=== PATIENT | female | born 1945 | race Caucasian/White ===

== ENCOUNTER → 2016-11-14 | Outpatient (CLI) | payer OTHER ==
[~2016-11-14] MED LIST: ASMIN INH; ATOR-24 PO; AZIT250T PO; CLON1TAB3 PO; DIPH-416 PO; DXY50 PO; FLUT0.0529 NAE; HYDR12.55 PO; IPRA1AER2 INH; LEVA1.255 INH; NRV/5 PO; OMEP40CA PO; OXGN; PRD10 PO; PRED20TA PO; TRAZ1TAB52 PO; VENL150T33 PO
--- NOTE | 2016-11-14 16:00 | DIAGNOSTIC IMAGING REPORT ---
FLUOROSCOPICALLY GUIDED RIGHT HIP STEROID AND ANESTHETIC INJECTION CLINICAL HISTORY: Right hip pain. Degenerative arthritis. COMPARISON STUDY: Outside conventional radiographic study dated 11/08/2016 FLUOROSCOPY TIME: 12 seconds. NUMBER OF FLUOROSCOPIC IMAGES: 1 FINDINGS: A timeout was performed. The risks of the procedure were explained the patient informed consent was obtained. The patient was prepped and sterile fashion. The skin was anesthetized 1% lidocaine. Under fluoroscopic guidance, 22-gauge spinal needle was introduced the joint capsule right hip. Intra-articular location was documented the IV injection of Optiray 300. 2 cc of betamethasone, 8 cc of 0.5% bupivacaine were instilled into the joint capsule. IMPRESSION: Successful right hip intra-articular injection. 2 cc of betamethasone, and 8 cc of 0.5% lidocaine were instilled into the joint. Electronically signed by: Rodriguez Garcia M.D. 11/14/2016 3:59 PM Dictated Date/Time: 11/14/2016 3:57 PM
== END | disposition home or self-care (01) ==
LOC: C.RADBC 13:44
PROVIDERS: ATTEND Orthopaedic Surgery
DX: M16.11 Unilateral primary osteoarthritis, right hip (principal)

== ENCOUNTER 2017-05-23 02:06 | Emergency (ER) | payer OTHER ==
[~2017-05-23] VITALS: Ht 171.5 cm; Wt 66.0 kg
[2017-05-23 02:10] VITALS: TEMP 36.3; Ht 171.5 cm; Wt 66.0 kg
[2017-05-23] MEDS ORDERED: ASPIRIN 81 MG CHEW PO STA (02:15)
[2017-05-23] MEDS ORDERED: PROMETHAZINE HCL INJ 12.5 MG in SODIUM CHLORIDE 0.9% 50ML 50 ML IV STA (02:33)
[2017-05-23] MEDS ORDERED: FENTANYL CITRATE INJ 50 MCG/1 ML 2 ML VIAL IV STA (02:34)
[2017-05-23] MEDS ORDERED: SODIUM CHLORIDE 0.9% 1000ML 1,000 ML IV STA (02:34)
[2017-05-23] MEDS ORDERED: SODIUM CHLORIDE 0.9% 250ML 250 ML IV STA (02:34)
[2017-05-23 02:44] LABS: BASO % 0.7 %; BASO ABS # 0.05 K/uL (0-0.2); EOS % 1.8 %; EOS ABS # 0.12 K/uL (0-0.5); HEMOGLOBIN 14.4 g/dL (12.0-16.0); IG# 0.01 K/uL (0.00-0.02); LYMPH % 29.1 %; LYMPH ABS # 1.99 K/uL (1.2-3.4); MEAN CELL VOLUME 86.7 fL (80-100); MEAN CORPUSCULAR HEMOGLOBIN 30.4 pg (25-34); MEAN CORPUSCULAR HGB CONC 35.1 g/dl (32-36); MEAN PLATELET VOLUME 10.4 fL (7.4-10.4); MONO ABS # 0.48 K/uL (0.11-0.59); NEUT % 61.3 %; PLATELET COUNT 219 K/uL (130-400); RED CELL DISTRIBUTION WIDTH CV 12.6 % (11.5-14.5); RED CELL DISTRIBUTION WIDTH SD 40.4 fL (36.4-46.3); WHITE BLOOD COUNT 6.85 K/uL (4.8-10.8)
[2017-05-23] MEDS ORDERED: OPTIRAY 320 IV PRN (02:45)
[2017-05-23 02:55] LABS: INR 0.9 (0.9-1.1); PTT PATIENT 20.8 SECONDS (21.0-31.0)
[2017-05-23 03:00] LABS: ALBUMIN 3.7 gm/dl (3.4-5.0); BLOOD UREA NITROGEN 14 mg/dl (7-18); CALCIUM 8.6 mg/dl (8.5-10.1); CARBON DIOXIDE 26 mmol/L (21-32); GLUCOSE 124 mg/dl (70-99); SODIUM 139 mmol/L (136-145)
[2017-05-23 03:03] LABS: ALT/SGPT 18 U/L (12-78); AST/SGOT 8 U/L (15-37); CREATININE 1.12 mg/dl (0.60-1.20)
[2017-05-23 03:06] LABS: ALKALINE PHOSPHATASE 90 U/L (45-117); CKMB 0.9 ng/ml (0.5-3.6); LIPASE 239 U/L (73-393); TOTAL PROTEIN 6.9 gm/dl (6.4-8.2)
--- NOTE | 2017-05-23 03:46 | EMERGENCY ROOM VISIT NOTE ---
History Report prepared by Duane: Barb Lemus Under the Supervision of: Dr. Pamela Thorne M.D. First contact with patient: 02:14 Chief Complaint: CHEST PAIN Stated Complaint: CHEST PAIN History of Present Illness The patient is a 72 year old female who presents to the Emergency Room with complaints of constant chest pain starting 3.5 hours ago. The patient describes it as a pain that radiates to her back and occasionally down her legs. She states that she forced herself to vomit in an attempt to make the pain go away, but reports that it did not work. She states that she started vomiting from the pain naturally on the way here. She currently rates the pain as a 10/10 in severity. The patient denies diarrhea, ever having this before, a cardiac history, and current steroid use. She notes that she had a drug induced stress test done 6-7 years ago. Source of History: patient Onset: 3.5 hours ago Position: chest Symptom Intensity: 10/10 Quality: other (radiating) Timing: constant Associated Symptoms: + vomiting, + back pain, No diarrhea Review of Systems See HPI for pertinent positives & negatives. A total of 10 systems reviewed and were otherwise negative. Past Medical & Surgical Medical Problems: (1) ARF (acute renal failure) (2) Chronic obstructive lung disease (3) COPD (chronic obstructive pulmonary disease) (4) Dyslipidemia (5) Essential hypertension (6) Gastroesophageal reflux disease (7) History of stress test (8) Migraine (9) Pneumonia (10) s/p hammer toe repair (11) s/p tubal ligation Family History Hypertension Social History Smoking Status: Never Smoker Alcohol Use: occasionally Drug Use: none Marital Status: Housing Status: lives with family Occupation Status: unemployed Current/Historical Medications Scheduled Amlodipine Besylate (Amlodipine Besylate), 5 MG PO DAILY Atorvastatin (Lipitor), 40 MG PO DAILY Bupropion Hcl (Bupropion Hcl Er), 300 MG PO DAILY Disulfiram (Disulfiram), 250 MG PO DAILY Hydrochlorothiazide (Hydrochlorothiazide), 12.5 MG PO DAILY Naltrexone HCl (Naltrexone HCl), 50 MG PO DAILY Omeprazole (Prilosec), 40 MG PO BID Trazodone Hcl (Desyrel), 300 MG PO HS Scheduled PRN Clonazepam (Klonopin), 1 MG PO TID PRN for Anxiety Diphenoxylate/Atropine (Lomotil), 2 TAB PO QID PRN for Diarrhea Allergies Coded Allergies: Levofloxacin (Unverified Adverse Reaction, Unknown, 09/20/14 - PATIENT STATES [employer]LTRY ADVISED HER NOT TO SEAN, 05/23/17) Physical Exam Vital Signs Date Time Temp Pulse Resp B/P (MAP) Pulse Ox O2 Delivery O2 Flow Rate FiO2 05/23/17 06:32 60 05/23/17 06:28 73 20 103/66 92 Room Air 05/23/17 05:00 54 16 109/63 95 05/23/17 04:31 60 16 122/68 93 Room Air 05/23/17 03:10 46 16 154/77 96 Room Air 05/23/17 02:24 56 05/23/17 02:22 Room Air 05/23/17 02:10 36.3 59 18 129/73 97 Room Air Physical Exam Vital signs reviewed. General: Well-appearing, holding her chest, anxious, in no significant distress. HEENT: No scleral icterus, PERRLA, neck supple. Atraumatic. Cardiovascular: Regular rate and rhythm, no extra sounds. Pulmonary: Clear to auscultation bilaterally, normal work of breathing. Abdomen: Soft, nontender, nondistended, positive bowel sounds. Musculoskeletal: Atraumatic, no peripheral edema. Neurologic: Patient awake alert and oriented x 3, full strength in all 4 extremities. Cranial nerves 2 through 12 grossly intact. Skin: Warm, dry, no rash Medical Decision & Procedures ER Provider Diagnostic Interpretation: Radiology results as stated below per my review and radiologist interpretation: CHEST X-RAY: The results were interpreted by me. Normal mediastinal silhouette. No focal lung consolidation. No failure. CTA CHEST: There is a noncontrast examination form March 2015 for comparison. No aneurysm or dissection of the aorta. Cardiomegaly. Improved aeration compared to the previous. Suspected atelectasis on current. Distention of the gallbladder with suspected wall thickening. Correlate for cholecystitis. consider ultrasound, as indicated. Left renal cyst. Suspect this is a benign cyst though density is difficult to accurately measure given some artifact on the study. Does measure higher than simple cyst but his could be artifactual. Calcified along with tiny noncalcified lung nodules, liver cyst, thyroid nodules and other nonemergent/incidental findings. Radiologist: Luis Avelar MD Study ready at 03:34 and initial results transmitted at 05:04. GALLBLADDER-ABD LIMITED HISTORY: 72 years-old Female cholecystitis acute epigastric abdominal pain with nausea COMPARISON: CTA of the chest of same day TECHNIQUE: Multiple real-time sonographic images of the abdominal right upper quadrant were obtained assessing grayscale appearance and color flow FINDINGS: Study is limited secondary to obscuring bowel gas. The pancreas appears unremarkable with distal body and tail secured by bowel gas. There is nonspecific mildly increased echogenicity of the liver which is otherwise unremarkable. No intrahepatic biliary ductal dilation or focal hepatic mass lesion identified. The gallbladder is mildly distended with the wall measuring in the upper limits of normal at 2.8 mm. There is trace pericholecystic fluid and layering gallbladder sludge without shadowing cholelithiasis identified. Sonographic Calhoun sign was unable to be obtained secondary to recent pain medication administration to the patient. The common bile duct is upper limits of normal at 7 mm. No obstructing process of the common bile duct identified. The imaged right kidney is unremarkable without hydronephrosis IMPRESSION: 1. Gallbladder sludge with gallbladder distention and pericholecystic fluid is noted in addition to the gallbladder wall measuring in the upper limits of normal. Correlate clinically to exclude acute acalculus cholecystitis. 2. Common bile duct measures in the upper limits of normal at 7 mm. No choledocholithiasis identified on this study. The above report was generated using voice recognition software. It may contain grammatical, syntax or spelling errors. Electronically signed by: Reggie Hwang M.D. 05/23/2017 6:56 AM Dictated Date/Time: 05/23/2017 6:52 AM Laboratory Results 05/23/17 02:34 Red Blood Count 4.73, Mean Corpuscular Volume 86.7, Mean Corpuscular Hemoglobin 30.4, Mean Corpuscular Hemoglobin Concent 35.1, Mean Platelet Volume 10.4, Neutrophils (%) (Auto) 61.3, Lymphocytes (%) (Auto) 29.1, Monocytes (%) (Auto) 7.0, Eosinophils (%) (Auto) 1.8, Basophils (%) (Auto) 0.7, Neutrophils # (Auto) 4.20, Lymphocytes # (Auto) 1.99, Monocytes # (Auto) 0.48, Eosinophils # (Auto) 0.12, Basophils # (Auto) 0.05 05/23/17 02:34 Test 05/23/17 02:34 05/23/17 05:09 White Blood Count 6.85 K/uL (4.8-10.8) Red Blood Count 4.73 M/uL (4.2-5.4) Hemoglobin 14.4 g/dL (12.0-16.0) Hematocrit 41.0 % (37-47) Mean Corpuscular Volume 86.7 fL (80-100) Mean Corpuscular Hemoglobin 30.4 pg (25-34) Mean Corpuscular Hemoglobin Concent 35.1 g/dl (32-36) Platelet Count 219 K/uL (130-400) Mean Platelet Volume 10.4 fL (7.4-10.4) Neutrophils (%) (Auto) 61.3 % Lymphocytes (%) (Auto) 29.1 % Monocytes (%) (Auto) 7.0 % Eosinophils (%) (Auto) 1.8 % Basophils (%) (Auto) 0.7 % Neutrophils # (Auto) 4.20 K/uL (1.4-6.5) Lymphocytes # (Auto) 1.99 K/uL (1.2-3.4) Monocytes # (Auto) 0.48 K/uL (0.11-0.59) Eosinophils # (Auto) 0.12 K/uL (0-0.5) Basophils # (Auto) 0.05 K/uL (0-0.2) RDW Standard Deviation 40.4 fL (36.4-46.3) RDW Coefficient of Variation 12.6 % (11.5-14.5) Immature Granulocyte % (Auto) 0.1 % Immature Granulocyte # (Auto) 0.01 K/uL (0.00-0.02) Prothrombin Time 9.8 SECONDS (9.0-12.0) Prothromb Time International Ratio 0.9 (0.9-1.1) Activated Partial Thromboplast Time 20.8 SECONDS (21.0-31.0) Partial Thromboplastin Ratio 0.8 Anion Gap 9.0 mmol/L (3-11) Est Creatinine Clear Calc Drug Dose 46.3 ml/min Estimated GFR () 57.6 Estimated GFR (Non- 49.7 BUN/Creatinine Ratio 12.5 (10-20) Calcium Level 8.6 mg/dl (8.5-10.1) Total Bilirubin 0.3 mg/dl (0.2-1) Direct Bilirubin < 0.1 mg/dl (0-0.2) Aspartate Amino Transf (AST/SGOT) 8 U/L (15-37) Alanine Aminotransferase (ALT/SGPT) 18 U/L (12-78) Alkaline Phosphatase 90 U/L (45-117) Total Creatine Kinase 60 U/L (26-192) Creatine Kinase MB 0.9 ng/ml (0.5-3.6) Creatine Kinase MB Ratio 1.5 (0-3.0) Total Protein 6.9 gm/dl (6.4-8.2) Albumin 3.7 gm/dl (3.4-5.0) Lipase 239 U/L (73-393) Bedside Troponin I < 0.030 ng/ml (0-0.045) Laboratory results per my review. Medications Administered Medications (Trade) Dose Ordered Sig/Desirae Route Start Time Stop Time Status Last Admin Dose Admin Aspirin (Aspirin Chew) 324 mg NOW STAT PO 05/23/17 02:15 05/23/17 02:18 DC 05/23/17 02:52 324 MG Promethazine HCl 12.5 mg/Sodium Chloride 50.5 ml @ 204 mls/hr NOW STAT IV 05/23/17 02:33 05/23/17 02:47 DC 05/23/17 02:47 204 MLS/HR Fentanyl Citrate (Fentanyl Inj) 50 mcg NOW STAT IV 05/23/17 02:34 05/23/17 02:36 DC 05/23/17 02:47 50 MCG Sodium Chloride 250 ml @ 999 mls/hr Q16M STAT IV 05/23/17 02:34 05/23/17 02:49 DC 05/23/17 02:48 999 MLS/HR Sodium Chloride 1,000 ml @ 125 mls/hr Q8H STAT IV 05/23/17 02:34 05/23/17 10:33 05/23/17 02:56 125 MLS/HR ECG Indication: chest pain Rate (beats per minute): 55 Rhythm: sinus bradycardia Findings: nonspecific-ST abn (Anterior), PVC, no acute ischemic change, other ( poor quality baseline for interpretation, QT-c 497) ED Course 0215: Ordered Aspirin 324 mg PO. 0230: Past medical records reviewed. The patient was evaluated in room B9. A complete history and physical examination was performed. 0233: Ordered Promethazine HCl 12.5 mg/ Sodium Chloride 50.5 ml @ 204 mls/hr IV. 0234: Ordered NSS 1000 ml @ 125 mls/hr IV, NSS 250 ml @ 999 mls/hr IV, Fentanyl Inj 50 mcg IV. 0411: I reevaluated the patient and she is doing well. Medical Decision Differential diagnosis: Acute coronary syndrome, pulmonary embolus, aortic dissection, musculoskeletal pain, pneumonia, pleural effusion, pneumothorax This patient was evaluated and appeared to be in significant discomfort. IV access was obtained and laboratory work was drawn. The patient was vomiting. Patient was hydrated with normal saline solution. She was given IV Zofran for her nausea. She was ordered oral aspirin to chew given her complaints of chest pain. EKG reveals no evidence of acute ST segment elevation. Chest x-ray was performed and reveals no evidence of acute focal lung consolidation or failure. The mediastinum appears to be normal. CT scan for dissection was ordered. This study is also negative. There is concern over an acute cholecystitis. This does seem to be an odd presentation of the patient is complaining of a substernal to left upper chest discomfort however she is nauseated and has vomited. The patient's laboratory work reveals normal white blood cell count. She has normal cardiac enzymes 2. There is no elevation of the liver function studies. Ultrasound of the right upper quadrant confirms findings concerning for an acute cholecystitis. On my reevaluation, the patient is feeling much improved. She was advised of the plan for surgical consultation. She is concerned about caring for her elderly father and will need to make arrangements if possible. 2 g of IV Mefoxin was ordered. Dr. Schwarz's service was consulted. They will evaluate the patient in the emergency department. She is aware of this plan and agrees. Medication Reconcilliation Current Medication List: was personally reviewed by me Blood Pressure Screening Patient's blood pressure: Elevated blood pressure Blood pressure disposition: Elevated BP felt to be situational Impression Primary Impression: Cholecystitis Scribe Attestation The scribe's documentation has been prepared under my direction and personally reviewed by me in its entirety. I confirm that the note above accurately reflects all work, treatment, procedures, and medical decision making performed by me. Departure Information Referrals Williams Mota M.D. (PCP) Patient Instructions My [facility]
[2017-05-23] MEDS ORDERED: DISU1TAB PO (04:13)
[2017-05-23] MEDS ORDERED: NALT50TA16 PO (04:13)
[2017-05-23] MEDS ORDERED: BUPR-267 PO (04:13)
[2017-05-23] MEDS ORDERED: OMEP40CA41 PO (04:14)
--- NOTE | 2017-05-23 06:56 | DIAGNOSTIC IMAGING REPORT ---
CHEST ONE VIEW PORTABLE CLINICAL HISTORY: Chest pain. COMPARISON STUDY: Chest CT March 12, 2015. FINDINGS: Lung volumes are at the lower limits of normal. No pneumothorax or pleural effusion is present. No consolidation to suggest pneumonia. Cardiomediastinal silhouette is stable. There is no evidence for pulmonary edema. IMPRESSION: No acute cardiopulmonary findings. Electronically signed by: Oswald Francis M.D. 05/23/2017 6:55 AM Dictated Date/Time: 05/23/2017 6:54 AM
--- NOTE | 2017-05-23 06:57 | DIAGNOSTIC IMAGING REPORT ---
GALLBLADDER-ABD LIMITED HISTORY: 72 years-old Female cholecystitis acute epigastric abdominal pain with nausea COMPARISON: CTA of the chest of same day TECHNIQUE: Multiple real-time sonographic images of the abdominal right upper quadrant were obtained assessing grayscale appearance and color flow FINDINGS: Study is limited secondary to obscuring bowel gas. The pancreas appears unremarkable with distal body and tail secured by bowel gas. There is nonspecific mildly increased echogenicity of the liver which is otherwise unremarkable. No intrahepatic biliary ductal dilation or focal hepatic mass lesion identified. The gallbladder is mildly distended with the wall measuring in the upper limits of normal at 2.8 mm. There is trace pericholecystic fluid and layering gallbladder sludge without shadowing cholelithiasis identified. Sonographic Calhoun sign was unable to be obtained secondary to recent pain medication administration to the patient. The common bile duct is upper limits of normal at 7 mm. No obstructing process of the common bile duct identified. The imaged right kidney is unremarkable without hydronephrosis IMPRESSION: 1. Gallbladder sludge with gallbladder distention and pericholecystic fluid is noted in addition to the gallbladder wall measuring in the upper limits of normal. Correlate clinically to exclude acute acalculus cholecystitis. 2. Common bile duct measures in the upper limits of normal at 7 mm. No choledocholithiasis identified on this study. The above report was generated using voice recognition software. It may contain grammatical, syntax or spelling errors. Electronically signed by: Reggie Hwang M.D. 05/23/2017 6:56 AM Dictated Date/Time: 05/23/2017 6:52 AM
[2017-05-23] MEDS ORDERED: CEFOXITIN 2000MG/60 ML D5W IV STA (07:23)
[2017-05-23] MEDS ORDERED: CEFOXITIN IV 2,000 MG in DEXTROSE 5% 50ML 50 ML IV SCH (07:23)
--- NOTE | 2017-05-23 07:37 | DIAGNOSTIC IMAGING REPORT ---
CHEST CTA for AORTIC DISSECTION CT DOSE: 523.41 mGy.cm HISTORY: Chest pain into back. Assess for dissection. TECHNIQUE: Multiaxial CT images of the chest were performed both before and after the intravenous administration of contrast to evaluate the aorta. Maximal intensity projection images were also obtained. A dose lowering technique was utilized adhering to the principles of ALARA. COMPARISON STUDY: Chest CT 03/12/2015. FINDINGS: There are multiple right thyroid nodules with the largest measuring 2.1 cm. Normal caliber thoracic aorta with no evidence for dissection. The main and lobar pulmonary arteries appear patent. The heart is borderline enlarged. No pleural or pericardial effusions. There is a 1.2 cm cyst within the right hepatic lobe. The spleen and adrenal glands are unremarkable. The gallbladder is mildly distended with mild gallbladder wall thickening. A few subcentimeter mediastinal lymph nodes do not meet CT criteria for pathologic involvement. No hilar lymphadenopathy. No acute fractures within the visualized osseous structures. The central airways are patent. No pneumothorax. Mild emphysema. Calcified granulomas within the right lower lobe. A 1.4 cm hypodense lesion within the left kidney. This favors a cyst but is difficult to characterize on this single phase study. No focal lung consolidations to suggest pneumonia. A few tiny scattered nodules remain stable. These are likely benign. IMPRESSION: 1. No evidence for an aortic dissection. 2. Mildly distended gallbladder demonstrating a slightly thickened wall. Clinical correlation recommended to assess for acute cholecystitis. 3. Additional chronic findings as described above. Electronically signed by: Fabian Gilbert M.D. 05/23/2017 7:35 AM Dictated Date/Time: 05/23/2017 7:25 AM
[2017-05-23] MEDS ORDERED: CEPHALEXIN MONOHYDRATE 250 MG CAP PO STA (08:06)
[2017-05-23] MEDS ORDERED: CEPH500C PO (08:11)
--- NOTE | 2017-05-23 08:14 | EMERGENCY ROOM VISIT NOTE ---
ED Visit Note Received patient in signout from Dr. Thorne. Patient was evaluated by surgery. The patient is nontender at this point and is reluctant to have surgery performed. She does not have a white blood cell count and is afebrile and wishes to be discharged. Because the patient is allergic to Levaquin I will place her on Keflex. She is going to follow-up with surgery as an outpatient. I stressed the need to return to the emergency department if symptoms worsen or the patient develops fevers. Problem List Medical Problems: (1) ARF (acute renal failure) Status: Resolved (2) Chronic obstructive lung disease Status: Chronic (3) COPD (chronic obstructive pulmonary disease) Status: Chronic (4) Dyslipidemia Status: Chronic (5) Essential hypertension Status: Chronic (6) Gastroesophageal reflux disease Status: Chronic (7) Migraine Status: Chronic (8) Pneumonia Status: Resolved (9) s/p hammer toe repair Status: Resolved (10) s/p tubal ligation Status: Resolved Current/Historical Medications Scheduled Amlodipine Besylate (Amlodipine Besylate), 5 MG PO DAILY Atorvastatin (Lipitor), 40 MG PO DAILY Bupropion Hcl (Bupropion Hcl Er), 300 MG PO DAILY Cephalexin Monohydrate (Keflex), 1 CAP PO QID Disulfiram (Disulfiram), 250 MG PO DAILY Hydrochlorothiazide (Hydrochlorothiazide), 12.5 MG PO DAILY Naltrexone HCl (Naltrexone HCl), 50 MG PO DAILY Omeprazole (Prilosec), 40 MG PO BID Trazodone Hcl (Desyrel), 300 MG PO HS Scheduled PRN Clonazepam (Klonopin), 1 MG PO TID PRN for Anxiety Diphenoxylate/Atropine (Lomotil), 2 TAB PO QID PRN for Diarrhea Allergies Coded Allergies: Levofloxacin (Unverified Adverse Reaction, Unknown, 09/20/14 - PATIENT STATES [employer]ER ADVISED HER NOT TO SEAN, 05/23/17) Vital Signs Date Time Temp Pulse Resp B/P (MAP) Pulse Ox O2 Delivery O2 Flow Rate FiO2 05/23/17 06:32 60 05/23/17 06:28 73 20 103/66 92 Room Air 05/23/17 05:00 54 16 109/63 95 05/23/17 04:31 60 16 122/68 93 Room Air 05/23/17 03:10 46 16 154/77 96 Room Air 05/23/17 02:24 56 05/23/17 02:22 Room Air 05/23/17 02:10 36.3 59 18 129/73 97 Room Air Laboratory Results 05/23/17 02:34 Red Blood Count 4.73, Mean Corpuscular Volume 86.7, Mean Corpuscular Hemoglobin 30.4, Mean Corpuscular Hemoglobin Concent 35.1, Mean Platelet Volume 10.4, Neutrophils (%) (Auto) 61.3, Lymphocytes (%) (Auto) 29.1, Monocytes (%) (Auto) 7.0, Eosinophils (%) (Auto) 1.8, Basophils (%) (Auto) 0.7, Neutrophils # (Auto) 4.20, Lymphocytes # (Auto) 1.99, Monocytes # (Auto) 0.48, Eosinophils # (Auto) 0.12, Basophils # (Auto) 0.05 05/23/17 02:34 Test 05/23/17 02:34 05/23/17 05:09 White Blood Count 6.85 K/uL (4.8-10.8) Red Blood Count 4.73 M/uL (4.2-5.4) Hemoglobin 14.4 g/dL (12.0-16.0) Hematocrit 41.0 % (37-47) Mean Corpuscular Volume 86.7 fL (80-100) Mean Corpuscular Hemoglobin 30.4 pg (25-34) Mean Corpuscular Hemoglobin Concent 35.1 g/dl (32-36) Platelet Count 219 K/uL (130-400) Mean Platelet Volume 10.4 fL (7.4-10.4) Neutrophils (%) (Auto) 61.3 % Lymphocytes (%) (Auto) 29.1 % Monocytes (%) (Auto) 7.0 % Eosinophils (%) (Auto) 1.8 % Basophils (%) (Auto) 0.7 % Neutrophils # (Auto) 4.20 K/uL (1.4-6.5) Lymphocytes # (Auto) 1.99 K/uL (1.2-3.4) Monocytes # (Auto) 0.48 K/uL (0.11-0.59) Eosinophils # (Auto) 0.12 K/uL (0-0.5) Basophils # (Auto) 0.05 K/uL (0-0.2) RDW Standard Deviation 40.4 fL (36.4-46.3) RDW Coefficient of Variation 12.6 % (11.5-14.5) Immature Granulocyte % (Auto) 0.1 % Immature Granulocyte # (Auto) 0.01 K/uL (0.00-0.02) Prothrombin Time 9.8 SECONDS (9.0-12.0) Prothromb Time International Ratio 0.9 (0.9-1.1) Activated Partial Thromboplast Time 20.8 SECONDS (21.0-31.0) Partial Thromboplastin Ratio 0.8 Anion Gap 9.0 mmol/L (3-11) Est Creatinine Clear Calc Drug Dose 46.3 ml/min Estimated GFR () 57.6 Estimated GFR (Non- 49.7 BUN/Creatinine Ratio 12.5 (10-20) Calcium Level 8.6 mg/dl (8.5-10.1) Total Bilirubin 0.3 mg/dl (0.2-1) Direct Bilirubin < 0.1 mg/dl (0-0.2) Aspartate Amino Transf (AST/SGOT) 8 U/L (15-37) Alanine Aminotransferase (ALT/SGPT) 18 U/L (12-78) Alkaline Phosphatase 90 U/L (45-117) Total Creatine Kinase 60 U/L (26-192) Creatine Kinase MB 0.9 ng/ml (0.5-3.6) Creatine Kinase MB Ratio 1.5 (0-3.0) Total Protein 6.9 gm/dl (6.4-8.2) Albumin 3.7 gm/dl (3.4-5.0) Lipase 239 U/L (73-393) Bedside Troponin I < 0.030 ng/ml (0-0.045) Medications Administered Medications (Trade) Dose Ordered Sig/Desirae Route Start Time Stop Time Status Last Admin Dose Admin Aspirin (Aspirin Chew) 324 mg NOW STAT PO 05/23/17 02:15 05/23/17 02:18 DC 05/23/17 02:52 324 MG Promethazine HCl 12.5 mg/Sodium Chloride 50.5 ml @ 204 mls/hr NOW STAT IV 05/23/17 02:33 05/23/17 02:47 DC 05/23/17 02:47 204 MLS/HR Fentanyl Citrate (Fentanyl Inj) 50 mcg NOW STAT IV 05/23/17 02:34 05/23/17 02:36 DC 05/23/17 02:47 50 MCG Sodium Chloride 250 ml @ 999 mls/hr Q16M STAT IV 05/23/17 02:34 05/23/17 02:49 DC 05/23/17 02:48 999 MLS/HR Sodium Chloride 1,000 ml @ 125 mls/hr Q8H STAT IV 05/23/17 02:34 05/23/17 10:33 05/23/17 02:56 125 MLS/HR Departure Information Impression Primary Impression: Cholecystitis Dispostion Home / Self-Care Condition OTHER Prescriptions Cephalexin Monohydrate (Keflex) 500 Mg Cap 1 CAP PO QID for 10 Days, #40 CAP Prov: Issac Roger MD 05/23/17 Referrals Williams Mota M.D. (PCP) Dhruv Schwarz MD Forms Call Back Authorization, HOME CARE DOCUMENTATION FORM, School Instructions, Work Instructions, IMPORTANT VISIT INFORMATION Patient Instructions My [facility] Additional Instructions Follow up with Dr Schwarz's office Return if symptoms return or you develop high fevers
--- NOTE | 2017-05-23 08:22 | Surgery Consultation ---
Consultation Date of Consultation: May 23, 2017. Attending Physician: Dr. Schwarz Reason for Consultation: Substernal abdominal pain with radiation to back, acute acalculous cholecystitis History of Present Illness Vangie is a pleasant 72 year-old female who presented to emergency department last evening with complaint of sudden substernal chest pain with radiation to the back with associated nausea and vomiting. She states the pain was severe rating 10/10. She had a few episodes of vomiting on her way to the hospital. Has never had pain like this before. Had sausage and pancakes for dinner last evening. 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 Smoking history 3 ppd but quit 19 years ago. No acute heart problems. Had a drug induced stress test about 6-7 years ago. ER work up showed no evidence of aortic dissection on CT scan however there was distended gallbladder with pericholecystic fluid and wall thickening. US showed distended gallbladder with upper limits of normal wall thickening and pericholecystic fluid. Sludge present in gallbladder but no discrete stones. Labs show no leukocytosis. LFTS and total bilirubin within normal limits. Troponin x 2 wnl. Since being in the ER she is feeling fine. Pain medication has controlled her pain. Denies of any further nausea or vomiting. Past Medical/Surgical History Past Medical History: (1) ARF (acute renal failure) (2) Dyslipidemia (3) Essential hypertension (4) Gastroesophageal reflux disease (5) Migraine (6) Pneumonia Past Surgical History: s/p hammer toe repair s/p tubal ligation Family History Hypertension Social History Smoking Status: Former Smoker Drug Use: none Marital Status: Housing Status: lives with family Occupation Status: unemployed Allergies Coded Allergies: Levofloxacin (Unverified Adverse Reaction, Unknown, 09/20/14 - PATIENT STATES SOLAR CONSULTANT ADVISED HER NOT TO SEAN, 05/23/17) Home Medications Scheduled Amlodipine Besylate (Amlodipine Besylate), 5 MG PO DAILY Atorvastatin (Lipitor), 40 MG PO DAILY Bupropion Hcl (Bupropion Hcl Er), 300 MG PO DAILY Cephalexin Monohydrate (Keflex), 1 CAP PO QID Disulfiram (Disulfiram), 250 MG PO DAILY Hydrochlorothiazide (Hydrochlorothiazide), 12.5 MG PO DAILY Naltrexone HCl (Naltrexone HCl), 50 MG PO DAILY Omeprazole (Prilosec), 40 MG PO BID Trazodone Hcl (Desyrel), 300 MG PO HS Scheduled PRN Clonazepam (Klonopin), 1 MG PO TID PRN for Anxiety Diphenoxylate/Atropine (Lomotil), 2 TAB PO QID PRN for Diarrhea Current Inpatient Medications Current Inpatient Medications Medications (Trade) Dose Ordered Sig/Desirae Route Start Time Stop Time Status Last Admin Dose Admin Sodium Chloride 1,000 ml @ 125 mls/hr Q8H STAT IV 05/23/17 02:34 05/23/17 10:33 05/23/17 02:56 125 MLS/HR Ioversol (Optiray 320) 100 ml UD PRN IV 05/23/17 02:45 05/27/17 02:44 Cefoxitin Sodium 2000 mg/Dextrose 60 ml @ 120 mls/hr TODAY@0723 IV 05/23/17 07:23 05/23/17 08:15 Review of Systems Constitutional: No fever, No chills, No sweats Respiratory: No cough Cardiovascular: + chest pain (substernal) Abdomen: + pain, + nausea, + vomiting Physical Exam Date Time Temp Pulse Resp B/P (MAP) Pulse Ox O2 Delivery O2 Flow Rate FiO2 05/23/17 06:32 60 05/23/17 06:28 73 20 103/66 92 Room Air 05/23/17 05:00 54 16 109/63 95 05/23/17 04:31 60 16 122/68 93 Room Air 05/23/17 03:10 46 16 154/77 96 Room Air 05/23/17 02:24 56 05/23/17 02:22 Room Air 05/23/17 02:10 36.3 59 18 129/73 97 Room Air General Appearance: WD/WN, no apparent distress Head: normocephalic, atraumatic ENT: hearing grossly normal Neck: trachea midline Respiratory/Chest: lungs clear, normal breath sounds, no respiratory distress, no accessory muscle use Cardiovascular: regular rate, rhythm, no murmur Abdomen/GI: non tender, soft, no organomegaly, no pulsatile mass Neurologic/Psych: alert, normal mood/affect, oriented x 3 Skin: normal color, warm/dry, no rash Laboratory Results Last 24 Hours Test 05/23/17 02:34 05/23/17 02:39 05/23/17 05:09 White Blood Count 6.85 K/uL Red Blood Count 4.73 M/uL Hemoglobin 14.4 g/dL Hematocrit 41.0 % Mean Corpuscular Volume 86.7 fL Mean Corpuscular Hemoglobin 30.4 pg Mean Corpuscular Hemoglobin Concent 35.1 g/dl Platelet Count 219 K/uL Mean Platelet Volume 10.4 fL Neutrophils (%) (Auto) 61.3 % Lymphocytes (%) (Auto) 29.1 % Monocytes (%) (Auto) 7.0 % Eosinophils (%) (Auto) 1.8 % Basophils (%) (Auto) 0.7 % Neutrophils # (Auto) 4.20 K/uL Lymphocytes # (Auto) 1.99 K/uL Monocytes # (Auto) 0.48 K/uL Eosinophils # (Auto) 0.12 K/uL Basophils # (Auto) 0.05 K/uL RDW Standard Deviation 40.4 fL RDW Coefficient of Variation 12.6 % Immature Granulocyte % (Auto) 0.1 % Immature Granulocyte # (Auto) 0.01 K/uL Prothrombin Time 9.8 SECONDS Prothromb Time International Ratio 0.9 Activated Partial Thromboplast Time 20.8 SECONDS Partial Thromboplastin Ratio 0.8 Sodium Level 139 mmol/L Potassium Level 3.0 mmol/L Chloride Level 104 mmol/L Carbon Dioxide Level 26 mmol/L Anion Gap 9.0 mmol/L Blood Urea Nitrogen 14 mg/dl Creatinine 1.12 mg/dl Est Creatinine Clear Calc Drug Dose 46.3 ml/min Estimated GFR () 57.6 Estimated GFR (Non- 49.7 BUN/Creatinine Ratio 12.5 Random Glucose 124 mg/dl Calcium Level 8.6 mg/dl Total Bilirubin 0.3 mg/dl Direct Bilirubin < 0.1 mg/dl Aspartate Amino Transf (AST/SGOT) 8 U/L Alanine Aminotransferase (ALT/SGPT) 18 U/L Alkaline Phosphatase 90 U/L Total Creatine Kinase 60 U/L Creatine Kinase MB 0.9 ng/ml Creatine Kinase MB Ratio 1.5 Total Protein 6.9 gm/dl Albumin 3.7 gm/dl Lipase 239 U/L Bedside Troponin I < 0.030 ng/ml < 0.030 ng/ml CHEST CTA for AORTIC DISSECTION CT DOSE: 523.41 mGy.cm HISTORY: Chest pain into back. Assess for dissection. TECHNIQUE: Multiaxial CT images of the chest were performed both before and after the intravenous administration of contrast to evaluate the aorta. Maximal intensity projection images were also obtained. A dose lowering technique was utilized adhering to the principles of ALARA. COMPARISON STUDY: Chest CT 03/12/2015. FINDINGS: There are multiple right thyroid nodules with the largest measuring 2.1 cm. Normal caliber thoracic aorta with no evidence for dissection. The main and lobar pulmonary arteries appear patent. The heart is borderline enlarged. No pleural or pericardial effusions. There is a 1.2 cm cyst within the right hepatic lobe. The spleen and adrenal glands are unremarkable. The gallbladder is mildly distended with mild gallbladder wall thickening. A few subcentimeter mediastinal lymph nodes do not meet CT criteria for pathologic involvement. No hilar lymphadenopathy. No acute fractures within the visualized osseous structures. The central airways are patent. No pneumothorax. Mild emphysema. Calcified granulomas within the right lower lobe. A 1.4 cm hypodense lesion within the left kidney. This favors a cyst but is difficult to characterize on this single phase study. No focal lung consolidations to suggest pneumonia. A few tiny scattered nodules remain stable. These are likely benign. IMPRESSION: 1. No evidence for an aortic dissection. 2. Mildly distended gallbladder demonstrating a slightly thickened wall. Clinical correlation recommended to assess for acute cholecystitis. 3. Additional chronic findings as described above. GALLBLADDER-ABD LIMITED HISTORY: 72 years-old Female cholecystitis acute epigastric abdominal pain with nausea COMPARISON: CTA of the chest of same day TECHNIQUE: Multiple real-time sonographic images of the abdominal right upper quadrant were obtained assessing grayscale appearance and color flow FINDINGS: Study is limited secondary to obscuring bowel gas. The pancreas appears unremarkable with distal body and tail secured by bowel gas. There is nonspecific mildly increased echogenicity of the liver which is otherwise unremarkable. No intrahepatic biliary ductal dilation or focal hepatic mass lesion identified. The gallbladder is mildly distended with the wall measuring in the upper limits of normal at 2.8 mm. There is trace pericholecystic fluid and layering gallbladder sludge without shadowing cholelithiasis identified. Sonographic Calhoun sign was unable to be obtained secondary to recent pain medication administration to the patient. The common bile duct is upper limits of normal at 7 mm. No obstructing process of the common bile duct identified. The imaged right kidney is unremarkable without hydronephrosis IMPRESSION: 1. Gallbladder sludge with gallbladder distention and pericholecystic fluid is noted in addition to the gallbladder wall measuring in the upper limits of normal. Correlate clinically to exclude acute acalculus cholecystitis. 2. Common bile duct measures in the upper limits of normal at 7 mm. No choledocholithiasis identified on this study. Assessment & Plan 72 year-old female who presented to emergency department with sudden substernal chest pain with associated nausea and vomiting. No history of gallbladder disease. Imaging showed evidence of acute acalculous cholecystitis however no leukocytosis, afebrile, and pain has resolved in the emergency department. Abdomen soft, nontender, nondistended, no rigidity or guarding. LFTS and total bilirubin within normal limits. 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 Given patient has no active pain, no leukocytosis, and afebrile patient may be discharged home with 5 day course of Keflex (Given allergy to Levofloxacin) and advised to avoid fatty/greasy foods. She is to return to emergency department if her pain returns which would warrant cholecystectomy. She may follow up with DR. Schwarz in Surgery office in 1-2 weeks. Please call [phone] to set up appointment Thank you for consultation and involving us in the care of this patient. Saw patient with Dr. Schwarz who agrees with above.
[2017-05-23 08:57] VITALS: BP 102/66; PULSE 68; O2SAT 92
== END 2017-05-23 08:58 | disposition home or self-care (01) ==
LOC: C.EDB 02:07
DX: K81.0 Acute cholecystitis (principal); R11.10 Vomiting, unspecified; J44.9 Chronic obstructive pulmonary disease, unspecified; I10 Essential (primary) hypertension; E78.5 Hyperlipidemia, unspecified; K21.9 Gastro-esophageal reflux disease without esophagitis; Z88.1 Allergy status to other antibiotic agents; Z82.49 Family history of ischemic heart disease and other diseases of the circulatory system

== ENCOUNTER 2017-06-29 18:27 | Emergency (ER) | payer OTHER ==
[~2017-06-29] VITALS: Ht 170.2 cm; Wt 65.0 kg
[~2017-06-29 18:27] MED LIST changes: -ASMIN INH; -AZIT250T PO; +BUPR-267 PO; +DISU1TAB PO; -DXY50 PO; -FLUT0.0529 NAE; +IBUP-1050 PO; -IPRA1AER2 INH; -LEVA1.255 INH; +NALT50TA16 PO; -OMEP40CA PO; +OMEP40CA41 PO; -PRD10 PO; -PRED20TA PO; -VENL150T33 PO; +[UNRECOGNIZED DRUG - CODE] PO
[2017-06-29 18:28] VITALS: TEMP 36.7; Ht 170.2 cm; Wt 65.0 kg
[2017-06-29] MEDS ORDERED: ACETAMINOPHEN 500 MG TAB PO STA (18:52)
--- NOTE | 2017-06-29 19:29 | DIAGNOSTIC IMAGING REPORT ---
R RIBS UNILATERAL WITH PA CHEST CLINICAL HISTORY: 72 years-old Female presenting with fall, right shoulder and rib pain. TECHNIQUE: Frontal and oblique views of the right ribs as well as PA view of the chest were obtained. COMPARISON: CT from 05/23/2017. FINDINGS: Old fractures of the lateral right ninth and 10th ribs as seen on prior CT. No displaced acute rib fracture. Degenerative changes of the spine. Mild degenerative changes of the right glenohumeral joint. Atherosclerosis of the aortic arch. Cardiac silhouette normal in size. Lungs and pleural spaces clear. Upper abdomen normal. IMPRESSION: 1. No displaced right rib fracture. 2. Old fracture deformities of the right ninth and 10th ribs. 3. No acute cardiopulmonary disease. Electronically signed by: José Antonio Field M.D. 06/29/2017 7:28 PM Dictated Date/Time: 06/29/2017 7:25 PM
--- NOTE | 2017-06-29 19:30 | DIAGNOSTIC IMAGING REPORT ---
R SHOULDER MIN 2 VIEWS ROUTINE CLINICAL HISTORY: 72 years-old Female presenting with fall; R shoulder and rib pain. TECHNIQUE: Internal rotation, external rotation, and Grashey views of the right shoulder were obtained. COMPARISON: Chest x-ray from 05/23/2017. FINDINGS: Mild osteophytosis noted at the glenohumeral joint. The glenohumeral and acromioclavicular joints are congruent. No acute fracture or malalignment. No subluxation or deformity of the humeral head. Visualized portion of the right hemithorax normal. IMPRESSION: 1. No acute osseous injury. 2. Degenerative changes of the right glenohumeral joint. Electronically signed by: José Antonio Field M.D. 06/29/2017 7:29 PM Dictated Date/Time: 06/29/2017 7:28 PM
[2017-06-29 20:07] VITALS: BP 128/78; PULSE 78; O2SAT 98
--- NOTE | 2017-06-29 21:06 | EMERGENCY ROOM VISIT NOTE ---
ED Visit Note First contact with patient: 18:41 I have personally evaluated and examined this patient. I agree with assessment and plan of Ruiz Beasley PA-C. Very pleasant 72 yr old female with fall on right ribs. No acute fractures though old ones noted. She denies headache and does not have evidence of ICH. I think it reasonable to hold off on CT Head at this time. Stable and looks well.
--- NOTE | 2017-06-30 00:57 | EMERGENCY ROOM VISIT NOTE ---
ED Visit Note First contact with patient: 18:41 Chief Complaint: Fall. History of Present Illness: Ms. Alanis is a 72-year-old white female who ambulates into the ED following a fall. Patient reports approximately 2 hours ago she was walking downstairs carrying a basket. She reports she lost her balance and slid down approximately 12 steps. She reports she was not experiencing any lightheadedness or dizziness before the fall. She does report she struck the back of her head on 1 of the steps at the time of the fall. She denies loss of consciousness at the end of the fall and since the fall she denies all signs of head injury. Currently she is complaining of right humeral head pain and right anterior ribs 6 and 7 pain under her breast. She describes both these pain as a sharp sensation. Her pains are nonradiating. Her shoulder pain increases with palpation of the anterior lateral aspect of the humeral head and all movements of the shoulder. Patient's rib pain increases with deep inspiration and palpation. She has not identified any alleviating factors related to either these discomfort. She reports she has not taken any medication for pain prior to arrival at the hospital. She denies any associated headache, dizziness, lightheadedness, abnormal neurological symptoms, cervical spine pain, thoracic back pain, lumbar back pain, shortness of breath, cough, wheezing, abdominal pain, nausea/vomiting, right upper extremity weakness/numbness/tingling. Review of Systems: As noted above in history of present illness. 8 body systems were reviewed and found to be negative as noted above. Past Medical History: Hypertension, asthma, pneumonia, COPD, gastric reflux, dyslipidemia, anxiety, depression, status post unspecified shoulder, back and toe surgeries. Current Medications: Medications Dose Route/Sig Max Daily Dose Days Date Category Biotin Maximum (Biotin) 10,000 Mcg Tab 1 Tab PO QAM 06/28/17 Reported Oxygen Gas 2 Liters NA HS 06/28/17 Reported Advil (Ibuprofen) 200 Mg Tab 200 Mg PO QD PRN 06/28/17 Reported Prilosec (Omeprazole) 40 Mg Cap 40 Mg PO BID 05/23/17 Reported Disulfiram 250 Mg Tab 250 Mg PO QAM 05/23/17 Reported Naltrexone HCl 50 Mg Tab 50 Mg PO QAM 05/23/17 Reported Bupropion Hcl Er (Bupropion Hcl) 150 Mg Tab 300 Mg PO QAM 05/23/17 Reported Desyrel (Trazodone Hcl) 150 Mg Tab 300 Mg PO HS 10/31/14 Reported Lipitor (Atorvastatin Calcium) 40 Mg Tab 40 Mg PO QAM 09/20/14 Reported Hydrochlorothiazide 12.5 Mg Tab 12.5 Mg PO QAM 09/20/14 Reported Amlodipine Besylate 5 Mg Tab 5 Mg PO QAM 07/11/14 Reported Lomotil (Diphenoxylate HCl/Atropine) Tab 2 Tab PO QID PRN 06/11/13 Reported Klonopin (Clonazepam) 1 Mg Tab 1 Mg PO TID PRN 03/26/10 Reported Allergies to Medications: Levaquin. Social History: Patient is not employed; she feels safe in her home environment ; she denies tobacco and alcohol use. Physical Examination: Vital Signs: Date Time Temp Pulse Resp B/P (MAP) Pulse Ox O2 Delivery O2 Flow Rate FiO2 06/29/17 20:07 78 20 128/78 98 06/29/17 18:28 36.7 78 16 131/75 94 GENERAL: 72-year-old female in mild distress due to pain, nontoxic-appearing, afebrile and hemodynamically stable. NEUROLOGICAL: Awake, alert and oriented to person, place and time. Answering questions appropriately and following commands. Normal gait. Good hand eye coordination. Cranial nerves II through XII grossly intact. Good short-term and long-term recall. Able to spell backwards. SKIN: Warm, dry and pink. Right Thoracic Back: Patient has scattered superficial abrasions predominately in the area of the scapula. No active bleeding. HEENT: Atraumatic and normocephalic. Skull: No bony deformity, bony crepitus, swelling or ecchymosis. No raccoons eyes or shetty signs. No drainage from the ears of the nostril; no hemotympanum. PERRLA. EOMI without nystagmus. Sclera white and conjunctiva pink. No malocclusion. No intraoral trauma. Airway patent. Speech normal and clear. Trachea midline. No jugular venous distention. BACK: No tenderness over the bony cervical, thoracic and lumbar spine. There is mild tenderness over her abrasions of the skin overlying the right scapula. I do not feel any bony deformities, bony crepitus or ecchymosis of the scapula. THORAX: Lungs sounds are clear to auscultation and equal bilaterally with symmetrical chest wall. No wheezing, rales or rhonchi. Moderate tenderness over the anterior ribs 6 and 7 without bony deformity, bony crepitus, swelling, ecchymosis or subcutaneous air. ABDOMEN: Flat, soft and nontender. Positive bowel sounds in all quadrants. No guarding, rigidity or organomegaly. RIGHT UPPER EXTREMITY: No gross bony deformity. Mild to moderate tenderness over the anterior lateral aspect of the humeral head. No tenderness over the clavicle or acromioclavicular joint. As previously noted mild tenderness over the scapula in the area of the patient's abrasions. I do not appreciate any bony deformity, bony crepitus, swelling or ecchymosis. She was unable to perform range of motion exercises on the shoulder due to pain. With the shoulder stabilized she had full range of motion without difficulty flexion and extension of the elbow, pronation and supination of the forearm and flexion, extension and radial and ulnar deviation of the wrist. Throughout the extremity the skin was warm and pink. Capillary refill was brisk. Distal pulses were intact and equal bilaterally. Arm and hand was intact to light sensation. ED Course: Patient is assessed as noted above. Patient's medication list was reviewed. Patient was given 1 g of Tylenol by mouth for pain and ice for comfort. Right Shoulder X-Rays: Were read by myself and the radiologist showing no acute fractures or dislocations. Radiologist does note moderate degenerative changes. Right Rib X-Rays: Were read by myself and the radiologist showing no acute fractures. Her PA chest shows no signs of infiltrates, effusions or pneumothorax. Normal heart silhouette and bony anatomy. Patient's right shoulder was placed in a sling. Patient's case was reviewed with Dr. Cabrales; he independently assessed the patient we agreed on diagnostic approach, treatment, disposition and plan. Patient was educated about today's findings and instructed on her treatment plan ; she verbalizes understanding and agreement with this plan. Clinical Impression: Fall. Right shoulder pain. Right anterior rib pain. Thoracic back abrasions. Disposition: Patient discharged home in stable condition accompanied by her father; prior to departure she was reassessed and subjectively reported she was feeling better and rated her discomfort 4/10. Plan: Patient was encouraged to use 650 mg of acetaminophen every 6 hours as needed for pain. Patient was encouraged to use ice over areas of pain 5-6 times a day for 20-30 minutes. Patient was encouraged to use a sling for 3-6 days or until pain-free; she was encouraged to come out of the sling every couple hours while awake and after using ice do simple range of motion exercises. Patient was encouraged to keep her abrasions clean with soap and water and watch for signs of infection. Followup with family physician for recheck or signs of infection Return to the ED for worsening pain, arm weakness/numbness/tingling, signs of infection, shortness of breath, fevers or any new/concerning symptoms.
== END 2017-06-29 20:11 | disposition home or self-care (01) ==
LOC: C.EDB 18:28 → C.EDD 20:11
DX: S20.419A Abrasion of unspecified back wall of thorax, initial encounter (principal); M25.511 Pain in right shoulder; R07.81 Pleurodynia; W10.8XXA Fall (on) (from) other stairs and steps, initial encounter; Y92.89 Other specified places as the place of occurrence of the external cause

== ENCOUNTER 2017-07-27 06:16 | Inpatient (IN) | payer OTHER ==
[2017-06-28 09:42] VITALS: Ht 172.7 cm; Wt 65.5 kg
--- NOTE | 2017-06-28 10:04 | PAT Medication Instructions ---
Service Date Jun 28, 2017. Current Home Medication List Amlodipine Besylate (Amlodipine Besylate), 5 MG PO QAM Atorvastatin (Lipitor), 40 MG PO QAM Biotin (Biotin Maximum), 1 TAB PO QAM Bupropion Hcl (Bupropion Hcl Er), 300 MG PO QAM Clonazepam (Klonopin), 1 MG PO TID PRN for Anxiety Diphenoxylate/Atropine (Lomotil), 2 TAB PO QID PRN for Diarrhea Disulfiram (Disulfiram), 250 MG PO QAM Home O2 Therapy (Oxygen), 2 LITERS NA HS Hydrochlorothiazide (Hydrochlorothiazide), 12.5 MG PO QAM Ibuprofen (Advil), 200 MG PO QD PRN for Pain Naltrexone HCl (Naltrexone HCl), 50 MG PO QAM Omeprazole (Prilosec), 40 MG PO BID Trazodone Hcl (Desyrel), 300 MG PO HS Medication Instructions For Your Scheduled Surgery -Continue as directed: Home O2 Therapy (Oxygen), 2 LITERS NA HS -Contact your surgeon for instructions for: Ibuprofen (Advil), 200 MG PO QD PRN for Pain - Hold the following medications the morning of surgery: Biotin (Biotin Maximum), 1 TAB PO QAM Diphenoxylate/Atropine (Lomotil), 2 TAB PO QID PRN for Diarrhea Hydrochlorothiazide (Hydrochlorothiazide), 12.5 MG PO QAM Naltrexone HCl (Naltrexone HCl), 50 MG PO QAM - Take the following medications the morning of surgery with a sip of water: Amlodipine Besylate (Amlodipine Besylate), 5 MG PO QAM Atorvastatin (Lipitor), 40 MG PO QAM Bupropion Hcl (Bupropion Hcl Er), 300 MG PO QAM Clonazepam (Klonopin), 1 MG PO TID PRN for Anxiety (if needed) Disulfiram (Disulfiram), 250 MG PO QAM - Take the following medications as scheduled the night before surgery: Omeprazole (Prilosec), 40 MG PO BID Clonazepam (Klonopin), 1 MG PO TID PRN for Anxiety (if needed) Diphenoxylate/Atropine (Lomotil), 2 TAB PO QID PRN for Diarrhea (if needed) Trazodone Hcl (Desyrel), 300 MG PO HS If you have any questions please call us at [phone] or [phone] or [phone]
[2017-06-28 11:06] LABS: BASO % 1.3 %; BASO ABS # 0.06 K/uL (0-0.2); EOS % 2.7 %; EOS ABS # 0.12 K/uL (0-0.5); HEMATOCRIT 40.5 % (37-47); HEMOGLOBIN 13.9 g/dL (12.0-16.0); LYMPH % 37.9 %; MEAN CELL VOLUME 88.4 fL (80-100); MEAN CORPUSCULAR HEMOGLOBIN 30.3 pg (25-34); MEAN CORPUSCULAR HGB CONC 34.3 g/dl (32-36); MEAN PLATELET VOLUME 10.3 fL (7.4-10.4); MONO % 8.9 %; NEUT % 49.2 %; NEUT ABS # 2.21 K/uL (1.4-6.5); PLATELET COUNT 212 K/uL (130-400); RED CELL DISTRIBUTION WIDTH CV 12.7 % (11.5-14.5); RED CELL DISTRIBUTION WIDTH SD 40.5 fL (36.4-46.3); WHITE BLOOD COUNT 4.49 K/uL (4.8-10.8)
--- NOTE | 2017-06-28 11:06 | DIAGNOSTIC IMAGING REPORT ---
CHEST 2 VIEWS ROUTINE CLINICAL HISTORY: 72 years-old Female presenting with preoperative assessment. TECHNIQUE: PA and lateral views of the chest were obtained. COMPARISON: 05/23/2017. FINDINGS: Atherosclerosis of the aortic arch. Cardiac silhouette top normal in size. Lungs and pleural spaces clear. Degenerative changes of the thoracic spine. Upper abdomen normal. IMPRESSION: 1. No acute cardiopulmonary disease. Electronically signed by: José Antonio Field M.D. 06/28/2017 11:05 AM Dictated Date/Time: 06/28/2017 11:04 AM
[2017-06-28 11:19] LABS: INR 0.9 (0.9-1.1); PTT PATIENT 22.4 SECONDS (21.0-31.0)
[2017-06-28 11:26] LABS: CALCIUM 8.9 mg/dl (8.5-10.1); CREATININE 0.93 mg/dl (0.60-1.20); POTASSIUM 3.5 mmol/L (3.5-5.1)
--- NOTE | 2017-07-23 07:44 | HISTORY & PHYSICAL EXAMINATION ---
DATE OF ADMISSION: 07/27/2017 CHIEF COMPLAINT: Right hip pain. HISTORY OF PRESENT ILLNESS: This is a 72-year-old female, who is referred by my partner Dr. Long for treatment of right hip. She has a 3-year history of increasing right hip pain and discomfort, this just gradually gotten worse over time. She has been unresponsive to conservative care. She had 1 intraarticular hip joint injection, which helped her just for a couple weeks at best. She describes groin and lateral hip pain radiating down to her knee, no further. Denies any numbness. She spends a lot of her time taking care of her father and having difficulty doing this. She now like to have her hip fixed. PAST MEDICAL HISTORY: Significant for: 1. Hypertension. 2. Elevated cholesterol. 3. Emphysema/COPD currently on oxygen at nighttime. 4. Gastroesophageal reflux disease. 5. Hiatal hernia. PAST SURGICAL HISTORY: Include: 1. Shoulder surgery. 2. Back surgery. 3. Toe surgery. ALLERGIES: LEVAQUIN. CURRENT MEDICINES: 1. Proventil inhaler every 4 hours p.r.n. 2. Norvasc 5 mg in the morning. 3. Hydrochlorothiazide 12.5 mg a day. 4. Revia 50 mg a day. 5. Disulfiram 250 mg once a day. 6. Klonopin 1 mg 3 times a day p.r.n. 7. Prilosec 40 mg twice a day. 8. Trazodone 150 mg 2 tablets at bedtime. 9. Motrin 800 mg 3 times a day. 10. Lomotil 2 tablets 4 times a day as needed for diarrhea. 11. Oxygen at nighttime. 12. Flonase 2 squirts each nostril daily. 13. Lipitor 80 mg a day. SOCIAL HISTORY: A 72-year-old female. She is . Two children. Currently, living with her father who she is taking care of. Does not smoke any longer. Does have a long history of smoking in the past. FAMILY HISTORY: Significant for heart disease. REVIEW OF SYSTEMS: Negative for diabetes, neurologic problems, vascular problems or bleeding disorders. She has got chronic COPD and oxygen at night time. She does have a history of pneumonia in the past, but nothing in the past 2 years. PHYSICAL EXAMINATION: GENERAL: Reveals a pleasant, thin female who looks younger than her stated age. HEENT: Benign. NECK: Supple. No lymphadenopathy. LUNGS: Clear to auscultation. HEART: Regular rate and rhythm. ABDOMEN: Soft, nontender, nondistended. EXTREMITIES: Grossly neurovascularly intact except as follows: Examination of the right hip reveals patient walks with a markedly antalgic gait. Leg length clinically appear pretty equal. She has stiffness and pain with any type of hip motion. I can internally rotate to neutral at best. External rotation at 20 degrees. Negative straight leg raise. X-RAYS: X-rays of the right hip were reviewed. It shows advanced right hip DJD. She has got fairly concentric hip disease with concentric joint space loss and cystic change in the femoral head and pretty significant osteophytes around the femoral head and acetabulum. ASSESSMENT: A 72-year-old female with pretty significant smoking history and pretty significant chronic obstructive pulmonary disease on nighttime oxygen with advanced right hip degenerative joint disease. She has failed conservative treatment, would like to have her right hip replaced. PLAN: We will take her to the operating room and do a right total hip replacement. The risks and benefits of this procedure were explained to the patient include, but not limited to DVT, PE, , infection, neurological injury, vascular injury, bleeding problems, pain, limited range of motion, stiffness, failure to relieve her symptoms, persistent pain, dislocation, leg length inequality, etc. The patient understands and desires to proceed. Informed consent was obtained. She does have to use oxygen at nighttime and will certainly continue to do that in the hospital. She also sleeps in a reclining chair due to her emphysema. As far as discharge plan, she is hoping to be discharged to home with [facility]. She says she has arranged for some help for her father.
[2017-07-27] VITALS (17 sets, daily range): BP systolic 99–127; BP diastolic 64–75; PULSE 57–67; TEMP 36.3–36.8; O2SAT 93–99
[~2017-07-27] VITALS: Ht 172.7 cm; Wt 65.5 kg
[~2017-07-27 06:16] MED LIST changes: +ACETAMINOPHEN 500 MG TAB PO SCH; +CEFAZOLIN 2000MG IV PUSH 15 ML IV SCH; +FAMOTIDINE 20 MG TAB PO SCH; +GABAPENTIN 300 MG CAP PO SCH; +LACTATED RINGER'S 1000ML 1,000 ML IV SCH; +LACTATED RINGER'S 1000ML 500 ML IV SCH; +LACTATED RINGER'S 1000ML IV SCH; +METOCLOPRAMIDE HCL 10 MG TAB PO SCH; +TRANEXAMIC ACID INJ 1,000 MG x 1 Bag Intra-Op IV SCH
[2017-07-27] MEDS ORDERED: BUPIVACAINE 0.5 % 5 MG/1 ML PF 10ML VIAL ONE (06:39)
--- NOTE | 2017-07-27 06:46 | History & Physical Bridge Note ---
H&P Re-Evaluation Bridge Note: I have examined the patient, reviewed the History & Physical and in the interval since the performance of the History & Physical I have noted the following changes of clinical significance: No changes noted
[2017-07-27] MEDS ORDERED: MIDAZOLAM HCL 1 MG/ML 2ML VIAL ONE (07:32)
[2017-07-27] MEDS ORDERED: FENTANYL CITRATE INJ 50 MCG/1 ML 2 ML VIAL ONE (07:33)
[2017-07-27] MEDS ORDERED: MoRPHine SULFATE PF 1 MG/ML 10 ML AMP/VIAL ONE (07:33)
[2017-07-27] MEDS ORDERED: BACITRACIN 50000 UNIT VIAL ONE (08:33)
[2017-07-27] MEDS ORDERED: BUPIVACAINE/EPINEPHRINE 0.5% MPF 1:200,000 30 ML VIAL ONE (08:33)
[2017-07-27] MEDS ORDERED: PROPOFOL IV EMULSION 10 MG/ML 20 ML VIAL IV ONE (08:59)
[2017-07-27] MEDS ORDERED: DEXAMETHASONE SOD INJ 4 MG/ML VIAL ONE (08:59)
[2017-07-27] MEDS ORDERED: ONDANSETRON INJ 2 MG/ML 2 ML VIAL ONE (09:07)
[2017-07-27] MEDS ORDERED: EpHEDrine SULFATE 50MG/5ML SYR ONE (09:14)
[2017-07-27] MEDS ORDERED: ATROPINE SULFATE 0.1 MG/ML 5ML SYR IV PRN (09:30)
[2017-07-27] MEDS ORDERED: ONDANSETRON INJ 2 MG/ML 2 ML VIAL IV PRN ×2 (09:30→09:45)
[2017-07-27] MEDS ORDERED: EpHEDrine SULFATE INJ 50 MG/ML AMP IV PRN ×2 (09:30→09:45)
[2017-07-27] MEDS ORDERED: NALOXONE HCL INJ 0.08 MG in SYRINGE 1.8 ML IV PRN (09:31)
[2017-07-27] MEDS ORDERED: LACTATED RINGER'S 1000ML 500 ML IV PRN (09:31)
[2017-07-27] MEDS ORDERED: SODIUM CHLORIDE 0.9% 1000ML 1,000 ML IV PRN (09:31)
[2017-07-27] MEDS ORDERED: NALOXONE HCL INJ 1 MG in SODIUM CHLORIDE 0.9% 1000ML 1,000 ML IV PRN (09:31)
[2017-07-27] MEDS ORDERED: NALOXONE HCL 0.4 MG/1 ML VIAL/CARP IV PRN (09:45)
[2017-07-27] MEDS ORDERED: MoRPHine SULFATE PF 1 MG/ML 10 ML AMP/VIAL INT SPINAL PRN (09:45)
[2017-07-27] MEDS ORDERED: NO NARCOTICS OR SEDATIVES SCH (09:45)
[2017-07-27] MEDS ORDERED: MoRPHine SULFATE 2 MG/ML CARP IV PRN (09:45)
[2017-07-27] MEDS ORDERED: DiphenhydrAMINE HCL 50 MG/ML VIAL IV PRN (09:45)
[2017-07-27] MEDS ORDERED: NALBUPHINE HCL INJ 10 MG/ML AMP IV PRN (09:45)
--- NOTE | 2017-07-27 10:15 | [facility] Post Operative Brief Note ---
Immediate Operative Summary Operative Date Jul 27, 2017. Pre-Operative Diagnosis Advance Right Hip Degenerative Joint Disease Post-Operative Diagnosis Advance Right Hip Degenerative Joint Disease Procedure(s) Performed Right Hip Total Arthroplasty Uncemented Surgeon Dr Srinivasan Bocanegra Carding Utility Tender Surgeon(s) Jp Alegria PA-C Estimated Blood Loss 250cc Findings Consistent with Post-Op Diagnosis Fluids (cc crystalloids) 1400 cc Specimens As Per Surgeon A. Right Femoral Head Anesthesia Type Spinal MAC Complication(s) none Disposition Accompanied Pt To Recover: yes Disposition: Recovery Room / PACU
[2017-07-27] MEDS ORDERED: MAGNESIUM HYDROXIDE SUSP 30 ML UDC PO PRN (10:30)
[2017-07-27] MEDS ORDERED: ALUMINUM/MAGNESIUM/SIMETH (MAALOX MAX) 30 ML UDC PO PRN (10:30)
[2017-07-27] MEDS ORDERED: SILVER SULFADIAZINE 1% CR 50 GM JAR EXT PRN (10:30)
[2017-07-27] MEDS ORDERED: DIPHENOXYLATE/ATROPINE 2.5/0.025MG TAB PO PRN (10:30)
[2017-07-27] MEDS ORDERED: BISACODYL 10 MG SUPP PR PRN (10:30)
--- NOTE | 2017-07-27 10:45 | DIAGNOSTIC IMAGING REPORT ---
AP PELVIS AND RIGHT HIP 4 VIEWS CLINICAL HISTORY: Degenerative arthritis. Postoperative study. COMPARISON STUDY: Outside conventional radiographic study dated 06/18/2017 FINDINGS: There are postsurgical changes of a total right hip arthroplasty. The acetabular and femoral components appear well seated. There are overlying skin gosia. There is air within the soft tissues consistent with recent surgery. IMPRESSION: Postsurgical changes of a total right hip arthroplasty. Electronically signed by: Rodriguez Garcia M.D. 07/27/2017 10:44 AM Dictated Date/Time: 07/27/2017 10:43 AM
--- NOTE | 2017-07-27 11:36 | OPERATIVE REPORT ---
DATE OF OPERATION: 07/27/2017 SURGEON: Dr. Srinivasan Bocanegra ORE MINER BLASTING: EVARISTO Santillan PREOPERATIVE DIAGNOSIS: Right hip degenerative joint disease. POSTOPERATIVE DIAGNOSIS: Right hip degenerative joint disease. PROCEDURE PERFORMED: Right uncemented ceramic on highly cross-linked polyethylene total hip arthroplasty. COMPLICATIONS: None. ESTIMATED BLOOD LOSS: 250 mL. FLUID REPLACEMENT: 1400 mL crystalloid fluid replacement. ANESTHESIA: Spinal. DRAINS: None. SPECIMENS: Right femoral head sent for pathology. OPERATIVE INDICATIONS: The patient is a 72-year-old female who has had a several year history of right hip pain and discomfort which has gotten significantly worse over the past year. She has actually resorted to using a cane to get around. She takes care of her father and has more and more difficulty doing this. She would like to proceed with total hip arthroplasty. X-ray showed concentric hip arthritis. OPERATIVE FINDINGS: Operative findings revealed advanced right hip DJD. She had a large hip joint effusion. She had quite a bit of synovitis as well. She had grade 4 [id number] disease of the femoral head and acetabulum. Not a lot of osteophytes on the femoral head, but did have osteophytes around the acetabulum. OPERATIVE IMPLANTS: Operative implants consisted of: 1. Biomet G7 size 56 mm acetabular shell. 2. An apex hole eliminator. 3. 6.5 cancellous acetabular screws, 1 at 35 mm in length and 1 at 20 mm in length. 4. A highly cross-linked polyethylene liner with 56 mm outer diameter, 36 mm inner diameter. 5. A DePuy size 11 KLA high offset femoral stem. 6. A +5/36 mm ceramic articular ball. OPERATIVE PROCEDURE: The patient was taken to the operating room, identified, and placed on the operating table in the supine position. All contact areas were appropriately padded. IV antibiotics were provided by the anesthesia team. A spinal anesthetic had been implemented in the holding area. A Pascual catheter was placed in sterile fashion. The patient was then placed in the left lateral decubitus position. An axillary roll was placed. Stulberg hip positioner was used for positioning. The right hip and leg were then prepped and draped in the usual sterile fashion. A posterolateral approach to the right hip was then performed through a curvilinear incision centered over the greater trochanter. Sharp dissection was carried through the subcutaneous tissues down to the level of the IT band and gluteal fascia. The IT band and gluteal fascia were incised longitudinally in line with the skin incision. The greater trochanteric bursa was excised. The piriformis and external rotators were tagged and taken off the posterior aspect of the femur. Great care was taken throughout the procedure to protect the sciatic nerve at all times. Posterior capsulotomy was then performed leaving a large flap for later repair. The hip was internally rotated and dislocated. A femoral neck osteotomy cut was made with a final cut 12 mm above the lesser trochanter. The femoral head was removed and sent for pathology. The femur was retracted anteriorly. Attention was then drawn to the acetabulum. The acetabular labrum was excised. The pulvinar fat was excised. Sequential reaming of the acetabulum was then performed beginning with a size 47 and progressing up to 55. A 56 mm Biomet G7 acetabular shell was then placed in about 40 degrees of lateral opening and 20 degrees of anteversion. It was fixed with two 6.5 cancellous acetabular screws. A trial liner was placed. Some osteophytes were taken off anteriorly. Attention was then drawn to the femur. The proximal femur was entered with COGEON cutter followed by a canal finder. I broached beginning with a size 8 and progressing up to 11. Excellent fit with the 11. A calcar reamer used to smoothen off the calcar. We then trialed the hip. The +5 articular ball created full stability and full extension and external rotation and flexion to 90 degrees, internal rotation to over 70 degrees. Soft tissue tension seemed appropriate. I was a little bit concerned about her compliance postoperatively, so we elected to use these implants. We thought she might be just a trace bit long on this but elected to use these implants for ideal and optimal stability reasons. All trial implants were removed. An apex hole eliminator was placed. A highly cross-linked polyethylene liner was placed. A size 11 KLA high offset coxa vara femoral stem was impacted in position. A +5/36 mm ceramic articular ball was placed. The hip was located and once again found to be stable. Attention was then drawn toward closing. The wound was irrigated with copious amounts of pulsatile lavage solution. I did inject locally with 60 mL of 0.5% Marcaine with epinephrine. The posterior capsule and external rotators were repaired through drill holes in the posterior trochanter with #2 Ti-Cron suture. The IT band and gluteal fascia were then closed with #1 PDS suture in running fashion. The subcutaneous tissues were then closed in 2 layers with the deep layer #1 Vicryl suture in buried interrupted fashion and the subcutaneous tissues with 2-0 Dexon suture in buried interrupted fashion. The skin was closed with skin gosia. The leg was then cleaned and dried and a sterile dressing of Xeroform, 4 x 4s, ABD pad, and a foam tape was applied. The patient was then transferred to the recovery room in stable condition. The patient tolerated with no complications. All needle and sponge counts were correct at the end of the operation. I attest to the content of the Intraoperative Record and any orders documented therein. Any exception s are noted below.
--- NOTE | 2017-07-27 12:00 | Anesthesiology Progress Note ---
Anesthesia Post Op Note Date & Time Jul 27, 2017 at 12:00 Vital Signs Pain Intensity: 0 Vital Signs Past 12 Hours Date Time Temp Pulse Resp B/P (MAP) Pulse Ox O2 Delivery O2 Flow Rate FiO2 07/27/17 10:12 36.4 64 16 94/65 97 Oxymask 6 07/27/17 06:59 36.4 67 18 109/67 93 Room Air Notes Mental Status: alert / awake / arousable, participated in evaluation Pt Amnestic to Procedure: Yes Nausea / Vomiting: adequately controlled Pain: adequately controlled Airway Patency, RR, SpO2: stable & adequate BP & HR: stable & adequate Hydration State: stable & adequate Neuraxial Anesthesia: was administered, sensory block is resolving Anesthetic Complications: no major complications apparent
[2017-07-27] MEDS: KETOROLAC TROMETHAMINE 15 MG/ML VIAL IV. SCH ×2 (13:28→19:31)
[2017-07-27] MEDS: FERROUS GLUCONATE 324 MG TAB PO SCH ×2 (13:28→18:00)
[2017-07-27] MEDS: ACETAMINOPHEN 500 MG TAB PO SCH ×2 (13:29→22:14)
--- NOTE | 2017-07-27 14:24 | PROGRESS NOTE ---
DATE: 07/27/2017 SUBJECTIVE: A 72-year-old female postop from a right hip replacement. She is doing well. Just starting to feel her legs. No chest pain or shortness of breath. Not feeling dizzy or lightheaded. OBJECTIVE: VITAL SIGNS: Temperature 36.3. Vital signs stable. GENERAL: Physical examination shows a pleasant, middle-aged female. She is sitting up in bed, looks quite comfortable. LUNGS: Clear to auscultation. HEART: Regular rate and rhythm. ABDOMEN: Soft, nontender, nondistended. EXTREMITIES: Grossly neurovascularly intact except as follows: Examination of the right leg reveals the leg lengths were equal. Hip is located. She can just slightly flex and extend her toes. She has got good brisk refill. X-RAYS: X-ray of the right hip from recovery room reviewed. She has right uncemented total hip arthroplasty. Components looked to be in good position. No signs of problems. ASSESSMENT: A 72-year-old female postop from a right hip replacement, doing pretty well. Spinal is still just wearing off and she is just starting to get her function in her legs. Her pain is controlled. Hip is located. PLAN: 1. DVT prophylaxis including thigh-high TEDs, SCDs, and aspirin twice a day. 2. PT/OT. Weight bear as tolerated. Right total hip protocol. 3. Pain control, doing well with current pain regimen. We will have to increase her meds as her spinal wears off. 4. IV antibiotics x24 hours. 5. Disposition: Plan to discharge to home with some home health once adequately recovered.
[2017-07-27] MEDS ORDERED: TRANEXAMIC ACID INJ 1,000 MG in SODIUM CHLORIDE 0.9% 100ML 100 ML IV SCH (16:00)
[2017-07-27] MEDS: CEFAZOLIN IV 1,000 MG in SYRINGE 0 ML IV SCH ×2 (16:25→23:36)
[2017-07-27] MEDS: D5W AND 1/2NSS + 20MEQ KCL 1,000 ML IV SCH (16:30)
[2017-07-27] MEDS: SENNA 8.6 MG TAB PO SCH (20:36)
[2017-07-27] MEDS: PANTOprazole SOD 40 MG TAB PO SCH (20:36)
[2017-07-27] MEDS: ASPIRIN 81 MG ECTAB PO SCH (20:36)
[2017-07-27] MEDS: DOCUSATE SODIUM 100 MG CAP PO SCH (20:36)
[2017-07-27] MEDS: TRAZODONE HCL 100 MG TAB PO SCH (23:35)
[2017-07-28] VITALS (12 sets, daily range): BP systolic 80–123; BP diastolic 48–73; PULSE 53–68; TEMP 36.4–36.9; O2SAT 96–98
[2017-07-28] MEDS: D5W AND 1/2NSS + 20MEQ KCL 1,000 ML IV SCH ×2 (02:27→12:45)
[2017-07-28] MEDS: KETOROLAC TROMETHAMINE 15 MG/ML VIAL IV. SCH ×4 (02:27→19:53)
[2017-07-28] MEDS ORDERED: DC INTRASPINAL MORPHINE SCH (02:30)
[2017-07-28] MEDS ORDERED: HYDROmorphone INJ 0.5 MG/0.5 ML SYR IV PRN (02:30)
[2017-07-28] MEDS ORDERED: CLONAZEPAM 1 MG TAB PO PRN (02:30)
[2017-07-28] MEDS ORDERED: ZOLPIDEM TARTRATE 5 MG TAB PO PRN (02:30)
[2017-07-28] MEDS ORDERED: METOCLOPRAMIDE HCL INJ 5 MG/ML 2 ML VIAL IV PRN (02:30)
[2017-07-28] MEDS: ACETAMINOPHEN 500 MG TAB PO SCH ×3 (06:16→21:37)
[2017-07-28 07:10] LABS: BASO % 0.2 %; BASO ABS # 0.01 K/uL (0-0.2); EOS % 0.3 %; EOS ABS # 0.02 K/uL (0-0.5); HEMATOCRIT 31.1 % (37-47); HEMOGLOBIN 10.4 g/dL (12.0-16.0); IG# 0.01 K/uL (0.00-0.02); LYMPH % 26.5 %; LYMPH ABS # 1.73 K/uL (1.2-3.4); MEAN CELL VOLUME 88.9 fL (80-100); MEAN CORPUSCULAR HEMOGLOBIN 29.7 pg (25-34); MEAN CORPUSCULAR HGB CONC 33.4 g/dl (32-36); MEAN PLATELET VOLUME 9.9 fL (7.4-10.4); MONO % 15.3 %; NEUT % 57.5 %; NEUT ABS # 3.76 K/uL (1.4-6.5); PLATELET COUNT 154 K/uL (130-400); RED CELL DISTRIBUTION WIDTH CV 13.1 % (11.5-14.5); RED CELL DISTRIBUTION WIDTH SD 42.2 fL (36.4-46.3); WHITE BLOOD COUNT 6.53 K/uL (4.8-10.8)
[2017-07-28 07:39] LABS: CREATININE 0.93 mg/dl (0.60-1.20)
[2017-07-28 07:40] LABS: CALCIUM 7.8 mg/dl (8.5-10.1); POTASSIUM 3.4 mmol/L (3.5-5.1)
[2017-07-28] MEDS ORDERED: POTASSIUM CHLORIDE 20 MEQ TABCR PO ONE ×2 (08:30→16:00)
[2017-07-28] MEDS: HYDROCHLOROTHIAZIDE 25 MG TAB PO SCH (09:00)
[2017-07-28] MEDS ORDERED: PANTOprazole SOD 40 MG TAB PO SCH (09:00)
[2017-07-28] MEDS ORDERED: BIOTIN PO SCH (09:00)
[2017-07-28] MEDS: AMLODIPINE BESYLATE 5 MG TAB PO SCH (09:00)
--- NOTE | 2017-07-28 09:07 | PROGRESS NOTE ---
DATE: 07/28/2017 SUBJECTIVE: A 72-year-old white female postop day 1 from a right hip replacement. She is doing pretty well. Some pain but manageable. No chest pain or shortness of breath. Not feeling dizzy or lightheaded. OBJECTIVE: VITAL SIGNS: Temperature 36.7. Vital signs stable. GENERAL: Physical examination shows a pleasant, middle-aged female. She is lying in bed, looks reasonably comfortable. EXTREMITIES: Examination of the right hip and leg reveals the leg lengths were equal. Hip is located. Dressing is clean, dry and intact. Thigh is soft and supple. She is neurologically intact. LABORATORY DATA: Hemoglobin 10.4. Hematocrit 31.1. Electrolytes are stable. Potassium is slightly low. ASSESSMENT: A 72-year-old female postop day 1 from right hip replacement, doing pretty well. Pain is reasonably well controlled. Hip is located. She is neurologically intact. PLAN: 1. DVT prophylaxis including thigh-high TEDs, SCDs, and aspirin twice a day. 2. PT, OT. Weight bear as tolerated. Right total hip protocol. 3. Pain control. Doing reasonably well with current pain regimen. 4. Hypokalemia. Will supplement her potassium. 5. Disposition: She is planning to be discharged to home with home health once adequately recovered.
[2017-07-28] MEDS: TRAMADOL HCL 50 MG TAB PO PRN ×2 (09:17→21:36)
[2017-07-28] MEDS: ATORVASTATIN 40 MG TAB PO SCH (09:18)
[2017-07-28] MEDS: ASPIRIN 81 MG ECTAB PO SCH ×2 (09:18→21:36)
[2017-07-28] MEDS: MULTIVITAMIN TAB PO SCH (09:18)
[2017-07-28] MEDS: DOCUSATE SODIUM 100 MG CAP PO SCH ×2 (09:19→21:00)
[2017-07-28] MEDS: PANTOprazole SOD 40 MG TAB PO SCH ×2 (09:19→21:37)
[2017-07-28] MEDS: FERROUS GLUCONATE 324 MG TAB PO SCH ×3 (09:20→18:11)
[2017-07-28] MEDS: BuPROPion SR 150 MG TABCR PO SCH (09:21)
[2017-07-28] MEDS: ONDANSETRON INJ 2 MG/ML 2 ML VIAL IV PRN ×2 (18:11→23:37)
[2017-07-28] MEDS ORDERED: ACET-24 PO (20:40)
[2017-07-28] MEDS ORDERED: FRRG PO (20:40)
[2017-07-28] MEDS ORDERED: ASPI-320 PO (20:41)
[2017-07-28] MEDS ORDERED: ULT50X PO (20:41)
--- NOTE | 2017-07-28 20:45 | Discharge Instructions ---
Discharge Instructions Date of Service Jul 28, 2017. Admission Reason for Admission: Right Hip Degenerative Joint Disease Discharge Discharge Diagnosis / Problem: Right Hip Replacement Discharge Goals Goal(s): Decrease discomfort, Improve function, Increase independence, Improve disease control, Therapeutic intervention Activity Recommendations Activity Limitations: per Instructions/Follow-up section (Total Hip Precautions ) Weightbearing Status: Right weightbearing . Instructions / Follow-Up Instructions / Follow-Up ACTIVITY RECOMMENDATIONS: Physical Therapy: * Aggressive physical therapy is not usually needed. You will learn to take care of yourself safely and walk. * Follow the "Hip Precautions Instructions." * In some cases, the social worker masters at the hospital will arrange to have a therapist come to your house for the first couple of weeks to help you learn these skills. * You need to practice on your own or with the help of a family member as needed. * When you learn these skills, most of the therapy can be done on your own. Home Exercise: * You were shown a series of exercises in the hospital. Do these exercises three to four times each day including the exercises you were shown in physical therapy. Walking: * Get up and walk several times each day. For the first four weeks, try not to stand or walk for more than one hour at a time. If you do stand or walk for more than one hour, you will not hurt anything, but your leg will likely swell. * As you feel comfortable, you may change from the walker or crutches to a cane and then to independent walking. MEDICATIONS: New Medicine: * You will likely be taking one or more of these medicines: 1. Tramadol - Take, as directed, when you need it, every four to six hours to control your pain. 2. Iron Sulfate - Take two times each day for the month after surgery to help you replace the blood lost during surgery. 3. Aspirn - Thins your blood to lessen the chance of forming a blood clot. * The most common side effects of pain medicine and iron are nausea and constipation. If nausea or constipation is too much of a problem or if you have any questions about your new medicines or doses, call [facility] at . We will try to help you manage these issues. VERY IMPORTANT TO READ AND REVIEW" Pain: * The immediate post-operative period after hip replacement surgery is often quite painful. * You are given a prescription for pain medicine. You should take it, as directed, when you need it, especially before physical therapy and before going to bed. Pain that interferes with sleep is very common and can last several months. * You will likely need pain medicine for the first two to four weeks. It will not stop all of the pain. The pain will lessen and as you feel better, you may change to milder pain medicine such as Tylenol. * The most common side effects of pain medicine are nausea and constipation, so don't take more than you need. SPECIAL CARE INSTRUCTIONS: TEDs/Elastic Stockings: * The white elastic stockings help limit swelling and prevent blood clots from forming in your legs. The more you wear them, the more they work. * Wear them for six weeks. Prevention of Infection: * Take antibiotics one hour before any dental cleaning, dental work, urological procedure, gastrointestinal procedure or any invasive surgery in order to prevent your new joint from getting infected. * You may get the antibiotics from the doctor performing the procedure or you may call our office at before and we will call in a prescription to the pharmacy of your choice. Things to Watch For: * Drainage from the incision site that occurs more than one week after your surgery. * Severely increased leg pain or swelling. * Increased redness at the incision site. * Fever above 102 degrees Fahrenheit. * Unusual chest pain or shortness of breath. * Unusual pain or burning with urination. Call [facility] at with any of the above problems or if you have any questions about your medicines or recovery. FOLLOW UP VISIT: Make an appointment to see your doctor for approximately two weeks after surgery for a progress check and staple removal by calling the office at . Current Hospital Diet Patient's current hospital diet: Regular Diet Discharge Diet Recommended Diet: Regular Diet Procedures Procedures Performed: Right Hip Total Arthroplasty Uncemented Pending Studies Studies pending at discharge: no Medical Emergencies . Who to Call and When: Medical Emergencies: If at any time you feel your situation is an emergency, please call [phone] immediately. . Non-Emergent Contact Non-Emergency issues call your: Surgeon . "Provider Documentation" section prepared by Srinivasan Bocanegra. .
[2017-07-28] MEDS: SENNA 8.6 MG TAB PO SCH (21:40)
[2017-07-29] MEDS: TRAZODONE HCL 100 MG TAB PO SCH (00:19)
[2017-07-29] MEDS: KETOROLAC TROMETHAMINE 15 MG/ML VIAL IV. SCH ×2 (02:08→07:53)
[2017-07-29] MEDS: ACETAMINOPHEN 500 MG TAB PO SCH (05:39)
[2017-07-29 06:24] LABS: CALCIUM 8.3 mg/dl (8.5-10.1); CREATININE 0.78 mg/dl (0.60-1.20); POTASSIUM 4.3 mmol/L (3.5-5.1)
[2017-07-29 06:37] VITALS: BP_SYST 90; BP_SYST 92; BP_DIAS 54; BP_DIAS 55; PULSE 66; TEMP 36.7; O2SAT 92
[2017-07-29] MEDS ORDERED: KETO10TA PO (07:42)
[2017-07-29 07:50] VITALS: BP 97/60; PULSE 75
[2017-07-29] MEDS: PANTOprazole SOD 40 MG TAB PO SCH (07:56)
--- NOTE | 2017-07-29 08:15 | PROGRESS NOTE ---
DATE: 07/29/2017 SUBJECTIVE: A 72-year-old female postop day 2 from right hip replacement, doing pretty well this morning. Pretty painful last night. She is getting around reasonably well with a walker. No chest pain or shortness of breath. Not feeling dizzy or lightheaded. OBJECTIVE: VITAL SIGNS: Temperature 36.7. Vital signs stable. PHYSICAL EXAMINATION: GENERAL: This is a pleasant, middle-aged female. She is walking around the room with a walker reasonably well. EXTREMITIES: Examination of the right hip reveals incision to be clean, dry, and intact. Her thigh is soft and supple. Hip is located. She is neurologically intact. LABORATORY DATA: Potassium improved at 4.3. ASSESSMENT: A 72-year-old female postop day 2 from a right total hip replacement, doing pretty well. Potassium is improved. PLAN: 1. DVT prophylaxis include thigh high TEDs, SCDs, and aspirin twice a day. 2. PT, OT. Weightbear as tolerated. Right total hip protocol. 3. Pain control. Doing reasonably well with current pain regimen. We are going to send her on some oral Toradol for 5 days on discharge. 4. Disposition: Plan to discharge to home with some home health later today.
[2017-07-29] MEDS: TRAMADOL HCL 50 MG TAB PO PRN (08:26)
[2017-07-29] MEDS: MULTIVITAMIN TAB PO SCH (08:27)
[2017-07-29] MEDS: BuPROPion SR 150 MG TABCR PO SCH (08:27)
[2017-07-29] MEDS: DOCUSATE SODIUM 100 MG CAP PO SCH (08:27)
[2017-07-29] MEDS: ASPIRIN 81 MG ECTAB PO SCH (08:27)
[2017-07-29] MEDS: ATORVASTATIN 40 MG TAB PO SCH (08:28)
[2017-07-29] MEDS: AMLODIPINE BESYLATE 5 MG TAB PO SCH (08:28)
[2017-07-29] MEDS: FERROUS GLUCONATE 324 MG TAB PO SCH (08:28)
[2017-07-29] MEDS: HYDROCHLOROTHIAZIDE 25 MG TAB PO SCH (08:28)
[2017-07-29 08:50] VITALS: PULSE 75; TEMP 36.7; O2SAT 92
[2017-07-29 09:32] VITALS: BP 104/65
--- NOTE | 2017-08-01 15:00 | DISCHARGE SUMMARY ---
ADMITTING PHYSICIAN AND SURGEON: Dr. Bocanegra. ADMITTING DIAGNOSIS: Right hip degenerative joint disease. SURGERY PERFORMED: Right total hip arthroplasty. SECONDARY DIAGNOSES: Hypertension, elevated cholesterol, emphysema, COPD, gastroesophageal reflux disease, hiatal hernia. CONSULTS: None obtained. HISTORY AND PHYSICAL EXAMINATION: Well documented in the patient's chart. HOSPITAL COURSE: The patient was admitted on 07/27/2017 and underwent total hip arthroplasty, tolerated the procedure well. There were no complications. She was transferred to the PACU postoperatively and later to the orthopedic floor for further care. She was given Ancef for antibiotic prophylaxis, LUDWIG stockings, SCDs and aspirin for DVT prophylaxis. Hemoglobin, hematocrit and vital signs were monitored during hospital stay and remained stable. She developed some postoperative anemia, did not require blood transfusions. She did have some postoperative hypokalemia as well and was given potassium supplement which corrected this. There were no complications during hospital stay. By postoperative day 2, she was tolerating a regular diet, pain was controlled with oral pain medicine. She was participating in physical therapy. On postop day 2, she was discharged home, set up with home health services. She was given printed discharge instructions including new prescriptions for extra strength Tylenol, aspirin, iron supplement, Toradol and tramadol. Continue her home medications, continue physical therapy, weightbearing as tolerated, LUDWIG stockings and total hip precautions. Follow up in 10-12 days or sooner if there are any problems or concerns.
== END 2017-07-29 13:32 | disposition home health service (06) | DRG 470 ==
LOC: C.ACU 06:16 → C.3E 06:40 → ENRESERV 11:56
PROVIDERS: ADMIT Orthopaedic Surgery Sports Medicine; ATTEND Orthopaedic Surgery Sports Medicine
PROC: 0SR904A Replacement of Right Hip Joint with Ceramic on Polyethylene Synthetic Substitute, Uncemented, Open Approach (ICD-10-PCS; principal; 2017-07-27 09:00)
DX: M16.11 Unilateral primary osteoarthritis, right hip (principal); E87.6 Hypokalemia; I10 Essential (primary) hypertension; E78.00 Pure hypercholesterolemia, unspecified; J44.9 Chronic obstructive pulmonary disease, unspecified; G47.36 Sleep related hypoventilation in conditions classified elsewhere; K21.9 Gastro-esophageal reflux disease without esophagitis; F32.9 Major depressive disorder, single episode, unspecified; K44.9 Diaphragmatic hernia without obstruction or gangrene; Z87.891 Personal history of nicotine dependence; Z98.890 Other specified postprocedural states; Z79.1 Long term (current) use of non-steroidal anti-inflammatories (NSAID); Z79.899 Other long term (current) drug therapy; Z88.1 Allergy status to other antibiotic agents; Z82.49 Family history of ischemic heart disease and other diseases of the circulatory system

== ENCOUNTER 2019-03-19 02:58 | Observation (INO) ==
[2019-03-19] MEDS ORDERED: SODIUM CHLORIDE 0.9% 1000ML 1,000 ML IV ONE (03:13)
[2019-03-19] MEDS ORDERED: fentaNYL citrate 100 MCG/2 ML VIAL IV STA ×2 (03:13→05:24)
[2019-03-19] MEDS ORDERED: ONDANSETRON INJ 2 MG/ML 2 ML VIAL IV STA (03:13)
[2019-03-19 03:27] LABS: Basophils # (auto) 0.06 K/uL (0-0.2); Basophils % (auto) 0.7 %; Eosinophils # (auto) 0.38 K/uL (0-0.5); Eosinophils % (auto) 4.6 %; Hematocrit (blood only) 40.7 % (37-47); Hemoglobin 13.6 g/dL (12.0-16.0); Immature Granulocytes # (auto) 0.02 K/uL (0.00-0.02); Immature Granulocytes % (auto) 0.2 %; Lymphocytes # (auto) 3.36 K/uL (1.2-3.4); Lymphocytes % (auto) 40.6 %; Mean Corpuscular Hemoglobin 29.7 pg (25-34); Mean Corpuscular Hgb Conc 33.4 g/dL (32-36); Mean Corpuscular Volume 88.9 fL (80-100); Mean Platelet Volume 10.2 fL (7.4-10.4); Monocytes # (auto) 0.62 K/uL (0.11-0.59); Monocytes % (auto) 7.5 %; Neutrophils # (auto) 3.84 K/uL (1.4-6.5); Neutrophils % (auto) 46.4 %; Platelet Count 232 K/uL (130-400); Red Blood Count 4.58 M/uL (4.2-5.4); White Blood Count 8.28 K/uL (4.8-10.8)
[2019-03-19 03:46] LABS: Alanine Aminotransferase 18 U/L (12-78); Albumin Level 3.5 gm/dl (3.4-5.0); Aspartate Aminotransferase 16 U/L (15-37); BUN Creatinine Ratio 14.7 (10-20); Bilirubin Direct 0.2 mg/dl (0-0.2); Blood Urea Nitrogen 15 mg/dl (7-18); Calcium 8.6 mg/dl (8.5-10.1); Carbon Dioxide 27 mmol/L (21-32); Chloride 104 mmol/L (98-107); Creatinine Clr Calc Pharmacy 48.5 ml/min; Est GFR (African American) 63.6; Est GFR (Non-African American) 54.9; Glucose 114 mg/dl (70-99); Lipase 111 U/L (73-393); Potassium 2.9 mmol/L (3.5-5.1); Sodium 139 mmol/L (136-145)
[2019-03-19 03:51] LABS: Alkaline Phosphatase 91 U/L (45-117); Bilirubin,Total 0.4 mg/dl (0.2-1); Total Protein 6.7 gm/dl (6.4-8.2); Troponin I < 0.015 ng/ml (0-0.045)
[2019-03-19] MEDS ORDERED: IOVERSOL 100ml IV PRN (04:28)
[2019-03-19] MEDS ORDERED: FAMOTIDINE 20MG IV PUSH 20 MG/5 ML SYR IV STA (05:25)
--- NOTE | 2019-03-19 06:15 | History & Physical Report ---
Date of Service March 19, 2019 Assessment & Plan (1) Acute epigastric pain: Possible gastritis with S OB symptoms from 2 days ago hx GERD chronic resp failure 2 to COPD on home O2 at night, not in acute exacerbation past tobacco/alcohol abuse, hypertension, BP on the lower side Hypokalemia secondary diuretic Rx, emesis OBS Medical telemetry given S OB symptoms Continue home PPI, add H2 temitope if with recurrent discomfort Consider GI consult if with recurrence TTE RE S OB Replace potassium, hold home diuretic for now DVT prophylaxis. Lovenox subcu Full code Home in a.m. if patient comfortable and 2D echo unremarkable. History of Present Illness Chief Complaint: Epigastric pain Primary Care Provider: Williams Mota MD History obtained from patient and records. Medical history significant for chronic resp failure 2 to COPD on home O2 at night, past tobacco/alcohol abuse, hypertension, hyperlipidemia, chronic back pain, GERD. Recent August 2017 for cholecystitis status post lap cholecystectomy. Patient roused from sleep this a.m. with sharp epigastric discomfort going to her back and right chest with some nausea and emesis upon arrival at the ER. Discomfort not pleuritic. Exertional shortness of breath about 2 days ago but not currently.. No prior episodes. Patient currently comfortable at the ER after IV narcotic administration. MEDICAL HISTORY: As above. SURGERIES: Tubal ligation, hammertoe repair, cholecystectomy FAMILY HISTORY: Family history of heart disease. PERSONAL SOCIAL HISTORY: Past tobacco/alcohol abuse as per records. 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 Allergies Allergy/AdvReac Type Severity Reaction Status Date / Time levofloxacin AdvReac Unknown abnormal Unverified 03/19/19 04:39 heart issues Home Medications Home Medications Medication Instructions Recorded Confirmed Type acetaminophen [Acetaminophen Extra 1,000 mg PO Q8H PRN 02/09/18 03/19/19 History Strength] atorvastatin 80 mg PO QAM 02/09/18 03/19/19 History bupropion HCl 150 mg PO BID 02/09/18 03/19/19 History clonazepam 1 mg PO TID PRN 02/09/18 03/19/19 History disulfiram 250 mg PO QAM 02/09/18 03/19/19 History hydrochlorothiazide 25 mg PO QAM 02/09/18 03/19/19 History naltrexone 50 mg PO QAM 02/09/18 03/19/19 History omeprazole 40 mg PO BID 02/09/18 03/19/19 History trazodone 300 mg PO HS 02/09/18 03/19/19 History aspirin 325 mg PO QAM 05/03/18 03/19/19 History cyanocobalamin (vitamin B-12) 1,000 mcg PO DAILY 10/28/18 03/19/19 History 1,000 mcg capsule diphenoxylate-atropine 2.5 1 tab PO QID tab 10/28/18 03/19/19 History mg-0.025 mg tablet Past Med/Surg History Medical History Anxiety Cholecystitis (Deleted) H/O Chronic back pain GERD (gastroesophageal reflux disease) History of alcoholism Hyperlipidemia Hypertension IBS (irritable bowel syndrome) Lactose intolerance On home oxygen therapy 2 LPM AT NIGHT Osteoarthritis Pneumonia (Deleted) H/O SOB (shortness of breath) on exertion Spinal stenosis Stroke MRI OBTAINED 02/2018 [place] R/T VISUAL DISTURBANCES - 4 "MINI STROKES" - PROVIDER UNABLE TO DETERMINE IF ACUTE VS OLD PER PT REPORT - SAW DR.VICTORIA AGRAWAL, NEURO Surgical History History of bilateral tubal ligation History of cholecystectomy History of colonoscopy History of esophagogastroduodenoscopy (EGD) History of tooth extraction History of total hip arthroplasty RT Hx of LASIK Family History Other Family history non-contributory Social History Preferred Language: Syriac Communication Ability: Effective Visual Impairment: No Limitations Outbound Supervisor Required: No Beliefs That Will Affect Care: None marital status: Current Living Situation: Spouse Current Living Situation Comment: 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 Other Information That Helps Us Care for You: No Feels Safe at Home: Yes Safety Concerns: Feels Safe At This Time Smoking Status: Former smoker Second Hand Exposure: No ; Hx Alcohol Use: No Hx Substance Use: No Review of Systems Review of Systems: As per HPI, all 10 systems reviewed, all other ROS negative Physical Exam Physical Exam: GENERAL: Comfortable, no respiratory distress SKIN: Normal color, warm HEENT: [place] palpebral conjunctivae, no ptosis, dry buccal mucosa, nasal cannula in place NECK : Supple, no tenderness CHEST : Decreased breath sounds, no tenderness HEART : Bradycardic , no obvious murmurs ABDOMEN: Minimal epigastric tenderness, nontender EXTREMITIES : No LE swelling/tenderness, no other conspicuous deformities noted NEUROLOGIC : Coherent, no facial asymmetry, no other gross focality Results & Data Vital Signs (Past 12 Hours) Vital Signs Temp Pulse Pulse Resp BP BP Pulse Ox 03/19/19 05:38 59 L 18 116/67 95 03/19/19 04:36 72 16 139/87 98 03/19/19 03:00 36.5 C 61 18 143/68 H 94 Laboratory Results Laboratory Results WBC 8.28 K/uL (4.8-10.8) 03/19/19 03:18 RBC 4.58 M/uL (4.2-5.4) 03/19/19 03:18 Hgb 13.6 g/dL (12.0-16.0) 03/19/19 03:18 Hct 40.7 % (37-47) 03/19/19 03:18 MCV 88.9 fL (80-100) 03/19/19 03:18 MCH 29.7 pg (25-34) 03/19/19 03:18 MCHC 33.4 g/dL (32-36) 03/19/19 03:18 RDW Std Deviation 42.0 fL (36.4-46.3) 03/19/19 03:18 RDW Coeff of Sharon 13.0 % (11.5-14.5) 03/19/19 03:18 Plt Count 232 K/uL (130-400) 03/19/19 03:18 MPV 10.2 fL (7.4-10.4) 03/19/19 03:18 Immature Gran % (Auto) 0.2 % 03/19/19 03:18 Neut % (Auto) 46.4 % 03/19/19 03:18 Lymph % (Auto) 40.6 % 03/19/19 03:18 [place] % (Auto) 7.5 % 03/19/19 03:18 Eos % (Auto) 4.6 % 03/19/19 03:18 Baso % (Auto) 0.7 % 03/19/19 03:18 Immature Gran # (Auto) 0.02 K/uL (0.00-0.02) 03/19/19 03:18 Neut # (Auto) 3.84 K/uL (1.4-6.5) 03/19/19 03:18 Lymph # (Auto) 3.36 K/uL (1.2-3.4) 03/19/19 03:18 [place] # (Auto) 0.62 K/uL (0.11-0.59) H 03/19/19 03:18 Eos # (Auto) 0.38 K/uL (0-0.5) 03/19/19 03:18 Baso # (Auto) 0.06 K/uL (0-0.2) 03/19/19 03:18 Sodium 139 mmol/L (136-145) 03/19/19 03:18 Potassium 2.9 mmol/L (3.5-5.1) L 03/19/19 03:18 Chloride 104 mmol/L (98-107) 03/19/19 03:18 Carbon Dioxide 27 mmol/L (21-32) 03/19/19 03:18 Anion Gap 8.0 (3-11) 03/19/19 03:18 BUN 15 mg/dl (7-18) 03/19/19 03:18 Creatinine 1.02 mg/dl (0.6-1.2) 03/19/19 03:18 Est Cr Clr Drug Dosing 48.5 ml/min 03/19/19 03:18 Est GFR ( Amer) 63.6 03/19/19 03:18 Est GFR (Non-Af Amer) 54.9 03/19/19 03:18 BUN/Creatinine Ratio 14.7 (10-20) 03/19/19 03:18 Glucose 114 mg/dl (70-99) H 03/19/19 03:18 Calcium 8.6 mg/dl (8.5-10.1) 03/19/19 03:18 Magnesium 1.9 mg/dl (1.8-2.4) 03/19/19 03:18 Total Bilirubin 0.4 mg/dl (0.2-1) 03/19/19 03:18 Direct Bilirubin 0.2 mg/dl (0-0.2) 03/19/19 03:18 AST 16 U/L (15-37) 03/19/19 03:18 ALT 18 U/L (12-78) 03/19/19 03:18 Alkaline Phosphatase 91 U/L (45-117) 03/19/19 03:18 Troponin I < 0.015 ng/ml (0-0.045) 03/19/19 03:18 Total Protein 6.7 gm/dl (6.4-8.2) 03/19/19 03:18 Albumin 3.5 gm/dl (3.4-5.0) 03/19/19 03:18 Lipase 111 U/L (73-393) 03/19/19 03:[address] abdomen pelvis initial read: Status post cholecystectomy. Biliary prominence secondary to reservoir effect. Unremarkable liver pancreas spleen adrenal glands and kidneys and reproductive organs. Normal appendix. 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 Chest x-ray as per my interpretation atelectasis EKG as per my interpretation : Rate 55, sinus bradycardia, LAD, LAFB T wave flattening inferior and anteroseptal leads, LVH
[2019-03-19 06:53] LABS: Estimated Average Glucose 120 mg/dl; Hemoglobin A1C 5.8 % (4.5-5.6)
--- NOTE | 2019-03-19 06:54 | CT Scan Report ---
CT OF THE ABDOMEN AND PELVIS WITH CONTRAST CLINICAL HISTORY: Epigastric pain and vomiting. COMPARISON STUDY: Right upper quadrant ultrasound September 03, 2017. TECHNIQUE: Following IV administration of 90 mL of Optiray-320, axial images of the abdomen and pelvi s were obtained from the lung bases to the proximal femurs. Images were reviewed in the axial, sagitt al, and coronal planes. IV contrast was administered without complication. Automated exposure control was utilized for the study. A dose lowering technique was utilized adhering to the principles of AL RICHAR. CT DOSE: 444.21 mGy.cm FINDINGS: Right hepatic dome cyst is noted. Mild biliary ductal dilatation is likely related to darren cystectomy. No pancreatic ductal dilatation. The spleen, adrenal glands and pancreas are unremarkable . There is no peripancreatic infiltration. A 1.6 cm lesion within the upper pole of the left kidney m easures above water attenuation but is similar in size to CT of February 05, 2012 and is therefore lik annamaria benign. There is no hydronephrosis. There is no evidence for a bowel obstruction. No ascites is p resent. Caliber and wall thickness of small and large bowel are normal. Right hip arthroplasty is pre sent. Postoperative findings within the lumbosacral spine are incidentally noted. Narrowing of the pr oximal celiac axis due to the median arcuate ligament is present. IMPRESSION: 1. No acute process within the abdomen or pelvis. 2. Mild biliary ductal dilatation likely related to cholecystectomy. 3. No bowel obstruction. Normal appendix. Electronically signed by: Oswald Francis M.D. 03/19/2019 6:52 AM
[2019-03-19] MEDS ORDERED: PROMETHAZINE HCL 12.5 MG in SODIUM CHLORIDE 0.9% 50 ML IV PRN (07:40)
[2019-03-19] MEDS ORDERED: MoRPHine SULFATE 2 MG/ML CARP IV PRN (07:40)
[2019-03-19] MEDS ORDERED: POTASSIUM CHLORIDE 20 MEQ TABCR PO STA (07:40)
[2019-03-19] MEDS ORDERED: NITROGLYCERIN SL 0.4 MG/TAB TAB SL PRN (07:40)
[2019-03-19] MEDS ORDERED: TRAMADOL HCL 50 MG TABLET PO PRN (07:40)
[2019-03-19] MEDS ORDERED: ACETAMINOPHEN 325 MG TAB PO PRN ×2 (07:40→08:16)
[2019-03-19] MEDS ORDERED: clonazePAM 1 MG TAB PO PRN (07:40)
[2019-03-19] MEDS ORDERED: ALUMINUM/MAGNESIUM SUSP 30 ML UDC PO PRN (07:40)
--- NOTE | 2019-03-19 07:43 | XRay Report ---
XR chest 1V portable CLINICAL HISTORY: 74 years-old Female presenting with chest pain, epigastric pain, vomiting. TECHNIQUE: Portable upright AP view of the chest was obtained. COMPARISON: 06/02/2018. FINDINGS: Cardiac silhouette borderline enlarged. Minimal basilar opacities. No pleural effusion or pneumothora x. Degenerative changes of the thoracic spine. Upper abdomen normal. IMPRESSION: 1. Minimal basilar opacities likely atelectasis or scarring. No convincing evidence of acute cardiop ulmonary disease. Electronically signed by: José Antonio Field M.D. 03/19/2019 7:41 AM
[2019-03-19] MEDS ORDERED: POTASSIUM CHLORIDE 40 MEQ in SODIUM CHLORIDE 0.9% 1000ML 1,000 ML IV SCH (08:00)
--- NOTE | 2019-03-19 08:27 | Emergency Department Note ---
Entered by Afshan Will acting as a scribe for ED Provider Note Name: RADHA SÁNCHEZ Age: 74 Arrives Via: Ambulance Informant: Patient CC: Abdominal pain HPI: 74F arrives for evaluation of abdominal pain. The patient reports that she woke up with excruciating abdominal pain. She complains of nausea and vomiting. The patient has a history of cholecystectomy. She denies drinking or smoking. Patient reports no pain with eating or exercising over the past few months. ROS: See above HPI for pertinent positives & negatives. A total of 10 systems reviewed and were otherwise negative. Past Medical History:Anxiety, cholecystitis, GERD, Hypertension, IBS, Lactose intolerance, osteoarthritis, Past Surgical History:tubal ligation, cholecystectomy, total hip arthroplasty Family History:See Below Social History:See Below Home Medications:See Below Allergies:See Below Vitals:BP: 143/68 Pulse: 61 Resp: 18 Temp: 36.5 O2 Sat: 94 Physical Exam: GENERAL: Patient is well appearing and in no acute distress. EYES: No scleral icterus, unremarkable pupils. ENT: Mucous membranes moist, no nasal congestion. NECK: No masses appreciated, nomeningismus, trachea is midline. RESPIRATORY: No dyspnea. Clear to auscultation and equal bilaterally. No wheeze, no rhonchi. CARDIOVASCULAR: Regular rate and rhythm.No murmurs, rubs, gallops appreciated. GASTROINTESTINAL: Epigastric pain radiating to back. No peritonitis.Bowel sounds positive.No masses appreciated. BACK: No midline tenderness, no CVA tenderness EXTREMITIES: Normal motion all extremities, no cyanosis, no edema. NEUROLOGIC: Alert and oriented, no acute motor or sensory deficits, no focal weakness, cranial nerves grossly intact. SKIN: No rash, no jaundice, no diaphoresis. ED Course: Prior Medical Record, Triage/Nursing Notes, Medications, Allergies reviewed by Me Vital Signs: reviewed and remarkable for wnl Labs:Reviewed and remarkable for no significant abnormalities Interventions: saline lock, nss bolus, fenantyl 75mcg IV & 50mcg IV, zofran 4mg IV Imaging:[facility] Radiologist interpretation reviewed by me: CT abdo pelv: No acute findings. 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 There is anterior t wave flattening. QTC 465. Similar to ekg Consults: Reassessments/Times: 0308: Past medical records reviewed. The patient was evaluated in room B06. A complete history and physical exam was performed. 0402: The patient reports feeling much better after fentanyl, but still has some epigastric discomfort to palpation. 0524: The patient states that her pain is starting to return. 0530: I discussed the patient with Dr. Pacheco, [facility] hospitalist, who agreed to evaluate the patient further. The patient is agreeable to this course of treatment. Blood pressure:Normal.No Referral necessary Disposition:hospitalization Differentials:Differential diagnosis includes: appendicitis, diverticulitis, PUD, biliary pathology, UTI, pancreatitis, obstruction, mesenteric ischemia, aortic pathology, infections, inflammatory bowel disease, renal colic, as well as others were entertained. Medical Decision Makin yr old female with acute epigastric pain to back and right shoulder associated with vomiting and just started this evening. Pain improved but requiring multiple doses fentanyl. She was also given fluids and zofran with improvement vomiting. Labs unremarkable. EKG OK. Trop neg. CT done which is unremarkable. Still having pain yet hypoxic on ra due to pain meds. Seems unlikely ACS though may require rule out. There is this arcuate findings on ct which I do not feel is the acute issue as no issues with eating/exercise recently and would expect something with that to be more of a chronic issue. No ischemia noted on CT. Hospitalist to evaluate further. Impression: Acute Epigastric Pain Vomiting The scribe's documentation has been prepared under my direction and personally reviewed by me in its entirety. I confirm that the note above accurately ref lects all work, treatment, procedures, and medical decision making performed by me. Nic Cabrales MD Impression & Plan Acute epigastric pain, Vomiting Past Med/Surg History Medical History Anxiety Cholecystitis (Deleted) H/O Chronic back pain GERD (gastroesophageal reflux disease) History of alcoholism Hyperlipidemia Hypertension IBS (irritable bowel syndrome) Lactose intolerance On home oxygen therapy 2 LPM AT NIGHT Osteoarthritis Pneumonia (Deleted) H/O SOB (shortness of breath) on exertion Spinal stenosis Stroke MRI OBTAINED 02/2018 [place] R/T VISUAL DISTURBANCES - 4 "MINI STROKES" - PROVIDER UNABLE TO DETERMINE IF ACUTE VS OLD PER PT REPORT - SAW DR.VICTORIA AGRAWAL, NEURO Surgical History History of bilateral tubal ligation History of cholecystectomy History of colonoscopy History of esophagogastroduodenoscopy (EGD) History of tooth extraction History of total hip arthroplasty RT Hx of LASIK Family History Other Family history non-contributory Social History Preferred Language: Nicaraguan Communication Ability: Effective Visual Impairment: No Limitations Public Information Specialist Required: No Beliefs That Will Affect Care: None marital status: Current Living Situation: Spouse Current Living Situation Comment: 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 Other Information That Helps Us Care for You: No Feels Safe at Home: Yes Safety Concerns: Feels Safe At This Time Smoking Status: Former smoker Second Hand Exposure: No ; Hx Alcohol Use: No Hx Substance Use: No Results & Data Vital Signs Vital Signs - 24 hr 03/19/19 03:00 03/19/19 04:36 03/19/19 05:38 Temperature 36.5 C Temperature Source Oral Pulse Rate 61 Pulse Rate [Right Finger] 72 59 L Pulse Rhythm [Right Finger] Regular Pulse Strength [Right Finger] Normal Respiratory Rate 18 16 18 Respiratory Effort / Characteristics Non-Labored Spontaneous Non-Labored Non-Labored Spontaneous Respiratory Depth Normal Normal Normal Respiratory Pattern Regular Regular Regular Blood Pressure 143/68 H Blood Pressure [Right Arm] 139/87 116/67 Blood Pressure Mean 93 Blood Pressure Mean [Right Arm] 104 83 Blood Pressure Position Lying Blood Pressure Position [Right Arm] Lying Lying Pulse Oximetry 94 98 95 Oxygen Delivery Method Room Air Nasal Cannula Nasal Cannula Oxygen Flow Rate 2 2 Sepsis Recent Fever Within 48 Hours No Sepsis Action Taken by Nursing No Action Required Home Medications Current Medication List: was personally reviewed by me Laboratory Data Attestation: I reviewed the patient's lab results. Result diagrams: 03/19/19 03:18 03/19/19 03:18 Lab Results 03/19/19 03/19/19 03/19/19 Range/Units 03:18 03:18 03:18 WBC 8.28 (4.8-10.8) K/uL RBC 4.58 (4.2-5.4) M/uL Hgb 13.6 (12.0-16.0) g/dL Hct 40.7 (37-47) % MCV 88.9 (80-100) fL MCH 29.7 (25-34) pg MCHC 33.4 (32-36) g/dL RDW Std Deviation 42.0 (36.4-46.3) fL RDW Coeff of Sharon 13.0 (11.5-14.5) % Plt Count 232 (130-400) K/uL MPV 10.2 (7.4-10.4) fL Immature Gran % (Auto) 0.2 % Neut % (Auto) 46.4 % Lymph % (Auto) 40.6 % Will % (Auto) 7.5 % Eos % (Auto) 4.6 % Baso % (Auto) 0.7 % Immature Gran # (Auto) 0.02 (0.00-0.02) K/uL Neut # (Auto) 3.84 (1.4-6.5) K/uL Lymph # (Auto) 3.36 (1.2-3.4) K/uL Will # (Auto) 0.62 H (0.11-0.59) K/uL Eos # (Auto) 0.38 (0-0.5) K/uL Baso # (Auto) 0.06 (0-0.2) K/uL Sodium 139 (136-145) mmol/L Potassium 2.9 L (3.5-5.1) mmol/L Chloride 104 (98-107) mmol/L Carbon Dioxide 27 (21-32) mmol/L Anion Gap 8.0 (3-11) BUN 15 (7-18) mg/dl Creatinine 1.02 (0.6-1.2) mg/dl Est Cr Clr Drug Dosing 48.5 ml/min Est GFR ( Amer) 63.6 Est GFR (Non-Af Amer) 54.9 BUN/Creatinine Ratio 14.7 (10-20) Glucose 114 H (70-99) mg/dl Estimat Average Glucose mg/dl Hemoglobin A1c (4.5-5.6) % Calcium 8.6 (8.5-10.1) mg/dl Magnesium 1.9 (1.8-2.4) mg/dl Total Bilirubin 0.4 (0.2-1) mg/dl Direct Bilirubin 0.2 (0-0.2) mg/dl AST 16 (15-37) U/L ALT 18 (12-78) U/L Alkaline Phosphatase 91 (45-117) U/L Troponin I < 0.015 (0-0.045) ng/ml Total Protein 6.7 (6.4-8.2) gm/dl Albumin 3.5 (3.4-5.0) gm/dl Lipase 111 (73-393) U/L 03/19/19 Range/Units 03:18 WBC (4.8-10.8) K/uL RBC (4.2-5.4) M/uL Hgb (12.0-16.0) g/dL Hct (37-47) % MCV (80-100) fL MCH (25-34) pg MCHC (32-36) g/dL RDW Std Deviation (36.4-46.3) fL RDW Coeff of Sharon (11.5-14.5) % Plt Count (130-400) K/uL MPV (7.4-10.4) fL Immature Gran % (Auto) % Neut % (Auto) % Lymph % (Auto) % Will % (Auto) % Eos % (Auto) % Baso % (Auto) % Immature Gran # (Auto) (0.00-0.02) K/uL Neut # (Auto) (1.4-6.5) K/uL Lymph # (Auto) (1.2-3.4) K/uL Will # (Auto) (0.11-0.59) K/uL Eos # (Auto) (0-0.5) K/uL Baso # (Auto) (0-0.2) K/uL Sodium (136-145) mmol/L Potassium (3.5-5.1) mmol/L Chloride (98-107) mmol/L Carbon Dioxide (21-32) mmol/L Anion Gap (3-11) BUN (7-18) mg/dl Creatinine (0.6-1.2) mg/dl Est Cr Clr Drug Dosing ml/min Est GFR ( Amer) Est GFR (Non-Af Amer) BUN/Creatinine Ratio (10-20) Glucose (70-99) mg/dl Estimat Average Glucose 120 mg/dl Hemoglobin A1c 5.8 H (4.5-5.6) % Calcium (8.5-10.1) mg/dl Magnesium (1.8-2.4) mg/dl Total Bilirubin (0.2-1) mg/dl Direct Bilirubin (0-0.2) mg/dl AST (15-37) U/L ALT (12-78) U/L Alkaline Phosphatase (45-117) U/L Troponin I (0-0.045) ng/ml Total Protein (6.4-8.2) gm/dl Albumin (3.4-5.0) gm/dl Lipase (73-393) U/L Administered Medications Discontinued Medications Fentanyl Citrate (Fentanyl Citrate) 75 mcg IV NOW STA Stop: 03/19/19 03:14 Last Admin: 03/19/19 03:33 Dose: 75 mcg Documented by: [id number] Fentanyl Citrate (Fentanyl Citrate) 50 mcg IV NOW STA Stop: 03/19/19 05:25 Last Admin: 03/19/19 05:37 Dose: 50 mcg Documented by: [id number] Sodium Chloride (Nss 1000ml) 1,000 mls @ 999 mls/hr IV .Q1H1M ONE Stop: 03/19/19 04:13 Last Infusion: 03/19/19 04:54 Dose: 0 mls/hr Documented by: [id number] Admin: 03/19/19 03:33 Dose: 999 mls/hr Documented by: [id number] Famotidine (Pepcid 20mg Iv Push) 20 mg in 5 mls @ 2.5 mls/min IV NOW STA Stop: 03/19/19 05:26 Last Admin: 03/19/19 05:38 Dose: 2.5 mls/min Documented by: [id number] Ioversol (Optiray 320 100ml) 100 ml IV ONCE PRN PRN Reason: Interaction Checking Stop: 03/23/19 04:27 Last Admin: 03/19/19 04:28 Dose: 90 ml Documented by: [id number] Ondansetron HCl (Zofran) 4 mg IV NOW STA Stop: 03/19/19 03:14 Last Admin: 03/19/19 03:31 Dose: 4 mg Documented by: [id number] Blood Pressure Blood Pressure Findings: Elevated blood pressure Blood Pressure Disposition: further management by hospitalist Discharge Plan Visit Data *Final* Discharge Date/Time: 03/19/19 07:04 Chief Complaint: Abdominal Pain Stated Complaint: ABDOMINAL PAIN ED Provider: Nic Cabrales Discharge Problem: Acute epigastric pain, Vomiting Patient Disposition: Admitted As Inpatient Discharge Instructions Interventions: ED Discharge Assessment Last Done: 03/19/19 07:04 Discharge Problem: Vomiting Qualifiers: Vomiting type: bilious vomiting Nausea presence: with nausea Qualified Code(s): R11.14 - Bilious vomiting The scribe's documentation has been prepared under my direction and personally reviewed by me in its entirety. I confirm that the note above accurately re flects all work, treatment, procedures, and medical decision making performed by me.
[2019-03-19] MEDS: BuPROPion SR 150 MG TABCR PO SCH ×2 (08:32→21:10)
[2019-03-19] MEDS: PANTOprazole 40 MG TAB PO SCH ×2 (08:32→21:10)
[2019-03-19] MEDS: ATORVASTATIN 40 MG TAB PO SCH (08:32)
[2019-03-19] MEDS: ASPIRIN 325 MG ECTAB PO SCH (08:32)
[2019-03-19] MEDS: CYANOCOBALAMIN 500 MCG TABLET (VITAMIN B-12) PO SCH (08:33)
[2019-03-19] MEDS ORDERED: DiphenhydrAMINE HCL 50 MG/ML VIAL IV STA (08:59)
[2019-03-19] MEDS ORDERED: NALTREXONE HCL 50 MG TAB PO SCH (09:00)
[2019-03-19] MEDS ORDERED: ENOXAPARIN INJ 30 MG/0.3 ML SYR SQ SCH (09:00)
[2019-03-19 11:03] LABS: BUN Creatinine Ratio 14.4 (10-20); Blood Urea Nitrogen 12 mg/dl (7-18); Calcium 8.4 mg/dl (8.5-10.1); Carbon Dioxide 27 mmol/L (21-32); Chloride 106 mmol/L (98-107); Creatinine Clr Calc Pharmacy 59.6 ml/min; Est GFR (African American) 81.7; Est GFR (Non-African American) 70.4; Glucose 105 mg/dl (70-99); Potassium 3.4 mmol/L (3.5-5.1); Sodium 140 mmol/L (136-145)
[2019-03-19 11:08] LABS: Troponin I < 0.015 ng/ml (0-0.045)
--- NOTE | 2019-03-19 15:05 | Hospitalist Progress Note ---
Date of Service March 19, 2019 Assessment & Plan (1) Acute epigastric pain: acute epigastric pain (possible gastritis verus Gastroesophageal reflux disease) Hypokalemia -74F arrives for evaluation of abdominal pain. The patient reports that she woke up with excruciating abdominal pain. She complains of nausea and vomiting -abdominal CT scan: No acute process within the abdomen or pelvis; Mild biliary ductal dilatation likely related to cholecystectomy; No bowel obstruction. Normal appendix. -lipase is normal -Chest X ray without acute process -acute coronary syndrome is ruled out: cardiac workup initiated by admitting nocturnalist is negative. troponins negative x 2. echocardiogram with normal ejection fraction of 60 to 65% with only mild tricuspid regurgitation and mild mitral regurgitation -03/19/19: In the day time, so far, patient does not have any further pain to abdomen of to the right shoulder. She was able to tolerate liquid diet. No vomiting. Serum potassium of 2.4 has been supplemented to 3.4 on last serum potassium check -continue pantoprazole -plan to advance to regular diet History of Hypertension -hold HCTZ for now Nocturnal supplementary oxygen at night DVT prophylaxis. Lovenox subcutaneous Full code Subjective In the day time, so far, patient does not have any further pain to abdomen of to the right shoulder. She was able to tolerate liquid diet. No vomiting. Serum potassium of 2.4 has been supplemented to 3.4 on last serum potassium check no shortness of breath. breathing on room air. no dizziness. no headache Review of Systems Review of Systems: All systems reviewed & are unremarkable except as noted in HPI & below Physical Exam Constitutional: comfortable Eyes: PERRL, conjunctivae normal, anicteric sclerae EOM intact bilaterally ENMT: external ear and nose normal, oropharynx normal Neck: trachea midline, no thyromegaly Respiratory: normal respiratory effort, lungs clear to auscultation Gastrointestinal (Abdomen): normal bowel sounds, soft, nontender, no hepatosplenomegaly Musculoskeletal: Head/Neck/Chest: normocephalic and head atraumatic Neurologic: PERRL, EOMI, accommodation nl, no face palsy, no dysarthria CN's II-XI intact bilaterally Psychiatric: A+Ox3, euthymic affect Results & Data Vital Signs (Past 12 Hours) Vital Signs Pulse Pulse Resp BP BP Pulse Ox 03/19/19 07:04 52 L 18 99/62 L 96 12/11/19 05:38 59 L 18 116/67 95 03/19/19 04:36 72 16 139/87 98
[2019-03-19] MEDS ORDERED: TRAZODONE HCL 100 MG TAB PO SCH (21:00)
[2019-03-19] MEDS ORDERED: Nursing to Pharmacy Communication ONE (21:30)
[2019-03-19 22:39] LABS: Appearance Urine Clear (Clear); Bacteria Urine Automated Negative (Negative); Bilirubin Urine Negative (Negative); Blood Urine Negative (Negative); Cast Urine Automated 0 /lpf (0-5); Color Urine Yellow; Glucose Urine UA Negative (Negative); Ketones Urine Negative (Negative); Leukocyte Esterase Urine Trace (Negative); Nitrite Urine Negative (Negative); Protein Urine Negative (Negative); RBC Urine Automated 0-4 /hpf (0-4); Specific Gravity Urine 1.015 (1.000-1.030); Urobilinogen Urine Negative (Negative)
[2019-03-20] MEDS ORDERED: TRAZODONE HCL 100 MG TAB PO SCH
[2019-03-20] MEDS: ATORVASTATIN 40 MG TAB PO SCH (07:52)
[2019-03-20] MEDS: PANTOprazole 40 MG TAB PO SCH (07:52)
[2019-03-20] MEDS: BuPROPion SR 150 MG TABCR PO SCH (07:52)
[2019-03-20] MEDS: CYANOCOBALAMIN 500 MCG TABLET (VITAMIN B-12) PO SCH (07:52)
[2019-03-20] MEDS: ASPIRIN 325 MG ECTAB PO SCH (07:53)
[2019-03-20] MEDS ORDERED: ENOXAPARIN INJ 40 MG/0.4 ML SYR SQ SCH (09:00)
[2019-03-20 09:48] LABS: Hematocrit (blood only) 34.5 % (37-47); Hemoglobin 11.3 g/dL (12.0-16.0); Mean Corpuscular Hemoglobin 29.9 pg (25-34); Mean Corpuscular Hgb Conc 32.8 g/dL (32-36); Mean Corpuscular Volume 91.3 fL (80-100); Mean Platelet Volume 10.5 fL (7.4-10.4); Platelet Count 201 K/uL (130-400); RDW Coefficient of Variation 13.3 % (11.5-14.5); RDW Standard Deviation 44.3 fL (36.4-46.3); Red Blood Count 3.78 M/uL (4.2-5.4); White Blood Count 2.86 K/uL (4.8-10.8)
[2019-03-20 09:49] LABS: BUN Creatinine Ratio 9.1 (10-20); Calcium 8.2 mg/dl (8.5-10.1); Creatinine Clr Calc Pharmacy 54.3 ml/min; Est GFR (African American) 73.1
[2019-03-20 10:06] LABS: Basophils # (auto) 0.07 K/uL (0-0.2); Basophils % (auto) 2.4 %; Eosinophils # (auto) 0.41 K/uL (0-0.5); Eosinophils % (auto) 14.3 %; Immature Granulocytes # (auto) 0.01 K/uL (0.00-0.02); Immature Granulocytes % (auto) 0.3 %; Lymphocytes # (auto) 1.43 K/uL (1.2-3.4); Monocytes # (auto) 0.21 K/uL (0.11-0.59); Monocytes % (auto) 7.3 %; Neutrophils # (auto) 0.73 K/uL (1.4-6.5); Neutrophils % (auto) 25.7 %
--- NOTE | 2019-03-20 10:39 | Hospitalist Progress Note ---
Date of Service March 20, 2019 Assessment & Plan (1) Acute epigastric pain: acute epigastric pain (possible gastritis verus Gastroesophageal reflux disease) Hypokalemia -74F arrives for evaluation of abdominal pain. The patient reports that she woke up with excruciating abdominal pain. She complains of nausea and vomiting -abdominal CT scan: No acute process within the abdomen or pelvis; Mild biliary ductal dilatation likely related to cholecystectomy; No bowel obstruction. Normal appendix. -lipase is normal -Chest X ray without acute process -acute coronary syndrome is ruled out: cardiac workup initiated by admitting nocturnalist is negative. troponins negative x 2. echocardiogram with normal ejection fraction of 60 to 65% with only mild tricuspid regurgitation and mild mitral regurgitation -03/19/19: In the day time, so far, patient does not have any further pain to abdomen of to the right shoulder. She was able to tolerate liquid diet. No vomiting. Serum potassium of 2.4 has been supplemented to 3.4 -03/20/19: tolerated regular diet, serum potassium is 3.7 on 03/20/19 -continue protonics Neutropenia -normal WBC and neutrophil counts on admission on initial hospital labs -incidental lab finding on 03/20/19 of white blood cell count of 0.73 K/ul Neutrophils in a White blood cell count of 2.86 K/ul. Patient is advised to follow with primary care doctor and avoid sick contacts and to seek medical care if she develops fever in the near future. -clinic appointment 03/24/2019 9:40 AM Provider Williams Mota MD [facility] History of Hypertension -patient denies taking HCTZ at home -blood pressure in hospital has been low normotensive without blood pressure medications Nocturnal supplementary oxygen at night DVT prophylaxis. Lovenox subcutaneous Full code Discharge Diagnosis: ABDOMINAL PAIN (acute epigastric pain from possible gastritis verus Gastroesophageal reflux disease), HYPOKALEMIA (treated), Neutropenia (incidental lab finding) Subjective Patient seen and examined at bedside. No abdominal pain. tolerated regular diet. no vomiting. incidental lab finding on 03/20/19 of white blood cell count of 0.73 K/ul Neutrophils in a White blood cell count of 2.86 K/ul. Patient is advised to follow with primary care doctor and avoid sick contacts and to seek medical care if she develops fever in the near future. no headache. no dizziness. no chest pain. no shortness of breath Review of Systems Review of Systems: All systems reviewed & are unremarkable except as noted in HPI & below Physical Exam Constitutional: comfortable Eyes: PERRL, conjunctivae normal, anicteric sclerae EOM intact bilaterally ENMT: external ear and nose normal, oropharynx normal Neck: trachea midline, no thyromegaly Respiratory: normal respiratory effort, lungs clear to auscultation Gastrointestinal (Abdomen): normal bowel sounds, soft, nontender, no hepatosplenomegaly Musculoskeletal: Head/Neck/Chest: normocephalic and head atraumatic Neurologic: PERRL, EOMI, accommodation nl, no face palsy, no dysarthria CN's II-XI intact bilaterally Psychiatric: A+Ox3, euthymic affect Results & Data Vital Signs (Past 12 Hours) Vital Signs Temp Pulse Pulse Resp BP Pulse Ox 03/20/19 08:06 36.9 C 63 18 92/55 L 93 03/20/19 07:16 65 03/20/19 04:22 36.7 C 73 18 95/60 L 92 03/20/19 00:40 71 03/19/19 23:28 36.6 C 79 20 101/64 90
--- NOTE | 2019-03-20 10:49 | Discharge Summary ---
Date of Service March 20, 2019 Admission HPI Per Admitting Provider History obtained from patient and records. Medical history significant for chronic resp failure 2 to COPD on home O2 at night, past tobacco/alcohol abuse, hypertension, hyperlipidemia, chronic back pain, GERD. Recent August 2017 for cholecystitis status post lap cholecystectomy. Patient roused from sleep this a.m. with sharp epigastric discomfort going to her back and right chest with some nausea and emesis upon arrival at the ER. Discomfort not pleuritic. Exertional shortness of breath about 2 days ago but not currently.. No prior episodes. Patient currently comfortable at the ER after IV narcotic administration. MEDICAL HISTORY: As above. SURGERIES: Tubal ligation, hammertoe repair, cholecystectomy FAMILY HISTORY: Family history of heart disease. PERSONAL SOCIAL HISTORY: Past tobacco/alcohol abuse as per records. 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 Admission Exam Per Admitting Provider GENERAL: Comfortable, no respiratory distress SKIN: Normal color, warm HEENT: [place] palpebral conjunctivae, no ptosis, dry buccal mucosa, nasal cannula in place NECK : Supple, no tenderness CHEST : Decreased breath sounds, no tenderness HEART : Bradycardic , no obvious murmurs ABDOMEN: Minimal epigastric tenderness, nontender EXTREMITIES : No LE swelling/tenderness, no other conspicuous deformities noted NEUROLOGIC : Coherent, no facial asymmetry, no other gross focality Principal Diagnosis ABDOMINAL PAIN (acute epigastric pain from possible gastritis verus Gastroesophageal reflux disease), HYPOKALEMIA (treated), Neutropenia (incidental lab finding) Discharge Exam Constitutional comfortable Eyes PERRL, conjunctivae normal, anicteric sclerae EOM intact bilaterally ENMT external ear and nose normal, oropharynx normal Neck trachea midline, no thyromegaly Respiratory normal respiratory effort, lungs clear to auscultation Gastrointestinal (Abdomen) normal bowel sounds, soft, nontender, no hepatosplenomegaly Musculoskeletal Head/Neck/Chest: normocephalic and head atraumatic Neurologic PERRL, EOMI, accommodation nl, no face palsy, no dysarthria CN's II-XI intact bilaterally Psychiatric A+Ox3, euthymic affect Discharge Data Allergies Allergy/AdvReac Type Severity Reaction Status Date / Time levofloxacin AdvReac Unknown abnormal Unverified 03/19/19 04:39 heart issues Consultations 03/19/19 05:30 ED Decision to Admit Stat Ordered Studies 03/19/19 03:52 CT abd pelvis IV con only Urgent Hospital Course (1) Acute epigastric pain: acute epigastric pain (possible gastritis verus Gastroesophageal reflux disease) Hypokalemia -74F arrives for evaluation of abdominal pain. The patient reports that she woke up with excruciating abdominal pain. She complains of nausea and vomiting -abdominal CT scan: No acute process within the abdomen or pelvis; Mild biliary ductal dilatation likely related to cholecystectomy; No bowel obstruction. Normal appendix. -lipase is normal -Chest X ray without acute process -acute coronary syndrome is ruled out: cardiac workup initiated by admitting nocturnalist is negative. troponins negative x 2. echocardiogram with normal ejection fraction of 60 to 65% with only mild tricuspid regurgitation and mild mitral regurgitation -03/19/19: In the day time, so far, patient does not have any further pain to abdomen of to the right shoulder. She was able to tolerate liquid diet. No vomiting. Serum potassium of 2.4 has been supplemented to 3.4 -03/20/19: tolerated regular diet, serum potassium is 3.7 on 03/20/19 -continue protonics Neutropenia -normal WBC and neutrophil counts on admission on initial hospital labs -incidental lab finding on 03/20/19 of white blood cell count of 0.73 K/ul Neutrophils in a White blood cell count of 2.86 K/ul. Patient is advised to follow with primary care doctor and avoid sick contacts and to seek medical care if she develops fever in the near future. -clinic appointment 03/24/2019 9:40 AM Provider Williams Mota MD Department [facility] History of Hypertension -patient denies taking HCTZ at home -blood pressure in hospital has been low normotensive without blood pressure medications Nocturnal supplementary oxygen at night DVT prophylaxis. Lovenox subcutaneous Full code Discharge Diagnosis: ABDOMINAL PAIN (acute epigastric pain from possible gastritis verus Gastroesophageal reflux disease), HYPOKALEMIA (treated), Neutropenia (incidental lab finding) Total Time Total Time Spent Total Time Spent (In Minutes): 40 minutes Total Time Includes: Examination of the Patient, Discharge Planning, Medication Reconciliation and Communication With Other Providers Discharge Plan Discharge Items Patient Disposition: Home - Self-Care Reason For Visit: SOB Discharge Diagnosis: ABDOMINAL PAIN (acute epigastric pain from possible gastritis verus Gastroesophageal reflux disease), HYPOKALEMIA (treated), Neutropenia (incidental lab finding) Condition on Discharge: Good Activity: Resume your previous activity Non-emergency contact: Primary Care Provider Call non-emergency contact if: you have any medication questions Follow-up/Referrals: Williams Mota MD [Primary Care Provider] - Diet: Regular Addtl Attending Provider Instructions: (acute epigastric pain (possible gastritis verus Gastroesophageal reflux disease) Hypokalemia -74F arrives for evaluation of abdominal pain. The patient reports that she woke up with excruciating abdominal pain. She complains of nausea and vomiting -abdominal CT scan: No acute process within the abdomen or pelvis; Mild biliary ductal dilatation likely related to cholecystectomy; No bowel obstruction. Normal appendix. -lipase is normal -Chest X ray without acute process -acute coronary syndrome is ruled out: cardiac workup initiated by admitting nocturnalist is negative. troponins negative x 2. echocardiogram with normal ejection fraction of 60 to 65% with only mild tricuspid regurgitation and mild mitral regurgitation -03/19/19: In the day time, so far, patient does not have any further pain to abdomen of to the right shoulder. She was able to tolerate liquid diet. No vomiting. Serum potassium of 2.4 has been supplemented to 3.4 -03/20/19: tolerated regular diet, serum potassium is 3.7 on 03/20/19 -continue protonics Neutropenia -incidental lab finding on 03/20/19 of white blood cell count of 0.73 K/ul Neutrophils in a White blood cell count of 2.86 K/ul. Patient is advised to follow with primary care doctor and avoid sick contacts and to seek medical care if she develops fever in the near future clinic appointment 03/24/2019 9:40 AM Provider Williams Mota MD [facility] Pending Studies at Discharge: No Stand-Alone Forms: Call Back Authorization, [facility], Smoking Cessation Medications and DC Order Prescriptions: Continued cyanocobalamin (vitamin B-12) 1,000 mcg capsule 1,000 mcg PO DAILY RF: 0 diphenoxylate-atropine [Lomotil] 2.5-0.025 mg tablet 1 tab PO QID RF: 0 bupropion HCl 150 mg tablet sustained-release 12 hr 150 mg PO BID RF: 0 atorvastatin 80 mg tablet 80 mg PO QAM RF: 0 naltrexone 50 mg tablet 50 mg PO QAM RF: 0 clonazepam 1 mg tablet 1 mg PO TID PRN (Reason: Anxiety) RF: 0 omeprazole 40 mg capsule,delayed release(DR/EC) 40 mg PO BID RF: 0 disulfiram 250 mg tablet 250 mg PO QAM RF: 0 hydrochlorothiazide 25 mg tablet 25 mg PO QAM RF: 0 acetaminophen [Acetaminophen Extra Strength] 500 mg Tablet 1,000 mg PO Q8H PRN (Reason: Pain) RF: 0 trazodone 300 mg Tablet 300 mg PO HS RF: 0 aspirin 325 mg Tablet 325 mg PO QAM RF: 0 Discharge Orders: Discharge Order (Routine); Ordered 03/20/19 Ordered By: Franky Oglesby Admission Data Admit Date/Time: 03/19/19 06:17 Attending Provider: Franky Oglesby Admit Provider: Jessee Pacheco Primary Care Provider: Williams Mota Other Providers: Jessee Pacheco
== END 2019-03-20 13:30 | disposition home or self-care (01) ==
LOC: ED 02:58 → 2W 02:58

== ENCOUNTER 2019-08-27 12:26 | Inpatient (IN) ==
--- NOTE | 2019-08-27 12:50 | Emergency Department Note ---
Impression & Plan Substernal chest pain, Nausea & vomiting ED Provider Note NAME: RADHA SÁNCHEZ AGE: 74 SEX: F : 1945 ARRIVES VIA: Ambulance INFORMANT: Patient, ED PROVIDER(S): Jonn Weaver MD Chief Complaint: Chest pain HPI: Patient does present with substernal chest pain. Describes it as sharp in nature. It occurred while watching the presses right. Patient does relate that a family member recently . Patient states it radiates to her right shoulder. Patient did have associated nausea with 1 episode of vomiting. Patient is unsure as to whether or not they are exertional. Patient denies any diaphoresis. No prior history of heart disease. The patient did receive aspirin nitro in route which states abated her discomfort but it is back to a 10 out of 10 in severity. Patient states it feels similar to when she had her gallbladder out. Patient does not present with cough, fevers, chills, cor onavirus contacts, coronavirus testing, or recent travel. Patient denies any lower extremity swelling or history of DVT or PE. Patient does take a baby aspirin daily. No bowel or bladder issues. No dysuria and no hematuria or hematochezia. Of note the patient had a relatively unremarkable cardiac work-up back in March. The patient did have an echocardiogram which showed a normal EF of 60 to 65%. ROS: See HPI for pertinent positives and negatives. A total of 10 systems were reviewed and otherwise negative. Past medical history: See below Surgical history: See below Social history: See below Physical Exam: GENERAL: NAD, non-toxic. Wearing glasses and mask. EYE EXAM: Normal conjunctiva. PERRL, no anisocoria and EOM's grossly intact w/o pain. NECK: Supple, no nuchal rigidity, no adenopathy, non-tender. No signs of meningismus. Chest: Reproducible lower sternal discomfort located at the xiphoid without skin changes. LUNGS: Clear to auscultation. Normal chest wall mechanics. HEART: NSR, no MRG. ABDOMEN: Abdomen soft, non-tender, normo-active bowel sounds, no masses, no rebo und or guarding. BACK: No CVA TTP. SKIN: No rashes and no bruising. UPPER EXTREMITIES: Upper extremities are grossly normal. LOWER EXTREMITIES: Grossly normal, no edema. Negative Homans sign bilaterally. NEURO EXAM: A&O x3, cranial nerves II-XII grossly intact, normal speech, moves all 4 extremities on command w/o issue. Differential diagnoses: Cardiac ischemia, aortic dissection, pulmonary embolism, pneumothorax, pneumonia, pericarditis, myocarditis, esophageal rupture, GERD, cholecystitis, pancreatitis, musculoskeletal, as well as other pathologies. Course: Patient was seen and evaluated the bedside. Full history physical exam was performed. EKG: Location: Chest pain Sinus bradycardia, rate of 50, normal intervals, left axis deviation, T wave inversion in V2. No obvious changes to comparison EKG March 19, 2019. Imaging Studies: Radiology results as stated below per my review in the radiologist's interpretation: XR chest 1V portable HISTORY: Atypical Chest Pain COMPARISON: Chest 03/19/2019. FINDINGS: There are low lung volumes. No pneumothorax. No pleural effusions. The heart remains enlarged. Slight prominence of interstitial markings, unchanged. This is likely chronic. No evidence for pulmonary edema. Left basilar densities persist. Prior cholecystectomy. IMPRESSION: No change in the left basilar densities. This favors atelectasis/scarring given the stability. A pneumonia could also have a similar appearance in the appropriate clinical setting. ACT 112: Negative or not required by law. Electronically signed by: Fabian Gilbert M.D. 08/27/2019 1:07 PM Dictated: 08/27/19 1306 Transcribed: 08/27/19 1306 gallbladder CLINICAL HISTORY: 74 years-old Female presenting with epigastric RUQ pain. TECHNIQUE: Real-time grayscale and limited color Doppler ultrasound imaging of the abdomen limited to the right upper quadrant was performed. COMPARISON: CT from 03/19/2019 and ultrasound from 09/03/2017. FINDINGS: Pancreas: Visualized portions of the pancreatic head and body normal. Top normal prominence of the pancreatic duct. Liver: Mildly hyperechogenic parenchyma, although the right hemidiaphragm remains visible, likely indicating mild steatosis. The liver measures 15.4 cm in maximal sagittal dimension. Hyperechogenic 1.4 cm lesion near the liver hilum as seen on prior CT, likely hemangioma. Main portal vein patent with normal directional flow. Biliary: No intrahepatic biliary ductal dilatation. Common bile duct measures up to 8 mm in diameter, likely a reservoir effect in the post cholecystectomy state. Gallbladder: Surgically absent. Right kidney: Normal in appearance without evidence of hydronephrosis. Ascites: None. Other: None. IMPRESSION: 1. Status post cholecystectomy. Extrahepatic biliary ductal dilatation likely a reservoir effect in the post cholecystectomy state. 2. Possible mild hepatic steatosis. Correlate with liver function tests to exclude steatohepatitis as a cause for abdominal pain. ACT 112: Negative or not required by law. Electronically signed by: José Antonio Field M.D. 08/27/2019 3:00 PM Dictated: 08/27/19 145 Transcribed: 08/27/[id number] Cardiac monitoring: An order was placed for continuous cardiac monitoring. The monitor shows a rate of 57 with sinus bradycardia rhythm. MDM: Patient does present with concern for chest pains. Patient's EKG appears unchanged. Blood work was obtained and the patient was treated with anti- emetics and pain medication. Patient has normal white count H&H and platelet count. Kidney function is unremarkable. The patient does have mild change in AST and alk phos which is new. The patient's troponin is negative and bilirubin is normal. Given that the patient did state that this felt like her gallbladder and ultrasound was obt ained. This does show the potential confirmed concern for steatosis or steatohepatitis. Given that the patient does have a history of risk factors with substernal chest pain which radiated to the shoulder given if potentially GI the patient would have an elevated heart score. Patient's pain did improve with morphine and Zofran. Patient was agreeable to plan of care. I did speak with ANALY Matias the patient was admitted under Dr. Jerry MD [facility] hospitalist service. Past Med/Surg History Medical History Anxiety Cerebellar ataxia Chronic back pain GERD (gastroesophageal reflux disease) History of alcoholism Hyperlipidemia Hypertension IBS (irritable bowel syndrome) Lactose intolerance On home oxygen therapy 2 LPM AT NIGHT Osteoarthritis Spinal stenosis Stroke MRI OBTAINED 02/2018 [place] R/T VISUAL DISTURBANCES - 4 "MINI STROKES" - PROVIDER UNABLE TO DETERMINE IF ACUTE VS OLD PER PT REPORT - SAW DR.VICTORIA AGRAWAL, NEURO Surgical History History of bilateral tubal ligation History of cholecystectomy History of colonoscopy History of esophagogastroduodenoscopy (EGD) History of tooth extraction History of total hip arthroplasty RT Hx of LASIK Family History Father Stroke Social History Preferred Language: French Communication Ability: Effective Visual Impairment: No Limitations Rip/Mould Operator Required: No Beliefs That Will Affect Care: None marital status: Current Living Situation: Spouse Current Living Situation Comment: 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 Other Information That Helps Us Care for You: No Feels Safe at Home: Yes Safety Concerns: Feels Safe At This Time Smoking Status: Former smoker Second Hand Exposure: No ; Hx Alcohol Use: No Hx Substance Use: No Allergies Allergies Allergy/AdvReac Type Severity Reaction Status Date / Time levofloxacin AdvReac Unknown abnormal Unverified 08/27/19 13:02 heart issues Home Meds Home Medications Medication Instructions Recorded Confirmed atorvastatin 80 mg PO QAM 02/09/18 08/27/19 bupropion HCl 150 mg PO BID 02/09/18 08/27/19 clonazepam 1 mg PO TID PRN 02/09/18 08/27/19 omeprazole 40 mg PO BID 02/09/18 08/27/19 trazodone 300 mg PO HS 02/09/18 08/27/19 aspirin 325 mg PO QAM 05/03/18 08/27/19 diphenoxylate-atropine 2.5 1 tab PO QID PRN tab 10/28/18 08/27/19 mg-0.025 mg tablet furosemide 20 mg PO DAILY PRN 08/27/19 08/27/19 potassium chloride 20 meq PO DAILY PRN 08/27/19 08/27/19 sucralfate 1 g PO ACHS 08/27/19 08/27/19 Results & Data (ED) Vital Signs Vital Signs - 24 hr 08/27/19 12:23 08/27/19 12:39 08/27/19 12:50 Temperature 36.4 C L Temperature Source Oral Oral Pulse Rate 57 L Pulse Rate [Apical] Pulse Rate from SpO2 Sensor Respiratory Rate 16 Respiratory Effort / Characteristics Non-Labored Respiratory Depth Normal Respiratory Pattern Blood Pressure 122/73 Blood Pressure [Right Arm] Blood Pressure Mean 89 Blood Pressure Mean [Right Arm] Blood Pressure Position Sitting Blood Pressure Position [Right Arm] Pulse Oximetry 91 Oxygen Delivery Method Room Air Room Air Room Air Sepsis Recent Fever Within 48 Hours No Sepsis Action Taken by Nursing No Action Required 08/27/19 13:00 08/27/19 13:30 08/27/19 14:00 Temperature Temperature Source Pulse Rate 57 L 72 60 Pulse Rate [Apical] Pulse Rate from SpO2 Sensor 61 Respiratory Rate 20 19 15 Respiratory Effort / Characteristics Respiratory Depth Respiratory Pattern Blood Pressure 150/75 H 113/82 121/69 Blood Pressure [Right Arm] Blood Pressure Mean 92 90 82 Blood Pressure Mean [Right Arm] Blood Pressure Position Blood Pressure Position [Right Arm] Pulse Oximetry 94 94 95 Oxygen Delivery Method Sepsis Recent Fever Within 48 Hours Sepsis Action Taken by Nursing 08/27/19 14:01 08/27/19 14:10 08/27/19 14:20 Temperature Temperature Source Pulse Rate 60 59 L 55 L Pulse Rate [Apical] Pulse Rate from SpO2 Sensor 58 L 60 54 L Respiratory Rate 13 16 15 Respiratory Effort / Characteristics Respiratory Depth Respiratory Pattern Blood Pressure Blood Pressure [Right Arm] Blood Pressure Mean Blood Pressure Mean [Right Arm] Blood Pressure Position Blood Pressure Position [Right Arm] Pulse Oximetry 92 91 91 Oxygen Delivery Method Sepsis Recent Fever Within 48 Hours Sepsis Action Taken by Nursing 08/27/19 14:30 08/27/19 14:31 08/27/19 15:00 Temperature Temperature Source Pulse Rate 58 L 59 L Pulse Rate [Apical] 59 L Pulse Rate from SpO2 Sensor 57 L 59 L Respiratory Rate 16 19 20 Respiratory Effort / Characteristics Non-Labored Spontaneous Respiratory Depth Normal Respiratory Pattern Regular Blood Pressure 133/70 Blood Pressure [Right Arm] 133/70 Blood Pressure Mean 87 Blood Pressure Mean [Right Arm] 91 Blood Pressure Position Blood Pressure Position [Right Arm] Lying Pulse Oximetry 94 94 93 Oxygen Delivery Method Room Air Sepsis Recent Fever Within 48 Hours Sepsis Action Taken by Nursing 08/27/19 15:30 08/27/19 16:00 08/27/19 16:30 Temperature Temperature Source Pulse Rate Pulse Rate [Apical] 59 L 60 59 L Pulse Rate from SpO2 Sensor Respiratory Rate 20 20 20 Respiratory Effort / Characteristics Non-Labored Spontaneous Non-Labored Spontaneous Non-Labored Spontaneous Respiratory Depth Normal Normal Normal Respiratory Pattern Regular Regular Regular Blood Pressure Blood Pressure [Right Arm] 138/68 133/70 131/69 Blood Pressure Mean Blood Pressure Mean [Right Arm] 91 91 89 Blood Pressure Position Blood Pressure Position [Right Arm] Lying Lying Lying Pulse Oximetry 93 93 93 Oxygen Delivery Method Room Air Room Air Room Air Sepsis Recent Fever Within 48 Hours Sepsis Action Taken by Assisted Medications Current Medication List: was personally reviewed by me Laboratory Data Attestation: I reviewed the patient's lab results. Result diagrams: 08/27/19 12:50 08/27/19 12:50 Lab Results 08/27/19 08/27/19 08/27/19 Range/Units 12:50 12:50 12:50 WBC 5.94 (4.8-10.8) K/uL RBC 4.35 (4.2-5.4) M/uL Hgb 13.0 (12.0-16.0) g/dL Hct 38.8 (37-47) % MCV 89.2 (80-100) fL MCH 29.9 (25-34) pg MCHC 33.5 (32-36) g/dL RDW Std Deviation 43.3 (36.4-46.3) fL RDW Coeff of Sharon 13.2 (11.5-14.5) % Plt Count 197 (130-400) K/uL MPV 10.9 H (7.4-10.4) fL Immature Gran % (Auto) 0.2 % Neut % (Auto) 63.7 % Lymph % (Auto) 27.3 % [place] % (Auto) 6.4 % Eos % (Auto) 1.9 % Baso % (Auto) 0.5 % Immature Gran # (Auto) 0.01 (0.00-0.02) K/uL Neut # (Auto) 3.79 (1.4-6.5) K/uL Lymph # (Auto) 1.62 (1.2-3.4) K/uL [place] # (Auto) 0.38 (0.11-0.59) K/uL Eos # (Auto) 0.11 (0-0.5) K/uL Baso # (Auto) 0.03 (0-0.2) K/uL PT 10.6 (9.0-12.0) Seconds INR 1.0 (0.9-1.1) APTT 23.5 (21.0-31.0) Seconds PTT Ratio 0.8 Sodium 142 (136-145) mmol/L Potassium 3.8 (3.5-5.1) mmol/L Chloride 109 H (98-107) mmol/L Carbon Dioxide 25 (21-32) mmol/L Anion Gap 8.0 (3-11) BUN 14 (7-18) mg/dl Creatinine 0.82 (0.6-1.2) mg/dl Est Cr Clr Drug Dosing 60.3 ml/min Est GFR ( Amer) 82.9 Est GFR (Non-Af Amer) 71.5 BUN/Creatinine Ratio 16.8 (10-20) Glucose 111 H (70-99) mg/dl Calcium 8.7 (8.5-10.1) mg/dl Phosphorus 3.5 (2.5-4.9) mg/dl Magnesium 2.1 (1.8-2.4) mg/dl Total Bilirubin 0.6 (0.2-1) mg/dl AST 121 H (15-37) U/L ALT 64 (12-78) U/L Alkaline Phosphatase 164 H (45-117) U/L Troponin I < 0.015 (0-0.045) ng/ml Total Protein 6.4 (6.4-8.2) gm/dl Albumin 3.6 (3.4-5.0) gm/dl Globulin 2.8 (2.5-4.0) gm/dl Albumin/Globulin Ratio 1.3 (0.9-2) Lipase 94 (73-393) U/L Administered Medications Discontinued Medications Morphine Sulfate (Morphine Sulfate) 4 mg IV NOW STA Stop: 08/27/19 13:41 Last Admin: 08/27/19 13:51 Dose: 4 mg Documented by: [id number] Ondansetron HCl (Zofran) 4 mg IV NOW STA Stop: 08/27/19 13:41 Last Admin: 08/27/19 13:51 Dose: 4 mg Documented by: [id number] Blood Pressure Blood Pressure Findings: Normal blood pressure Blood Pressure Disposition: did not require urgent referral Discharge Plan Visit Data *Final* Discharge Date/Time: 08/27/19 18:37 Chief Complaint: Chest Pain Stated Complaint: chest pain ED Provider: Jonn Weaver Discharge Problem: Substernal chest pain, Nausea & vomiting Patient Disposition: Admitted As Inpatient Discharge Instructions Interventions: ED Discharge Assessment Last Done: 08/27/19 18:37 Discharge Problem: Nausea & vomiting Qualifiers: Vomiting type: unspecified Vomiting Intractability: non-intractable Qualified Code(s): R11.2 - Nausea with vomiting, unspecified
[2019-08-27 13:06] LABS: Basophils # (auto) 0.03 K/uL (0-0.2); Basophils % (auto) 0.5 %; Eosinophils # (auto) 0.11 K/uL (0-0.5); Eosinophils % (auto) 1.9 %; Hematocrit (blood only) 38.8 % (37-47); Immature Granulocytes # (auto) 0.01 K/uL (0.00-0.02); Immature Granulocytes % (auto) 0.2 %; Lymphocytes # (auto) 1.62 K/uL (1.2-3.4); Lymphocytes % (auto) 27.3 %; Mean Corpuscular Hemoglobin 29.9 pg (25-34); Mean Corpuscular Hgb Conc 33.5 g/dL (32-36); Mean Corpuscular Volume 89.2 fL (80-100); Mean Platelet Volume 10.9 fL (7.4-10.4); Monocytes # (auto) 0.38 K/uL (0.11-0.59); Monocytes % (auto) 6.4 %; Neutrophils # (auto) 3.79 K/uL (1.4-6.5); Neutrophils % (auto) 63.7 %; Platelet Count 197 K/uL (130-400); RDW Coefficient of Variation 13.2 % (11.5-14.5); RDW Standard Deviation 43.3 fL (36.4-46.3); Red Blood Count 4.35 M/uL (4.2-5.4); White Blood Count 5.94 K/uL (4.8-10.8)
--- NOTE | 2019-08-27 13:09 | XRay Report ---
XR chest 1V portable HISTORY: Atypical Chest Pain COMPARISON: Chest 03/19/2019. FINDINGS: There are low lung volumes. No pneumothorax. No pleural effusions. The heart remains enlarg ed. Slight prominence of interstitial markings, unchanged. This is likely chronic. No evidence for pu lmonary edema. Left basilar densities persist. Prior cholecystectomy. IMPRESSION: No change in the left basilar densities. This favors atelectasis/scarring given the stability. A pneu monia could also have a similar appearance in the appropriate clinical setting. ACT 112: Negative or not required by law. Electronically signed by: Fabian Gilbert M.D. 08/27/2019 1:07 PM
[2019-08-27 13:19] LABS: Partial Thromboplastin Ratio 0.8; Partial Thromboplastin Time 23.5 Seconds (21.0-31.0); Prothrombin Time 10.6 Seconds (9.0-12.0)
[2019-08-27 13:21] LABS: Alanine Aminotransferase 64 U/L (12-78); Albumin Level 3.6 gm/dl (3.4-5.0); Aspartate Aminotransferase 121 U/L (15-37); BUN Creatinine Ratio 16.8 (10-20); Blood Urea Nitrogen 14 mg/dl (7-18); Calcium 8.7 mg/dl (8.5-10.1); Carbon Dioxide 25 mmol/L (21-32); Chloride 109 mmol/L (98-107); Creatinine Clr Calc Pharmacy 60.3 ml/min; Est GFR (African American) 82.9; Est GFR (Non-African American) 71.5; Glucose 111 mg/dl (70-99); Lipase 94 U/L (73-393); Magnesium 2.1 mg/dl (1.8-2.4); Potassium 3.8 mmol/L (3.5-5.1); Sodium 142 mmol/L (136-145)
[2019-08-27 13:26] LABS: Albumin Globulin Ratio 1.3 (0.9-2); Alkaline Phosphatase 164 U/L (45-117); Bilirubin,Total 0.6 mg/dl (0.2-1); Globulin 2.8 gm/dl (2.5-4.0); Phosphorus 3.5 mg/dl (2.5-4.9); Total Protein 6.4 gm/dl (6.4-8.2); Troponin I < 0.015 ng/ml (0-0.045)
[2019-08-27] MEDS ORDERED: MoRPHine SULFATE 4 MG/ML 1 ML CARP\\VIAL IV STA (13:40)
[2019-08-27] MEDS ORDERED: ONDANSETRON INJ 2 MG/ML 2 ML VIAL IV STA (13:40)
--- NOTE | 2019-08-27 15:02 | Ultrasound Report ---
US gallbladder CLINICAL HISTORY: 74 years-old Female presenting with epigastric RUQ pain. TECHNIQUE: Real-time grayscale and limited color Doppler ultrasound imaging of the abdomen limited to the right upper quadrant was performed. COMPARISON: CT from 03/19/2019 and ultrasound from 09/03/2017. FINDINGS: Pancreas: Visualized portions of the pancreatic head and body normal. Top normal prominence of the pa ncreatic duct. Liver: Mildly hyperechogenic parenchyma, although the right hemidiaphragm remains visible, likely ind icating mild steatosis. The liver measures 15.4 cm in maximal sagittal dimension. Hyperechogenic 1.4 cm lesion near the liver hilum as seen on prior CT, likely hemangioma. Main portal vein patent with n ormal directional flow. Biliary: No intrahepatic biliary ductal dilatation. Common bile duct measures up to 8 mm in diameter, likely a reservoir effect in the post cholecystectomy state. Gallbladder: Surgically absent. Right kidney: Normal in appearance without evidence of hydronephrosis. Ascites: None. Other: None. IMPRESSION: 1. Status post cholecystectomy. Extrahepatic biliary ductal dilatation likely a reservoir effect in the post cholecystectomy state. 2. Possible mild hepatic steatosis. Correlate with liver function tests to exclude steatohepatitis a s a cause for abdominal pain. ACT 112: Negative or not required by law. Electronically signed by: José Antonio Field M.D. 08/27/2019 3:00 PM
--- NOTE | 2019-08-27 16:20 | Electrocardiogram Report ---
Test Reason : Blood Pressure : / mmHG Vent. Rate : 050 BPM Atrial Rate : 050 BPM P-R Int : 162 ms QRS Dur : 090 ms QT Int : 508 ms P-R-T Axes : 001 -22 032 degrees QTc Int : 463 ms Sinus bradycardia Minimal voltage criteria for LVH, may be normal variant Nonspecific ST abnormality Borderline ECG When compared with ECG of 19-MAR-2019 03:10, Nonspecific T wave abnormality now evident in Lateral leads Confirmed by Luis Pittman ([id number]) on 08/27/2019 4:20:09 PM Referred By: Confirmed By:Kenny Pittman
--- NOTE | 2019-08-27 18:13 | History & Physical Report ---
Date of Service August 27, 2019 Assessment & Plan (1) Epigastric pain: (2) Atypical chest pain: (3) GERD (gastroesophageal reflux disease): -admit to tele -patient presenting from home with reports of epigastric pain radiating into right chest/shoulder -long standing history of uncontrolled GERD symptoms; s/p cholecystectomy 08/2017, EGD 03/2018 unremarkable -patient is already taking PPI and Carafate -seems to be GI in nature however given minor EKG changes (non-specific t-wave changes in the lateral leads) and improvement in symptoms after nitro, will r/o ACS with serial trops -it has been several years since patient's last stress test, cardio consult for input regarding inpatient vs. outpatient stress -continue ASA and statin -add on H2 temitope to patient's current regimen, may need GI eval. ? possible esophageal spasm given improvement after nitro -AST and alk phos elevated, 121 and 164 respectively; RUQ US unremarkable. Follow LFTs. (4) Dyslipidemia: -continue statin (5) Anxiety: (6) Depression: -stable, continue home meds (7) DVT prophylaxis: -SQ Lovenox History of Present Illness Chief Complaint: Epigastric Pain Primary Care Provider: Williams Mota MD 74 year old female with PMH GERD, anxiety, cerebellar ataxia, alcoholism (in remission), and other problems listed below who presents to the ED with epigastric pain. Patient reports her symptoms came on suddenly while watching TV this afternoon. She describes the pain as severe and rates it #10/10 at it's worst. She reports it radiated up into her right chest and right shoulder. She reports associated nausea and vomiting. Denies hematemesis or coffee-ground emesis. No associated shortness of breath, lightheadedness, dizziness, diaphoresis, syncopal event. Patient reports she otherwise been feeling well recently. No other recent illnesses, fevers, chills. She denies any other episodes of abdominal pain or diarrhea. No urinary symptoms. Patient called EMS and was given aspirin and sublingual nitroglycerin. She reports her pain improved to #6/10. Upon arrival to the ED, patient received morphine 4 mg IV and she reports resolution of her pain. In the ED, initial troponin negative, EKG shows non-specific / mild changes in the lateral leads. RUQ US unremarkable. AST and Alk Phos elevated at 121 and 164. In addition to Morphine, patient was also given IV Zofran. Allergies Allergy/AdvReac Type Severity Reaction Status Date / Time levofloxacin AdvReac Unknown abnormal Unverified 08/27/19 13:02 heart issues Home Medications Home Medications Medication Instructions Recorded Confirmed Type atorvastatin 80 mg PO QAM 02/09/18 08/27/19 History bupropion HCl 150 mg PO BID 02/09/18 08/27/19 History clonazepam 1 mg PO TID PRN 02/09/18 08/27/19 History omeprazole 40 mg PO BID 02/09/18 08/27/19 History trazodone 300 mg PO HS 02/09/18 08/27/19 History aspirin 325 mg PO QAM 05/03/18 08/27/19 History diphenoxylate-atropine 2.5 1 tab PO QID PRN tab 10/28/18 08/27/19 History mg-0.025 mg tablet furosemide 20 mg PO DAILY PRN 08/27/19 08/27/19 History potassium chloride 20 meq PO DAILY PRN 08/27/19 08/27/19 History sucralfate 1 g PO ACHS 08/27/19 08/27/19 History Past Med/Surg History Medical History Anxiety Cerebellar ataxia Chronic back pain GERD (gastroesophageal reflux disease) History of alcoholism Hyperlipidemia Hypertension IBS (irritable bowel syndrome) Lactose intolerance On home oxygen therapy 2 LPM AT NIGHT Osteoarthritis Spinal stenosis Stroke MRI OBTAINED 02/2018 [place] R/T VISUAL DISTURBANCES - 4 "MINI STROKES" - PROVIDER UNABLE TO DETERMINE IF ACUTE VS OLD PER PT REPORT - SAW DR.VICTORIA AGRAWAL, NEURO Surgical History History of bilateral tubal ligation History of cholecystectomy History of colonoscopy History of esophagogastroduodenoscopy (EGD) History of tooth extraction History of total hip arthroplasty RT Hx of LASIK Family History Father Stroke Social History Preferred Language: Scottish Communication Ability: Effective Visual Impairment: No Limitations Dough Mixer Required: No Beliefs That Will Affect Care: None marital status: Current Living Situation: Spouse Current Living Situation Comment: 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 Other Information That Helps Us Care for You: No Feels Safe at Home: Yes Safety Concerns: Feels Safe At This Time Smoking Status: Former smoker Second Hand Exposure: No ; Hx Alcohol Use: No Hx Substance Use: No Review of Systems Review of Systems: ROS per HPI, all other systems reviewed and negative Physical Exam Constitutional: WD/WN, vitals as above Eyes: PERRL, conjunctivae normal, anicteric sclerae ENMT: external ear and nose normal, oropharynx normal Respiratory: normal respiratory effort, lungs clear to auscultation Cardiovascular: Rate/Rhythm: regular rate and regular rhythm Vessels: normal peripheral pulses Extremities: no edema Gastrointestinal (Abdomen): normal bowel sounds, soft, nontender, no hepatosplenomegaly Musculoskeletal: no cyanosis or clubbing, extremities motor strength 5/5 Skin: no rashes, warm and dry Neurologic: PERRL, EOMI, accommodation nl, no face palsy, no dysarthria Psychiatric: A+Ox3, euthymic affect Results & Data Results & Data ([facility]) Vital Signs (Past 12 Hours) Vital Signs Temp Pulse Pulse Resp BP BP Pulse Ox 08/27/19 17:00 76 20 101/59 L 93 08/27/19 16:30 59 L 20 131/69 93 08/27/19 16:00 60 20 133/70 93 08/27/19 15:30 59 L 20 138/68 93 08/27/19 15:00 59 L 20 133/70 93 08/27/19 14:31 59 L 19 94 08/27/19 14:30 58 L 16 133/70 94 08/27/19 14:20 55 L 15 91 08/27/19 14:10 59 L 16 91 08/27/19 14:01 60 13 92 08/27/19 14:00 60 15 121/69 95 08/27/19 13:30 72 19 113/82 94 08/27/19 13:00 57 L 20 150/75 H 94 08/27/19 12:23 36.4 C L 57 L 16 122/73 91 Laboratory Results Short CBC 08/27/19 08/27/19 Range/Units 12:50 12:50 WBC 5.94 (4.8-10.8) K/uL Hgb 13.0 (12.0-16.0) g/dL Hct 38.8 (37-47) % Plt Count 197 (130-400) K/uL AST 121 H (15-37) U/L Alkaline Phosphatase 164 H (45-117) U/L BMP 08/27/19 12:50 Sodium 142 Potassium 3.8 Chloride 109 H Carbon Dioxide 25 BUN 14 Creatinine 0.82 Glucose 111 H Calcium 8.7 Cardiac Enzymes 08/27/19 Range/Units 12:50 Troponin I < 0.015 (0-0.045) ng/ml Liver Function 08/27/19 Range/Units 12:50 Total Bilirubin 0.6 (0.2-1) mg/dl AST 121 H (15-37) U/L ALT 64 (12-78) U/L Alkaline Phosphatase 164 H (45-117) U/L Albumin 3.6 (3.4-5.0) gm/dl Diagnostic Findings RUQ US IMPRESSION: 1. Status post cholecystectomy. Extrahepatic biliary ductal dilatation likely a reservoir effect in the post cholecystectomy state. 2. Possible mild hepatic steatosis. Correlate with liver function tests to exclude steatohepatitis as a cause for abdominal pain. CXR IMPRESSION: No change in the left basilar densities. This favors atelectasis/scarring given the stability. A pneumonia could also have a similar appearance in the appropriate clinical setting. Code Status & VTE Plan VTE Prophylaxis Plan VTE Prophylaxis will be ordered: Yes Supervising Physician Co-Signing Physician Notes Pt was seen and examined . Agreed with Jennifer BECKFORD exam, assessment and plan. 74 year old female with PMH GERD, anxiety, cerebellar ataxia, Hx alcoholism presented to the ED with epigastric pain. Pt said that today while watching TV, she developed severe epigastric tenderness that radiated to her right sided of her chest and shoulder. She said that she received Nitro subl and aspirin that relieves the pain. Pt said that pain seems to be similar with the pain that she had back 2018 where she had GI work up done. Currently denies any pain after receiving IV morphine. Initial troponin on admission negative and EKG showed non specific t wave changes. Will trend troponin, will get an EKG in am. Continue aspirin and statin. Cardiology consult to eval for possible stress test. Will make NPO after midnight. Continue monitor in telemetry. MD Jerry
[2019-08-27] MEDS ORDERED: ACETAMINOPHEN 325 MG TAB PO PRN (19:05)
[2019-08-27] MEDS: ENOXAPARIN INJ 40 MG/0.4 ML SYR SQ SCH (20:45)
[2019-08-27] MEDS: SUCRALFATE 1 GM TAB PO SCH (20:46)
[2019-08-27] MEDS: FAMOTIDINE 20 MG TAB PO SCH (20:47)
[2019-08-27] MEDS: PANTOprazole 40 MG TAB PO SCH (20:47)
[2019-08-27] MEDS: BuPROPion SR 150 MG TABCR PO SCH (20:50)
[2019-08-27] MEDS: clonazePAM 1 MG TAB PO PRN (23:02)
[2019-08-27] MEDS: TRAZODONE HCL 100 MG TAB PO SCH (23:02)
[2019-08-28] MEDS: BuPROPion SR 150 MG TABCR PO SCH ×2 (07:39→20:49)
[2019-08-28] MEDS: ASPIRIN 325 MG ECTAB PO SCH (07:40)
[2019-08-28] MEDS: PANTOprazole 40 MG TAB PO SCH ×2 (07:40→20:49)
[2019-08-28] MEDS: FAMOTIDINE 20 MG TAB PO SCH ×2 (07:40→20:50)
[2019-08-28] MEDS: ATORVASTATIN 40 MG TAB PO SCH (07:41)
[2019-08-28] MEDS: SUCRALFATE 1 GM TAB PO SCH ×4 (07:41→20:50)
[2019-08-28 07:50] LABS: Hemoglobin 12.8 g/dL (12.0-16.0); Mean Corpuscular Hemoglobin 29.8 pg (25-34); Mean Corpuscular Hgb Conc 32.8 g/dL (32-36); Mean Corpuscular Volume 90.7 fL (80-100); Mean Platelet Volume 11.1 fL (7.4-10.4); Nucleated RBC # (auto) 0.02 K/uL (0-0); Nucleated RBC % (auto) 0.5 %; Platelet Count 194 K/uL (130-400); RDW Coefficient of Variation 13.6 % (11.5-14.5); RDW Standard Deviation 44.8 fL (36.4-46.3); White Blood Count 3.45 K/uL (4.8-10.8)
[2019-08-28 08:21] LABS: Albumin Level 3.3 gm/dl (3.4-5.0); BUN Creatinine Ratio 12.9 (10-20); Calcium 8.9 mg/dl (8.5-10.1); Creatinine Clr Calc Pharmacy 61.1 ml/min; Est GFR (African American) 84.1; Est GFR (Non-African American) 72.6; Potassium 3.8 mmol/L (3.5-5.1)
[2019-08-28 08:24] LABS: Albumin Globulin Ratio 1.2 (0.9-2); Bilirubin,Total 0.4 mg/dl (0.2-1); Globulin 2.8 gm/dl (2.5-4.0); Total Protein 6.1 gm/dl (6.4-8.2)
--- NOTE | 2019-08-28 11:00 | Hospitalist Progress Note ---
Date of Service August 28, 2019 Assessment & Plan (1) Epigastric pain: (2) Atypical chest pain: (3) GERD (gastroesophageal reflux disease): -admit to tele -patient presenting from home with reports of epigastric pain radiating into right chest/shoulder -long standing history of uncontrolled GERD symptoms; s/p cholecystectomy 08/2017, EGD 03/2018 unremarkable -patient is already taking PPI and Carafate -seems to be GI in nature however given minor EKG changes (non-specific t-wave changes in the lateral leads) and improvement in symptoms after nitro, will r/o ACS with serial trops -it has been several years since patient's last stress test, cardio consult for input regarding inpatient vs. outpatient stress -continue ASA and statin -add on H2 temitope to patient's current regimen, may need GI eval. ? possible esophageal spasm given improvement after nitro - pt admitted for ACS rule out - trop x3 negative, cardiology consulted and EKGs reviewed, essentially unchanged from previous, not likely cardiac etiology. No further cardiac testing recommended at this time. -AST and alk phos elevated, 121 and 164 respectively on admission. Follow LFTs. (4) Elevated LFTs: - significantly elevated ALT/ AST/ Alk phos today - GI consulted and MRCP obtained - concern for CBD stone, plan for ERCP tomorrow (08/28) - HCV Ab - negative, Hep A, B - pending - started IV zosyn (5) Dyslipidemia: -continue statin (6) Anxiety: (7) Depression: -stable, continue home meds (8) DVT prophylaxis: - SQ Lovenox on admission - switch to SCDs as pt has upcoming procedure - pt is ambulatory Admission and Anticipated Discharge Date Admission Date: August 27, 2019 Subjective Pt is lying in bed, in NAD. States she had epigastric/ substernal pain radiating to her back and shoulder, after receiving pain meds in ED, resolved. Currently denies any fever, chills, chest pain, abd. pain much improved, no nausea or vomiting. Admitted for ACS rule out. Trop x3 negative. Cardiology consulted, EKGs reviewed and essentially unchanged from previous. Does not seem cardiac in etiology. However pt presented with elevated LFTs and Alk phos, today significantly elevated from yesterday. GI consulted, MRCP obtained, plan for ERCP tomorrow. Review of Systems Review of Systems: All systems reviewed & are unremarkable except as noted in HPI & below Constitutional: no fever and no chills Respiratory: no cough and no dyspnea Cardiovascular: no chest pain and no palpitations Gastrointestinal: no abdominal pain, no nausea and no vomiting Genitourinary: no dysuria Physical Exam Physical Exam: Constitutional: Thin elderly female, WD/WN, vitals as above Eyes: PERRL, EOMI, conjunctivae normal, anicteric sclerae ENMT: external ear and nose normal, oropharynx normal Respiratory: normal respiratory effort, lungs clear to auscultation, no wheezing, rhonchi, crackles Cardiovascular: regular rate and regular rhythm Vessels: normal peripheral pulses Extremities: no edema Gastrointestinal (Abdomen): normal bowel sounds, soft, nontender to palpation, nondistended Musculoskeletal: no cyanosis or clubbing, extremities motor strength 5/5, moves extremities spontaneously Skin: no rashes, warm and dry Neurologic: PERRL, EOMI, accommodation nl, no face palsy, no dysarthria Psychiatric: A+Ox3, euthymic affect Results & Data Results & Data ([facility]) Vital Signs (Past 12 Hours) Vital Signs Temp Pulse Pulse Resp BP Pulse Ox 08/28/19 08:00 67 08/28/19 07:38 36.8 C 88 18 100/58 L 96 08/28/19 04:41 36.7 C 74 16 102/65 94 08/28/19 00:00 62 08/27/19 23:22 36.6 C 66 16 101/65 94 Laboratory Results 08/28/19 08/28/19 08/28/19 Range/Units 07:29 07:29 00:58 WBC 3.45 L (4.8-10.8) K/uL RBC 4.30 (4.2-5.4) M/uL Hgb 12.8 (12.0-16.0) g/dL Hct 39.0 (37-47) % MCV 90.7 (80-100) fL MCH 29.8 (25-34) pg MCHC 32.8 (32-36) g/dL RDW Std Deviation 44.8 (36.4-46.3) fL RDW Coeff of Sharon 13.6 (11.5-14.5) % Plt Count 194 (130-400) K/uL MPV 11.1 H (7.4-10.4) fL Immature Gran % (Auto) % Neut % (Auto) % Lymph % (Auto) % [place] % (Auto) % Eos % (Auto) % Baso % (Auto) % Immature Gran # (Auto) (0.00-0.02) K/uL Neut # (Auto) (1.4-6.5) K/uL Lymph # (Auto) (1.2-3.4) K/uL [place] # (Auto) (0.11-0.59) K/uL Eos # (Auto) (0-0.5) K/uL Baso # (Auto) (0-0.2) K/uL Absolute Nucleated RBC 0.02 H (0-0) K/uL Nucleated RBC % (auto) 0.5 % PT (9.0-12.0) Seconds INR (0.9-1.1) APTT (21.0-31.0) Seconds PTT Ratio Sodium 143 (136-145) mmol/L Potassium 3.8 (3.5-5.1) mmol/L Chloride 108 H (98-107) mmol/L Carbon Dioxide 26 (21-32) mmol/L Anion Gap 9.0 (3-11) BUN 10 (7-18) mg/dl Creatinine 0.81 (0.6-1.2) mg/dl Est Cr Clr Drug Dosing 61.1 ml/min Est GFR ( Amer) 84.1 Est GFR (Non-Af Amer) 72.6 BUN/Creatinine Ratio 12.9 (10-20) Glucose 107 H (70-99) mg/dl Calcium 8.9 (8.5-10.1) mg/dl Phosphorus (2.5-4.9) mg/dl Magnesium (1.8-2.4) mg/dl Total Bilirubin 0.4 (0.2-1) mg/dl AST 667 H (15-37) U/L ALT 806 H (12-78) U/L Alkaline Phosphatase 255 H (45-117) U/L Troponin I < 0.015 (0-0.045) ng/ml Total Protein 6.1 L (6.4-8.2) gm/dl Albumin 3.3 L (3.4-5.0) gm/dl Globulin 2.8 (2.5-4.0) gm/dl Albumin/Globulin Ratio 1.2 (0.9-2) Lipase (73-393) U/L 08/27/19 08/27/19 08/27/19 Range/Units 19:31 12:50 12:50 WBC (4.8-10.8) K/uL RBC (4.2-5.4) M/uL Hgb (12.0-16.0) g/dL Hct (37-47) % MCV (80-100) fL MCH (25-34) pg MCHC (32-36) g/dL RDW Std Deviation (36.4-46.3) fL RDW Coeff of Sharon (11.5-14.5) % Plt Count (130-400) K/uL MPV (7.4-10.4) fL Immature Gran % (Auto) % Neut % (Auto) % Lymph % (Auto) % [place] % (Auto) % Eos % (Auto) % Baso % (Auto) % Immature Gran # (Auto) (0.00-0.02) K/uL Neut # (Auto) (1.4-6.5) K/uL Lymph # (Auto) (1.2-3.4) K/uL [place] # (Auto) (0.11-0.59) K/uL Eos # (Auto) (0-0.5) K/uL Baso # (Auto) (0-0.2) K/uL Absolute Nucleated RBC (0-0) K/uL Nucleated RBC % (auto) % PT 10.6 (9.0-12.0) Seconds INR 1.0 (0.9-1.1) APTT 23.5 (21.0-31.0) Seconds PTT Ratio 0.8 Sodium 142 (136-145) mmol/L Potassium 3.8 (3.5-5.1) mmol/L Chloride 109 H (98-107) mmol/L Carbon Dioxide 25 (21-32) mmol/L Anion Gap 8.0 (3-11) BUN 14 (7-18) mg/dl Creatinine 0.82 (0.6-1.2) mg/dl Est Cr Clr Drug Dosing 60.3 ml/min Est GFR ( Amer) 82.9 Est GFR (Non-Af Amer) 71.5 BUN/Creatinine Ratio 16.8 (10-20) Glucose 111 H (70-99) mg/dl Calcium 8.7 (8.5-10.1) mg/dl Phosphorus 3.5 (2.5-4.9) mg/dl Magnesium 2.1 (1.8-2.4) mg/dl Total Bilirubin 0.6 (0.2-1) mg/dl AST 121 H (15-37) U/L ALT 64 (12-78) U/L Alkaline Phosphatase 164 H (45-117) U/L Troponin I < 0.015 < 0.015 (0-0.045) ng/ml Total Protein 6.4 (6.4-8.2) gm/dl Albumin 3.6 (3.4-5.0) gm/dl Globulin 2.8 (2.5-4.0) gm/dl Albumin/Globulin Ratio 1.3 (0.9-2) Lipase 94 (73-393) U/L 05/20/20 Range/Units 12:50 WBC 5.94 (4.8-10.8) K/uL RBC 4.35 (4.2-5.4) M/uL Hgb 13.0 (12.0-16.0) g/dL Hct 38.8 (37-47) % MCV 89.2 (80-100) fL MCH 29.9 (25-34) pg MCHC 33.5 (32-36) g/dL RDW Std Deviation 43.3 (36.4-46.3) fL RDW Coeff of Sharon 13.2 (11.5-14.5) % Plt Count 197 (130-400) K/uL MPV 10.9 H (7.4-10.4) fL Immature Gran % (Auto) 0.2 % Neut % (Auto) 63.7 % Lymph % (Auto) 27.3 % [place] % (Auto) 6.4 % Eos % (Auto) 1.9 % Baso % (Auto) 0.5 % Immature Gran # (Auto) 0.01 (0.00-0.02) K/uL Neut # (Auto) 3.79 (1.4-6.5) K/uL Lymph # (Auto) 1.62 (1.2-3.4) K/uL [place] # (Auto) 0.38 (0.11-0.59) K/uL Eos # (Auto) 0.11 (0-0.5) K/uL Baso # (Auto) 0.03 (0-0.2) K/uL Absolute Nucleated RBC (0-0) K/uL Nucleated RBC % (auto) % PT (9.0-12.0) Seconds INR (0.9-1.1) APTT (21.0-31.0) Seconds PTT Ratio Sodium (136-145) mmol/L Potassium (3.5-5.1) mmol/L Chloride (98-107) mmol/L Carbon Dioxide (21-32) mmol/L Anion Gap (3-11) BUN (7-18) mg/dl Creatinine (0.6-1.2) mg/dl Est Cr Clr Drug Dosing ml/min Est GFR ( Amer) Est GFR (Non-Af Amer) BUN/Creatinine Ratio (10-20) Glucose (70-99) mg/dl Calcium (8.5-10.1) mg/dl Phosphorus (2.5-4.9) mg/dl Magnesium (1.8-2.4) mg/dl Total Bilirubin (0.2-1) mg/dl AST (15-37) U/L ALT (12-78) U/L Alkaline Phosphatase (45-117) U/L Troponin I (0-0.045) ng/ml Total Protein (6.4-8.2) gm/dl Albumin (3.4-5.0) gm/dl Globulin (2.5-4.0) gm/dl Albumin/Globulin Ratio (0.9-2) Lipase (73-393) U/L Medications Administered Current Inpatient Medications Acetaminophen (Tylenol) 650 mg PO Q4H PRN PRN Reason: Pain or Fever Stop: 09/26/19 19:04 [facility] [place]: 09/27/19 08:59 Last Admin: 08/28/19 07:40 Dose: 325 mg Documented by: Atorvastatin Calcium (Lipitor) 80 mg PO QAM [facility] Stop: 09/27/19 08:59 Last Admin: 08/28/19 07:41 Dose: 80 mg Documented by: Bupropion HCl (Wellbutrin-Sr) 150 mg PO BID [facility] Stop: 09/26/19 20:59 Last Admin: 08/28/19 07:39 Dose: 150 mg Documented by: Clonazepam (Klonopin) 1 mg PO TID PRN PRN Reason: Anxiety Stop: 09/26/19 19:04 Last Admin: 08/27/19 23:02 Dose: 1 mg Documented by: Enoxaparin Sodium (Lovenox) 40 mg SQ QPM [facility] Stop: 09/26/19 20:59 Last Admin: 08/27/19 20:45 Dose: 40 mg Documented by: Famotidine (Pepcid) 20 mg PO BID [facility] Stop: 09/26/19 20:59 Last Admin: 08/28/19 07:40 Dose: 20 mg Documented by: Pantoprazole Sodium (Protonix) 40 mg PO BID [facility] Stop: 09/26/19 20:59 Last Admin: 08/28/19 07:40 Dose: 40 mg Documented by: Sucralfate (Carafate Tab) 1 gm PO ACHS [facility] Stop: 09/26/19 20:59 Last Admin: 08/28/19 07:41 Dose: 1 gm Documented by: Trazodone HCl (Desyrel) 300 mg PO HS [facility] Stop: 09/26/19 20:59 Last Admin: 08/27/19 23:02 Dose: 300 mg Documented by:
--- NOTE | 2019-08-28 11:14 | Gastrointestinal Consultation ---
Date of Consultation August 28, 2019 Assessment & Plan (1) Nausea & vomitin74 year old female with history of CCY 2 years ago for sludge and cholecystitis prestenting with abd pain, nausea/vomiting now improved but noted elevated transaminases this AM w/ normal TBILI. Cardiac enzymes negative, cardiac consultation pending NPO Appreciate cardiology input MRCP Trend LFTs Antiemetics PRN Analgesia PRN Thank you for allowing us to participate in the care of this patient. Please call with any acute changes, questions or concerns. Please see addendum below with additional recommendation from my supervising physician. Supervising Physician Co-Signing Physician Notes I have seen and examined the patient and discussed the management with ANALY Arriaga. Admitted thru the er with abdominal pain and chest pain. Pain has improved. Last egd in 2018 with findings of just an empiric dilation, otherwise normal. PE noteable for normal appearing female in nad, no scleral icterus, no jaundice, abd soft nt nd +bs Increase in lft's noted on exam (ast/alt/alk phos), no wbc count or tb elevation. MRCP today, further plan of care pending MRCP results. History of Present Illness Reason for Consultation: pain ,eelvated LFTs Requesting Physician: Olayinka Attending Physician: Miguel Bhagat MD History of Present Illness 74 year old female with history of GERD, anxiety, cerebellar ataxia, alcoholism (in remission) who presnted to the ED yesterday with epigastric pain, acute onset yesterday. Pain radiated up into her right chest and right shoulder w/ associated nausea and vomiting. Denies hematemesis or coffee-ground emesis. No associated shortness of breath, lightheadedness, dizziness, diaphoresis, syncopal event. Notes since admission pain has improved. No pain this AM and is hungry. Is NPO S/P CCY in 2018 for cholecysitits and GB sludge/stones Allergies Allergy/AdvReac Type Severity Reaction Status Date / Time levofloxacin AdvReac Unknown abnormal Unverified 08/27/19 13:02 heart issues Home Medications Home Medications Medication Instructions Recorded Confirmed Type atorvastatin 80 mg PO QAM 02/09/18 08/27/19 History bupropion HCl 150 mg PO BID 02/09/18 08/27/19 History clonazepam 1 mg PO TID PRN 02/09/18 08/27/19 History omeprazole 40 mg PO BID 02/09/18 08/27/19 History trazodone 300 mg PO HS 02/09/18 08/27/19 History aspirin 325 mg PO QAM 05/03/18 08/27/19 History diphenoxylate-atropine 2.5 1 tab PO QID PRN tab 10/28/18 08/27/19 History mg-0.025 mg tablet furosemide 20 mg PO DAILY PRN 08/27/19 08/27/19 History potassium chloride 20 meq PO DAILY PRN 08/27/19 08/27/19 History sucralfate 1 g PO ACHS 08/27/19 08/27/19 History Patient History Medical History Anxiety Cerebellar ataxia Chronic back pain GERD (gastroesophageal reflux disease) History of alcoholism Hyperlipidemia Hypertension IBS (irritable bowel syndrome) Lactose intolerance On home oxygen therapy 2 LPM AT NIGHT Osteoarthritis Spinal stenosis Stroke MRI OBTAINED 02/2018 [place] R/T VISUAL DISTURBANCES - 4 "MINI STROKES" - PROVIDER UNABLE TO DETERMINE IF ACUTE VS OLD PER PT REPORT - SAW DR.VICTORIA AGRAWAL N EUR[place] Surgical History History of bilateral tubal ligation History of cholecystectomy History of colonoscopy History of esophagogastroduodenoscopy (EGD) History of tooth extraction History of total hip arthroplasty RT Hx of LASIK Family History Father Stroke Social History Preferred Language: Guamanian Communication Ability: Effective Visual Impairment: No Limitations Stock Driver Required: No Beliefs That Will Affect Care: None marital status: Current Living Situation: Spouse Current Living Situation Comment: 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 Other Information That Helps Us Care for You: No Feels Safe at Home: Yes Safety Concerns: Feels Safe At This Time Smoking Status: Former smoker Second Hand Exposure: No ; Hx Alcohol Use: No Hx Substance Use: No Review of Systems Constitutional: no fever and no chills Respiratory: no cough and no dyspnea Cardiovascular: no chest pain and no dyspnea Gastrointestinal: no abdominal pain, no nausea, no hematemesis, no dysphagia, no blood in stools and no melena Physical Exam Constitutional: well developed and well nourished; no acute distress Neck: trachea midline Respiratory: normal respiratory effort, lungs clear to auscultation Gastrointestinal (Abdomen): normal bowel sounds, soft, nontender, no hepatosplenomegaly Skin: no rashes, warm and dry Results & Data ([facility]) Vital Signs (Past 12 Hours) Vital Signs Temp Pulse Pulse Resp BP Pulse Ox 08/28/19 08:00 67 08/28/19 07:38 36.8 C 88 18 100/58 L 96 08/28/19 04:41 36.7 C 74 16 102/65 94 08/28/19 00:00 62 08/27/19 23:22 36.6 C 66 16 101/65 94 Laboratory Results 08/28/19 08/28/19 08/28/19 Range/Units 07:29 07:29 00:58 WBC 3.45 L (4.8-10.8) K/uL RBC 4.30 (4.2-5.4) M/uL Hgb 12.8 (12.0-16.0) g/dL Hct 39.0 (37-47) % MCV 90.7 (80-100) fL MCH 29.8 (25-34) pg MCHC 32.8 (32-36) g/dL RDW Std Deviation 44.8 (36.4-46.3) fL RDW Coeff of Sharon 13.6 (11.5-14.5) % Plt Count 194 (130-400) K/uL MPV 11.1 H (7.4-10.4) fL Immature Gran % (Auto) % Neut % (Auto) % Lymph % (Auto) % [place] % (Auto) % Eos % (Auto) % Baso % (Auto) % Immature Gran # (Auto) (0.00-0.02) K/uL Neut # (Auto) (1.4-6.5) K/uL Lymph # (Auto) (1.2-3.4) K/uL [place] # (Auto) (0.11-0.59) K/uL Eos # (Auto) (0-0.5) K/uL Baso # (Auto) (0-0.2) K/uL Absolute Nucleated RBC 0.02 H (0-0) K/uL Nucleated RBC % (auto) 0.5 % PT (9.0-12.0) Seconds INR (0.9-1.1) APTT (21.0-31.0) Seconds PTT Ratio Sodium 143 (136-145) mmol/L Potassium 3.8 (3.5-5.1) mmol/L Chloride 108 H (98-107) mmol/L Carbon Dioxide 26 (21-32) mmol/L Anion Gap 9.0 (3-11) BUN 10 (7-18) mg/dl Creatinine 0.81 (0.6-1.2) mg/dl Est Cr Clr Drug Dosing 61.1 ml/min Est GFR ( Amer) 84.1 Est GFR (Non-Af Amer) 72.6 BUN/Creatinine Ratio 12.9 (10-20) Glucose 107 H (70-99) mg/dl Calcium 8.9 (8.5-10.1) mg/dl Phosphorus (2.5-4.9) mg/dl Magnesium (1.8-2.4) mg/dl Total Bilirubin 0.4 (0.2-1) mg/dl AST 667 H (15-37) U/L ALT 806 H (12-78) U/L Alkaline Phosphatase 255 H (45-117) U/L Troponin I < 0.015 (0-0.045) ng/ml Total Protein 6.1 L (6.4-8.2) gm/dl Albumin 3.3 L (3.4-5.0) gm/dl Globulin 2.8 (2.5-4.0) gm/dl Albumin/Globulin Ratio 1.2 (0.9-2) Lipase (73-393) U/L 08/27/19 08/27/19 08/27/19 Range/Units 19:31 12:50 12:50 WBC (4.8-10.8) K/uL RBC (4.2-5.4) M/uL Hgb (12.0-16.0) g/dL Hct (37-47) % MCV (80-100) fL MCH (25-34) pg MCHC (32-36) g/dL RDW Std Deviation (36.4-46.3) fL RDW Coeff of Sharon (11.5-14.5) % Plt Count (130-400) K/uL MPV (7.4-10.4) fL Immature Gran % (Auto) % Neut % (Auto) % Lymph % (Auto) % [place] % (Auto) % Eos % (Auto) % Baso % (Auto) % Immature Gran # (Auto) (0.00-0.02) K/uL Neut # (Auto) (1.4-6.5) K/uL Lymph # (Auto) (1.2-3.4) K/uL [place] # (Auto) (0.11-0.59) K/uL Eos # (Auto) (0-0.5) K/uL Baso # (Auto) (0-0.2) K/uL Absolute Nucleated RBC (0-0) K/uL Nucleated RBC % (auto) % PT 10.6 (9.0-12.0) Seconds INR 1.0 (0.9-1.1) APTT 23.5 (21.0-31.0) Seconds PTT Ratio 0.8 Sodium 142 (136-145) mmol/L Potassium 3.8 (3.5-5.1) mmol/L Chloride 109 H (98-107) mmol/L Carbon Dioxide 25 (21-32) mmol/L Anion Gap 8.0 (3-11) BUN 14 (7-18) mg/dl Creatinine 0.82 (0.6-1.2) mg/dl Est Cr Clr Drug Dosing 60.3 ml/min Est GFR ( Amer) 82.9 Est GFR (Non-Af Amer) 71.5 BUN/Creatinine Ratio 16.8 (10-20) Glucose 111 H (70-99) mg/dl Calcium 8.7 (8.5-10.1) mg/dl Phosphorus 3.5 (2.5-4.9) mg/dl Magnesium 2.1 (1.8-2.4) mg/dl Total Bilirubin 0.6 (0.2-1) mg/dl AST 121 H (15-37) U/L ALT 64 (12-78) U/L Alkaline Phosphatase 164 H (45-117) U/L Troponin I < 0.015 < 0.015 (0-0.045) ng/ml Total Protein 6.4 (6.4-8.2) gm/dl Albumin 3.6 (3.4-5.0) gm/dl Globulin 2.8 (2.5-4.0) gm/dl Albumin/Globulin Ratio 1.3 (0.9-2) Lipase 94 (73-393) U/L 08/27/19 Range/Units 12:50 WBC 5.94 (4.8-10.8) K/uL RBC 4.35 (4.2-5.4) M/uL Hgb 13.0 (12.0-16.0) g/dL Hct 38.8 (37-47) % MCV 89.2 (80-100) fL MCH 29.9 (25-34) pg MCHC 33.5 (32-36) g/dL RDW Std Deviation 43.3 (36.4-46.3) fL RDW Coeff of Sharon 13.2 (11.5-14.5) % Plt Count 197 (130-400) K/uL MPV 10.9 H (7.4-10.4) fL Immature Gran % (Auto) 0.2 % Neut % (Auto) 63.7 % Lymph % (Auto) 27.3 % [place] % (Auto) 6.4 % Eos % (Auto) 1.9 % Baso % (Auto) 0.5 % Immature Gran # (Auto) 0.01 (0.00-0.02) K/uL Neut # (Auto) 3.79 (1.4-6.5) K/uL Lymph # (Auto) 1.62 (1.2-3.4) K/uL [place] # (Auto) 0.38 (0.11-0.59) K/uL Eos # (Auto) 0.11 (0-0.5) K/uL Baso # (Auto) 0.03 (0-0.2) K/uL Absolute Nucleated RBC (0-0) K/uL Nucleated RBC % (auto) % PT (9.0-12.0) Seconds INR (0.9-1.1) APTT (21.0-31.0) Seconds PTT Ratio Sodium (136-145) mmol/L Potassium (3.5-5.1) mmol/L Chloride (98-107) mmol/L Carbon Dioxide (21-32) mmol/L Anion Gap (3-11) BUN (7-18) mg/dl Creatinine (0.6-1.2) mg/dl Est Cr Clr Drug Dosing ml/min Est GFR ( Amer) Est GFR (Non-Af Amer) BUN/Creatinine Ratio (10-20) Glucose (70-99) mg/dl Calcium (8.5-10.1) mg/dl Phosphorus (2.5-4.9) mg/dl Magnesium (1.8-2.4) mg/dl Total Bilirubin (0.2-1) mg/dl AST (15-37) U/L ALT (12-78) U/L Alkaline Phosphatase (45-117) U/L Troponin I (0-0.045) ng/ml Total Protein (6.4-8.2) gm/dl Albumin (3.4-5.0) gm/dl Globulin (2.5-4.0) gm/dl Albumin/Globulin Ratio (0.9-2) Lipase (73-393) U/L (1) Nausea & vomiting Vomiting Intractability: non-intractable Vomiting type: unspecified Qualified Code(s): R11.2 - Nausea with vomiting, unspecified
--- NOTE | 2019-08-28 11:31 | Cardiology Consultation ---
Date of Consultation August 28, 2019 Assessment & Plan (1) Atypical chest pain: (2) Epigastric pain: (3) GERD (gastroesophageal reflux disease): (4) Depression: The patient's discomfort and pain is atypical and noncardiac. Her cardiac markers are negative and her EKG is actually unchanged from her previous one completed in March. I would recommend no additional cardiac testing at this time. A GI evaluation is warranted. History of Present Illness Attending Physician: Miguel Bhagat MD History of Present Illness This is a 74-year-old female with no significant cardiac history. She has had a longstanding history of epigastric discomfort and GERD. She presented with nausea, vomiting and epigastric pain radiating to her chest. She is currently pain-free. She denies shortness of breath. She has had no heart palpitations, dizziness or lightheadedness. Allergies Allergy/AdvReac Type Severity Reaction Status Date / Time levofloxacin AdvReac Unknown abnormal Unverified 08/27/19 13:02 heart issues Home Medications Home Medications Medication Instructions Recorded Confirmed Type atorvastatin 80 mg PO QAM 02/09/18 08/27/19 History bupropion HCl 150 mg PO BID 02/09/18 08/27/19 History clonazepam 1 mg PO TID PRN 02/09/18 08/27/19 History omeprazole 40 mg PO BID 02/09/18 08/27/19 History trazodone 300 mg PO HS 02/09/18 08/27/19 History aspirin 325 mg PO QAM 05/03/18 08/27/19 History diphenoxylate-atropine 2.5 1 tab PO QID PRN tab 10/28/18 08/27/19 History mg-0.025 mg tablet furosemide 20 mg PO DAILY PRN 08/27/19 08/27/19 History potassium chloride 20 meq PO DAILY PRN 08/27/19 08/27/19 History sucralfate 1 g PO ACHS 08/27/19 08/27/19 History Patient History Medical History Anxiety Cerebellar ataxia Chronic back pain GERD (gastroesophageal reflux disease) History of alcoholism Hyperlipidemia Hypertension IBS (irritable bowel syndrome) Lactose intolerance On home oxygen therapy 2 LPM AT NIGHT Osteoarthritis Spinal stenosis Stroke MRI OBTAINED 02/2018 [place] R/T VISUAL DISTURBANCES - 4 "MINI STROKES" - PROVIDER UNABLE TO DETERMINE IF ACUTE VS OLD PER PT REPORT - SAW DR.VICTORIA AGRAWAL, NEURO Surgical History History of bilateral tubal ligation History of cholecystectomy History of colonoscopy History of esophagogastroduodenoscopy (EGD) History of tooth extraction History of total hip arthroplasty RT Hx of LASIK Family History Father Stroke Social History Preferred Language: Cuban Communication Ability: Effective Visual Impairment: No Limitations Firer Boiler Required: No Beliefs That Will Affect Care: None marital status: Current Living Situation: Spouse Current Living Situation Comment: 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 Other Information That Helps Us Care for You: No Feels Safe at Home: Yes Safety Concerns: Feels Safe At This Time Smoking Status: Former smoker Second Hand Exposure: No ; Hx Alcohol Use: No Hx Substance Use: No Review of Systems Review of Systems: All systems reviewed & are unremarkable except as noted in HPI & below Physical Exam Physical Exam: General: no acute distress and stated age Head: normocephalic, no masses, lesions, tenderness or abnormalities Eyes: conjunctiva are pink and non-injected, sclera clear Neck: supple, no adenopathy, no bruits, normal jugular venous pulse, no hepatojugular reflux Chest: normal shape and normal respiratory effort Lungs: clear to auscultation and percussion Cardiac Exam: - regular rate & rhythm, no murmurs gallops or rubs - normal S1, normal S2 Pulses: 2(+) throughout Abdomen: abdomen soft, non-tender, no abnormal masses and no hepatosplenomegaly Musculoskeletal: no gait disturbance, no joint inflammation, no deforming arthritis Extremities: no edema and no cyanosis Neuro: grossly normal exam Results & Data ([facility]) Vital Signs (Past 12 Hours) Vital Signs Temp Pulse Pulse Resp BP Pulse Ox 08/28/19 08:00 67 08/28/19 07:38 36.8 C 88 18 100/58 L 96 08/28/19 04:41 36.7 C 74 16 102/65 94 08/28/19 00:00 62 Laboratory Results Laboratory Results - last 24 hr 08/27/19 08/27/19 08/27/19 12:50 12:50 12:50 WBC 5.94 RBC 4.35 Hgb 13.0 Hct 38.8 MCV 89.2 MCH 29.9 MCHC 33.5 RDW Std Deviation 43.3 RDW Coeff of Sharon 13.2 Plt Count 197 MPV 10.9 H Immature Gran % (Auto) 0.2 Neut % (Auto) 63.7 Lymph % (Auto) 27.3 [place] % (Auto) 6.4 Eos % (Auto) 1.9 Baso % (Auto) 0.5 Immature Gran # (Auto) 0.01 Neut # (Auto) 3.79 Lymph # (Auto) 1.62 [place] # (Auto) 0.38 Eos # (Auto) 0.11 Baso # (Auto) 0.03 Absolute Nucleated RBC Nucleated RBC % (auto) PT 10.6 INR 1.0 APTT 23.5 PTT Ratio 0.8 Sodium 142 Potassium 3.8 Chloride 109 H Carbon Dioxide 25 Anion Gap 8.0 BUN 14 Creatinine 0.82 Est Cr Clr Drug Dosing 60.3 Est GFR ( Amer) 82.9 Est GFR (Non-Af Amer) 71.5 BUN/Creatinine Ratio 16.8 Glucose 111 H Calcium 8.7 Phosphorus 3.5 Magnesium 2.1 Total Bilirubin 0.6 AST 121 H ALT 64 Alkaline Phosphatase 164 H Troponin I < 0.015 Total Protein 6.4 Albumin 3.6 Globulin 2.8 Albumin/Globulin Ratio 1.3 Lipase 94 08/27/19 08/28/19 08/28/19 19:31 00:58 07:29 WBC 3.45 L RBC 4.30 Hgb 12.8 Hct 39.0 MCV 90.7 MCH 29.8 MCHC 32.8 RDW Std Deviation 44.8 RDW Coeff of Sharon 13.6 Plt Count 194 MPV 11.1 H Immature Gran % (Auto) Neut % (Auto) Lymph % (Auto) [place] % (Auto) Eos % (Auto) Baso % (Auto) Immature Gran # (Auto) Neut # (Auto) Lymph # (Auto) [place] # (Auto) Eos # (Auto) Baso # (Auto) Absolute Nucleated RBC 0.02 H Nucleated RBC % (auto) 0.5 PT INR APTT PTT Ratio Sodium Potassium Chloride Carbon Dioxide Anion Gap BUN Creatinine Est Cr Clr Drug Dosing Est GFR ( Amer) Est GFR (Non-Af Amer) BUN/Creatinine Ratio Glucose Calcium Phosphorus Magnesium Total Bilirubin AST ALT Alkaline Phosphatase Troponin I < 0.015 < 0.015 Total Protein Albumin Globulin Albumin/Globulin Ratio Lipase 08/28/19 07:29 WBC RBC Hgb Hct MCV MCH MCHC RDW Std Deviation RDW Coeff of Sharon Plt Count MPV Immature Gran % (Auto) Neut % (Auto) Lymph % (Auto) [place] % (Auto) Eos % (Auto) Baso % (Auto) Immature Gran # (Auto) Neut # (Auto) Lymph # (Auto) [place] # (Auto) Eos # (Auto) Baso # (Auto) Absolute Nucleated RBC Nucleated RBC % (auto) PT INR APTT PTT Ratio Sodium 143 Potassium 3.8 Chloride 108 H Carbon Dioxide 26 Anion Gap 9.0 BUN 10 Creatinine 0.81 Est Cr Clr Drug Dosing 61.1 Est GFR ( Amer) 84.1 Est GFR (Non-Af Amer) 72.6 BUN/Creatinine Ratio 12.9 Glucose 107 H Calcium 8.9 Phosphorus Magnesium Total Bilirubin 0.4 AST 667 H ALT 806 H Alkaline Phosphatase 255 H Troponin I Total Protein 6.1 L Albumin 3.3 L Globulin 2.8 Albumin/Globulin Ratio 1.2 Lipase Medications Administered Current Inpatient Medications Acetaminophen (Tylenol) 650 mg PO Q4H PRN PRN Reason: Pain or Fever Stop: 09/26/19 19:04 Aspirin (Ecotrin) [facility] [place] [place] Stop: 09/27/19 08:59 Last Admin: 08/28/19 07:40 Dose: 325 mg Documented by: Atorvastatin Calcium (Lipitor) 80 mg PO QAM [facility] Stop: 09/27/19 08:59 Last Admin: 08/28/19 07:41 Dose: 80 mg Documented by: Bupropion HCl (Wellbutrin-Sr) 150 mg PO BID [facility] Stop: 09/26/19 20:59 Last Admin: 08/28/19 07:39 Dose: 150 mg Documented by: Clonazepam (Klonopin) 1 mg PO TID PRN PRN Reason: Anxiety Stop: 09/26/19 19:04 Last Admin: 08/27/19 23:02 Dose: 1 mg Documented by: Enoxaparin Sodium (Lovenox) 40 mg SQ QPM [facility] Stop: 09/26/19 20:59 Last Admin: 08/27/19 20:45 Dose: 40 mg Documented by: Famotidine (Pepcid) 20 mg PO BID [facility] Stop: 09/26/19 20:59 Last Admin: 08/28/19 07:40 Dose: 20 mg Documented by: Pantoprazole Sodium (Protonix) 40 mg PO BID [facility] Stop: 09/26/19 20:59 Last Admin: 08/28/19 07:40 Dose: 40 mg Documented by: Sucralfate (Carafate Tab) 1 gm PO ACHS [facility] Stop: 09/26/19 20:59 Last Admin: 08/28/19 07:41 Dose: 1 gm Documented by: Trazodone HCl (Desyrel) 300 mg PO HS [facility] Stop: 09/26/19 20:59 Last Admin: 08/27/19 23:02 Dose: 300 mg Documented by:
--- NOTE | 2019-08-28 14:54 | Magnetic Resonance Report ---
MRCP CLINICAL HISTORY: elevated transaminases, CCY in 2018 for sludge. TECHNIQUE: Utilizing a 1.5 Elizabeth magnet and dedicated coil, multiplanar, multiecho imaging of the upp er abdomen was performed utilizing heavily T2 weighted pulsing sequences without IV contrast. COMPARISON STUDY: CT of the abdomen and pelvis March 19, 2019. Right upper quadrant ultrasound Ma 2019. FINDINGS: The gallbladder is surgically absent. Dilatation of the common bile duct, measuring 1.2 cm in caliber, is unchanged since CT of March 19, 2019. No definite common bile duct calculi are iden tified. However, there are questionable small filling defects within the posterior aspect of the mid common bile duct shown on axial reconstruction image 191 and 192 of 321. The course and caliber of th e main pancreatic duct is normal. There is no peripancreatic infiltration or fluid. A right hepatic l obe cyst is unchanged since prior CT. There are a few cysts within the left kidney. IMPRESSION: No change in mild biliary ductal dilatation since CT of March 19, 2019. A few question able small filling defects within the posterior aspect of the mid common bile duct. Artifact is favor ed however small common bile duct calculi could appear similar. ACT 112: Negative or not required by law. Electronically signed by: Oswald Francis M.D. 08/28/2019 2:52 PM
--- NOTE | 2019-08-28 16:08 | Electrocardiogram Report ---
Test Reason : Blood Pressure : / mmHG Vent. Rate : 063 BPM Atrial Rate : 063 BPM P-R Int : 176 ms QRS Dur : 086 ms QT Int : 454 ms P-R-T Axes : 004 -22 016 degrees QTc Int : 464 ms Normal sinus rhythm Minimal voltage criteria for LVH, may be normal variant Abnormal ECG When compared with ECG of 27-AUG-2019 12:36, No significant change was found Confirmed by Luis Pittman ([id number]) on 08/28/2019 4:08:23 PM Referred By: REFERRED SELF Confirmed By:Kenny Pittman
[2019-08-28 17:43] LABS: Hepatitis B Surface Antigen Neg (Neg)
[2019-08-28 18:12] LABS: Hepatitis C IgG 13Yrs+Old_Rflx Neg (Neg)
[2019-08-28] MEDS: ENOXAPARIN INJ 40 MG/0.4 ML SYR SQ SCH (20:49)
[2019-08-28] MEDS: clonazePAM 1 MG TAB PO PRN (22:43)
[2019-08-28] MEDS: TRAZODONE HCL 100 MG TAB PO SCH (22:43)
[2019-08-28] MEDS ORDERED: PIPERACILL/TAZOBAC CONSULT ACTIVE PRN (22:46)
[2019-08-28] MEDS ORDERED: PIPERACILLIN/TAZOBACTAM 3.375 GM in DEXTROSE 5% 100 ML IV ONE (23:00)
[2019-08-29] MEDS: PIPERACILLIN/TAZOBACTAM 3.375 GM in DEXTROSE 5% 100 ML IV SCH ×3 (04:08→19:39)
[2019-08-29 07:17] LABS: Hematocrit (blood only) 37.5 % (37-47); Hemoglobin 12.2 g/dL (12.0-16.0); Mean Corpuscular Hemoglobin 29.4 pg (25-34); Mean Corpuscular Hgb Conc 32.5 g/dL (32-36); Mean Corpuscular Volume 90.4 fL (80-100); Mean Platelet Volume 10.8 fL (7.4-10.4); Platelet Count 180 K/uL (130-400); RDW Coefficient of Variation 13.4 % (11.5-14.5); RDW Standard Deviation 44.9 fL (36.4-46.3); Red Blood Count 4.15 M/uL (4.2-5.4); White Blood Count 5.59 K/uL (4.8-10.8)
[2019-08-29] MEDS: PANTOprazole 40 MG TAB PO SCH ×2 (07:40→21:29)
[2019-08-29] MEDS: FAMOTIDINE 20 MG TAB PO SCH ×2 (07:41→22:20)
[2019-08-29] MEDS: ATORVASTATIN 40 MG TAB PO SCH (07:41)
[2019-08-29] MEDS: SUCRALFATE 1 GM TAB PO SCH ×4 (07:41→21:29)
[2019-08-29] MEDS: BuPROPion SR 150 MG TABCR PO SCH ×2 (07:41→21:29)
[2019-08-29 07:46] LABS: Albumin Level 3.1 gm/dl (3.4-5.0); BUN Creatinine Ratio 8.5 (10-20); Calcium 8.5 mg/dl (8.5-10.1); Creatinine Clr Calc Pharmacy 53.2 ml/min; Est GFR (African American) 71.2; Est GFR (Non-African American) 61.4; Potassium 3.6 mmol/L (3.5-5.1)
[2019-08-29 07:49] LABS: Albumin Globulin Ratio 1.1 (0.9-2); Bilirubin,Total 0.4 mg/dl (0.2-1); Globulin 2.7 gm/dl (2.5-4.0); Total Protein 5.8 gm/dl (6.4-8.2)
--- NOTE | 2019-08-29 08:09 | Hospitalist Progress Note ---
Date of Service August 29, 2019 Assessment & Plan (1) Epigastric pain: -patient presenting from home with reports of epigastric / substernal pain radiating into right chest/shoulder -long standing history of uncontrolled GERD symptoms; s/p cholecystectomy 08/2017, EGD 03/2018 unremarkable -patient is already taking PPI and Carafate -pain likely secondary to choledocholithiasis given current findings on ERCP, not cardiac (2) Atypical chest pain: - pt initially admitted for ACS rule out - troponin x3 negative, cardiology consulted and EKGs reviewed, essentially unchanged from previous, not likely cardiac etiology. No further cardiac testing recommended at this time. (3) Choledocholithiasis: (4) Elevated LFTs: - significantly elevated ALT/ AST/ Alk phos - GI consulted - MRCP obtained - concern for CBD stone, plan for ERCP today(08/28) - HCV Ab - negative, Hep A, B - pending - started IV zosyn - now s/p ERCP (08/28), found several small stones within the common bile duct. This was treated with biliary sphincterotomy and balloon extraction. Recommendations May have a clear liquid diet today hold nonsteroidals for 7 days if possible If patient doing well on 08/30/19 may consider discharge Repeat liver enzymes tomorrow (5) Dyslipidemia: -continue statin (6) Anxiety: (7) Depression: -stable, continue home meds (8) DVT prophylaxis: - SCDs Admission and Anticipated Discharge Date Admission Date: August 28, 2019 Subjective No acute events overnight. Pt is lying in bed, underwent ERCP with GI earlier today, stones noted. Currently states that she feels cold, no fevers reported. Pt has some epigastric pain again, says it feels like when she first presented to hospital. Started after ERCP. No shortness of breath, or chest pain. Review of Systems Review of Systems: All systems reviewed & are unremarkable except as noted in HPI & below Constitutional: + chills; no fever Respiratory: no cough and no dyspnea Cardiovascular: no chest pain and no palpitations Gastrointestinal: + abdominal pain (epigastric pain on and off after procedure); no nausea and no vomiting Genitourinary: no dysuria Physical Exam Physical Exam: Constitutional: Thin elderly female, WD/WN, vitals as above Eyes: PERRL, EOMI, conjunctivae normal, anicteric sclerae ENMT: external ear and nose normal, oropharynx normal Respiratory: normal respiratory effort, lungs clear to auscultation, no wheez ing, rhonchi, crackles Cardiovascular: regular rate and regular rhythm Vessels: normal peripheral pulses Extremities: no edema Gastrointestinal (Abdomen): normal bowel sounds, soft, mild epigastric pain on palpation, nondistended Musculoskeletal: no cyanosis or clubbing, extremities motor strength 5/5, moves extremities spontaneously Skin: no rashes, warm and dry Neurologic: PERRL, EOMI, accommodation nl, no face palsy, no dysarthria Psychiatric: A+Ox3, euthymic affect Results & Data Results & Data ([facility]) Vital Signs (Past 12 Hours) Vital Signs Temp Pulse Pulse Resp BP Pulse Ox 08/29/19 07:43 36.5 C 71 20 107/66 93 08/29/19 02:24 36.7 C 65 20 101/59 L 93 08/29/19 00:00 36.3 C L 70 16 112/71 93 Laboratory Results 08/29/19 08/29/19 08/28/19 Range/Units 07:01 07:01 16:50 WBC 5.59 (4.8-10.8) K/uL RBC 4.15 L (4.2-5.4) M/uL Hgb 12.2 (12.0-16.0) g/dL Hct 37.5 (37-47) % MCV 90.4 (80-100) fL MCH 29.4 (25-34) pg MCHC 32.5 (32-36) g/dL RDW Std Deviation 44.9 (36.4-46.3) fL RDW Coeff of Sharon 13.4 (11.5-14.5) % Plt Count 180 (130-400) K/uL MPV 10.8 H (7.4-10.4) fL Sodium 144 (136-145) mmol/L Potassium 3.6 (3.5-5.1) mmol/L Chloride 108 H (98-107) mmol/L Carbon Dioxide 28 (21-32) mmol/L Anion Gap 7.0 (3-11) BUN 8 (7-18) mg/dl Creatinine 0.93 (0.6-1.2) mg/dl Est Cr Clr Drug Dosing 53.2 ml/min Est GFR ( Amer) 71.2 Est GFR (Non-Af Amer) 61.4 BUN/Creatinine Ratio 8.5 L (10-20) Glucose 103 H (70-99) mg/dl Calcium 8.5 (8.5-10.1) mg/dl Total Bilirubin 0.4 (0.2-1) mg/dl AST 178 H (15-37) U/L ALT 458 H (12-78) U/L Alkaline Phosphatase 194 H (45-117) U/L Total Protein 5.8 L (6.4-8.2) gm/dl Albumin 3.1 L (3.4-5.0) gm/dl Globulin 2.7 (2.5-4.0) gm/dl Albumin/Globulin Ratio 1.1 (0.9-2) Hepatitis A IgM Ab Pending Hep Bs Antigen (Neg) Hep B Core IgM Ab Pending Hepatitis C Antibody (Neg) 08/28/19 08/28/19 Range/Units 16:50 07:29 WBC (4.8-10.8) K/uL RBC (4.2-5.4) M/uL Hgb (12.0-16.0) g/dL Hct (37-47) % MCV (80-100) fL MCH (25-34) pg MCHC (32-36) g/dL RDW Std Deviation (36.4-46.3) fL RDW Coeff of Sharon (11.5-14.5) % Plt Count (130-400) K/uL MPV (7.4-10.4) fL Sodium 143 (136-145) mmol/L Potassium 3.8 (3.5-5.1) mmol/L Chloride 108 H (98-107) mmol/L Carbon Dioxide 26 (21-32) mmol/L Anion Gap 9.0 (3-11) BUN 10 (7-18) mg/dl Creatinine 0.81 (0.6-1.2) mg/dl Est Cr Clr Drug Dosing 61.1 ml/min Est GFR ( Amer) 84.1 Est GFR (Non-Af Amer) 72.6 BUN/Creatinine Ratio 12.9 (10-20) Glucose 107 H (70-99) mg/dl Calcium 8.9 (8.5-10.1) mg/dl Total Bilirubin 0.4 (0.2-1) mg/dl AST 667 H (15-37) U/L ALT 806 H (12-78) U/L Alkaline Phosphatase 255 H (45-117) U/L Total Protein 6.1 L (6.4-8.2) gm/dl Albumin 3.3 L (3.4-5.0) gm/dl Globulin 2.8 (2.5-4.0) gm/dl Albumin/Globulin Ratio 1.2 (0.9-2) Hepatitis A IgM Ab Hep Bs Antigen Neg (Neg) Hep B Core IgM Ab Hepatitis C Antibody Neg (Neg) Medications Administered Current Inpatient Medications Acetaminophen (Tylenol) 650 mg PO Q4H PRN PRN Reason: Pain or Fever Stop: 09/26/19 19:04 [facility]) [facility] 09/27/19 08:59 Last Admin: 08/28/19 07:40 Dose: 325 mg Documented by: Atorvastatin Calcium (Lipitor) 80 mg PO QAM [facility] Stop: 09/27/19 08:59 Last Admin: 08/29/19 07:41 Dose: 80 mg Documented by: Bupropion HCl (Wellbutrin-Sr) 150 mg PO BID [facility] Stop: 09/26/19 20:59 Last Admin: 08/29/19 07:41 Dose: 150 mg Documented by: Clonazepam (Klonopin) 1 mg PO TID PRN PRN Reason: Anxiety Stop: 09/26/19 19:04 Last Admin: 08/28/19 22:43 Dose: 1 mg Documented by: Enoxaparin Sodium (Lovenox) 40 mg SQ QPM [facility] Stop: 09/26/19 20:59 Last Admin: 08/28/19 20:49 Dose: 40 mg Documented by: Famotidine (Pepcid) 20 mg PO BID [facility] Stop: 09/26/19 20:59 Last Admin: 08/29/19 07:41 Dose: 20 mg Documented by: Piperacillin Sod/Tazobactam (Sod 3.375 gm/ Dextrose) 115 mls @ 28.75 mls/hr IV Q8H [facility]; Protocol Stop: 08/31/19 03:59 Last Infusion: 08/29/19 08:06 Dose: Infused Documented by: Miscellaneous Information (Consult) 1 ea N/A UD PRN PRN Reason: Consult Stop: 09/27/19 22:45 Pantoprazole Sodium (Protonix) 40 mg PO BID [facility] Stop: 09/26/19 20:59 Last Admin: 08/29/19 07:40 Dose: 40 mg Documented by: Sucralfate (Carafate Tab) 1 gm PO ACHS [facility] Stop: 09/26/19 20:59 Last Admin: 08/29/19 07:41 Dose: 1 gm Documented by: Trazodone HCl (Desyrel) 300 mg PO HS [facility] Stop: 09/26/19 20:59 Last Admin: 08/28/19 22:43 Dose: 300 mg Documented by:
[2019-08-29] MEDS ORDERED: PROPOFOL IV EMULSION 10 MG/ML 20 ML VIAL IV ONE (08:23)
[2019-08-29] MEDS ORDERED: ONDANSETRON INJ 2 MG/ML 2 ML VIAL ONE (08:23)
[2019-08-29] MEDS ORDERED: SUCCINYLCHOLINE CHLORIDE 20 MG/ML 10 ML VIAL ONE (08:23)
[2019-08-29] MEDS ORDERED: ROCURONIUM BROMIDE 10 MG/ML 5 ML VIAL ONE (08:23)
[2019-08-29] MEDS ORDERED: LIDOCAINE HCL 2% 2 ML VIAL/AMP(20MG/ML) INFIL ONE (08:23)
[2019-08-29] MEDS ORDERED: INDOMETHACIN 50 MG SUPP PR ONE ×2 (08:28→08:33)
[2019-08-29] MEDS ORDERED: fentaNYL citrate 100 MCG/2 ML VIAL ONE (08:29)
--- NOTE | 2019-08-29 08:33 | History & Physical Bridge Note ---
Date of Service August 29, 2019 History & Physical Bridge Note I have examined the patient, reviewed the History & Physical and in the interval since the performance of the History & Physical I have noted the following changes of clinical significance: no changes noted. The patient presents with a history of intermittent abdominal discomfort and underwent a cholecystectomy about 2 years ago. She has had significant elevation of her liver associated enzymes since admission and has an MRCP which is suspicious for stones within the common bile duct. We are planning to do ERCP today for further evaluation and treatment of choledocholithiasis. I have discussed the risks and benefits of the procedure with the patient to include bleeding, infection, perforation, pain and pancreatitis. MRCP CLINICAL HISTORY: elevated transaminases, CCY in 2018 for sludge. TECHNIQUE: Utilizing a 1.5 Elizabeth magnet and dedicated coil, multiplanar, multiecho imaging of the upper abdomen was performed utilizing heavily T2 weighted pulsing sequences without IV contrast. COMPARISON STUDY: CT of the abdomen and pelvis March 19, 2019. Right upper quadrant ultrasound August 27, 2019. FINDINGS: The gallbladder is surgically absent. Dilatation of the common bile duct, measuring 1.2 cm in caliber, is unchanged since CT of March 19, 2019. No definite common bile duct calculi are identified. However, there are questionable small filling defects within the posterior aspect of the mid common bile duct shown on axial reconstruction image 191 and 192 of 321. The course and caliber of the main pancreatic duct is normal. There is no peripancreatic infiltration or fluid. A right hepatic lobe cyst is unchanged since prior CT. There are a few cysts within the left kidney. IMPRESSION: No change in mild biliary ductal dilatation since CT of March 19, 2019. A few questionable small filling defects within the posterior aspect of the mid common bile duct. Artifact is favored however small common bile duct calculi could appear similar.
[2019-08-29] MEDS ORDERED: ePHEDrine sulfate 50 MG/ML AMP IV PRN (08:37)
[2019-08-29] MEDS ORDERED: ATROPINE SULFATE 0.1 MG/ML 10ML SYR IV PRN (08:37)
[2019-08-29] MEDS ORDERED: ONDANSETRON INJ 2 MG/ML 2 ML VIAL IV PRN (08:37)
[2019-08-29] MEDS ORDERED: fentaNYL citrate 100 MCG/2 ML VIAL IV PRN (08:37)
--- NOTE | 2019-08-29 08:37 | Anesthesiology Consultation ---
Date of Service August 29, 2019 Assessment & Plan ASA ASA3 Proposed Anesthesia Anesthesia Type: General Risk / Benefits Reviewed With: PT / POA / Parent / Guardian, Accepts Plan and Informed Consent Obtained History Surgery Operation Date: 08/29/19 10:15 Proposed Procedures p Endoscopic Retrograde Cholangiopancreatogram - Giuseppe Walter Height/Weight Height: 5 ft 7 in Weight: 69.2 kg Allergies Allergy/AdvReac Type Severity Reaction Status Date / Time levofloxacin AdvReac Unknown abnormal Verified 08/29/19 08:19 heart issues Medications Home Medications Medication Instructions Recorded Confirmed Last Taken atorvastatin 80 mg PO QAM 02/09/18 08/27/19 03/18/19 bupropion HCl 150 mg PO BID 02/09/18 08/27/19 03/18/19 clonazepam 1 mg PO TID PRN 02/09/18 08/27/19 Unknown omeprazole 40 mg PO BID 02/09/18 08/27/19 03/18/19 trazodone 300 mg PO HS 02/09/18 08/27/19 03/18/19 aspirin 325 mg PO QAM 05/03/18 08/27/19 03/18/19 diphenoxylate-atropine 2.5 1 tab PO QID PRN tab 10/28/18 08/27/19 03/18/19 mg-0.025 mg tablet furosemide 20 mg PO DAILY PRN 08/27/19 08/27/19 Unknown potassium chloride 20 meq PO DAILY PRN 08/27/19 08/27/19 Unknown sucralfate 1 g PO ACHS 08/27/19 08/27/19 Unknown Active Medications Generic Name Dose Route Start Last Admin Trade Name Freq PRN Reason Stop Dose Admin Aspirin 325 mg 08/28/19 09:00 08/28/19 07:40 Ecotrin PO 09/27/19 08:59 325 mg QAM [facility] Administration Atorvastatin Calcium 80 mg 08/28/19 09:00 08/29/19 07:41 Lipitor PO 09/27/19 08:59 80 mg QAM [facility] Administration Bupropion HCl 150 mg 08/27/19 21:00 08/29/19 07:41 Wellbutrin-Sr PO 09/26/19 20:59 150 mg BID [facility] Administration Clonazepam 1 mg 08/27/19 19:05 08/28/19 22:43 Klonopin PO 09/26/19 19:04 1 mg TID PRN Administration Anxiety Enoxaparin Sodium 40 mg 08/27/19 21:00 08/28/19 20:49 Lovenox SQ 09/26/19 20:59 40 mg QPM [facility] Administration Famotidine 20 mg 08/27/19 21:00 08/29/19 07:41 Pepcid PO 09/26/19 20:59 20 mg BID [facility] Administration Piperacillin Sod/Tazobactam 115 mls @ 28.75 mls/hr 08/29/19 04:00 08/29/19 08:06 Sod 3.375 gm/ Dextrose IV 08/31/19 03:59 Infused Q8H [facility] Infusion Protocol Pantoprazole Sodium 40 mg 08/27/19 21:00 08/29/19 07:40 Protonix PO 09/26/19 20:59 40 mg BID [facility] Administration Sucralfate 1 gm 08/27/19 21:00 08/29/19 07:41 Carafate Tab PO 09/26/19 20:59 1 gm ACHS [facility] Administration Trazodone HCl 300 mg 08/27/19 21:00 08/28/19 22:43 Desyrel PO 09/26/19 20:59 300 mg HS [facility] Administration NPO Date Last Intake of Fluids: 08/29/19 Time Last Intake of Fluids: 07:45 Last Intake of Fluids Comment: sip Date Last Intake of Solids: 08/27/19 Time Last Intake of Solids: 18:00 Past Medical History Medical History Anxiety Cerebellar ataxia Chronic back pain GERD (gastroesophageal reflux disease) History of alcoholism Hyperlipidemia Hypertension IBS (irritable bowel syndrome) Lactose intolerance On home oxygen therapy 2 LPM AT NIGHT Osteoarthritis Spinal stenosis Stroke MRI OBTAINED 02/2018 [place] R/T VISUAL DISTURBANCES - 4 "MINI STROKES" - PROVIDER UNABLE TO DETERMINE IF ACUTE VS OLD PER PT REPORT - SAW DR.VICTORIA AGRAWAL, NEURO Exercise / Class Metabolic Activity II 4-5 Yardwork/Stairs/Walk up hill Past Family History Family History Father Stroke Past Surgical History Surgical History History of bilateral tubal ligation History of cholecystectomy History of colonoscopy History of esophagogastroduodenoscopy (EGD) History of tooth extraction History of total hip arthroplasty RT Hx of LASIK Past Anesthesia History No Hx of Anesthesia Complications and No Family Hx of Anesthesia Complications History of PONV No Hx of PONV and No Hx of Motion Sickness Social History Smoking Status: Former smoker Hx Alcohol Use: No Alcohol Intake Frequency Comment: hx alcohol abuse Hx Substance Use: No substance use type: does not use Review of Systems denies fever/cough/ colds/ chest pain/ SOB/ DELILAH Constitutional: no fever and no chills Respiratory: no cough and no dyspnea denies DELILAH Cardiovascular: no chest pain and no dyspnea on exertion Physical Exam Vital Signs Last Vital Signs Temp 36.5 C 08/29/19 08:21 Pulse 70 08/29/19 08:21 Resp 20 08/29/19 08:21 BP 107/66 08/29/19 08:21 Pulse Ox 93 08/29/19 08:21 ENMT Mouth: no TMJ abnormality and no dentition abnormality Thyromental Distance: > or= 3.5 Finger Breadths Mallampati Class: II Neck neck extension not limited Respiratory normal respiratory effort; no respiratory distress Auscultation: lungs clear to auscultation bilaterally Cardiovascular Rate/Rhythm: regular rate and regular rhythm Neurologic moves all extremities Psychiatric Orientation: alert and oriented x 3 Testing Laboratory Results 08/29/19 07:01 08/29/19 07:01 PT 10.6 Seconds (9.0-12.0) 08/27/19 12:50 INR 1.0 (0.9-1.1) 08/27/19 12:50 APTT 23.5 Seconds (21.0-31.0) 08/27/19 12:50
[2019-08-29] MEDS: ASPIRIN 325 MG ECTAB PO SCH (09:19)
--- NOTE | 2019-08-29 09:21 | GI REPORT ---
Patient Name: Vangie Alanis Procedure Date: 08/29/2019 8:42 AM Date of : 1945 Admit Type: Inpatient Age: 74 Gender: Female Attending MD: Giuseppe Walter DO Procedure: ERCP Providers: Giuseppe Walter DO Referring MD: Miguel Bhagat Md, Williams Mota Indications: Abdominal pain of suspected biliary origin, Abnormal MRCP, Elevated liver enzymes Medicines: General Anesthesia Complications: No immediate complications. Estimated blood loss: Minimal. Estimated Blood Loss: Estimated blood loss was minimal. Procedure: Pre-Anesthesia Assessment: - Prior to the procedure, a History and Physical was performed, and patient medications, allergies and sensitivities were reviewed. The patient's tolerance of previous anesthesia was reviewed. - The risks and benefits of the procedure and the sedation options and risks were discussed with the patient. All questions were answered and informed consent was obtained. - Patient identification and proposed procedure were verified prior to the procedure by the physician, the nurse and the custodial engineer. The procedure was verified in the procedure room. - Pre-procedure physical examination revealed no contraindications to sedation. - ASA Grade Assessment: III - A patient with severe systemic disease. - The anesthesia plan was to use general anesthesia. - Immediately prior to administration of medications, the patient was re-assessed for adequacy to receive sedatives. - The heart rate, respiratory rate, oxygen saturations, blood pressure, adequacy of pulmonary ventilation, and response to care were monitored throughout the procedure. - The physical status of the patient was re-assessed after the procedure. After obtaining informed consent, the scope was passed under direct vision. Throughout the procedure, the patient's blood pressure, pulse, and oxygen saturations were monitored continuously. The scope was introduced through the mouth, and advanced to the duodenum and used to inject contrast into the bile duct. The ERCP was accomplished without difficulty. The patient tolerated the procedure well. Findings: A salesperson household appliances film of the abdomen was obtained. Surgical clips, consistent with a previous cholecystectomy, were seen in the area of the right upper quadrant of the abdomen. The esophagus was successfully intubated under direct vision without detailed examination of the pharynx, larynx, and associated structures, and upper GI tract. The upper GI tract was grossly normal. The major papilla was small. The bile duct could not be cannulated with the short-nosed traction sphincterotome Cook Omni and 0.035 in Acrobat 2 guidewire. This was changed to another setup after which, the bile duct was deeply cannulated with the short-nosed traction sphincterotome (Rx 39) and 0.025 in Dream guidewire. Contrast was injected. I personally interpreted the bile duct images. Contrast extended to the hepatic ducts. The biliary orifice was stenotic. This appeared benign. The lower third of the main bile duct contained filling defect(s) thought to be a stone. The main bile duct was moderately dilated. The largest diameter was 10 mm. Biliary sphincterotomy was made with a monofilament Dreamtome sphincterotome using ERBE electrocautery. There was no post-sphincterotomy bleeding. To discover objects, the biliary tree was swept several times with a 15 mm balloon starting at the bifurcation. Two darkly pigmented stones were removed. No stones remained. The endoscope was withdrawn from the patient. Indomethacin 100 mg was given via suppository to decrease the risk of post-ERCP pancreatitis (PEP). Impression: - The major papilla appeared to be small. - Biliary papillary stenosis, benign. - A filling defect consistent with a stone was seen on the cholangiogram. - The entire main bile duct was moderately dilated. - Choledocholithiasis was found. Complete removal was accomplished by biliary sphincterotomy and balloon extraction. - Indomethacin given to decrease risk of post-ERCP pancreatitis. Recommendation: - Avoid aspirin and nonsteroidal anti-inflammatory medicines today. - Return patient to [facility] for ongoing care. - Clear liquid diet today. - Observe patient's clinical course following today's ERCP with therapeutic intervention. Giuseppe Walter D.O. Giuseppe Walter, 08/29/2019 9:21:29 AM This report has been signed electronically. Note Initiated On: 08/29/2019 8:42 AM Number of Addenda: 0 I attest to the content of the Intraoperative Record and orders documented therein, exceptions below {[id number]}
--- NOTE | 2019-08-29 09:23 | Post Operative Brief Note ---
Immediate Post Op Note v1 Date of Surgery August 29, 2019 Pre & Post Diagnosis Operation Date: 08/29/19 10:15 Pre-Op Diagnosis: Choledocholithiasis Post-Op Diagnosis: Choledocholithiasis I identified the patient and participated in the time-out.: Yes Procedure Operation Date: 08/29/19 10:15 Actual Procedures p Endoscopic Retrograde Cholangiopancreatogram(Not Applicable) - Giuseppe Walter Surgeon Giuseppe Walter Learning Administrator none Estimated Blood Loss 0 Findings Consistent with Post-Op Diagnosis
--- NOTE | 2019-08-29 09:24 | Communication Note ---
Date of Service: August 29, 2019 The patient underwent ERCP this morning. We found several small stones within the common bile duct. This was treated with biliary sphincterotomy and balloon extraction. Recommendations May have a clear liquid diet today hold nonsteroidals for 7 days if possible If patient doing well on 08/30/19 may consider discharge Repeat liver enzymes tomorrow
--- NOTE | 2019-08-29 09:32 | Fluoroscopy Report ---
[place] ERCP biliary ductal CLINICAL HISTORY: ERCP IN OR COMPARISON STUDY: Right upper quadrant ultrasound August 27, 2019. MRCP August 28, 2019. FLUOROSCOPY TIME: 44 seconds. FLUOROSCOPIC IMAGES: 7 FINDINGS: Fluoroscopy was provided during ERCP. These images demonstrate cannulation of the common bi le duct with balloon sweep through the common bile duct. Cholecystectomy clips are noted. IMPRESSION: Fluoroscopy provided during ERCP. ACT 112: Negative or not required by law. Electronically signed by: Oswald Francis M.D. 08/29/2019 9:30 AM
--- NOTE | 2019-08-29 10:30 | Anesthesiology Progress Note ---
Date of Service August 29, 2019 Anesthesia Post Procedure Vital Signs Vital Signs: Temp Pulse Pulse Resp BP Pulse Ox 08/29/19 10:05 36.4 C L 75 16 109/67 95 08/29/19 09:55 87 16 122/75 95 08/29/19 09:48 36.0 C L 84 16 111/76 95 08/29/19 08:21 36.5 C 70 70 20 107/66 93 08/29/19 07:43 36.5 C 71 20 107/66 93 08/29/19 02:24 36.7 C 65 20 101/59 L 93 08/29/19 00:00 36.3 C L 70 16 112/71 93 08/28/19 19:41 36.9 C 58 L 18 115/70 91 08/28/19 15:22 36.3 C L 66 21 119/66 94 08/28/19 11:51 36.5 C 83 18 99/64 L 99 Pain Intensity Chest: Pain Intensity: 6 Transfer of Care Handoff Completed per policy Notes Mental Status: alert / awake / arousable and participated in evaluation Patient Amnestic to Procedure: Yes Nausea / Vomiting: adequately controlled Pain: adequately controlled Airway Patency, RR, SpO2: stable & adequate BP & HR: stable & adequate Hydration State: stable & adequate Anesthetic Complications: no major complications apparent and Pt Satisfied with anesthetic care
[2019-08-29] MEDS ORDERED: GLUCAGON FOR INJ 1 MG VIAL ONE (11:43)
[2019-08-29] MEDS ORDERED: LACTATED RINGER'S 250 ML IV ONE (13:37)
[2019-08-29] MEDS: TRAMADOL HCL 50 MG TABLET PO PRN ×2 (14:43→21:00)
[2019-08-29] MEDS ORDERED: LACTATED RINGER'S 1,000 ML IV SCH (18:15)
[2019-08-29] MEDS: TRAZODONE HCL 100 MG TAB PO SCH (23:30)
[2019-08-30] MEDS ORDERED: TRAMADOL HCL 50 MG TABLET PO PRN (00:31)
[2019-08-30] MEDS: PIPERACILLIN/TAZOBACTAM 3.375 GM in DEXTROSE 5% 100 ML IV SCH ×3 (04:30→20:44)
[2019-08-30 05:41] LABS: Hematocrit (blood only) 35.6 % (37-47); Hemoglobin 11.7 g/dL (12.0-16.0); Mean Corpuscular Hemoglobin 29.5 pg (25-34); Mean Corpuscular Hgb Conc 32.9 g/dL (32-36); Mean Corpuscular Volume 89.7 fL (80-100); Mean Platelet Volume 10.9 fL (7.4-10.4); Platelet Count 173 K/uL (130-400); RDW Coefficient of Variation 13.2 % (11.5-14.5); RDW Standard Deviation 43.2 fL (36.4-46.3); Red Blood Count 3.97 M/uL (4.2-5.4); White Blood Count 5.39 K/uL (4.8-10.8)
[2019-08-30 05:45] LABS: Hepatitis A Antibody IgM NON-REACTIVE (NON-REACTIVE); Hepatitis B Core Antibody IgM NON-REACTIVE (NON-REACTIVE)
[2019-08-30 06:14] LABS: Albumin Level 2.8 gm/dl (3.4-5.0); BUN Creatinine Ratio 4.8 (10-20); Bilirubin Direct 0.1 mg/dl (0-0.2); Creatinine Clr Calc Pharmacy 52.6 ml/min; Est GFR (African American) 70.2; Est GFR (Non-African American) 60.6; Potassium 3.4 mmol/L (3.5-5.1)
[2019-08-30 06:18] LABS: Bilirubin,Total 0.4 mg/dl (0.2-1); Globulin 2.7 gm/dl (2.5-4.0); Total Protein 5.5 gm/dl (6.4-8.2)
--- NOTE | 2019-08-30 07:56 | Hospitalist Progress Note ---
Date of Service August 30, 2019 Assessment & Plan (1) Epigastric pain: -patient presenting from home with reports of epigastric / substernal pain radiating into right chest/shoulder -long standing history of uncontrolled GERD symptoms; s/p cholecystectomy 08/2017, EGD 03/2018 unremarkable -patient is already taking PPI and Carafate -pain likely secondary to choledocholithiasis given current findings on ERCP, not cardiac (2) Atypical chest pain: - pt initially admitted for ACS rule out - troponin x3 negative, cardiology consulted and EKGs reviewed, essentially unchanged from previous, not likely cardiac etiology. No further cardiac testing recommended at this time. (3) Choledocholithiasis: (4) Elevated LFTs: - significantly elevated ALT/ AST/ Alk phos, especially on the second day of admission - GI consulted - MRCP obtained - concern for CBD stone, plan for ERCP - HCV Ab - negative, Hep A, B - negative - started IV zosyn - now s/p ERCP (08/28), found several small stones within the common bile duct. This was treated with biliary sphincterotomy and balloon extraction. - hold NSAIDs for 7 days if possible - repeat liver enzymes tomorrow (5) Pancreatitis: -Patient continues to have epigastric pain on and off, after ERCP -Reports that this feels as pain when she first came to the hospital -Lipase obtained and elevated, close to 4000, lipase negative on admission -We will provide IV fluids, and only clear liquid diet for today -We will recheck liver enzymes and lipase tomorrow (6) Dyslipidemia: -continue statin (7) Anxiety: (8) Depression: -stable, continue home meds (9) DVT prophylaxis: - SCDs Admission and Anticipated Discharge Date Admission Date: August 28, 2019 Subjective Patient complained of epigastric pain again yesterday, after ERCP. Lipase obtained this morning elevated to almost 4000. Lipase normal on admission. Remains afebrile. Continue LR, will not advance diet at this time. Otherwise no acute events overnight. Currently patient is sitting up in bed, comfortable, denies any more epigastric pain. Reports she had some last night though. Denies any fevers, chills, chest pain, shortness of breath. Review of Systems Review of Systems: All systems reviewed & are unremarkable except as noted in HPI & below Constitutional: no fever and no chills Respiratory: no cough and no dyspnea Cardiovascular: no chest pain and no palpitations Gastrointestinal: + abdominal pain (Epigastric pain on and off); no nausea and no vomiting Genitourinary: no dysuria Physical Exam Physical Exam: Constitutional: Thin elderly female, WD/WN, vitals as above Eyes: PERRL, EOMI, conjunctivae normal, anicteric sclerae ENMT: external ear and nose normal, oropharynx normal Respiratory: normal respiratory effort, lungs clear to auscultation, no wheezing, rhonchi, crackles Cardiovascular: regular rate and regular rhythm Vessels: normal peripheral pulses Extremities: no edema Gastrointestinal (Abdomen): normal bowel sounds, soft, mild epigastric pain on palpation, nondistended Musculoskeletal: no cyanosis or clubbing, extremities motor strength 5/5, moves extremities spontaneously Skin: no rashes, warm and dry Neurologic: PERRL, EOMI, accommodation nl, no face palsy, no dysarthria Psychiatric: A+Ox3, euthymic affect Results & Data Results & Data ([facility]) Vital Signs (Past 12 Hours) Vital Signs Temp Pulse Resp BP Pulse Ox 08/30/19 07:47 36.9 C 67 18 118/62 92 08/30/19 02:34 36.6 C 74 18 117/72 94 08/29/19 23:05 37.4 C 88 18 126/68 92 08/29/19 22:27 37.2 C Laboratory Results 08/30/19 08/30/19 08/28/19 Range/Units 05:22 05:22 16:50 WBC 5.39 (4.8-10.8) K/uL RBC 3.97 L (4.2-5.4) M/uL Hgb 11.7 L (12.0-16.0) g/dL Hct 35.6 L (37-47) % MCV 89.7 (80-100) fL MCH 29.5 (25-34) pg MCHC 32.9 (32-36) g/dL RDW Std Deviation 43.2 (36.4-46.3) fL RDW Coeff of Sharon 13.2 (11.5-14.5) % Plt Count 173 (130-400) K/uL MPV 10.9 H (7.4-10.4) fL Sodium 144 (136-145) mmol/L Potassium 3.4 L (3.5-5.1) mmol/L Chloride 110 H (98-107) mmol/L Carbon Dioxide 26 (21-32) mmol/L Anion Gap 8.0 (3-11) BUN 4 L (7-18) mg/dl Creatinine 0.94 (0.6-1.2) mg/dl Est Cr Clr Drug Dosing 52.6 ml/min Est GFR ( Amer) 70.2 Est GFR (Non-Af Amer) 60.6 BUN/Creatinine Ratio 4.8 L (10-20) Glucose 142 H (70-99) mg/dl Calcium 8.0 L (8.5-10.1) mg/dl Total Bilirubin 0.4 (0.2-1) mg/dl Direct Bilirubin 0.1 (0-0.2) mg/dl AST 68 H (15-37) U/L ALT 296 H (12-78) U/L Alkaline Phosphatase 168 H (45-117) U/L Total Protein 5.5 L (6.4-8.2) gm/dl Albumin 2.8 L (3.4-5.0) gm/dl Globulin 2.7 (2.5-4.0) gm/dl Albumin/Globulin Ratio 1.0 (0.9-2) Lipase 3694 H (73-393) U/L Hepatitis A IgM Ab NON-REACTIVE (NON-REACTIVE) Hep B Core IgM Ab NON-REACTIVE (NON-REACTIVE)
[2019-08-30] MEDS ORDERED: POTASSIUM CHLORIDE 20 MEQ TABCR PO STA (07:58)
[2019-08-30] MEDS: SUCRALFATE 1 GM TAB PO SCH ×4 (08:54→20:04)
[2019-08-30] MEDS: BuPROPion SR 150 MG TABCR PO SCH ×2 (08:54→20:05)
[2019-08-30] MEDS: ATORVASTATIN 40 MG TAB PO SCH (08:55)
[2019-08-30] MEDS: PANTOprazole 40 MG TAB PO SCH ×2 (08:55→20:04)
--- NOTE | 2019-08-30 08:57 | Gastroenterology Progress Note ---
Date of Service August 30, 2019 Assessment & Plan (1) Choledocholithiasis: Patient admitted with complications related to choledocholithiasis. Overall she seems improved today and denies having abdominal pain. She did have a lipase taken as part of her regular labs this morning which is somewhat elevated. Given this I would recommend continued IV hydration a clear liquid diet only today. Would recommend that we repeat surveillance labs tomorrow and if improving then her diet can be advanced as tolerated Recommendations Clear liquid diet Continue with IV hydration at 150 mL/h Repeat labs tomorrow morning and advance diet if improved Avoid use of nonsteroidals for 7 days Admission and Anticipated Discharge Date Admission Date: August 28, 2019 Subjective The patient reports that her abdominal discomfort is much improved today. She underwent ERCP yesterday for gallstone extraction. Review of Systems Constitutional: no fever, no chills and no sweats Eyes: No icterus Respiratory: no change in sputum Physical Exam Constitutional: well developed; no acute distress and not ill appearing Neck: trachea midline, no thyromegaly Respiratory: normal respiratory effort, lungs clear to auscultation Cardiovascular: Heart Sounds: + murmur Gastrointestinal (Abdomen): Inspection/Auscultation: abdomen not distended and no abdominal edema Percussion/Palpation: abdomen soft; abdomen nontender and no guarding Results & Data ([facility]) Vital Signs (Past 12 Hours) Vital Signs Temp Pulse Resp BP Pulse Ox 08/30/19 07:47 36.9 C 67 18 118/62 92 08/30/19 02:34 36.6 C 74 18 117/72 94 08/29/19 23:05 37.4 C 88 18 126/68 92 08/29/19 22:27 37.2 C Laboratory Results Laboratory Results - last 24 hr 08/28/19 08/30/19 08/30/19 16:50 05:22 05:22 WBC 5.39 RBC 3.97 L Hgb 11.7 L Hct 35.6 L MCV 89.7 MCH 29.5 MCHC 32.9 RDW Std Deviation 43.2 RDW Coeff of Sharon 13.2 Plt Count 173 MPV 10.9 H Sodium 144 Potassium 3.4 L Chloride 110 H Carbon Dioxide 26 Anion Gap 8.0 BUN 4 L Creatinine 0.94 Est Cr Clr Drug Dosing 52.6 Est GFR ( Amer) 70.2 Est GFR (Non-Af Amer) 60.6 BUN/Creatinine Ratio 4.8 L Glucose 142 H Calcium 8.0 L Total Bilirubin 0.4 Direct Bilirubin 0.1 AST 68 H ALT 296 H Alkaline Phosphatase 168 H Total Protein 5.5 L Albumin 2.8 L Globulin 2.7 Albumin/Globulin Ratio 1.0 Lipase 3694 H Hepatitis A IgM Ab NON-REACTIVE Hep B Core IgM Ab NON-REACTIVE
[2019-08-30] MEDS: FAMOTIDINE 20 MG TAB PO SCH ×2 (09:03→20:17)
[2019-08-30] MEDS: LACTATED RINGER'S 1,000 ML IV SCH ×3 (09:05→20:24)
[2019-08-30] MEDS ORDERED: POTASSIUM CHLORIDE 20 MEQ TABCR PO ONE (10:00)
[2019-08-30 11:16] LABS: Magnesium 1.8 mg/dl (1.8-2.4); Phosphorus 3.3 mg/dl (2.5-4.9)
--- NOTE | 2019-08-30 11:54 | Anesthesiology Progress Note ---
Date of Service August 30, 2019 Anesthesia Post Procedure Vital Signs Vital Signs: Temp Pulse Resp BP Pulse Ox 08/30/19 07:47 36.9 C 67 18 118/62 92 08/30/19 02:34 36.6 C 74 18 117/72 94 08/29/19 23:05 37.4 C 88 18 126/68 92 08/29/19 22:27 37.2 C 08/29/19 19:15 37.4 C 77 16 155/73 H 94 08/29/19 18:10 36.3 C L 08/29/19 15:05 36.9 C 58 L 16 119/70 92 08/29/19 12:48 64 105/65 Pain Intensity Chest: Pain Intensity: 0 Notes Mental Status: alert / awake / arousable and participated in evaluation Patient Amnestic to Procedure: Yes Nausea / Vomiting: adequately controlled Pain: adequately controlled Airway Patency, RR, SpO2: stable & adequate BP & HR: stable & adequate Hydration State: stable & adequate Anesthetic Complications: no major complications apparent and Pt Satisfied with anesthetic care
[2019-08-30] MEDS ORDERED: MELATONIN 3 MG TAB PO PRN (15:50)
[2019-08-30] MEDS: TRAZODONE HCL 100 MG TAB PO SCH (23:52)
[2019-08-30] MEDS: clonazePAM 1 MG TAB PO PRN (23:53)
[2019-08-31] MEDS: LACTATED RINGER'S 1,000 ML IV SCH ×2 (03:24→09:21)
[2019-08-31 05:36] LABS: Hematocrit (blood only) 34.3 % (37-47); Hemoglobin 11.3 g/dL (12.0-16.0); Mean Corpuscular Hemoglobin 29.6 pg (25-34); Mean Corpuscular Hgb Conc 32.9 g/dL (32-36); Mean Corpuscular Volume 89.8 fL (80-100); Mean Platelet Volume 10.8 fL (7.4-10.4); Platelet Count 168 K/uL (130-400); RDW Coefficient of Variation 13.3 % (11.5-14.5); RDW Standard Deviation 43.5 fL (36.4-46.3); Red Blood Count 3.82 M/uL (4.2-5.4); White Blood Count 4.52 K/uL (4.8-10.8)
[2019-08-31 06:15] LABS: Albumin Level 2.7 gm/dl (3.4-5.0); Calcium 8.1 mg/dl (8.5-10.1); Creatinine Clr Calc Pharmacy 64.2 ml/min; Est GFR (African American) 89.4; Est GFR (Non-African American) 77.1; Potassium 3.7 mmol/L (3.5-5.1)
[2019-08-31 06:17] LABS: Albumin Globulin Ratio 1.1 (0.9-2); Bilirubin,Total 0.5 mg/dl (0.2-1); Globulin 2.5 gm/dl (2.5-4.0); Total Protein 5.2 gm/dl (6.4-8.2)
[2019-08-31] MEDS: ATORVASTATIN 40 MG TAB PO SCH (08:30)
[2019-08-31] MEDS: BuPROPion SR 150 MG TABCR PO SCH (08:30)
[2019-08-31] MEDS: FAMOTIDINE 20 MG TAB PO SCH (08:31)
[2019-08-31] MEDS: SUCRALFATE 1 GM TAB PO SCH ×2 (08:31→11:36)
[2019-08-31] MEDS: PANTOprazole 40 MG TAB PO SCH (08:31)
--- NOTE | 2019-08-31 09:29 | Hospitalist Progress Note ---
Date of Service August 31, 2019 Assessment & Plan (1) Epigastric pain: -patient presenting from home with reports of epigastric / substernal pain radiating into right chest/shoulder -long standing history of uncontrolled GERD symptoms; s/p cholecystectomy 08/2017, EGD 03/2018 unremarkable -patient is already taking PPI and Carafate -pain likely secondary to choledocholithiasis given current findings on ERCP, not cardiac (2) Atypical chest pain: - pt initially admitted for ACS rule out - troponin x3 negative, cardiology consulted and EKGs reviewed, essentially unchanged from previous, not likely cardiac etiology. No further cardiac testing recommended at this time. (3) Choledocholithiasis: (4) Elevated LFTs: - significantly elevated ALT/ AST/ Alk phos, especially on the second day of admission - GI consulted - MRCP obtained - concern for CBD stone, plan for ERCP - HCV Ab - negative, Hep A, B - negative - started IV zosyn - now s/p ERCP (08/28), found several small stones within the common bile duct. This was treated with biliary sphincterotomy and balloon extraction. - hold NSAIDs for 7 days if possible - repeat liver enzymes in 1 week as outpatient (5) Pancreatitis: -Patient continued to have epigastric pain on and off, after ERCP -Reports feels as pain when she first came to the hospital -Lipase obtained and elevated, close to 4000, lipase negative on admission -Gave IV fluids, and only clear liquid diet -Lipase normalized today, no more abdominal pain reported (6) Dyslipidemia: -continue statin (7) Anxiety: (8) Depression: -stable, continue home meds Admission and Anticipated Discharge Date Admission Date: August 28, 2019 Subjective Patient feels well today, denies any abdominal pain. Tolerating diet. Denies fever, chills, chest pain, nausea, vomiting. Review of Systems Review of Systems: All systems reviewed & are unremarkable except as noted in HPI & below Constitutional: no fever and no chills Respiratory: no cough and no dyspnea Cardiovascular: no chest pain and no palpitations Gastrointestinal: no abdominal pain, no nausea and no vomiting Physical Exam Physical Exam: Constitutional: Thin elderly female, WD/WN, vitals as above Eyes: PERRL, EOMI, conjunctivae normal, anicteric sclerae ENMT: external ear and nose normal, oropharynx normal Respiratory: normal respiratory effort, lungs clear to auscultation, no wheezing, rhonchi, crackles Cardiovascular: regular rate and regular rhythm Vessels: normal peripheral pulses Extremities: no edema Gastrointestinal (Abdomen): normal bowel sounds, soft, mild epigastric pain on palpation, nondistended Musculoskeletal: no cyanosis or clubbing, extremities motor strength 5/5, moves extremities spontaneously Skin: no rashes, warm and dry Neurologic: PERRL, EOMI, accommodation nl, no face palsy, no dysarthria Psychiatric: A+Ox3, euthymic affect Results & Data Results & Data ([facility]) Vital Signs (Past 12 Hours) Vital Signs Temp Pulse Resp BP Pulse Ox 08/31/19 07:45 37.0 C 58 L 18 126/71 90 08/30/19 22:49 36.7 C 62 16 142/68 H 92 Laboratory Results 08/31/19 08/31/19 08/30/19 Range/Units 05:22 05:22 05:22 WBC 4.52 L (4.8-10.8) K/uL RBC 3.82 L (4.2-5.4) M/uL Hgb 11.3 L (12.0-16.0) g/dL Hct 34.3 L (37-47) % MCV 89.8 (80-100) fL MCH 29.6 (25-34) pg MCHC 32.9 (32-36) g/dL RDW Std Deviation 43.5 (36.4-46.3) fL RDW Coeff of Sharon 13.3 (11.5-14.5) % Plt Count 168 (130-400) K/uL MPV 10.8 H (7.4-10.4) fL Sodium 147 H (136-145) mmol/L Potassium 3.7 (3.5-5.1) mmol/L Chloride 111 H (98-107) mmol/L Carbon Dioxide 30 (21-32) mmol/L Anion Gap 6.0 (3-11) BUN 3 L (7-18) mg/dl Creatinine 0.77 (0.6-1.2) mg/dl Est Cr Clr Drug Dosing 64.2 ml/min Est GFR ( Amer) 89.4 Est GFR (Non-Af Amer) 77.1 BUN/Creatinine Ratio 4.0 L (10-20) Glucose 91 (70-99) mg/dl Calcium 8.1 L (8.5-10.1) mg/dl Phosphorus 3.3 (2.5-4.9) mg/dl Magnesium 1.8 (1.8-2.4) mg/dl Total Bilirubin 0.5 (0.2-1) mg/dl AST 31 (15-37) U/L ALT 199 H (12-78) U/L Alkaline Phosphatase 154 H (45-117) U/L Total Protein 5.2 L (6.4-8.2) gm/dl Albumin 2.7 L (3.4-5.0) gm/dl Globulin 2.5 (2.5-4.0) gm/dl Albumin/Globulin Ratio 1.1 (0.9-2) Lipase 282 (73-393) U/L Medications Administered Current Inpatient Medications Acetaminophen (Tylenol) 650 mg PO Q4H PRN PRN Reason: Pain or Fever Stop: 09/26/19 19:04 Atorvastatin Calcium (Lipitor) 80 mg PO QAM [facility] Stop: 09/27/19 08:59 Last Admin: 08/31/19 08:30 Dose: 80 mg Documented by: Bupropion HCl (Wellbutrin-Sr) 150 mg PO BID [facility] Stop: 09/26/19 20:59 Last Admin: 08/31/19 08:30 Dose: 150 mg Documented by: Clonazepam (Klonopin) 1 mg PO TID PRN PRN Reason: Anxiety Stop: 09/26/19 19:04 Last Admin: 08/30/19 23:53 Dose: 1 mg Documented by: Enoxaparin Sodium (Lovenox) 40 mg SQ QPM [facility] Stop: 09/26/19 20:59 Last Admin: 08/28/19 20:49 Dose: 40 mg Documented by: Famotidine (Pepcid) 20 mg PO BID [facility] Stop: 09/26/19 20:59 Last Admin: 08/31/19 08:31 Dose: 20 mg Documented by: Lactated Ringer's (Lr) 1,000 mls @ 150 mls/hr IV .Q6H40M [facility] Stop: 09/29/19 07:59 Last Admin: 08/31/19 09:21 Dose: 150 mls/hr Documented by: Melatonin (Melatonin) 3 mg PO HS PRN PRN Reason: Sleep Stop: 09/29/19 15:49 Miscellaneous Information (Consult) 1 ea N/A UD PRN PRN Reason: Consult Stop: 09/27/19 22:45 Pantoprazole Sodium (Protonix) 40 mg PO BID [facility] Stop: 09/26/19 20:59 Last Admin: 08/31/19 08:31 Dose: 40 mg Documented by: Sucralfate (Carafate Tab) 1 gm PO ACHS [facility] Stop: 09/26/19 20:59 Last Admin: 08/31/19 08:31 Dose: 1 gm Documented by: Tramadol HCl (Ultram) 25 mg PO Q3H PRN PRN Reason: Pain Stop: 09/28/19 13:35 Trazodone HCl (Desyrel) 300 mg PO HS [facility] Stop: 09/26/19 20:59 Last Admin: 08/30/19 23:52 Dose: 300 mg Documented by:
--- NOTE | 2019-08-31 09:38 | Gastroenterology Progress Note ---
Date of Service August 31, 2019 Assessment & Plan (1) Choledocholithiasis: The patient is status post ERCP for choledocholithiasis. She appears to be much improved today. At this point I would recommend advancing her diet as tolerated Recommendations Avoid nonsteroidals for another 5 days Advance diet as tolerated Please call with any questions or concerns Would suggest a repeat set of liver enzymes in 1 week with her primary care provider Admission and Anticipated Discharge Date Admission Date: August 28, 2019 Subjective Patient notes feeling much improved today. It appears she has been tolerating the liquid diet without any difficulties. Review of Systems Constitutional: no sweats and no malaise Respiratory: no change in sputum and no hemoptysis Cardiovascular: no chest pain with activity and no dyspnea at rest Physical Exam Constitutional: WD/WN, vitals as above Neck: trachea midline, no thyromegaly Respiratory: normal respiratory effort Cardiovascular: Heart Sounds: + murmur Gastrointestinal (Abdomen): Percussion/Palpation: abdomen soft; abdomen nontender and no guarding Results & Data ([facility]) Vital Signs (Past 12 Hours) Vital Signs Temp Pulse Resp BP Pulse Ox 08/31/19 07:45 37.0 C 58 L 18 126/71 90 08/30/19 22:49 36.7 C 62 16 142/68 H 92 Laboratory Results Laboratory Results - last 24 hr 08/30/19 08/31/19 08/31/19 05:22 05:22 05:22 WBC 4.52 L RBC 3.82 L Hgb 11.3 L Hct 34.3 L MCV 89.8 MCH 29.6 MCHC 32.9 RDW Std Deviation 43.5 RDW Coeff of Sharon 13.3 Plt Count 168 MPV 10.8 H Sodium 147 H Potassium 3.7 Chloride 111 H Carbon Dioxide 30 Anion Gap 6.0 BUN 3 L Creatinine 0.77 Est Cr Clr Drug Dosing 64.2 Est GFR ( Amer) 89.4 Est GFR (Non-Af Amer) 77.1 BUN/Creatinine Ratio 4.0 L Glucose 91 Calcium 8.1 L Phosphorus 3.3 Magnesium 1.8 Total Bilirubin 0.5 AST 31 ALT 199 H Alkaline Phosphatase 154 H Total Protein 5.2 L Albumin 2.7 L Globulin 2.5 Albumin/Globulin Ratio 1.1 Lipase 282
--- NOTE | 2019-08-31 13:25 | Discharge Summary ---
Date of Service August 31, 2019 Admission HPI Per Admitting Provider 74 year old female with PMH GERD, anxiety, cerebellar ataxia, alcoholism (in remission), and other problems listed below who presents to the ED with epigastric pain. Patient reports her symptoms came on suddenly while watching TV this afternoon. She describes the pain as severe and rates it #10/10 at it's worst. She reports it radiated up into her right chest and right shoulder. She reports associated nausea and vomiting. Denies hematemesis or coffee-ground emesis. No associated shortness of breath, lightheadedness, dizziness, diaphoresis, syncopal event. Patient reports she otherwise been feeling well recently. No other recent illnesses, fevers, chills. She denies any other episodes of abdominal pain or diarrhea. No urinary symptoms. Patient called EMS and was given aspirin and sublingual nitroglycerin. She reports her pain improved to #6/10. Upon arrival to the ED, patient received morphine 4 mg IV and she reports resolution of her pain. In the ED, initial troponin negative, EKG shows non-specific / mild changes in the lateral leads. RUQ US unremarkable. AST and Alk Phos elevated at 121 and 164. In addition to Morphine, patient was also given IV Zofran. Admission Exam Per Admitting Provider Constitutional: WD/WN, vitals as above Eyes: PERRL, conjunctivae normal, anicteric sclerae ENMT: external ear and nose normal, oropharynx normal Respiratory: normal respiratory effort, lungs clear to auscultation Cardiovascular: Rate/Rhythm: regular rate and regular rhythm Vessels: normal peripheral pulses Extremities: no edema Gastrointestinal (Abdomen): normal bowel sounds, soft, nontender, no hepatosplenomegaly Musculoskeletal: no cyanosis or clubbing, extremities motor strength 5/5 Skin: no rashes, warm and dry Neurologic: PERRL, EOMI, accommodation nl, no face palsy, no dysarthria Psychiatric: A+Ox3, euthymic affect Principal Diagnosis Choledocholithiasis Discharge Exam Constitutional: Thin elderly female, WD/WN, vitals as above Eyes: PERRL, EOMI, conjunctivae normal, anicteric sclerae ENMT: external ear and nose normal, oropharynx normal Respiratory: normal respiratory effort, lungs clear to auscultation, no wheezing, rhonchi, crackles Cardiovascular: regular rate and regular rhythm Vessels: normal peripheral pulses Extremities: no edema Gastrointestinal (Abdomen): normal bowel sounds, soft, nontender to palpation, nondistended Musculoskeletal: no cyanosis or clubbing, extremities motor strength 5/5, moves extremities spontaneously Skin: no rashes, warm and dry Neurologic: PERRL, EOMI, accommodation nl, no face palsy, no dysarthria Psychiatric: A+Ox3, euthymic affect Discharge Data Allergies Allergy/AdvReac Type Severity Reaction Status Date / Time levofloxacin AdvReac Unknown abnormal Verified 08/29/19 08:19 heart issues Consultations 08/27/19 16:46 ED Decision to Admit Stat 08/27/19 19:05 Consult Cardiology Routine 08/28/19 10:53 Consult Gastroenterology Routine Procedures Performed Operation Date: 08/29/19 10:15 Actual Procedures p Endoscopic Retrograde Cholangiopancreatogram(Not Applicable) - Giuseppe Walter Ordered Studies 08/27/19 13:40 US gallbladder Stat IMPRESSION: 1. Status post cholecystectomy. Extrahepatic biliary ductal dilatation likely a reservoir effect in the post cholecystectomy state. 2. Possible mild hepatic steatosis. Correlate with liver function tests to exclude steatohepatitis as a cause for abdominal pain. 08/28/19 11:28 MR MRCP Routine IMPRESSION: No change in mild biliary ductal dilatation since CT of March 19, 2019. A few questionable small filling defects within the posterior aspect of the mid common bile duct. Artifact is favored however small common bile duct calculi could appear similar. 08/29/19 14:00 FL ERCP biliary ductal Routine Hospital Course (1) Epigastric pain: -patient presenting from home with reports of epigastric / substernal pain radiating into right chest/shoulder -long standing history of uncontrolled GERD symptoms; s/p cholecystectomy 08/2017, EGD 03/2018 unremarkable -patient is already taking PPI and Carafate -pain likely secondary to choledocholithiasis given current findings on ERCP, not cardiac (2) Atypical chest pain: - pt initially admitted for ACS rule out - troponin x3 negative, cardiology consulted and EKGs reviewed, essentially unchanged from previous, not likely cardiac etiology. No further cardiac testing recommended at this time. (3) Choledocholithiasis: (4) Elevated LFTs: - significantly elevated ALT/ AST/ Alk phos, especially on the second day of admission - GI consulted - MRCP obtained - concern for CBD stone, plan for ERCP - HCV Ab - negative, Hep A, B - negative - started IV zosyn - now s/p ERCP (08/28), found several small stones within the common bile duct. This was treated with biliary sphincterotomy and balloon extraction. - hold NSAIDs for 7 days if possible - repeat liver enzymes in 1 week as outpatient (5) Pancreatitis: -Patient continued to have epigastric pain on and off, after ERCP -Reports feels as pain when she first came to the hospital -Lipase obtained and elevated, close to 4000, lipase negative on admission -Gave IV fluids, and only clear liquid diet -Lipase normalized today, no more abdominal pain reported (6) Dyslipidemia: -continue statin (7) Anxiety: (8) Depression: -stable, continue home meds Total Time Total Time Spent Total Time Spent (In Minutes): 40 Total Time Includes: Examination of the Patient, Discharge Planning, Medication Reconciliation and Communication With Other Providers Discharge Plan Discharge Items Patient Disposition: Home - Self-Care Reason For Visit: chest pain Discharge Diagnosis: Choledocholithiasis Activity: Per Instructions section Non-emergency contact: Primary Care Provider Call non-emergency contact if: you have any medication questions and your symptoms worsen Follow-up/Referrals: Williams Mota MD [Primary Care Provider] - 09/04/19 10:40 am (09/04/2019 10:40 AM Provider Williams Mota MD Department [facility] ) Diet: Low Fat Addtl Attending Provider Instructions: Recommend to follow-up with your primary care doctor within 1 week. At that time you should have blood work done to check your liver enzymes. You should not use NSAIDs, such as Aleve, ibuprofen, Motrin for next 5 days. Also recommended not to take your aspirin at this time. Pending Studies at Discharge: No Stand-Alone Forms: [employer], Smoking Cessation Medications and DC Order Prescriptions: Continued diphenoxylate-atropine [Lomotil] 2.5-0.025 mg tablet 1 tab PO QID PRN (Reason: Diarrhea) RF: 0 bupropion HCl 150 mg tablet sustained-release 12 hr 150 mg PO BID RF: 0 atorvastatin 80 mg tablet 80 mg PO QAM RF: 0 clonazepam 1 mg tablet 1 mg PO TID PRN (Reason: Anxiety) RF: 0 omeprazole 40 mg capsule,delayed release(DR/EC) 40 mg PO BID RF: 0 trazodone 300 mg Tablet 300 mg PO HS RF: 0 furosemide 20 mg tablet 20 mg PO DAILY PRN (Reason: Edema) RF: 0 sucralfate 1 gram tablet 1 g PO ACHS RF: 0 potassium chloride 20 mEq tablet extended release 20 meq PO DAILY PRN (Reason: (Drug) Ingestion) RF: 0 Discontinued aspirin 325 mg Tablet 325 mg PO QAM RF: 0 Discharge Orders: Discharge Order (Routine); Ordered 08/31/19 Ordered By: Miguel Bhagat Admission Data Admit Date/Time: 08/28/19 16:24 Attending Provider: Miguel Bhagat Admit Provider: Raad Edwards Primary Care Provider: Williams Mota Other Providers: Raad Edwards ; Ken Conti ; Chika Garcia
--- NOTE | 2019-09-08 07:45 | Coding Query ---
CODING QUERY To promote full compliance with coding requirements relating to patient care, provider participation is requested in all cases of benzol still operator uncertainty. Please assist us with the question(s) below: Coding Question(s): 1. The Progress Note on 08/30/19 and the Discharge Summary document Pancreatitis. Please specify below, in your clinical opinion, regarding the Pancreatitis. ( ) Pancreatitis ( x ) Acute Pancreatitis (x ) Unspecified etiology ( ) Postoperative Complication ( ) Other Etiology: Please Specify ( ) Chronic Pancreatitis ( ) Unspecified etiology ( ) Other Etiology: Please Specify ( ) Other Pancreatitis: Please Specify Physician's Response(s): Thank you Zaynab Sinclair Principal Diagnosis: "that condition established after study, to be chiefly responsible for occasioning the admission of the patient to the hospital for care." Co-Existing Principal Diagnosis: "when two or more diagnoses equally meet the criteria for principal diagnosis as determined by the circumstances of admission, diagnostic work up, and/or therapy provided, and the Alphabetic Index, Tabular List, or another coding guideline does not provide sequencing direction, any one of the diagnoses may be sequenced first." "When the physician has documented what appears to be a current diagnosis in the body of the record, but has not included the diagnosis in the final diagnostic statement, the physician should be asked whether the diagnosis should be added." ([facility] 2 QTR90. p3-4) [facility]
== END 2019-08-31 14:35 | disposition home or self-care (01) | DRG 444 ==
LOC: 2S 12:26 → ED 12:26 → SUATTDRO 16:55 → 2S 18:37 → 3N 08-29 02:28

== ENCOUNTER 2020-08-09 18:10 | Inpatient (IN) ==
[2020-08-09] MEDS ORDERED: SODIUM CHLORIDE 0.9% 1000ML 1,000 ML IV STA (18:47)
[2020-08-09] MEDS ORDERED: ACETAMINOPHEN 500 MG TAB PO STA (19:07)
--- NOTE | 2020-08-09 19:12 | Emergency Department Note ---
Impression & Plan Breathlessness, CAP (community acquired pneumonia) ED Provider Note Provider: Vladimir Jackson MD DATE OF SERVICE: 08/09/2020 CHIEF COMPLAINT: Shortness of breath HISTORY OF PRESENT ILLNESS: Patient is a 75-year-old female with a past medical history of hypertension, GERD, pancreatitis presenting here today reporting over the past 2 days developing worsening shortness of breath. States she is having diffuse pain and worsening shortness of breath. Reports cough is kept her up overnight but denies a significantly productive. Denies fever at home. Denies any falls or syncope. Denies sick contact. Denies nausea, vomiting, or abdominal pain. States she took some ibuprofen yesterday this did help with some of her symptoms transiently. Daughter checked on her today and patient was quite fatigued and thus was brought here for further evaluation. Patient states she noted her pulse ox is dropped into the mid 80s at home resting yesterday and has been using nasal cannula oxygen at home. Reports she normally only uses the oxygen at night but notes has been using it more during the day. Patient denies leg swelling. She states she has received both doses the coronavirus vaccine. Has a history of pneumonia last in March however states she is not had myalgias like this previously with pneumonia. REVIEW OF SYSTEMS: A total of 10 review of systems was obtained and negative except as stated above in the HPI. PAST MEDICAL HISTORY: As noted above MEDICATIONS: Reviewed home medication list SOCIAL HISTORY: Distant former smoker, lives at home PHYSICAL EXAM: GENERAL: alert and oriented in no acute distress on stretcher but somewhat fatigued appearing Head: normocephalic and atraumatic EYES: No injection, discharge or icterus. NECK: Trachea midline. LUNGS: Airway patent. No retractions but slightly tachypneic. Breath sounds clear with decreased air movement diffusely. HEART: Regular rate and rhythm. No chest wall tenderness ABDOMEN: Soft and non-tender, without guarding or rebound. SKIN: Acyanotic, warm, dry, without rashes EXTREMITIES: Without swelling, tenderness or deformity NEUROLOGICAL: No focal deficits following all commands. No aphasia. No facial d que or slurred speech. EK bpm normal sinus rhythm PVC or PAC. No acute ST segment elevation noted with some lateral T wave inversion appreciated with a QTC of 357. Compared to previous from August 2019 lateral T wave inversions appear new. CONTINUOUS CARDIAC MONITORING: was ordered and showed a heart rate of 70s to 90s bpm in normal sinus rhythm Patient's laboratory studies and imaging reviewed. Differential includes Viral syndrome, otitis, pharyngitis, pneumonia, influenza, meningitis, urinary tract infection, sepsis, bacteremia, as well as other pathologies. IMPRESSION/MEDICAL DECISION MAKING: Patient presents reporting diffuse body myalgias worsening shortness of breath over the past approximately 2 days. Borderline hypoxic here at rest and reports hypoxia at home. Covid testing as well as influenza although did complete the Covid vaccine series she reports. Covid testing was negative here. D-dimer elevated at [address] of the chest was completed given this. Troponin is undetectable no evidence of acute hepatitis or pancreatitis based on laboratory studies. I doubt this is acutely cardiac related. Doubt this is CHF. Negative influenza testing as well. White blood cell count is 10.7 not elevated but trending towards the higher end of normal. Chest x-ray shows some hazy in the left lung questioning for pneumonia. Covered empirically with a dose of doxycy gong and ceftriaxone here. Patient borderline hypoxic at rest here. Given this discussed with her further care here at the hospital which she is amenable to. The hospitalist was consulted. DIAGNOSIS: Shortness of breath, left-sided community-acquired pneumonia DISPOSITION: Hospitalist will evaluate Patient was agreeable with this plan. Preliminary Findings Only See Final Report For Complete Findings CTA CHEST: Background of centrilobular emphysema. Patchy ground-glass opacities in the left upper lobe and both lower lobes concerning for pneumonia, possibly viral. No pleural effusion or pneumothorax. No acute pulmonary system. No thoracic aortic aneurysm. Borderline cardiomegaly. Small pericardial effusion. Mild mediastinal and hilar adenopathy. Cholecystectomy with pneumobilia. Hepatic cyst. Calcified splenic granulomas. No acute osseous findings. Radiologist: Anjelica Maravilla M.D. Study ready at 21:21 and initial results transmitted at 21:24 Past Med/Surg History Medical History (Updated 08/09/20 @ 21:18 by Vladimir Jackson M.D.) Anxiety Cerebellar ataxia Chronic back pain GERD (gastroesophageal reflux disease) History of alcoholism Hyperlipidemia Hypertension IBS (irritable bowel syndrome) Lactose intolerance On home oxygen therapy 2 LPM AT NIGHT Osteoarthritis Spinal stenosis Stroke MRI OBTAINED 02/2018 [place] R/T VISUAL DISTURBANCES - 4 "MINI STROKES" - PROVIDER UNABLE TO DETERMINE IF ACUTE VS OLD PER PT REPORT - SAW DR.VICTORIA AGRAWAL, NEURO Surgical History History of bilateral tubal ligation History of cholecystectomy History of colonoscopy History of esophagogastroduodenoscopy (EGD) History of tooth extraction History of total hip arthroplasty RT Hx of LASIK Family History Father Stroke Social History Smoking Status: Never smoker Second Hand Exposure: No; Hx Alcohol Use: No Hx Substance Use: No Preferred Language: Armenian Communication Ability: Effective Visual Impairment: No Limitations Nursery Attendant Required: No Beliefs That Will Affect Care: None marital status: Current Living Situation: Spouse Current Living Situation Comment: 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 Feels Safe at Home: Yes Assistive Devices: None Allergies Allergies Allergy/AdvReac Type Severity Reaction Status Date / Time levofloxacin AdvReac Unknown abnormal Verified 08/09/20 22:23 heart issues Home Meds Home Medications Medication Instructions Recorded Confirmed atorvastatin 80 mg PO QAM 02/09/18 08/09/20 bupropion HCl 150 mg PO BID 02/09/18 08/09/20 clonazepam 1 mg PO TID PRN 02/09/18 08/09/20 omeprazole 40 mg PO BID 02/09/18 08/09/20 trazodone 300 mg PO HS 02/09/18 08/09/20 furosemide 40 mg PO QAM PRN 08/27/19 08/09/20 potassium chloride 20 meq PO DAILY PRN 08/27/19 08/09/20 gabapentin 100 mg PO TID 08/09/20 08/09/20 ibuprofen 200 mg PO Q6H PRN 08/09/20 08/09/20 venlafaxine 75 mg PO QAM 08/09/20 08/09/20 vit [id number] 1 tab PO QAM 08/09/20 08/09/20 [Bioflex] Results & Data (ED) Vital Signs Vital Signs - 24 hr 08/09/20 18:20 08/09/20 19:42 Temperature 36.6 C Temperature Source Oral Pulse Rate 82 Respiratory Rate 22 Respiratory Depth Normal Blood Pressure 126/77 Blood Pressure Mean 93 Pulse Oximetry 91 Oxygen Delivery Method Room Air Sepsis Recent Fever Within 48 Hours No Sepsis New/Unexplained Change in Mental Status No Sepsis Action Taken by Nursing No Action Required Laboratory Data Result diagrams: 08/09/20 19:50 08/09/20 19:50 Lab Results 08/09/20 08/09/20 08/09/20 Range/Units 19:50 19:50 19:50 WBC 10.75 (4.8-10.8) K/uL RBC 3.98 L (4.2-5.4) M/uL Hgb 11.6 L (12.0-16.0) g/dL Hct 35.5 L (37-47) % MCV 89.2 (80-100) fL MCH 29.1 (25-34) pg MCHC 32.7 (32-36) g/dL RDW Std Deviation 46.5 H (36.4-46.3) fL RDW Coeff of Sharon 14.1 (11.5-14.5) % Plt Count 243 (130-400) K/uL MPV 11.1 H (7.4-10.4) fL Immature Gran % (Auto) 0.1 % Neut % (Auto) 75.7 % Lymph % (Auto) 16.5 % Huron % (Auto) 6.4 % Eos % (Auto) 1.1 % Baso % (Auto) 0.2 % Neut # (Auto) 8.14 H (1.4-6.5) K/uL Lymph # (Auto) 1.77 (1.2-3.4) K/uL Huron # (Auto) 0.69 H (0.11-0.59) K/uL Eos # (Auto) 0.12 (0-0.5) K/uL Baso # (Auto) 0.02 (0-0.2) K/uL Immature Gran # (Auto) 0.01 (0.00-0.02) K/uL D-Dimer 800 H* (0-500) ug/L FEU Sodium 140 (136-145) mmol/L Potassium 3.4 L (3.5-5.1) mmol/L Chloride 106 (98-107) mmol/L Carbon Dioxide 28 (21-32) mmol/L Anion Gap 6.0 (3-11) BUN 11 (7-18) mg/dl Creatinine 0.81 (0.6-1.2) mg/dl Est Cr Clr Drug Dosing 60.2 ml/min Est GFR ( Amer) 83.5 Est GFR (Non-Af Amer) 72.1 BUN/Creatinine Ratio 13.2 (10-20) Glucose 87 (70-99) mg/dl Lactate (0.4-2.0) mmol/L Calcium 8.9 (8.5-10.1) mg/dl Total Bilirubin 0.5 (0.2-1) mg/dl AST 7 L (15-37) U/L ALT 14 (12-78) U/L Alkaline Phosphatase 107 (45-117) U/L Troponin I < 0.015 (0-0.045) ng/ml Total Protein 6.9 (6.4-8.2) gm/dl Albumin 3.1 L (3.4-5.0) gm/dl Globulin 3.8 (2.5-4.0) gm/dl Albumin/Globulin Ratio 0.8 L (0.9-2) Lipase 80 (73-393) U/L Procalcitonin (0-0.5) ng/ml Urine Color Urine Appearance (Clear) Urine pH (4.5-7.5) Ur Specific Lovely (1.000-1.030) Urine Protein (Negative) Urine Glucose (UA) (Negative) Urine Ketones (Negative) Urine Blood (Negative) Urine Nitrite (Negative) Urine Bilirubin (Negative) Urine Urobilinogen (Negative) Ur Leukocyte Esterase (Negative) Urine WBC (Auto) (0-5) /hpf Urine RBC (Auto) (0-4) /hpf U Hyaline Cast (Auto) (0-5) /lpf U Epithel Cells (Auto) (0-5) /lpf Urine Bacteria (Auto) (Negative) COVID-19 Eval Order SARS-CoV-2 (PCR) (Negative) Influenza Type A (PCR) (Neg) Influenza Type B (PCR) (Neg) RSV (RT-PCR) (Neg) 08/09/20 08/09/20 08/09/20 Range/Units 19:50 19:50 20:05 WBC (4.8-10.8) K/uL RBC (4.2-5.4) M/uL Hgb (12.0-16.0) g/dL Hct (37-47) % MCV (80-100) fL MCH (25-34) pg MCHC (32-36) g/dL RDW Std Deviation (36.4-46.3) fL RDW Coeff of Sharon (11.5-14.5) % Plt Count (130-400) K/uL MPV (7.4-10.4) fL Immature Gran % (Auto) % Neut % (Auto) % Lymph % (Auto) % Huron % (Auto) % Eos % (Auto) % Baso % (Auto) % Neut # (Auto) (1.4-6.5) K/uL Lymph # (Auto) (1.2-3.4) K/uL Huron # (Auto) (0.11-0.59) K/uL Eos # (Auto) (0-0.5) K/uL Baso # (Auto) (0-0.2) K/uL Immature Gran # (Auto) (0.00-0.02) K/uL D-Dimer (0-500) ug/L FEU Sodium (136-145) mmol/L Potassium (3.5-5.1) mmol/L Chloride (98-107) mmol/L Carbon Dioxide (21-32) mmol/L Anion Gap (3-11) BUN (7-18) mg/dl Creatinine (0.6-1.2) mg/dl Est Cr Clr Drug Dosing ml/min Est GFR ( Amer) Est GFR (Non-Af Amer) BUN/Creatinine Ratio (10-20) Glucose (70-99) mg/dl Lactate 1.2 (0.4-2.0) mmol/L Calcium (8.5-10.1) mg/dl Total Bilirubin (0.2-1) mg/dl AST (15-37) U/L ALT (12-78) U/L Alkaline Phosphatase (45-117) U/L Troponin I (0-0.045) ng/ml Total Protein (6.4-8.2) gm/dl Albumin (3.4-5.0) gm/dl Globulin (2.5-4.0) gm/dl Albumin/Globulin Ratio (0.9-2) Lipase (73-393) U/L Procalcitonin 0.06 (0-0.5) ng/ml Urine Color Urine Appearance (Clear) Urine pH (4.5-7.5) Ur Specific Lovely (1.000-1.030) Urine Protein (Negative) Urine Glucose (UA) (Negative) Urine Ketones (Negative) Urine Blood (Negative) Urine Nitrite (Negative) Urine Bilirubin (Negative) Urine Urobilinogen (Negative) Ur Leukocyte Esterase (Negative) Urine WBC (Auto) (0-5) /hpf Urine RBC (Auto) (0-4) /hpf U Hyaline Cast (Auto) (0-5) /lpf U Epithel Cells (Auto) (0-5) /lpf Urine Bacteria (Auto) (Negative) COVID-19 Eval Order CovFluRsv at [facility] SARS-CoV-2 (PCR) (Negative) Influenza Type A (PCR) (Neg) Influenza Type B (PCR) (Neg) RSV (RT-PCR) (Neg) 08/09/20 08/09/20 Range/Units 20:05 21:15 WBC (4.8-10.8) K/uL RBC (4.2-5.4) M/uL Hgb (12.0-16.0) g/dL Hct (37-47) % MCV (80-100) fL MCH (25-34) pg MCHC (32-36) g/dL RDW Std Deviation (36.4-46.3) fL RDW Coeff of Sharon (11.5-14.5) % Plt Count (130-400) K/uL MPV (7.4-10.4) fL Immature Gran % (Auto) % Neut % (Auto) % Lymph % (Auto) % Hur[place] % (Auto) % Eos % (Auto) % Baso % (Auto) % Neut # (Auto) (1.4-6.5) K/uL Lymph # (Auto) (1.2-3.4) K/uL Huron # (Auto) (0.11-0.59) K/uL Eos # (Auto) (0-0.5) K/uL Baso # (Auto) (0-0.2) K/uL Immature Gran # (Auto) (0.00-0.02) K/uL D-Dimer (0-500) ug/L FEU Sodium (136-145) mmol/L Potassium (3.5-5.1) mmol/L Chloride (98-107) mmol/L Carbon Dioxide (21-32) mmol/L Anion Gap (3-11) BUN (7-18) mg/dl Creatinine (0.6-1.2) mg/dl Est Cr Clr Drug Dosing ml/min Est GFR ( Amer) Est GFR (Non-Af Amer) BUN/Creatinine Ratio (10-20) Glucose (70-99) mg/dl Lactate (0.4-2.0) mmol/L Calcium (8.5-10.1) mg/dl Total Bilirubin (0.2-1) mg/dl AST (15-37) U/L ALT (12-78) U/L Alkaline Phosphatase (45-117) U/L Troponin I (0-0.045) ng/ml Total Protein (6.4-8.2) gm/dl Albumin (3.4-5.0) gm/dl Globulin (2.5-4.0) gm/dl Albumin/Globulin Ratio (0.9-2) Lipase (73-393) U/L Procalcitonin (0-0.5) ng/ml Urine Color Yellow Urine Appearance Clear (Clear) Urine pH 6.0 (4.5-7.5) Ur Specific Lovely 1.008 (1.000-1.030) Urine Protein Negative (Negative) Urine Glucose (UA) Negative (Negative) Urine Ketones Negative (Negative) Urine Blood Negative (Negative) Urine Nitrite Negative (Negative) Urine Bilirubin Negative (Negative) Urine Urobilinogen Negative (Negative) Ur Leukocyte Esterase 1+ H (Negative) Urine WBC (Auto) 1-5 (0-5) /hpf Urine RBC (Auto) 0-4 (0-4) /hpf U Hyaline Cast (Auto) 1-5 (0-5) /lpf U Epithel Cells (Auto) 5-10 H (0-5) /lpf Urine Bacteria (Auto) Negative (Negative) COVID-19 Eval Order SARS-CoV-2 (PCR) NEGATIVE (Negative) Influenza Type A (PCR) Negative (Neg) Influenza Type B (PCR) Negative (Neg) RSV (RT-PCR) Negative (Neg) Administered Medications Discontinued Medications Acetaminophen (Acetaminophen 500 Mg Tab) 1,000 mg PO NOW STA Stop: 08/09/20 19:08 Last Admin: 08/09/20 19:18 Dose: 1,000 mg Documented by: [id number] Doxycycline Hyclate (Doxycycline Hyclate 100 Mg Cap) 100 mg PO NOW STA Stop: 08/09/20 21:34 Last Admin: 08/09/20 21:50 Dose: 100 mg Documented by: [id number] Sodium Chloride (Nss 1000ml) 1,000 mls @ 999 mls/hr IV .Q1H1M STA Stop: 08/09/20 19:47 Last Infusion: 08/09/20 21:13 Dose: 0 mls/hr Documented by: [id number] Admin: 08/09/20 19:18 Dose: 999 mls/hr Documented by: [id number] Ceftriaxone Sodium (Rocephin) 2,000 mg in 70 mls @ 140 mls/hr IV NOW STA Stop: 08/09/20 22:02 Last Infusion: 08/09/20 22:18 Dose: 0 mls/hr Documented by: [id number] Admin: 08/09/20 21:50 Dose: 140 mls/hr Documented by: [id number] Ioversol (Optiray 350 500ml) 109 ml IV ONCE ONE Stop: 08/09/20 21:03 Last Admin: 08/09/20 21:04 Dose: 109 ml Documented by: [id number] Imaging Data Radiologist's Impression: Chest X-Ray 08/09/20 18:47 SINGLE VIEW CHEST CLINICAL HISTORY: Dyspnea. Fever. FINDINGS: An AP, portable, upright chest radiograph is compared to study dated 08/27/2019. The heart is top normal for projection. Airspace consolidation is seen throughout the left lung, most confluent at the left lung base. The right lung is grossly clear noting basilar atelectasis. No large pleural effusion or pneumothorax is seen. The skeletal structures are osteopenic. The bony thorax is grossly intact. Cholecystectomy clips are noted in the right upper quadrant. IMPRESSION: Airspace consolidation throughout the left lung is typical in appearance for pneumonia. Clinical correlation will be required and radiographic follow-up to resolution is recommended. ACT 112: Negative or not required by law. Electronically signed by: Rocky Panchal M.D. 08/09/2020 8:34 PM Discharge Plan Visit Data Chief Complaint: Illness Stated Complaint: BODY ACHES, LOW O2 ED Provider: Vldaimir Jackson Discharge Problem: Breathlessness, CAP (community acquired pneumonia) Patient Disposition: Being Evaluated by Hospitalist Forms Stand Alone Forms: My [facility] Prescriptions Prescriptions: No Action bupropion HCl 150 mg tablet sustained-release 12 hr 150 mg PO BID RF: 0 atorvastatin 80 mg tablet 80 mg PO QAM RF: 0 clonazepam 1 mg tablet 1 mg PO TID PRN (Reason: Anxiety) RF: 0 omeprazole 40 mg capsule,delayed release(DR/EC) 40 mg PO BID RF: 0 trazodone 300 mg Tablet 300 mg PO HS RF: 0 furosemide 20 mg tablet 40 mg PO QAM PRN (Reason: Edema) RF: 0 potassium chloride 20 mEq tablet extended release 20 meq PO DAILY PRN (Reason: (Drug) Ingestion) RF: 0 venlafaxine 75 mg capsule,extended release 24hr 75 mg PO QAM RF: 0 ibuprofen 200 mg Tablet 200 mg PO Q6H PRN (Reason: Pain) RF: 0 gabapentin 100 mg capsule 100 mg PO TID RF: 0 Bioflex 712-63-72-40 mg Tablet 1 tab PO QAM RF: 0 Referrals Referrals: Williams Mota MD [Primary Care Provider] - Discharge Problem: CAP (community acquired pneumonia) Qualifiers: Laterality: left Lung location: unspecified part of lung Qualified Code(s): J18.9 - Pneumonia, unspecified organism
[2020-08-09 20:07] LABS: Basophils # (auto) 0.02 K/uL (0-0.2); Basophils % (auto) 0.2 %; Eosinophils # (auto) 0.12 K/uL (0-0.5); Eosinophils % (auto) 1.1 %; Hematocrit (blood only) 35.5 % (37-47); Hemoglobin 11.6 g/dL (12.0-16.0); Immature Granulocytes # (auto) 0.01 K/uL (0.00-0.02); Immature Granulocytes % (auto) 0.1 %; Lymphocytes # (auto) 1.77 K/uL (1.2-3.4); Lymphocytes % (auto) 16.5 %; Mean Corpuscular Hemoglobin 29.1 pg (25-34); Mean Corpuscular Hgb Conc 32.7 g/dL (32-36); Mean Corpuscular Volume 89.2 fL (80-100); Mean Platelet Volume 11.1 fL (7.4-10.4); Monocytes # (auto) 0.69 K/uL (0.11-0.59); Monocytes % (auto) 6.4 %; Neutrophils # (auto) 8.14 K/uL (1.4-6.5); Neutrophils % (auto) 75.7 %; Platelet Count 243 K/uL (130-400); RDW Coefficient of Variation 14.1 % (11.5-14.5); RDW Standard Deviation 46.5 fL (36.4-46.3); Red Blood Count 3.98 M/uL (4.2-5.4); White Blood Count 10.75 K/uL (4.8-10.8)
[2020-08-09 20:25] LABS: Alanine Aminotransferase 14 U/L (12-78); Albumin Level 3.1 gm/dl (3.4-5.0); Aspartate Aminotransferase 7 U/L (15-37); BUN Creatinine Ratio 13.2 (10-20); Blood Urea Nitrogen 11 mg/dl (7-18); Calcium 8.9 mg/dl (8.5-10.1); Carbon Dioxide 28 mmol/L (21-32); Chloride 106 mmol/L (98-107); Creatinine Clr Calc Pharmacy 60.2 ml/min; D Dimer 800 ug/L FEU (0-500); Est GFR (African American) 83.5; Est GFR (Non-African American) 72.1; Glucose 87 mg/dl (70-99); Lipase 80 U/L (73-393); Potassium 3.4 mmol/L (3.5-5.1); Sodium 140 mmol/L (136-145)
[2020-08-09 20:30] LABS: Albumin Globulin Ratio 0.8 (0.9-2); Alkaline Phosphatase 107 U/L (45-117); Bilirubin,Total 0.5 mg/dl (0.2-1); Globulin 3.8 gm/dl (2.5-4.0); Total Protein 6.9 gm/dl (6.4-8.2); Troponin I < 0.015 ng/ml (0-0.045)
--- NOTE | 2020-08-09 20:35 | XRay Report ---
SINGLE VIEW CHEST CLINICAL HISTORY: Dyspnea. Fever. FINDINGS: An AP, portable, upright chest radiograph is compared to study dated 08/27/2019. The heart i s top normal for projection. Airspace consolidation is seen throughout the left lung, most confluent at the left lung base. The right lung is grossly clear noting basilar atelectasis. No large pleural e ffusion or pneumothorax is seen. The skeletal structures are osteopenic. The bony thorax is grossly i ntact. Cholecystectomy clips are noted in the right upper quadrant. IMPRESSION: Airspace consolidation throughout the left lung is typical in appearance for pneumonia. C linical correlation will be required and radiographic follow-up to resolution is recommended. ACT 112: Negative or not required by law. Electronically signed by: Rocky Panchal M.D. 08/09/2020 8:34 PM
[2020-08-09 20:52] LABS: Influenza A virus by PCR Negative (Neg); Influenza B virus by PCR Negative (Neg); RSV by PCR Negative (Neg); SARS CoV2 RNA(COVID-19) InHosp NEGATIVE (Negative)
[2020-08-09] MEDS ORDERED: OPTIRAY 350 500ml IV ONE (21:02)
[2020-08-09] MEDS ORDERED: cefTRIAXone SODIUM 2,000 MG/70 ML BAG IV STA (21:33)
[2020-08-09] MEDS ORDERED: DOXYCYCLINE HYCLATE 100 MG CAP PO STA (21:33)
[2020-08-09 22:27] LABS: Appearance Urine Clear (Clear); Bacteria Urine Automated Negative (Negative); Bilirubin Urine Negative (Negative); Blood Urine Negative (Negative); Color Urine Yellow; Glucose Urine UA Negative (Negative); Ketones Urine Negative (Negative); Leukocyte Esterase Urine 1+ (Negative); Nitrite Urine Negative (Negative); Protein Urine Negative (Negative); RBC Urine Automated 0-4 /hpf (0-4); Specific Gravity Urine 1.008 (1.000-1.030); Urobilinogen Urine Negative (Negative)
[2020-08-10] MEDS ORDERED: guaiFENesin/CODEINE 100MG/10MG 5ML UDC PO PRN (01:44)
[2020-08-10] MEDS ORDERED: POTASSIUM CHLORIDE CRTAB 20 MEQ TABCR PO STA ×2 (01:44→10:19)
[2020-08-10] MEDS ORDERED: LEVALBUTEROL HCL 1.25 MG/3 ML NEB NEB PRN (01:44)
[2020-08-10] MEDS ORDERED: NITROGLYCERIN SL 0.4 MG/TAB TAB SL PRN (01:44)
--- NOTE | 2020-08-10 04:39 | History and Physical Report ---
DATE OF ADMISSION: 08/10/2020 CHIEF COMPLAINT: Shortness of breath. HISTORY OF PRESENT ILLNESS: This is a 75-year-old female with past medical history significant for hyperlipidemia, nocturnal hypoxemia, hypertension, GERD, restless legs syndrome, alcoholic cerebellar degeneration and cerebellar ataxia, migraines, depression with anxiety, history of alcoholism. The patient says she quit drinking several years ago, lives with her . Was brought in because of shortness of breath and cough for the last couple of days, not bringing phlegm, having body aches. She says she is done with COVID second shot on 07/22/2020. Denies any fevers, no nausea, no abdominal pain, no diarrhea, no constipation. No loss of sense of smell or taste. Appetite is okay. No dysuria, no headache, no blurred vision, no runny nose, sore throat. She was saturating in the low 90s. Placed on oxygen. Currently saturating in high 90s, resting comfortably and hemodynamically stable. Her SARS-CoV-2 PCR is negative, but CTA of the chest is showing multifocal pneumonia consistent with viral pneumonia with ground-glass opacities. ALLERGIES: LEVAQUIN. PAST MEDICAL HISTORY: As mentioned above. PAST SURGICAL HISTORY: Colonoscopy, EGDs, ERCP, hammertoe repair, injection of the lumbosacral spine. MEDICATIONS: The patient is on aspirin 325 mg p.o. daily, atorvastatin 80 mg p.o. daily, bupropion 150 mg p.o. b.i.d., Klonopin 1 mg p.o. t.i.d. p.r.n., Lasix 40 mg p.o. a.m. p.r.n., gabapentin 100 mg p.o. t.i.d., ibuprofen p.r.n., omeprazole 40 mg p.o. b.i.d., potassium chloride 20 mEq p.o. daily p.r.n., trazodone 300 mg p.o. at bedtime, venlafaxine 75 mg p.o. a.m., Bioflex 1 tablet p.o. a.m. FAMILY HISTORY: Significant for father has allergic rhinitis, hypertension; mother has migraine; maternal grandfather has asthma; brother has dementia. SOCIAL HISTORY: , quit smoking in 1988, smoked 3 packs a day for 30 years. Currently not drinking alcohol. No drug use. REVIEW OF SYSTEMS: As per HPI. Rest of the review of systems negative. PHYSICAL EXAMINATION: GENERAL: The patient is of moderate build, not in acute distress. VITAL SIGNS: Temperature 36.9, pulse 65, respiratory rate 18, blood pressure 123/67, oxygen 96% on 3 liters. HEENT: Pupils equal, round, and reactive to light. Oral mucosa moist. NECK: No JVD, no neck masses. CARDIOVASCULAR: S1, S2 heard, regular rate and rhythm, no murmur, no gallop. RESPIRATORY SYSTEM: Normal AP diameter. No accessory muscle use. No wheezing, no crackles. ABDOMEN: Soft, bowel sounds present, nontender. No distention. CENTRAL NERVOUS SYSTEM: Cranial nerves II-XII grossly intact, nonfocal. EXTREMITIES: No edema, no erythema. LABORATORY DATA: WBC 10.7, hemoglobin 11.6, hematocrit 35.5, platelets 243. D-dimer 800. Sodium 140, potassium 3.4, chloride 106, bicarbonate 28, BUN 11, creatinine 0.8, serum glucose 87. Lactate 1.2, calcium 8.9, total bilirubin 0.5, AST 7, ALT 14, alkaline phosphatase 107. Troponin I less than 0.015. Lipase 80. Procalcitonin 0.06. Urinalysis, +1 leukocyte esterase. SARS-CoV-2 PCR negative. Influenza A and B PCR negative, RSV PCR negative. IMAGING DATA: Chest x-ray, airspace consolidation throughout the left lung, is typical in appearance for pneumonia. CTA of the chest is showing patchy ground-glass opacity in the left upper lobe and both lower lobes concerning for pneumonia, possibly viral. No pleural effusion or pneumothorax, No thoracic aortic aneurysm. Borderline cardiomegaly. Small pericardial effusion, mild mediastinal, hilar adenopathy. Cholecystectomy with pneumobilia, hepatic cyst. No osseous findings. EKG: Normal sinus rhythm at a rate of 78. Nonspecific ST abnormalities. ASSESSMENT AND PLAN: This is a 75-year-old female who presents with cough and shortness of breath and found to have multifocal pneumonia. 1. Multifocal pneumonia: Ground-glass opacities consistent with viral pneumonia. The patient had COVID shots and her COVID was negative in the ER, but because of the ground glass opacities, we will keep air-borne precautions until repeat COVID test in 24-48 hours. Empirically starting Rocephin and doxycycline, follow the response. 2. History of hypertension: Presently not on any medication. We will monitor. 3. History of hyperlipidemia: On statin. 4. History of depression with anxiety: Continue on Klonopin, bupropion, and venlafaxine. 5. History of gastroesophageal reflux disease: Continue PPI. 6. History of alcoholism with cerebral ataxia, alcoholic cerebellar degeneration. PT and OT when stable. Currently not drinking. 7. Deep venous thrombosis prophylaxis: Lovenox. DISPOSITION: Closely monitor in the med tele. Level 1 full code. Expect to discharge home and follow with family doctor. [facility]
[2020-08-10] MEDS: ENOXAPARIN INJ 40 MG/0.4 ML SYR SQ SCH (05:29)
[2020-08-10 05:59] LABS: Basophils # (auto) 0.03 K/uL (0-0.2); Basophils % (auto) 0.4 %; Eosinophils # (auto) 0.16 K/uL (0-0.5); Eosinophils % (auto) 2.3 %; Hematocrit (blood only) 33.2 % (37-47); Hemoglobin 10.7 g/dL (12.0-16.0); Immature Granulocytes # (auto) 0.01 K/uL (0.00-0.02); Immature Granulocytes % (auto) 0.1 %; Lymphocytes # (auto) 1.31 K/uL (1.2-3.4); Lymphocytes % (auto) 18.7 %; Mean Corpuscular Hemoglobin 28.8 pg (25-34); Mean Corpuscular Hgb Conc 32.2 g/dL (32-36); Mean Corpuscular Volume 89.5 fL (80-100); Monocytes # (auto) 0.71 K/uL (0.11-0.59); Monocytes % (auto) 10.2 %; Neutrophils # (auto) 4.77 K/uL (1.4-6.5); Neutrophils % (auto) 68.3 %; Platelet Count 220 K/uL (130-400); RDW Coefficient of Variation 14.3 % (11.5-14.5); RDW Standard Deviation 47.7 fL (36.4-46.3); Red Blood Count 3.71 M/uL (4.2-5.4); White Blood Count 6.99 K/uL (4.8-10.8)
[2020-08-10 06:09] LABS: D Dimer 760 ug/L FEU (0-500)
[2020-08-10 06:25] LABS: BUN Creatinine Ratio 11.8 (10-20); Calcium 8.2 mg/dl (8.5-10.1); Creatinine Clr Calc Pharmacy 69.6 ml/min; Est GFR (African American) 90.2; Est GFR (Non-African American) 77.8; Potassium 3.5 mmol/L (3.5-5.1)
[2020-08-10] MEDS: PANTOprazole 40 MG TAB PO SCH ×2 (07:10→22:10)
[2020-08-10] MEDS: VENLAFAXINE HCL XR 75 MG CAPXR PO SCH (07:24)
[2020-08-10] MEDS: GABAPENTIN 100 MG CAP PO SCH ×3 (07:25→22:10)
[2020-08-10] MEDS: ATORVASTATIN 40 MG TAB PO SCH (07:25)
[2020-08-10] MEDS: buPROPion SR 150 MG TABCR PO SCH ×2 (07:26→22:11)
[2020-08-10] MEDS: ASPIRIN 81 MG ECTAB PO SCH (07:27)
[2020-08-10] MEDS: DOXYCYCLINE HYCLATE 100 MG in DEXTROSE 5% 100 ML IV SCH ×2 (07:28→20:01)
--- NOTE | 2020-08-10 08:09 | CT Scan Report ---
CT angio chest PE protocol CT DOSE: 399.45 mGy.cm HISTORY: 75 years-old Female with PE, sob, fever, +dimer. Acute shortness breath with fever. Positi ve d-dimer TECHNIQUE: Multiple CTA images of the chest were obtained after the intravenous administration of 109 ml Optiray. Coronal and sagittal MIPS were obtained from the axial data set and were submitted for review. All measurements were obtained according to NASCET criteria. A dose lowering technique was u tilized adhering to the principles of ALARA. COMPARISON: Chest radiograph of same day, CTA chest 05/23/2017, CT abdomen and pelvis 03/19/2019 FINDI NGS: CTA: Mild cardiomegaly with trace pericardial effusion. No thoracic aortic aneurysm. There is patency of t he imaged great vessels. Mild descending thoracic tortuosity. The pulmonary artery is opacified to th e level of the proximal subsegmental branches and demonstrates no filling defects to suggest thromboe mbolic disease. CT CHEST: Multinodular thyroid goiter. Mildly enlarged paratracheal and hilar lymph nodes measure up to 10 mm. There is no pneumothorax or pleural effusion. Emphysema. Patchy left greater than right groundglass o pacities are most pronounced within the left upper and lower lobes with relative sparing of the right upper and middle lobes. Central airways are patent. Pneumoperitoneum. Cholecystectomy with pneumobilia. Hypodense 1.2 cm lesion of the superior right hep atic lobe is unchanged suggestive of a probable cyst. Unremarkable soft tissues. No acute fracture. D egenerative changes of the spine and shoulders. IMPRESSION: 1. Cardiomegaly without pulmonary emboli. 2. Left greater than right groundglass patchy opacities are suggestive of multifocal pneumonia, possi dony viral etiology. Correlate with COVID status. 3. Emphysema. 4. Mild mediastinal and hilar adenopathy, likely reactive. ACT 112: Negative or not required by law. The above report was generated using voice recognition software. It may contain grammatical, syntax o r spelling errors. Electronically signed by: Rgegie Hwang M.D. 08/10/2020 8:08 AM
--- NOTE | 2020-08-10 08:56 | Electrocardiogram Report ---
Test Reason : Blood Pressure : / mmHG Vent. Rate : 078 BPM Atrial Rate : 078 BPM P-R Int : 160 ms QRS Dur : 078 ms QT Int : 314 ms P-R-T Axes : 013 -21 012 degrees QTc Int : 357 ms Poor data quality, interpretation may be adversely affected Normal sinus rhythm Minimal voltage criteria for LVH, may be normal variant Diffuse Nonspecific T wave abnormality Abnormal ECG When compared with ECG of 28-AUG-2019 06:35, No significant change Confirmed by Fabrice Eddy ([id number]) on 08/10/2020 8:56:13 AM Referred By: REFERRED SELF Confirmed By:Fabrice Eddy
[2020-08-10] MEDS ORDERED: NON-FORMULARY MEDICATION (Vit C-Bioflav-Hesp-Rutin-Hb196 [Bioflex] 500-50-25-40 mg Tablet) PO SCH (09:00)
[2020-08-10] MEDS ORDERED: FUROSEMIDE 60 MG in SYRINGE 0 ML IV ONE (10:30)
--- NOTE | 2020-08-10 11:35 | Communication Note ---
Date of Service: August 10, 2020 She is a 75-year-old female with significant past medical history of alcoholism with cerebral ataxia, hypertension, hyperlipidemia, depression and anxiety has had Covid vaccine second dose on of this month. She has been complaining of increasing shortness of breath for the last couple of days and requiring more oxygen at home. She uses oxygen at home only at nighttime. She has been negative for Covid 19 virus but chest x-ray and CT evidence of multifocal bilateral pneumonia and is negative for pulmonary embolism. She has been started with intravenous ceftriaxone and doxycycline for possible superinfection with bacteria. She has been on Lasix as needed at home and she received 60 mg Lasix IV today for bilateral crackles in the lungs and to keep her on the rotary drier side.She remains hemodynamically stable in the telemetry unit. She will be followed up by Dr. Andrews from tomorrow. Dr Maurice parisi
[2020-08-10] MEDS: cefTRIAXone SODIUM 1,000 MG in DEXTROSE 5% 50 ML IV SCH (19:58)
[2020-08-10] MEDS: clonazePAM 1 MG TAB PO PRN (22:09)
[2020-08-10] MEDS: traZODone HCL 100 MG TAB PO SCH (22:10)
[2020-08-11] MEDS: PANTOprazole 40 MG TAB PO SCH ×2 (06:14→20:10)
[2020-08-11] MEDS: ENOXAPARIN INJ 40 MG/0.4 ML SYR SQ SCH (06:14)
[2020-08-11] MEDS: buPROPion SR 150 MG TABCR PO SCH ×2 (08:29→20:11)
[2020-08-11] MEDS: DOXYCYCLINE HYCLATE 100 MG in DEXTROSE 5% 100 ML IV SCH ×2 (08:29→20:09)
[2020-08-11] MEDS: GABAPENTIN 100 MG CAP PO SCH ×3 (08:29→20:10)
[2020-08-11] MEDS: VENLAFAXINE HCL XR 75 MG CAPXR PO SCH (09:10)
[2020-08-11] MEDS: ASPIRIN 81 MG ECTAB PO SCH (09:10)
[2020-08-11] MEDS: ATORVASTATIN 40 MG TAB PO SCH (09:10)
--- NOTE | 2020-08-11 18:35 | Hospitalist Progress Note ---
Date of Service August 11, 2020 Assessment & Plan (1) Acute respiratory failure with hypoxia: (2) Pneumonia: Present on admission with worsening SOB associated with cough COVID 19 x2 negative CXR showed airspace consolidation throughout the left lung is typical in appearance for pneumonia CTA showed cardiomegaly without pulmonary emboli. Left greater than right groundglass patchy opacities are suggestive of multifocal pneumonia, possibly viral etiology. Repeat Covid 19 test today negative Continue IV Rocephin and Doxycycline Continue oxygen supplement Continue guaifenesin and respiratory treatment Continue to monitor closely History of hypertension BP stable History of hyperlipidemia Continue statin. Depression Anxiety Continue on Klonopin, bupropion, and venlafaxine. History alcoholism with cerebral ataxia, alcoholic cerebellar degeneration. Stable Continue PT/OT DVT px on lovenox Admission and Anticipated Discharge Date Admission Date: August 10, 2020 Subjective Pt was seen and examined for SOB Lying in bed with no distress Pt said that her breathing feels alot better She said that she was starting to use oxygen during the day She said that she continues to cough Denies any chest pain, palpitation and fever Review of Systems Review of Systems: All systems reviewed & are unremarkable except as noted in Subjective Physical Exam Physical Exam: General- No acute distress Head- atraumatic Eyes- PERRL, EOMI, ENT- oropharynx clear Neck- supple, no JVD Lungs- Course BS Heart- regular rhythm; no murmur Abdomen- normal bowel sounds, soft, nontender Extremities- no calf tenderness Neuro- alert, oriented x 3; PERRL, EOMI; no facial palsy; no dysarthria Skin- warm & dry Results & Data Results & Data ([facility]) Vital Signs (Past 12 Hours) Vital Signs Temp Pulse Pulse Resp BP Pulse Ox 08/11/20 15:26 36.6 C 71 20 131/72 91 08/11/20 14:20 74 08/11/20 12:06 36.6 C 73 20 115/69 91 08/11/20 11:04 36.7 C 69 22 113/60 92 08/11/20 07:55 36.9 C 71 20 103/63 90 08/11/20 07:21 64
[2020-08-11] MEDS: cefTRIAXone SODIUM 1,000 MG in DEXTROSE 5% 50 ML IV SCH (20:09)
[2020-08-11] MEDS: traZODone HCL 100 MG TAB PO SCH (20:10)
[2020-08-11] MEDS: clonazePAM 1 MG TAB PO PRN (20:10)
[2020-08-12] MEDS: ENOXAPARIN INJ 40 MG/0.4 ML SYR SQ SCH (06:23)
[2020-08-12] MEDS: PANTOprazole 40 MG TAB PO SCH ×2 (06:23→21:09)
[2020-08-12] MEDS: ASPIRIN 81 MG ECTAB PO SCH (07:32)
[2020-08-12] MEDS: DOXYCYCLINE HYCLATE 100 MG in DEXTROSE 5% 100 ML IV SCH ×2 (07:32→21:10)
[2020-08-12] MEDS: VENLAFAXINE HCL XR 75 MG CAPXR PO SCH (07:32)
[2020-08-12] MEDS: GABAPENTIN 100 MG CAP PO SCH ×3 (07:32→21:09)
[2020-08-12] MEDS: buPROPion SR 150 MG TABCR PO SCH ×2 (07:32→21:09)
[2020-08-12] MEDS: ATORVASTATIN 40 MG TAB PO SCH (07:32)
[2020-08-12 10:32] LABS: Hematocrit (blood only) 38.2 % (37-47); Hemoglobin 12.4 g/dL (12.0-16.0); Mean Corpuscular Hemoglobin 28.6 pg (25-34); Mean Corpuscular Hgb Conc 32.5 g/dL (32-36); Mean Corpuscular Volume 88.2 fL (80-100); Mean Platelet Volume 10.1 fL (7.4-10.4); Platelet Count 283 K/uL (130-400); RDW Coefficient of Variation 13.8 % (11.5-14.5); RDW Standard Deviation 44.8 fL (36.4-46.3); Red Blood Count 4.33 M/uL (4.2-5.4); White Blood Count 6.97 K/uL (4.8-10.8)
[2020-08-12 11:16] LABS: BUN Creatinine Ratio 16.7 (10-20); Calcium 9.4 mg/dl (8.5-10.1); Creatinine Clr Calc Pharmacy 59.9 ml/min; Est GFR (African American) 75.5; Est GFR (Non-African American) 65.2; Potassium 3.5 mmol/L (3.5-5.1)
--- NOTE | 2020-08-12 19:12 | Hospitalist Progress Note ---
Date of Service August 12, 2020 Assessment & Plan (1) Acute respiratory failure with hypoxia: (2) Pneumonia: Present on admission with worsening SOB associated with cough COVID 19 x2 negative CXR showed airspace consolidation throughout the left lung is typical in appearance for pneumonia CTA showed cardiomegaly without pulmonary emboli. Left greater than right groundglass patchy opacities are suggestive of multifocal pneumonia, possibly viral etiology. Repeat Covid 19 test today negative Continue IV Rocephin and Doxycycline Will add low dose of steroid Continue oxygen supplement Continue guaifenesin and respiratory treatment Continue to monitor closely History of hypertension BP stable History of hyperlipidemia Continue statin. Depression Anxiety Continue on Klonopin, bupropion, and venlafaxine. History alcoholism with cerebral ataxia, alcoholic cerebellar degeneration. Stable Continue PT/OT DVT px on lovenox Admission and Anticipated Discharge Date Admission Date: August 10, 2020 Subjective Pt was seen and examined for follow up of respiratory distress Lying in bed with no acute distress Pt said that she continue to have SOB She said that her oxygen dropped when she walked to the bathroom without the oxygen supplement She said that she does have any cough Spoke to daughter Angie provided with updates and answered all her questions Denies any chest pain, palpitation, dizziness and fever Review of Systems Review of Systems: All systems reviewed & are unremarkable except as noted in Subjective Physical Exam Physical Exam: General- No acute distress Head- atraumatic Eyes- PERRL, EOMI, ENT- oropharynx clear Neck- supple, no JVD Lungs- Coarse BS Heart- regular rhythm; no murmur Abdomen- normal bowel sounds, soft, nontender Extremities- no calf tenderness Neuro- alert, oriented x 3; PERRL, EOMI; no facial palsy; no dysarthria Skin- warm & dry Results & Data Results & Data ([facility]) Vital Signs (Past 12 Hours) Vital Signs Temp Pulse Resp BP Pulse Ox 08/12/20 16:02 36.6 C 69 19 128/78 95 08/12/20 11:39 36.8 C 91 H 19 105/65 90 08/12/20 07:24 36.9 C 85 18 104/66 91
[2020-08-12] MEDS: cefTRIAXone SODIUM 1,000 MG in DEXTROSE 5% 50 ML IV SCH (20:21)
[2020-08-12] MEDS: predniSONE 20 MG TAB PO SCH (21:09)
[2020-08-12] MEDS: traZODone HCL 100 MG TAB PO SCH (21:09)
[2020-08-12] MEDS: clonazePAM 1 MG TAB PO PRN (21:15)
[2020-08-13] MEDS: ENOXAPARIN INJ 40 MG/0.4 ML SYR SQ SCH (06:06)
[2020-08-13] MEDS: PANTOprazole 40 MG TAB PO SCH ×2 (06:07→20:38)
[2020-08-13] MEDS: DOXYCYCLINE HYCLATE 100 MG in DEXTROSE 5% 100 ML IV SCH ×2 (07:57→20:46)
[2020-08-13] MEDS: buPROPion SR 150 MG TABCR PO SCH ×2 (07:58→20:38)
[2020-08-13] MEDS: ATORVASTATIN 40 MG TAB PO SCH (07:58)
[2020-08-13] MEDS: predniSONE 20 MG TAB PO SCH (07:58)
[2020-08-13] MEDS: ASPIRIN 81 MG ECTAB PO SCH (07:58)
[2020-08-13] MEDS: GABAPENTIN 100 MG CAP PO SCH ×3 (07:58→20:38)
[2020-08-13] MEDS: VENLAFAXINE HCL XR 75 MG CAPXR PO SCH (07:58)
--- NOTE | 2020-08-13 18:04 | Hospitalist Progress Note ---
Date of Service August 13, 2020 Assessment & Plan (1) Acute respiratory failure with hypoxia: (2) Pneumonia: Present on admission with worsening SOB associated with cough COVID 19 x2 negative CXR showed airspace consolidation throughout the left lung is typical in appearance for pneumonia CTA showed cardiomegaly without pulmonary emboli. Left greater than right groundglass patchy opacities are suggestive of multifocal pneumonia, possibly viral etiology. Repeat Covid 19 test today negative Continue IV Rocephin and Doxycycline Continue prednisone 20mg daily Continue oxygen supplement Continue guaifenesin and respiratory treatment Continue to monitor closely Will need a 2 step exercise on discharge History of hypertension BP stable History of hyperlipidemia Continue statin. Depression Anxiety Continue on Klonopin, bupropion, and venlafaxine. History alcoholism with cerebral ataxia, alcoholic cerebellar degeneration. Stable Continue PT/OT DVT px on lovenox Admission and Anticipated Discharge Date Admission Date: August 10, 2020 Subjective Pt was seen and examined for follow up of respiratory distress Lying in bed with no acute distress She said that she does not have any cough Spoke to daughter Angie on 08/12/20, provided with updates and answered all her questions Denies any chest pain, palpitation, dizziness and fever Review of Systems Review of Systems: All systems reviewed & are unremarkable except as noted in Subjective Physical Exam Physical Exam: General- No acute distress Head- atraumatic Eyes- PERRL, EOMI, ENT- oropharynx clear Neck- supple, no JVD Lungs- Coarse BS Heart- regular rhythm; no murmur Abdomen- normal bowel sounds, soft, nontender Extremities- no calf tenderness Neuro- alert, oriented x 3; PERRL, EOMI; no facial palsy; no dysarthria Skin- warm & dry Results & Data Results & Data ([facility]) Vital Signs (Past 12 Hours) Vital Signs Temp Pulse Resp BP Pulse Ox 08/13/20 14:46 36.6 C 74 18 119/71 91 08/13/20 11:36 36.6 C 93 H 20 123/78 90 08/13/20 07:52 36.7 C 75 19 111/73 90
[2020-08-13] MEDS ORDERED: FUROSEMIDE 20 MG in SYRINGE 0 ML IV ONE (18:15)
[2020-08-13] MEDS: cefTRIAXone SODIUM 1,000 MG in DEXTROSE 5% 50 ML IV SCH (19:16)
[2020-08-13] MEDS: clonazePAM 1 MG TAB PO PRN (20:39)
[2020-08-13] MEDS: traZODone HCL 100 MG TAB PO SCH (20:39)
[2020-08-14] MEDS: ENOXAPARIN INJ 40 MG/0.4 ML SYR SQ SCH (05:38)
[2020-08-14] MEDS: VENLAFAXINE HCL XR 75 MG CAPXR PO SCH (07:18)
[2020-08-14] MEDS: DOXYCYCLINE HYCLATE 100 MG in DEXTROSE 5% 100 ML IV SCH ×2 (07:18→21:08)
[2020-08-14] MEDS: predniSONE 20 MG TAB PO SCH (07:18)
[2020-08-14] MEDS: PANTOprazole 40 MG TAB PO SCH ×2 (07:19→20:33)
[2020-08-14] MEDS: ASPIRIN 81 MG ECTAB PO SCH (07:19)
[2020-08-14] MEDS: GABAPENTIN 100 MG CAP PO SCH ×3 (07:19→20:32)
[2020-08-14] MEDS: buPROPion SR 150 MG TABCR PO SCH ×2 (07:19→20:32)
[2020-08-14] MEDS: ATORVASTATIN 40 MG TAB PO SCH (07:19)
[2020-08-14 11:46] LABS: Influenza A virus by PCR Negative (Neg); Influenza B virus by PCR Negative (Neg); RSV by PCR Negative (Neg); SARS CoV2 RNA(COVID-19) InHosp NEGATIVE (Negative)
[2020-08-14] MEDS: ACETAMINOPHEN 325 MG TAB PO PRN ×2 (11:54→19:30)
--- NOTE | 2020-08-14 19:02 | Hospitalist Progress Note ---
Date of Service August 14, 2020 Assessment & Plan (1) Acute respiratory failure with hypoxia: (2) Pneumonia: Present on admission with worsening SOB associated with cough COVID 19 x2 negative CXR showed airspace consolidation throughout the left lung is typical in appearance for pneumonia CTA showed cardiomegaly without pulmonary emboli. Left greater than right groundglass patchy opacities are suggestive of multifocal pneumonia, possibly viral etiology. Repeat Covid 19 test today negative Continue IV Rocephin and Doxycycline Continue prednisone 20mg daily Continue oxygen supplement Continue guaifenesin and respiratory treatment Continue to monitor closely Will need a 2 step exercise on discharge Will give Lasix 20mg x1 today History of hypertension BP stable History of hyperlipidemia Continue statin. Depression Anxiety Continue on Klonopin, bupropion, and venlafaxine. History alcoholism with cerebral ataxia, alcoholic cerebellar degeneration. Stable Continue PT/OT DVT px on lovenox Admission and Anticipated Discharge Date Admission Date: August 10, 2020 Subjective Pt was seen and examined for follow up of respiratory distress Lying in bed with no acute distress Patient said her breathing feels much better today She said that she does not have any cough Repeat Covid test done today was negative Denies any chest pain, palpitation, dizziness and fever Review of Systems Review of Systems: All systems reviewed & are unremarkable except as noted in Subjective Physical Exam Physical Exam: General- No acute distress Head- atraumatic Eyes- PERRL, EOMI, ENT- oropharynx clear Neck- supple, no JVD Lungs- Coarse BS Heart- regular rhythm; no murmur Abdomen- normal bowel sounds, soft, nontender Extremities- no calf tenderness Neuro- alert, oriented x 3; PERRL, EOMI; no facial palsy; no dysarthria Skin- warm & dry Results & Data Results & Data ([facility]) Vital Signs (Past 12 Hours) Vital Signs Temp Pulse Resp BP Pulse Ox 08/14/20 15:22 36.5 C 70 18 105/62 92 08/14/20 12:00 36.5 C 75 18 133/82 94 08/14/20 07:27 36.9 C 70 18 120/72 93
[2020-08-14] MEDS ORDERED: FUROSEMIDE 20 MG in SYRINGE 0 ML IV ONE (19:15)
[2020-08-14] MEDS: cefTRIAXone SODIUM 1,000 MG in DEXTROSE 5% 50 ML IV SCH (20:31)
[2020-08-14] MEDS: clonazePAM 1 MG TAB PO PRN (20:33)
[2020-08-14] MEDS: traZODone HCL 100 MG TAB PO SCH (20:33)
[2020-08-15] MEDS: ENOXAPARIN INJ 40 MG/0.4 ML SYR SQ SCH (06:05)
[2020-08-15] MEDS: DOXYCYCLINE HYCLATE 100 MG in DEXTROSE 5% 100 ML IV SCH ×2 (07:09→20:55)
[2020-08-15] MEDS: PANTOprazole 40 MG TAB PO SCH ×2 (07:09→20:53)
[2020-08-15] MEDS: VENLAFAXINE HCL XR 75 MG CAPXR PO SCH (07:09)
[2020-08-15] MEDS: ASPIRIN 81 MG ECTAB PO SCH (07:10)
[2020-08-15] MEDS: predniSONE 20 MG TAB PO SCH (07:10)
[2020-08-15] MEDS: GABAPENTIN 100 MG CAP PO SCH ×3 (07:10→20:54)
[2020-08-15] MEDS: buPROPion SR 150 MG TABCR PO SCH ×2 (07:10→20:54)
[2020-08-15] MEDS: ATORVASTATIN 40 MG TAB PO SCH (07:10)
[2020-08-15 10:25] LABS: BUN Creatinine Ratio 26.3 (10-20); Calcium 9.3 mg/dl (8.5-10.1); Creatinine Clr Calc Pharmacy 48.7 ml/min; Est GFR (African American) 64.7; Est GFR (Non-African American) 55.8; Potassium 3.3 mmol/L (3.5-5.1)
--- NOTE | 2020-08-15 18:22 | Hospitalist Progress Note ---
Date of Service August 15, 2020 Assessment & Plan (1) Acute respiratory failure with hypoxia: (2) Pneumonia: Present on admission with worsening SOB associated with cough COVID 19 x2 negative CXR showed airspace consolidation throughout the left lung is typical in appearance for pneumonia CTA showed cardiomegaly without pulmonary emboli. Left greater than right groundglass patchy opacities are suggestive of multifocal pneumonia, possibly viral etiology. Repeat Covid 19 test today negative Continue IV Rocephin and Doxycycline, Will transition to po on discharge Continue prednisone 20mg daily Continue oxygen supplement Continue guaifenesin and respiratory treatment Continue to monitor closely Will get a 2 step exercise on discharge Will give an additional Lasix 20mg later History of hypertension BP stable History of hyperlipidemia Continue statin. Depression Anxiety Continue on Klonopin, bupropion, and venlafaxine. History alcoholism with cerebral ataxia, alcoholic cerebellar degeneration. Stable Continue PT/OT DVT px on lovenox Admission and Anticipated Discharge Date Admission Date: August 10, 2020 Subjective Pt was seen and examined for follow up of respiratory distress Lying in bed with no acute distress Patient said her breathing feels much better today Pt said that she usually take Lasix 40mg daily Repeat Covid test done today was negative Denies any chest pain, palpitation, dizziness and fever Review of Systems Review of Systems: All systems reviewed & are unremarkable except as noted in Subjective Physical Exam Physical Exam: General- No acute distress Head- atraumatic Eyes- PERRL, EOMI, ENT- oropharynx clear Neck- supple, no JVD Lungs- Coarse BS Heart- regular rhythm; no murmur Abdomen- normal bowel sounds, soft, nontender Extremities- no calf tenderness Neuro- alert, oriented x 3; PERRL, EOMI; no facial palsy; no dysarthria Skin- warm & dry Results & Data Results & Data ([facility]) Vital Signs (Past 12 Hours) Vital Signs Temp Pulse Pulse Resp BP Pulse Ox Pulse Ox 08/15/20 16:37 79 08/15/20 15:55 93 08/15/20 15:39 36.6 C 80 18 101/64 93 08/15/20 11:52 37.2 C 77 18 115/67 91 08/15/20 08:00 36.6 C 77 16 132/74 90
[2020-08-15] MEDS ORDERED: FUROSEMIDE 40 MG in SYRINGE 0 ML IV ONE (18:30)
[2020-08-15] MEDS ORDERED: POTASSIUM CHLORIDE CRTAB 20 MEQ TABCR PO ONE (18:45)
[2020-08-15] MEDS ORDERED: FUROSEMIDE 20 MG in SYRINGE 0 ML IV ONE (18:45)
[2020-08-15] MEDS: cefTRIAXone SODIUM 1,000 MG in DEXTROSE 5% 50 ML IV SCH (20:54)
[2020-08-16] MEDS: traZODone HCL 100 MG TAB PO SCH (00:30)
[2020-08-16] MEDS: clonazePAM 1 MG TAB PO PRN (00:30)
[2020-08-16] MEDS ORDERED: Nursing to Pharmacy Communication SCH (00:45)
[2020-08-16] MEDS: ENOXAPARIN INJ 40 MG/0.4 ML SYR SQ SCH (05:58)
[2020-08-16] MEDS ORDERED: PANTOprazole 40 MG TAB PO SCH (06:00)
[2020-08-16] MEDS: GABAPENTIN 100 MG CAP PO SCH ×2 (08:04→16:01)
[2020-08-16] MEDS: DOXYCYCLINE HYCLATE 100 MG in DEXTROSE 5% 100 ML IV SCH (08:04)
[2020-08-16] MEDS: predniSONE 20 MG TAB PO SCH (08:04)
[2020-08-16] MEDS: VENLAFAXINE HCL XR 75 MG CAPXR PO SCH (08:04)
[2020-08-16] MEDS: ASPIRIN 81 MG ECTAB PO SCH (08:04)
[2020-08-16] MEDS: ATORVASTATIN 40 MG TAB PO SCH (08:04)
[2020-08-16] MEDS: buPROPion SR 150 MG TABCR PO SCH (08:04)
[2020-08-16] MEDS ORDERED: FUROSEMIDE 40 MG TAB PO SCH (09:00)
--- NOTE | 2020-08-16 15:36 | Hospitalist Progress Note ---
Date of Service August 16, 2020 Assessment & Plan (1) Acute respiratory failure with hypoxia: (2) Pneumonia: Present on admission with worsening SOB associated with cough COVID 19 x2 negative CXR showed airspace consolidation throughout the left lung is typical in appearance for pneumonia CTA showed cardiomegaly without pulmonary emboli. Left greater than right groundglass patchy opacities are suggestive of multifocal pneumonia, possibly viral etiology. Repeat Covid 19 test today negative Continue IV Rocephin and Doxycycline, Will transition to po abx on discharge Continue prednisone 20mg daily Continue oxygen supplement Continue guaifenesin and respiratory treatment Continue to monitor closely Lasix 20mg IV given today 2 step exercise done and pt will require 2L NC at all times History of hypertension BP stable History of hyperlipidemia Continue statin. Depression Anxiety Continue on Klonopin, bupropion, and venlafaxine. History alcoholism with cerebral ataxia, alcoholic cerebellar degeneration. Stable Continue PT/OT DVT px on lovenox Admission and Anticipated Discharge Date Admission Date: August 10, 2020 Subjective Pt was seen and examined for follow up of respiratory distress Lying in bed with no acute distress Patient said her breathing feels much better today She had 3 COVID 19 test done and all came back negative 2 step done and pt requires 2L NC at all time Denies any chest pain, palpitation, dizziness and fever Review of Systems Review of Systems: All systems reviewed & are unremarkable except as noted in Subjective Physical Exam Physical Exam: General- No acute distress Head- atraumatic Eyes- PERRL, EOMI, ENT- oropharynx clear Neck- supple, no JVD Lungs- Coarse BS Heart- regular rhythm; no murmur Abdomen- normal bowel sounds, soft, nontender Extremities- no calf tenderness Neuro- alert, oriented x 3; PERRL, EOMI; no facial palsy; no dysarthria Skin- warm & dry Results & Data Results & Data ([facility]) Vital Signs (Past 12 Hours) Vital Signs Temp Pulse Pulse Pulse Pulse Pulse Pulse 08/16/20 15:10 37 C 77 08/16/20 13:56 76 95 H 95 H 72 08/16/20 11:27 36.4 C L 74 08/16/20 08:00 60 08/16/20 07:52 36.7 C 64 08/16/20 04:00 36.9 C 66 Resp Resp Resp Resp Resp BP Pulse Ox 08/16/20 15:10 18 104/58 L 91 08/16/20 13:56 18 18 18 16 08/16/20 11:27 18 103/64 91 08/16/20 08:00 08/16/20 07:52 18 115/77 93 08/16/20 04:00 20 110/70 93 Pulse Ox Pulse Ox Pulse Ox Pulse Ox 08/16/20 15:10 08/16/20 13:56 90 94 95 87 L 08/16/20 11:27 08/16/20 08:00 08/16/20 07:52 08/16/20 04:00
--- NOTE | 2020-08-17 08:55 | Discharge Summary ---
Date of Service August 16, 2020 Admission HPI Per Admitting Provider CHIEF COMPLAINT: Shortness of breath. HISTORY OF PRESENT ILLNESS: This is a 75-year-old female with past medical history significant for hyperlipidemia, nocturnal hypoxemia, hypertension, GERD, restless legs syndrome, alcoholic cerebellar degeneration and cerebellar ataxia, migraines, depression with anxiety, history of alcoholism. The patient says she quit drinking several years ago, lives with her . Was brought in because of shortness of breath and cough for the last couple of days, not bringing phlegm, having body aches. She says she is done with COVID second shot on 07/22/2020. Denies any fevers, no nausea, no abdominal pain, no diarrhea, no constipation. No loss of sense of smell or taste. Appetite is okay. No dysuria, no headache, no blurred vision, no runny nose, sore throat. She was saturating in the low 90s. Placed on oxygen. Currently saturating in high 90s, resting comfortably and hemodynamically stable. Her SARS-CoV-2 PCR is negative, but CTA of the chest is showing multifocal pneumonia consistent with viral pneumonia with ground-glass opacities. Admission Exam Per Admitting Provider General- No acute distress Head- atraumatic Eyes- PERRL, EOMI, ENT- oropharynx clear Neck- supple, no JVD Lungs- Coarse BS Heart- regular rhythm; no murmur Abdomen- normal bowel sounds, soft, nontender Extremities- no calf tenderness Neuro- alert, oriented x 3; PERRL, EOMI; no facial palsy; no dysarthria Skin- warm & dry Principal Diagnosis Acute respiratory failure with hypoxia Pneumonia History of hypertension History of hyperlipidemia Depression Discharge Exam General- No acute distress Head- atraumatic Eyes- PERRL, EOMI, ENT- oropharynx clear Neck- supple, no JVD Lungs- Coarse BS Heart- regular rhythm; no murmur Abdomen- normal bowel sounds, soft, nontender Extremities- no calf tenderness Neuro- alert, oriented x 3; PERRL, EOMI; no facial palsy; no dysarthria Skin- warm & dry Discharge Data Allergies Allergy/AdvReac Type Severity Reaction Status Date / Time levofloxacin AdvReac Unknown abnormal Verified 08/09/20 22:23 heart issues Consultations 08/09/20 21:51 ED Decision to Admit Stat Ordered Studies 08/09/20 20:26 CT angio chest PE protocol Urgent CT angio chest PE protocol CT DOSE: 399.45 mGy.cm HISTORY: 75 years-old Female with PE, sob, fever, +dimer. Acute shortness breath with fever. Positive d-dimer TECHNIQUE: Multiple CTA images of the chest were obtained after the intravenous administration of 109 ml Optiray. Coronal and sagittal MIPS were obtained from the axial data set and were submitted for review. All measurements were obtained according to NASCET criteria. A dose lowering technique was utilized adhering to the principles of ALARA. COMPARISON: Chest radiograph of same day, CTA chest 05/23/2017, CT abdomen and pelvis 03/19/2019 FINDINGS: CTA: Mild cardiomegaly with trace pericardial effusion. No thoracic aortic aneurysm. There is patency of the imaged great vessels. Mild descending thoracic tortuosity. The pulmonary artery is opacified to the level of the proximal subsegmental branches and demonstrates no filling defects to suggest thromboembolic disease. CT CHEST: Multinodular thyroid goiter. Mildly enlarged paratracheal and hilar lymph nodes measure up to 10 mm. There is no pneumothorax or pleural effusion. Emphysema. Patchy left greater than right groundglass opacities are most pronounced within the left upper and lower lobes with relative sparing of the right upper and middle lobes. Central airways are patent. Pneumoperitoneum. Cholecystectomy with pneumobilia. Hypodense 1.2 cm lesion of the superior right hepatic lobe is unchanged suggestive of a probable cyst. Unremarkable soft tissues. No acute fracture. Degenerative changes of the spine and shoulders. IMPRESSION: 1. Cardiomegaly without pulmonary emboli. 2. Left greater than right groundglass patchy opacities are suggestive of multifocal pneumonia, possibly viral etiology. Correlate with COVID status. 3. Emphysema. 4. Mild mediastinal and hilar adenopathy, likely reactive. ACT 112: Negative or not required by law. The above report was generated using voice recognition software. It may contain grammatical, syntax or spelling errors. Electronically signed by: Reggie Hwang M.D. 08/10/2020 8:08 AM Dictated: 08/10/20 0800Transcribed: 08/10/20 0800 SINGLE VIEW CHEST CLINICAL HISTORY: Dyspnea. Fever. FINDINGS: An AP, portable, upright chest radiograph is compared to study dated 08/27/2019. The heart is top normal for projection. Airspace consolidation is seen throughout the left lung, most confluent at the left lung base. The right lung is grossly clear noting basilar atelectasis. No large pleural effusion or pneumothorax is seen. The skeletal structures are osteopenic. The bony thorax is grossly intact. Cholecystectomy clips are noted in the right upper quadrant. IMPRESSION: Airspace consolidation throughout the left lung is typical in appearance for pneumonia. Clinical correlation will be required and radiographic follow-up to resolution is recommended. ACT 112: Negative or not required by law. Electronically signed by: Rocky Panchal M.D. 08/09/2020 8:34 PM Dictated: 08/09/202032Transcribed: 08/09/202032 Hospital Course (1) Acute respiratory failure with hypoxia: (2) Pneumonia: Present on admission with worsening SOB associated with cough COVID 19 x2 negative CXR showed airspace consolidation throughout the left lung is typical in appearance for pneumonia CTA showed cardiomegaly without pulmonary emboli. Left greater than right groundglass patchy opacities are suggestive of multifocal pneumonia, possibly viral etiology. Repeat Covid 19 test today negative Continue IV Rocephin and Doxycycline, Will transition to po abx on discharge Continue prednisone 20mg daily Continue oxygen supplement Continue guaifenesin and respiratory treatment Continue to monitor closely Lasix 20mg IV given today 2 step exercise done and pt will require 2L NC at all times History of hypertension BP stable History of hyperlipidemia Continue statin. Depression Anxiety Continue on Klonopin, bupropion, and venlafaxine. History alcoholism with cerebral ataxia, alcoholic cerebellar degeneration. Stable Continue PT/OT DVT px on lovenox Total Time Total Time Spent Total Time Spent (In Minutes): 35 minutes Total Time Includes: Examination of the Patient, Discharge Planning, Medication Reconciliation, Communication With Other Providers and Other Discharge Plan Discharge Items Patient Disposition: Home - Self-Care Reason For Visit: SOB Discharge Diagnosis: Acute respiratory failure with hypoxia Pneumonia History of hypertension History of hyperlipidemia Depression Activity: Resume your previous activity Non-emergency contact: Primary Care Provider Call non-emergency contact if: you have any medication questions, your symptoms worsen and your temperature is above 101 Follow-up/Referrals: Williams Mota MD [Primary Care Provider] - (Date & Time 08/23/2020 9:40 AM Provider Williams Mota MD [facility] ) Diet: Heart Healthy Addtl Attending Provider Instructions: Follow up with your primary care provider Dr. Mota on 08/23/2020 at 9:40 AM at the [facility] Continue 2 Liters nasal canula oxygen supplement at all times Complete the course of the antibiotic Continue to wear your mask Your provider will repeat another imaging of the chest in 4 to 6 weeks for follow-up resolution of the multifocal pneumonia Pending Studies at Discharge: No Stand-Alone Forms: My [facility], Smoking Cessation Medications and DC Order Prescriptions: New doxycycline hyclate 100 mg tablet 100 mg PO BID 3 Days Qty: 6 RF: 0 Continued bupropion HCl 150 mg tablet sustained-release 12 hr 150 mg PO BID RF: 0 atorvastatin 80 mg tablet 80 mg PO QAM RF: 0 clonazepam 1 mg tablet 1 mg PO TID PRN (Reason: Anxiety) RF: 0 omeprazole 40 mg capsule,delayed release(DR/EC) 40 mg PO BID RF: 0 trazodone 300 mg Tablet 300 mg PO HS RF: 0 furosemide 20 mg tablet 40 mg PO QAM PRN (Reason: Edema) RF: 0 potassium chloride 20 mEq tablet extended release 20 meq PO DAILY PRN (Reason: (Drug) Ingestion) RF: 0 venlafaxine 75 mg capsule,extended release 24hr 75 mg PO QAM RF: 0 ibuprofen 200 mg Tablet 200 mg PO Q6H PRN (Reason: Pain) RF: 0 gabapentin 100 mg capsule 100 mg PO TID RF: 0 Bioflex 434-14-32-40 mg Tablet 1 tab PO QAM RF: 0 aspirin 325 mg tablet,delayed release (DR/EC) 325 mg PO DAILY RF: 0 Discharge Orders: Discharge Order (Routine); Ordered 08/16/20 Ordered By: Raad Edwards Admission Data Admit Date/Time: 08/10/20 00:36 Attending Provider: Raad Edwards Admit Provider: Inocencio Grayson Primary Care Provider: Williams Mota Other Providers: Inocencio Grayson ; Jennie Severino Other Interventions: Discharge Summary Assessment (RN) Last Done: 08/16/20 17:00
== END 2020-08-16 18:33 | disposition home or self-care (01) | DRG 193 ==
LOC: ED 18:10 → SUATTDRO 08-10 00:36 → 2S 08-10 00:36 → 2W 08-10 15:18

== ENCOUNTER 2020-12-08 10:07 | Inpatient (IN) ==
[2020-12-08] MEDS ORDERED: methylPREDNISolone 125 MG/2 ML VIAL IV STA (11:39)
[2020-12-08] MEDS ORDERED: guaiFENesin 600 MG TABCR PO STA (11:39)
[2020-12-08] MEDS ORDERED: ALBUT/IPRATROP 3MG/0.5MG NEB 3 ML VIAL NEB STA (11:42)
[2020-12-08] MEDS ORDERED: SODIUM CHLORIDE 0.9% 1000ML 1,000 ML IV SCH ×3 (11:45→15:45)
[2020-12-08 12:24] LABS: Basophils # (auto) 0.02 K/uL (0-0.2); Basophils % (auto) 0.1 %; Hemoglobin 12.3 g/dL (12.0-16.0); Immature Granulocytes # (auto) 0.04 K/uL (0.00-0.02); Immature Granulocytes % (auto) 0.3 %; Lymphocytes # (auto) 0.84 K/uL (1.2-3.4); Lymphocytes % (auto) 5.9 %; Mean Corpuscular Hemoglobin 27.9 pg (25-34); Mean Corpuscular Hgb Conc 31.5 g/dL (32-36); Mean Corpuscular Volume 88.4 fL (80-100); Monocytes # (auto) 0.64 K/uL (0.11-0.59); Monocytes % (auto) 4.5 %; Neutrophils % (auto) 89.2 %; Platelet Count 197 K/uL (130-400); RDW Coefficient of Variation 14.1 % (11.5-14.5); RDW Standard Deviation 45.8 fL (36.4-46.3); Red Blood Count 4.41 M/uL (4.2-5.4); White Blood Count 14.34 K/uL (4.8-10.8)
[2020-12-08 12:30] LABS: Base Excess VBG 1.8 mEq/L; HCO3 VBG 28 mmol/L; PCO2 VBG 50 mmHg (38-50); PO2 VBG 33 mmHg; pH VBG 7.37 (7.36-7.41)
[2020-12-08 12:31] LABS: Oxygen Saturation VBG < 60.0 %
[2020-12-08 12:43] LABS: Alanine Aminotransferase 24 U/L (12-78); Albumin Level 3.4 gm/dl (3.4-5.0); Aspartate Aminotransferase 19 U/L (15-37); BUN Creatinine Ratio 14.8 (10-20); Bilirubin Direct 0.2 mg/dl (0-0.2); Blood Urea Nitrogen 14 mg/dl (7-18); Calcium 8.4 mg/dl (8.5-10.1); Carbon Dioxide 27 mmol/L (21-32); Chloride 105 mmol/L (98-107); Creatinine Clr Calc Pharmacy 58.6 ml/min; Est GFR (African American) 68.9 ml/min; Est GFR (Non-African American) 59.4 ml/min; Glucose 112 mg/dl (70-99); Magnesium 1.5 mg/dl (1.8-2.4); Sodium 138 mmol/L (136-145)
[2020-12-08 12:54] LABS: Albumin Globulin Ratio 1.1 (0.9-2); Alkaline Phosphatase 121 U/L (45-117); Bilirubin,Total 0.8 mg/dl (0.2-1); Phosphorus 3.1 mg/dl (2.5-4.9); Thyroid Stimulating Hormone 0.474 uIu/ml (0.300-4.500); Total Protein 6.4 gm/dl (6.4-8.2); Troponin I < 0.015 ng/ml (0-0.045)
[2020-12-08 13:06] LABS: Partial Thromboplastin Ratio 0.8; Prothrombin Time 9.8 Seconds (9.0-12.0)
[2020-12-08 13:09] LABS: Partial Thromboplastin Time < 20.0 Seconds (21.0-31.0)
[2020-12-08] MEDS ORDERED: OPTIRAY 320 125ml IV ONE (13:15)
--- NOTE | 2020-12-08 13:17 | XRay Report ---
XR chest 1V portable CLINICAL HISTORY: SEPSIS COMPARISON STUDY: August 09, 2020 FINDINGS: No pneumothorax. No pleural effusion. Diffuse reticular prominence of pulmonary interstitium is improved since prior study. Previously seen superimposed patchy airspace component in the left lung is slightly improved since prior study in Ma y 2020. Cardiomediastinal silhouette is unchanged since prior. Aorta is calcified. Pulmonary vasculature is indistinct.. Osseous structures: Degenerative changes of the spine and left shoulder. IMPRESSION: 1. Interval improvement of previously seen reticular and airspace opacities with asymmetrical involv ement of the left lung. 2. Indistinct pulmonary vasculature which could be seen in pulmonary edema. Stable cardiomediastinal silhouette. ACT 112: Negative or not required by law. The above report was generated using voice recognition software. It may contain grammatical, syntax o r spelling errors. Electronically signed by: Mora Erickson DO 12/08/2020 1:16 PM
--- NOTE | 2020-12-08 13:44 | CT Scan Report ---
CT ANGIOGRAPHY OF THE CHEST, PULMONARY EMBOLUS PROTOCOL CLINICAL HISTORY: sob, hypoxia r/o PE COMPARISON STUDY: Chest CT September 22, 2020. TECHNIQUE: Following IV administration of 120 mL of Optiray, helical axial images of the chest were o btained utilizing the pulmonary embolus protocol. Maximal intensity projections and sagittal and cor onal reformats were viewed on an independent 3D workstation. IV contrast was administered without co mplication. Automated exposure control was utilized for the study. A dose lowering technique was ut ilized adhering to the principles of ALARA. CT DOSE: 440.10 mGycm FINDINGS: No pulmonary emboli are identified although the segmental and subsegmental pulmonary arter ies are suboptimally assessed due to respiratory motion. There is moderate cardiomegaly. There is no pericardial effusion. No thoracic aortic dissection is noted. There is a small hiatal hernia. There a re prominent mediastinal and bilateral hilar lymph nodes which are likely reactive. Lungs are subopti estela assessed due to respiratory motion. There is emphysema. No pneumothorax or pleural effusion is noted. Extensive left lung airspace opacity is present. There is mild right lower lobe airspace opaci ty. There is mild right lower lobe opacity. There is may be mild superimposed pulmonary edema. Pneumo bilia is noted. A right hepatic lobe cyst is incidentally noted. IMPRESSION: 1. No pulmonary emboli identified although exam moderately compromised by respiratory motion. 2. Extensive extensive left lung airspace opacities with mild right lower lobe airspace opacity. The findings favor multifocal pneumonia. Possible mild superimposed pulmonary edema. 3. Cardiomegaly. ACT 112: Negative or not required by law. Electronically signed by: Oswald Francis M.D. 12/08/2020 1:43 PM
[2020-12-08] MEDS ORDERED: SODIUM CHLORIDE 0.9% 1000ML 500 ML IV SCH (13:45)
[2020-12-08] MEDS ORDERED: PIPERACILLIN/TAZOBACTAM 4.5 GM/120 ML BAG IV ONE (14:40)
[2020-12-08] MEDS ORDERED: MAGNESIUM SULFATE / D5W 1 GM/100 ML BAG IV STA (14:40)
[2020-12-08] MEDS ORDERED: PIPERACILL/TAZOBAC CONSULT ACTIVE PRN ×2 (14:40→16:10)
--- NOTE | 2020-12-08 15:12 | History & Physical Report ---
Date of Service December 08, 2020 Assessment & Plan (1) Sepsis: (2) Acute on chronic respiratory failure with hypoxemia: (3) Pneumonia: (4) Lactic acidosis: (5) Hypomagnesemia: (6) Hypertension: (7) Nocturnal hypoxemia: Plan: This is a 75-year-old female who has significant past medical history of emphysema, nocturnal hypoxemia requiring 2 L of O2 at at bedtime, HTN, HLD and GERD, RLS, cerebellar ataxia, depression with anxiety, history of alcoholism who presents ED secondary to complaint of shortness of breath x2 to 3 days. Patient with recurrent pneumonia requiring hospitalization, last hospitalized August 2020. On presentation patient met sepsis criteria secondary to leukocytosis, tachycardia and evidence of pneumonia on chest x-ray and chest CT. She received 1 L of IV fluid and IV Zosyn. Her lactic acid was elevated at 2.2 and repeat 2 hours later was 2.4. Fluid is challenging in this patient has imaging concerning for pulmonary edema, clinical exam consistent with bibasilar Rales. Of significance patient recently established with [facility] pulmonology to start work-up due to recurrent pneumonia. She underwent PFTs on 12/02 as well as autoimmune work-up. Her ELENI screen was positive, but c-ANCA, p-ANCA, ESR, SSA/Ro negative, RF negative. She underwent echocardiogram on 12/02 which revealed EF 55%, grade 1 diastolic dysfunction, no significant valvular abnormality. admit to PCU IV Zosyn, MRSA swab if positive add vanco Oral doxycycline covid-19 negative, fully vaxed ( gets regular flu vaccines, last prevnar 2015, pneumovax 2013) trend procal consult pulmonology due to recurrent PNA duonebs, flutter valve, incentive spirometry Oxygen as needed vandana tang gentle IVF 60cc/hr x 1 L - caution 2/2 to concern for developing overload trend lactic acid Lactic acidosis likely in setting of hypoxia, will trend gentle IVF, unable to give appropriate 30mg/kg/hr 2/2 to concern for volume overload on imaging and clinically on exam repeat at 20:00 Hypomagnesemia replace with 1g mag sulfate received additional gram in ED repeat @ 20:00 HTN hold home dose lasix for now reasses daily need for IV lasix Depression with anxiety mood stable on effexor, trazodone, buspar, wellbutrin and clonazepam Dispo:pcu FULL CODE PCP: Nakul Pt was seen and examined in collaboration with Dr. Webster, please see addendum History of Present Illness Chief Complaint: SOB x 2-3 days. Primary Care Provider: Williams Mota MD This is a 75-year-old female who has significant past medical history of emphysema, nocturnal hypoxemia requiring 2 L of O2 at at bedtime, HTN, HLD and GERD, RLS, cerebellar ataxia, depression with anxiety, history of alcoholism who presents ED secondary to complaint of shortness of breath x2 to 3 days. Pt c/o SOB x 2-3 days. Last night SOB continued to get worse. SOB occurs at rest w/o oxygen and with exertion. She developed a wet cough last night, but unable to produce it. She denies f/c/s, dizziness, lightheaded, chest pain, hemopytsis, URI sx, n/v/d, abdominal pain, dysuria, increased urg/freq, melena, hematochezia. She felt very weak this morning when she got up. She was out in the kitchen and tried to walk to her bedroom and she fell b/c of the weakness. She denies injury, she did not pass out and she did not hit her head. She recently had PFT done. Hx of smoking, quite 22 years ago. No 2nd hand exposure. She has hx of PNA in the past, last required hospitalization in August 2020. She denies sick contacts of travel. She is fully vaccinated for covid-19 since July, [place]. She denies difficulty with swallowing or choking on food. She does use oxygen at home at night, 2L. She was told her oxygen drops at night, but doesn't know why. She has been on nocturnal oxygen for 3 years. In ED pt was hypoxic and met sepsis criteria. She was treated with broad spectrum antibiotics and 1L of IVF due to elevated lactic acid. CTA chest reveals multifocal pneumonia. Allergies Allergy/AdvReac Type Severity Reaction Status Date / Time levofloxacin AdvReac Unknown abnormal Verified 12/08/20 14:21 heart issues Home Medications Medication Instructions Recorded Confirmed Type atorvastatin 80 mg tablet 80 mg PO QAM 02/09/18 12/08/20 History bupropion HCl 150 mg tablet,12 hr 150 mg PO BID 02/09/18 12/08/20 History sustained-release clonazepam 1 mg tablet 1 mg PO TID PRN 02/09/18 12/08/20 History omeprazole 40 mg capsule,delayed 40 mg PO BID 02/09/18 12/08/20 History release trazodone 300 mg tablet 300 mg PO HS 02/09/18 12/08/20 History furosemide 20 mg tablet 40 mg PO QAM 08/27/19 12/08/20 History potassium chloride 20 mEq 20 meq PO DAILY 08/27/19 12/08/20 History tablet,extended release gabapentin 100 mg capsule 100 mg PO TID 08/09/20 12/08/20 History ibuprofen 200 mg tablet 200 mg PO Q6H PRN 08/09/20 12/08/20 History venlafaxine 75 mg capsule,extended 75 mg PO QAM 08/09/20 12/08/20 History release 24 hr vit 1 tab PO QAM 08/09/20 12/08/20 History [id number] 500 mg-50 mg-25 mg-40 mg tablet (Bioflex) aspirin 325 mg tablet,delayed 325 mg PO DAILY 08/10/20 12/08/20 History release buspirone 5 mg tablet 5 mg PO BID 12/08/20 12/08/20 History famotidine 40 mg tablet 20 mg PO DAILY 12/08/20 12/08/20 History Past Med/Surg History Medical History (Updated 12/08/20 @ 15:54 by Manyd Mir PA-C) Anxiety Cerebellar ataxia Chronic back pain GERD (gastroesophageal reflux disease) History of alcoholism Hyperlipidemia Hypertension IBS (irritable bowel syndrome) Lactose intolerance Nocturnal hypoxemia On home oxygen therapy 2 LPM AT NIGHT Osteoarthritis Spinal stenosis Stroke MRI OBTAINED 02/2018 [place] R/T VISUAL DISTURBANCES - 4 "MINI STROKES" - PROVIDER UNABLE TO DETERMINE IF ACUTE VS OLD PER PT REPORT - SAW DR.VICTORIA AGRAWAL, NEURO Surgical History History of bilateral tubal ligation History of cholecystectomy History of colonoscopy History of esophagogastroduodenoscopy (EGD) History of tooth extraction History of total hip arthroplasty RT Hx of LASIK Family History Father Stroke Social History Smoking Status: Never smoker Second Hand Exposure: No; Hx Alcohol Use: No Hx Substance Use: No Preferred Language: Yi Communication Ability: Effective Visual Impairment: No Limitations Recreation Attendant Supervisor Required: No Beliefs That Will Affect Care: None marital status: Current Living Situation: Family Current Living Situation Comment: Lives with and daughter Other Information That Helps Us Care for You: No Feels Safe at Home: Yes Safety Concerns: Feels Safe At This Time Assistive Devices: Glasses and Oxygen - at Night Assistive Devices Comment: retainers Review of Systems Review of Systems: All systems reviewed & are unremarkable except as noted in HPI & below Physical Exam Physical Exam: Constitutional: WD/WN, F, vitals as above, NAD, sitting up in bed, pleasant, conversing easily Head: Normocephalic, Atraumatic Eyes: PERRL, conjunctivae normal, anicteric sclerae ENMT: external ear and nose normal, oropharynx normal Neck: trachea midline, no thyromegaly normal visual inspection Respiratory: normal respiratory effort, bibasilar rales on exam, no wheeze, or rhonchi. Normal insp/exp effort, no accessory muscle use on 3L of O2 via NC Cardiovascular: RRR, no murmur, no edema Vessels: no JVD or carotid bruit Chest: normal inspection of chest Abdomen: normal bowel sounds, soft, nontender, no hepatosplenomegaly Musculoskeletal: no cyanosis or clubbing, extremities motor strength 5/5 Skin: no rashes, warm and dry normal turgor Neurologic: PERRL, EOMI, accommodation nl, no face palsy, no dysarthria CN's II-XI intact bilaterally and moves all extremities Psychiatric: A+Ox3, euthymic affect : deferred Results & Data Results & Data ([facility]) Vital Signs (Past 12 Hours) Vital Signs Temp Pulse Pulse Resp BP BP Pulse Ox 12/08/20 13:10 92 12/08/20 13:08 94 12/08/20 13:00 92 H 18 106/81 12/08/20 12:44 91 H 20 94 12/08/20 10:28 37.3 C 98 H 22 96/61 L 89 L 12/08/20 09:58 92 Diagnostic Findings Chest X-Ray 12/08/20 11:37 XR chest 1V portable CLINICAL HISTORY: SEPSIS COMPARISON STUDY: August 09, 2020 FINDINGS: No pneumothorax. No pleural effusion. Diffuse reticular prominence of pulmonary interstitium is improved since prior study. Previously seen superimposed patchy airspace component in the left lung is slightly improved since prior study in August 09, 2020. Cardiomediastinal silhouette is unchanged since prior. Aorta is calcified. Pulmonary vasculature is indistinct.. Osseous structures: Degenerative changes of the spine and left shoulder. IMPRESSION: 1. Interval improvement of previously seen reticular and airspace opacities with asymmetrical involvement of the left lung. 2. Indistinct pulmonary vasculature which could be seen in pulmonary edema. Stable cardiomediastinal silhouette. ACT 112: Negative or not required by law. The above report was generated using voice recognition software. It may contain grammatical, syntax or spelling errors. Electronically signed by: Mora Erickson DO 12/08/2020 1:16 PM Chest CTA 12/08/20 11:42 CT ANGIOGRAPHY OF THE CHEST, PULMONARY EMBOLUS PROTOCOL CLINICAL HISTORY: sob, hypoxia r/o PE COMPARISON STUDY: Chest CT September 22, 2020. TECHNIQUE: Following IV administration of 120 mL of Optiray, helical axial images of the chest were obtained utilizing the pulmonary embolus protocol. Maximal intensity projections and sagittal and coronal reformats were viewed on an independent 3D workstation. IV contrast was administered without complication. Automated exposure control was utilized for the study. A dose lowering technique was utilized adhering to the principles of ALARA. CT DOSE: 440.10 mGycm FINDINGS: No pulmonary emboli are identified although the segmental and subsegmental pulmonary arteries are suboptimally assessed due to respiratory motion. There is moderate cardiomegaly. There is no pericardial effusion. No thoracic aortic dissection is noted. There is a small hiatal hernia. There are prominent mediastinal and bilateral hilar lymph nodes which are likely reactive. Lungs are suboptimally assessed due to respiratory motion. There is emphysema. No pneumothorax or pleural effusion is noted. Extensive left lung airspace opacity is present. There is mild right lower lobe airspace opacity. There is mild right lower lobe opacity. There is may be mild superimposed pulmonary edema. Pneumobilia is noted. A right hepatic lobe cyst is incidentally noted. IMPRESSION: 1. No pulmonary emboli identified although exam moderately compromised by respiratory motion. 2. Extensive extensive left lung airspace opacities with mild right lower lobe airspace opacity. The findings favor multifocal pneumonia. Possible mild superimposed pulmonary edema. 3. Cardiomegaly. ACT 112: Negative or not required by law. Electronically signed by: Oswald Francis M.D. 12/08/2020 1:43 PM Medications Administered Medication List Sodium Chloride (Nss 1000ml) 1,000 mls @ 60 mls/hr IV .[id number] WILLIAMS Stop: 01/07/21 15:44 Last Admin: 12/08/20 15:35 Dose: 60 mls/hr Documented by: [id number] Discontinued Medications Albuterol (Albut/Ipratrop 3mg/0.5mg Neb 3 Ml Vial) 3 ml NEB NOW STA Stop: 12/08/20 11:43 Last Admin: 12/08/20 12:43 Dose: 3 ml Documented by: [id number] Guaifenesin (Guaifenesin 600 Mg Tabcr) 600 mg PO NOW STA Stop: 12/08/20 11:40 Last Admin: 12/08/20 12:31 Dose: 600 mg Documented by: [id number] Sodium Chloride (Nss 1000ml) 1,000 mls @ 999 mls/hr IV .Q1H1M WILLIAMS Stop: 12/08/20 12:40 Last Infusion: 12/08/20 14:06 Dose: 0 mls/hr Documented by: [id number] Admin: 12/08/20 12:31 Dose: 999 mls/hr Documented by: [id number] Sodium Chloride (Nss 1000ml) 1,000 mls @ 999 mls/hr IV .Q1H1M WILLIAMS Stop: 12/08/20 13:44 Last Admin: 12/08/20 14:06 Dose: Not Given Documented by: [id number] Sodium Chloride (Nss 1000ml) 500 mls @ 999 mls/hr IV .Q31M WILLIAMS Stop: 12/08/20 14:15 Last Admin: 12/08/20 14:06 Dose: Not Given Documented by: [id number] Piperacillin Sod/Tazobactam Sod (Zosyn) 4.5 gm in 120 mls @ 240 mls/hr IV NOW ONE Stop: 12/08/20 15:09 Last Infusion: 12/08/20 15:24 Dose: 0 mls/hr Documented by: [id number] Admin: 12/08/20 14:47 Dose: 240 mls/hr Documented by: [id number] Magnesium Sulfate/Dextrose (Magnesium Sulfate / D5w) 1 gm in 100 mls @ 100 mls/hr IV NOW STA Stop: 12/08/20 15:39 Last Admin: 12/08/20 15:33 Dose: 100 mls/hr Documented by: [id number] Ioversol (Optiray 320 125ml) 120 ml IV ONCE ONE Stop: 12/08/20 13:16 Last Admin: 12/08/20 13:16 Dose: 120 ml Documented by: [id number] Methylprednisolone (Methylprednisolone 125 Mg/2 Ml Vial) 125 mg IV NOW STA Stop: 12/08/20 11:40 Last Admin: 12/08/20 12:31 Dose: 125 mg Documented by: [id number] ECG Rate (beats per minute): 100 Rhythm: sinus tachycardia COVID-19 Results Results COVID-19 Adm Lab Results: RBC 4.41 M/uL (4.2-5.4) 12/08/20 WBC 14.34 K/uL (4.8-10.8) H 12/08/20 Hgb 12.3 g/dL (12.0-16.0) 12/08/20 Hct 39.0 % (37-47) 12/08/20 Plt Count 197 K/uL (130-400) 12/08/20 Neutrophils (%) (Auto) 89.2 % 12/08/20 Lymphocytes (%) (Auto) 5.9 % 12/08/20 Monocytes # (Auto) 0.64 K/uL (0.11-0.59) H 12/08/20 Eosinophils # (Auto) 0.00 K/uL (0-0.5) 12/08/20 Immature Granulocyte % (Auto) 0.3 % 12/08/20 Neutrophils # (Auto) 12.80 K/uL (1.4-6.5) H 12/08/20 Lymphocytes # (Auto) 0.84 K/uL (1.2-3.4) L 12/08/20 Monocytes # (Auto) 0.64 K/uL (0.11-0.59) H 12/08/20 Eosinophils # (Auto) 0.00 K/uL (0-0.5) 12/08/20 Basophils # (Auto) 0.02 K/uL (0-0.2) 12/08/20 Immature Granulocyte # (Auto) 0.04 K/uL (0.00-0.02) H 12/08/20 Na 138 mmol/L (136-145) 12/08/20 K 4.0 mmol/L (3.5-5.1) 12/08/20 Cl 105 mmol/L (98-107) 12/08/20 CO2 27 mmol/L (21-32) 12/08/20 Anion Gap 6.0 (3-11) 12/08/20 BUN 14 mg/dl (7-18) 12/08/20 Creatinine 0.95 mg/dl (0.6-1.2) 12/08/20 BUN/Creatinine Ratio 14.8 (10-20) 12/08/20 Glucose Level 112 mg/dl (70-99) H 12/08/20 Ca 8.4 mg/dl (8.5-10.1) L 12/08/20 Phosphorus Level 3.1 mg/dl (2.5-4.9) 12/08/20 Total Bilirubin 0.8 mg/dl (0.2-1) 12/08/20 Direct Bilirubin 0.2 mg/dl (0-0.2) 12/08/20 AST/SGOT 19 U/L (15-37) 12/08/20 ALT/SGPT 24 U/L (12-78) 12/08/20 Alkaline Phosphatase 121 U/L (45-117) H 12/08/20 Total Protein 6.4 gm/dl (6.4-8.2) 12/08/20 Albumin 3.4 gm/dl (3.4-5.0) 12/08/20 Globulin 3.0 gm/dl (2.5-4.0) 12/08/20 Albumin/Globulin Ratio 1.1 (0.9-2) 12/08/20 Troponin I < 0.015 ng/ml (0-0.045) 12/08/20 NR-Pzh-F-Type Natriuretic Pep 124 pg/ml (0-900) 12/08/20 CRP Pending 12/08/20 Procalcitonin 1.68 ng/ml (0-0.5) H 12/08/20 PTT < 20.0 Seconds (21.0-31.0) L 12/08/20 INR 1.0 (0.9-1.1) 12/08/20 COVID-19 PCR NEGATIVE (Negative) 12/08/20 Chest X-Ray 12/08/20 Code Status & VTE Plan Code Status Full Code VTE Prophylaxis Plan VTE Prophylaxis will be ordered: Yes Supervising Physician Co-Signing Physician Notes Patient is a 75-year-old female with history of hypertension, hyperlipidemia, cerebellar ataxia, chronic oxygen dependency and other medical problems presents with history of shortness of breath, cough, and generalized weakness which have been gradually worsening since 2 to 3 days duration. She had multiple admissions previously secondary to similar symptoms and was diagnosed to have pneumonia. Please review HPI for complete details of presentation. While in ED she was found to be hypoxic and was placed on supplemental oxygen. Blood work suggestive of leukocytosis 14.3 4K, lactic acidosis 2.4, procalcitonin elevated at 1.68. Covid screen is negative. CTA suggestive of multifocal pneumonia, mild superimposed pulmonary edema. On exam patient is moderately built and nourished, no apparent distress, normocephalic atraumatic, EOMI, normal breath sounds, basilar Rales, no accessory muscle use, S1-S2, no audible murmur, no pedal edema, abdomen soft, nontender, normal bowel sounds, alert, awake, oriented, grossly no focal deficits. Patient is admitted for management of acute on chronic respiratory failure with hypoxia, sepsis secondary to multifocal pneumonia, lactic acidosis. Agree with starting on broad-spectrum antibiotics Zosyn, doxy. Speech eval requested. Blood cultures obtained. Gentle IV fluids given pulmonary edema. Pulmonology consulted given recurrent pneumonia. Pulmonary hygiene with incentive spirometry, flutter valve. Replace magnesium. Antitussives as needed. Continue supplemental oxygen. I personally reviewed the record. Patient is interviewed and examined at bedside. Patient's care is coordinated with Mandy Mir PA-C. Please refer to the documentation above for details of patient's presentation and for discussion of other issues.
[2020-12-08] MEDS ORDERED: ACETAMINOPHEN 325 MG TAB PO PRN (16:10)
[2020-12-08] MEDS ORDERED: ONDANSETRON INJ 2 MG/ML 2 ML VIAL IV PRN (16:10)
[2020-12-08] MEDS ORDERED: ALUMINUM/MAGNESIUM SUSP 30 ML UDC PO PRN (16:10)
[2020-12-08] MEDS ORDERED: BENZONATATE 100 MG CAPSULE PO PRN (16:10)
[2020-12-08] MEDS ORDERED: MAGNESIUM HYDROXIDE SUSP 30 ML UDC PO PRN (16:10)
[2020-12-08] MEDS ORDERED: SODIUM CHLORIDE 0.9% 1000ML 1,000 ML IV ONE (16:19)
[2020-12-08] MEDS ORDERED: MAGNESIUM SULFATE / D5W 1 GM/100 ML BAG IV ONE (16:30)
[2020-12-08] MEDS ORDERED: Nursing to Pharmacy Communication STA (16:34)
[2020-12-08] MEDS: PANTOprazole 40 MG TAB PO SCH (17:00)
--- NOTE | 2020-12-08 17:02 | Pulmonary Consultation ---
Date of Consultation December 08, 2020 Assessment & Plan (1) Acute on chronic respiratory failure with hypoxemia: (2) Pneumonia: CT chest 12/08/2020 personally reviewed: Patchy opacities appreciated on the left lung. More dense in the left lower lobe Dependent atelectasis right lower lobe Minimal but insignificant mediastinal adenopathy Cardiomegaly Multiple CT chest done September 2020, August 2020 reviewed. Every single time patient had infiltrate on the left side of the lung --Acute on chronic hypoxic respiratory failure Secondary to multilobar pneumonia affecting left upper and left lower lobe COVID-19 PCR negative 12/08/2020 Procalcitonin 1.68 Continue with O2 supplementation to keep oxygen saturation between 88-92%. --COPD Not on any inhalers at home Start the patient on Incruse Plan: Patient does have lactic acidosis. Would not give too much fluid. Follow-up nasal MRSA Sputum culture Flutter valve, incentive spirometry Rule out aspiration Please note the above document was generated using voice recognition software. It may contain grammatical, syntax or spelling errors.Any formal questions or concerns about the content, text or information contained within the body of this dictation should be directly addressed to the provider for clarification. History of Present Illness Attending Physician: Reyes Webster MD History of Present Illness 75-year-old female past medical history of nocturnal hypoxia on 2 L O2, hypertension, GERD, cerebellar ataxia, depression anxiety as well as alcoholism presented to hospital with complaints of shortness of breath going on since last couple of days. Patient had CAT scan done in the ED which showed multilobar pneumonia. Pulmonary consulted for the same Patient got flu transaminitis COVID-26 July 2020 with [facility]. Patient says she has been having issues with breathing going on for the last 3-4 days progressively getting worse She does have cough but she is not able to bring any phlegm up. Denies any hemoptysis. She states that she does cough when she is eating. But is not sure if she is aspirating. No fever or chills. No dysuria, no diarrhea. She has oxygen only at night. No nausea or vomiting. Social Hx: [id number] smoking history, quit approximately 10 years ago. Pets: Has dogs and cats at home. No birds or poultry nearby No history of asthma Allergies Allergy/AdvReac Type Severity Reaction Status Date / Time levofloxacin AdvReac Unknown abnormal Verified 12/08/20 14:21 heart issues Home Medications Medication Instructions Recorded Confirmed Type atorvastatin 80 mg tablet 80 mg PO QAM 02/09/18 12/08/20 History bupropion HCl 150 mg tablet,12 hr 150 mg PO BID 02/09/18 12/08/20 History sustained-release clonazepam 1 mg tablet 1 mg PO TID PRN 02/09/18 12/08/20 History omeprazole 40 mg capsule,delayed 40 mg PO BID 02/09/18 12/08/20 History release trazodone 300 mg tablet 300 mg PO HS 02/09/18 12/08/20 History furosemide 20 mg tablet 40 mg PO QAM 08/27/19 12/08/20 History potassium chloride 20 mEq 20 meq PO DAILY 08/27/19 12/08/20 History tablet,extended release gabapentin 100 mg capsule 100 mg PO TID 08/09/20 12/08/20 History ibuprofen 200 mg tablet 200 mg PO Q6H PRN 08/09/20 12/08/20 History venlafaxine 75 mg capsule,extended 75 mg PO QAM 08/09/20 12/08/20 History release 24 hr vit 1 tab PO QAM 08/09/20 12/08/20 History T-[id number]-ddybpcdij-rutin-[id number] 500 mg-50 mg-25 mg-40 mg tablet (Bioflex) aspirin 325 mg tablet,delayed 325 mg PO DAILY 08/10/20 12/08/20 History release buspirone 5 mg tablet 5 mg PO BID 12/08/20 12/08/20 History famotidine 40 mg tablet 20 mg PO DAILY 12/08/20 12/08/20 History Patient History Medical History Anxiety Cerebellar ataxia Chronic back pain GERD (gastroesophageal reflux disease) History of alcoholism Hyperlipidemia Hypertension IBS (irritable bowel syndrome) Lactose intolerance Nocturnal hypoxemia On home oxygen therapy 2 LPM AT NIGHT Osteoarthritis Spinal stenosis Stroke MRI OBTAINED 02/2018 [place] R/T VISUAL DISTURBANCES - 4 "MINI STROKES" - PROVIDER UNABLE TO DETERMINE IF ACUTE VS OLD PER PT REPORT - SAW DR.VICTORIA AGRAWAL, NEURO Surgical History History of bilateral tubal ligation History of cholecystectomy History of colonoscopy History of esophagogastroduodenoscopy (EGD) History of tooth extraction History of total hip arthroplasty RT Hx of LASIK Family History Father Stroke Social History Smoking Status: Never smoker Second Hand Exposure: No; Hx Alcohol Use: No Hx Substance Use: No Preferred Language: Latvian Communication Ability: Effective Visual Impairment: No Limitations Small Products Ii Assembler Required: No Beliefs That Will Affect Care: None marital status: Current Living Situation: Family Current Living Situation Comment: Lives with and daughter Other Information That Helps Us Care for You: No Feels Safe at Home: Yes Safety Concerns: Feels Safe At This Time Assistive Devices: Cane, Oxygen - at Night and Walker Assistive Devices Comment: retainers Review of Systems Review of Systems: All systems reviewed & are unremarkable except as noted in HPI & below Physical Exam Physical Exam: Constitutional: No acute distress HEENT: EOMI, PERRLA Respiratory system: Decreased air entry bilaterally, no wheeze, rhonchi, positive crackles bilateral lower lobes more on the left side CVS: S1-S2 positive, no murmurs or gallops Abdomen: Soft, nontender, nondistended, positive bowel sounds x4 Extremities: +2 pulses bilaterally radialis/ dorsalis pedis, no cyanosis, no edema Neuro: Awake alert oriented x3 Psych: Normal mood and affect G/U: No [place] Skin: no rashes, warm and dry Lymphatic: no cervical or axillary lymphadenopathy Results & Data Results & Data ([facility]) Vital Signs (Past 12 Hours) Vital Signs Temp Pulse Pulse Resp BP BP Pulse Ox 12/08/20 13:10 92 12/08/20 13:08 94 12/08/20 13:00 92 H 18 106/81 12/08/20 12:44 91 H 20 94 12/08/20 10:28 37.3 C 98 H 22 96/61 L 89 L 12/08/20 09:58 92 12/08/20 12:10 12/08/20 12:10 PG Care Time/CCT Total # of Minutes Spent Total Time Spent with Patient: Total time spent is greater than 50% in coordination of care (as documented) at patient's floor/unit and/or counseling patient: Coding Level of Care Code 00441 Initial Inpt Care Lvl 3 Diagnoses Acute on chronic respiratory failure with hypoxemia J96.21 Pneumonia J18.9
[2020-12-08] MEDS: ALBUT/IPRATROP 3MG/0.5MG NEB 3 ML VIAL NEB SCH (19:08)
--- NOTE | 2020-12-08 19:21 | Emergency Department Note ---
Impression & Plan Sepsis, Acute on chronic respiratory failure with hypoxemia, Multifocal pneumonia ED Provider Note NAME: RADHA SÁNCHEZ AGE: 75 SEX: F ARRIVES VIA: Ambulance INFORMANT: Patient, ED PROVIDER(S): Ray Sarmiento MD CHIEF COMPLAINT: SOB PLAN: Disposition: Admit MEDICAL DECISION MAKING: The patient is a pleasant 75-year-old woman with a past medical history of prior alcoholism, history of recurrent pneumonia presents to the emergency department with worsening cough, congestion, body aches and shortness of breath over the past 3-4 days. She reports nausea and episodes of vomiting with coughing episodes. Otherwise denies diarrhea or urinary symptoms. On arrival patient is uncomfortable but no acute distress, heart rate in the 90s and blood pressure 90s/60s with O2 saturation 89% on RA. She appears clinically dry. Scattered rhonchi left greater than right. EKG without overt acute ischemia. CXR suggestive of PNA further characterized on CT with extensive extensive left lung airspace opacities with mild right lower lobe airspace opacity. No PE. WBC 14.3K. H/H and platelets within normal limits. Chemistry without metabolic acidosis. Electrolytes without significant abnormality. Initial lactic acid 2.2. Magnesium 1.5 with repletion initiated. Troponin negative/undetectable. Procalcitonin is elevated at 1.6. COVID-19 PCR was negative. She was treated empirically with IV Zosyn. IV fluid hydration initiated per sepsis protocol however she was reported to have increased shortness of breath and hypoxia after CT and so IV fluid hydration was paused however upon reevaluation she was feeling improved once sitting up and so likely related to becoming atelectatic from lying supine in the CT scanner and less likely to be related to pulmonary edema. IV fluid hydration resumed. Case was discussed with Fadia Arauz, [facility] PAC, with Dr. Darin Romero hospitalist who will evaluate the patient for admission. Triage Nursing notes reviewed and agree them. Prior medical records reviewed Vital Signs: reviewed and remarkable for no significant abnormalities Differential diagnosis: Reactive airway disease, pneumonia, pneumothorax, COPD, CHF, infections, cardiac ischemia, pulmonary embolism, musculoskeletal, gastrointestinal, as well as other pathologies. ER treatment provided: See below. Diagnostics interpreted by me: ECG: NSR, 100 bpm, no ectopy, no overt ST elevation or depression. Cardiac Monitoring: An order for continuous cardiac monitoring was placed and demonstrated NSR, 100 bpm, no ectopy. Laboratory studies: See below Imaging studies: See below Consultation(s): Case was discussed with Fadia Arauz, Nick CASTREJON, with Dr. Leanne Romero hospitalist who will evaluate the patient for admission. HPI: The patient is a pleasant 75-year-old woman with a past medical history of prior alcoholism, history of recurrent pneumonia presents to the emergency department with worsening cough, congestion, body aches and shortness of breath over the past 3-4 days. She reports nausea and episodes of vomiting with coughing episodes. Otherwise denies diarrhea or urinary symptoms. ROS: See above HPI for pertinent positives & negatives. A total of 10 systems reviewed and were otherwise negative. PAST MEDICAL HISTORY:See Below PAST SURGICAL HISTORY:See Below FAMILY HISTORY:See Below SOCIAL HISTORY:See Below HOME MEDICATIONS:See Below ALLERGIES:See Below VITALS:See Below PHYSICAL EXAMINATION: GENERAL: Awake, alert, ill-appearing, in no distress HENT: Normocephalic, atraumatic. Oropharynx with dry mucous membranes and otherwise unremarkable. EYES: Normal conjunctiva. Sclera non-icteric. NECK: Supple. No nuchal rigidity. FROM. No JVD. RESPIRATORY: Scattered rhonchi left greater than right. Mild increased WOB, no acute distress. CARDIAC: Regular rate, normal rhythm. Extremities warm and well perfused. Pulses equal. ABDOMEN: Soft, non-distended. No tenderness to palpation. No rebound or guarding. No masses. RECTAL: Deferred. MUSCULOSKELETAL: Chest examination reveals no tenderness. The back is symmetrical on inspection without obvious abnormality. There is no CVA tenderness to palpation. No joint edema. LOWER EXTREMITIES: Calves are equal size bilaterally and non-tender. No edema. No discoloration. NEURO: Normal sensorium. No sensory or motor deficits noted. SKIN: No rash or jaundice noted. ED COURSE: Critical Care: I have personally spent greater than 45 minutes of critical care time in the direct management of this patient. This includes bedside care, interpretation of diagnostic studies, and testing, discussion with consultants, patient, and family members, and other required patient management activities. This 45 minutes is in excess of all separately billable procedures. Ray Sarmiento MD Past Med/Surg History Medical History Anxiety Cerebellar ataxia Chronic back pain GERD (gastroesophageal reflux disease) History of alcoholism Hyperlipidemia Hypertension IBS (irritable bowel syndrome) Lactose intolerance Nocturnal hypoxemia On home oxygen therapy 2 LPM AT NIGHT Osteoarthritis Spinal stenosis Stroke MRI OBTAINED 02/2018 [place] R/T VISUAL DISTURBANCES - 4 "MINI STROKES" - PROVIDER UNABLE TO DETERMINE IF ACUTE VS OLD PER PT REPORT - SAW DR.VICTORIA AGRAWAL, NEURO Surgical History History of bilateral tubal ligation History of cholecystectomy History of colonoscopy History of esophagogastroduodenoscopy (EGD) History of tooth extraction History of total hip arthroplasty RT Hx of LASIK Family History Father Stroke Social History Smoking Status: Never smoker Second Hand Exposure: No; Hx Alcohol Use: No Hx Substance Use: No Preferred Language: Samoan Communication Ability: Effective Visual Impairment: No Limitations Food Packer Required: No Beliefs That Will Affect Care: None marital status: Current Living Situation: Family Current Living Situation Comment: Lives with and daughter Other Information That Helps Us Care for You: No Feels Safe at Home: Yes Safety Concerns: Feels Safe At This Time Assistive Devices: Cane, Glasses and Oxygen - Continuous Assistive Devices Comment: retainers Allergies Allergies Allergy/AdvReac Type Severity Reaction Status Date / Time levofloxacin AdvReac Unknown abnormal Verified 12/08/20 14:21 heart issues Home Meds Home Medications Medication Instructions Recorded Confirmed atorvastatin 80 mg tablet 80 mg PO QAM 02/09/18 12/08/20 bupropion HCl 150 mg tablet,12 hr 150 mg PO BID 02/09/18 12/08/20 sustained-release clonazepam 1 mg tablet 1 mg PO TID PRN 02/09/18 12/08/20 omeprazole 40 mg capsule,delayed 40 mg PO BID 02/09/18 12/08/20 release trazodone 300 mg tablet 300 mg PO HS 02/09/18 12/08/20 furosemide 20 mg tablet 40 mg PO QAM 08/27/19 12/08/20 potassium chloride 20 mEq 20 meq PO DAILY 08/27/19 12/08/20 tablet,extended release gabapentin 100 mg capsule 100 mg PO TID 08/09/20 12/08/20 ibuprofen 200 mg tablet 200 mg PO Q6H PRN 08/09/20 12/08/20 venlafaxine 75 mg capsule,extended 75 mg PO QAM 08/09/20 12/08/20 release 24 hr vit 1 tab PO QAM 08/09/20 12/08/20 [id number] 500 mg-50 mg-25 mg-40 mg tablet (Bioflex) aspirin 325 mg tablet,delayed 325 mg PO DAILY 08/10/20 12/08/20 release buspirone 5 mg tablet 5 mg PO BID 12/08/20 12/08/20 famotidine 40 mg tablet 20 mg PO DAILY 12/08/20 12/08/20 Results & Data (ED) Vital Signs Vital Signs - 24 hr 12/08/20 09:58 12/08/20 10:28 12/08/20 12:44 Temperature 37.3 C Temperature Source Oral Pulse Rate 98 H Pulse Rate [Right Finger] 91 H Pulse Rhythm Regular Pulse Strength Normal Respiratory Rate 22 20 Respiratory Effort / Characteristics Non-Labored Non-Labored Spontaneous Respiratory Depth Normal Respiratory Pattern Regular Blood Pressure 96/61 L Blood Pressure [Left Arm] Blood Pressure Mean 72 Blood Pressure Mean [Left Arm] Blood Pressure Position Sitting Pulse Oximetry 92 89 L 94 Oxygen Delivery Method Nasal Cannula Room Air Nasal Cannula Oxygen Flow Rate 3 3 Sepsis Recent Fever Within 48 Hours No Sepsis New/Unexplained Change in Mental Status N/A Sepsis Action Taken by Nursing No Action Required 12/08/20 13:00 12/08/20 13:08 12/08/20 13:10 Temperature Temperature Source Pulse Rate Pulse Rate [Right Finger] 92 H Pulse Rhythm Pulse Strength Respiratory Rate 18 Respiratory Effort / Characteristics Non-Labored Respiratory Depth Normal Respiratory Pattern Blood Pressure Blood Pressure [Left Arm] 106/81 Blood Pressure Mean Blood Pressure Mean [Left Arm] 89 Blood Pressure Position Pulse Oximetry 94 92 Oxygen Delivery Method Oxymask Oxymask Oxygen Flow Rate 4 Sepsis Recent Fever Within 48 Hours Sepsis New/Unexplained Change in Mental Status Sepsis Action Taken by Nursing Laboratory Data Attestation: I reviewed the patient's lab results. Result diagrams: 12/08/20 12:10 12/08/20 12:10 Lab Results 12/08/20 12/08/20 12/08/20 Range/Units 12:10 12:10 12:10 WBC 14.34 H (4.8-10.8) K/uL RBC 4.41 (4.2-5.4) M/uL Hgb 12.3 (12.0-16.0) g/dL Hct 39.0 (37-47) % MCV 88.4 (80-100) fL MCH 27.9 (25-34) pg MCHC 31.5 L (32-36) g/dL RDW Std Deviation 45.8 (36.4-46.3) fL RDW Coeff of Sharon 14.1 (11.5-14.5) % Plt Count 197 (130-400) K/uL MPV 11.0 H (7.4-10.4) fL Immature Gran % (Auto) 0.3 % Neut % (Auto) 89.2 % Lymph % (Auto) 5.9 % [place] % (Auto) 4.5 % Eos % (Auto) 0.0 % Baso % (Auto) 0.1 % Neut # (Auto) 12.80 H (1.4-6.5) K/uL Lymph # (Auto) 0.84 L (1.2-3.4) K/uL [place] # (Auto) 0.64 H (0.11-0.59) K/uL Eos # (Auto) 0.00 (0-0.5) K/uL Baso # (Auto) 0.02 (0-0.2) K/uL Immature Gran # (Auto) 0.04 H (0.00-0.02) K/uL PT (9.0-12.0) Seconds INR (0.9-1.1) APTT (21.0-31.0) Seconds PTT Ratio VBG pH (7.36-7.41) VBG pCO2 (38-50) mmHg VBG pO2 mmHg VBG HCO3 mmol/L VBG O2 Saturation % VBG Base Excess mEq/L Barometric Pressure mm/Hg Sodium 138 (136-145) mmol/L Potassium 4.0 (3.5-5.1) mmol/L Chloride 105 (98-107) mmol/L Carbon Dioxide 27 (21-32) mmol/L Anion Gap 6.0 (3-11) BUN 14 (7-18) mg/dl Creatinine 0.95 (0.6-1.2) mg/dl Est Cr Clr Drug Dosing 58.6 ml/min Est GFR ( Amer) 68.9 ml/min Est GFR (Non-Af Amer) 59.4 ml/min BUN/Creatinine Ratio 14.8 (10-20) Glucose 112 H (70-99) mg/dl Lactate (0.4-2.0) mmol/L Calcium 8.4 L (8.5-10.1) mg/dl Phosphorus 3.1 (2.5-4.9) mg/dl Magnesium 1.5 L (1.8-2.4) mg/dl Total Bilirubin 0.8 (0.2-1) mg/dl Direct Bilirubin 0.2 (0-0.2) mg/dl AST 19 (15-37) U/L ALT 24 (12-78) U/L Alkaline Phosphatase 121 H (45-117) U/L Troponin I < 0.015 (0-0.045) ng/ml NT-Pro-B Natriuret Pep (0-900) pg/ml Total Protein 6.4 (6.4-8.2) gm/dl Albumin 3.4 (3.4-5.0) gm/dl Globulin 3.0 (2.5-4.0) gm/dl Albumin/Globulin Ratio 1.1 (0.9-2) Procalcitonin 1.68 H (0-0.5) ng/ml TSH 0.474 (0.300-4.500) uIu/ml COVID-19 Eval Order SARS-CoV-2 (PCR) (Negative) 12/08/20 12/08/20 12/08/20 Range/Units 12:10 12:10 12:10 WBC (4.8-10.8) K/uL RBC (4.2-5.4) M/uL Hgb (12.0-16.0) g/dL Hct (37-47) % MCV (80-100) fL MCH (25-34) pg MCHC (32-36) g/dL RDW Std Deviation (36.4-46.3) fL RDW Coeff of Sharon (11.5-14.5) % Plt Count (130-400) K/uL MPV (7.4-10.4) fL Immature Gran % (Auto) % Neut % (Auto) % Lymph % (Auto) % [place] % (Auto) % Eos % (Auto) % Baso % (Auto) % Neut # (Auto) (1.4-6.5) K/uL Lymph # (Auto) (1.2-3.4) K/uL [place] # (Auto) (0.11-0.59) K/uL Eos # (Auto) (0-0.5) K/uL Baso # (Auto) (0-0.2) K/uL Immature Gran # (Auto) (0.00-0.02) K/uL PT 9.8 (9.0-12.0) Seconds INR 1.0 (0.9-1.1) APTT < 20.0 L (21.0-31.0) Seconds PTT Ratio 0.8 VBG pH 7.37 (7.36-7.41) VBG pCO2 50 (38-50) mmHg VBG pO2 33 mmHg VBG HCO3 28 mmol/L VBG O2 Saturation < 60.0 % VBG Base Excess 1.8 mEq/L Barometric Pressure 726.3 mm/Hg Sodium (136-145) mmol/L Potassium (3.5-5.1) mmol/L Chloride (98-107) mmol/L Carbon Dioxide (21-32) mmol/L Anion Gap (3-11) BUN (7-18) mg/dl Creatinine (0.6-1.2) mg/dl Est Cr Clr Drug Dosing ml/min Est GFR ( Amer) ml/min Est GFR (Non-Af Amer) ml/min BUN/Creatinine Ratio (10-20) Glucose (70-99) mg/dl Lactate 2.2 H* (0.4-2.0) mmol/L Calcium (8.5-10.1) mg/dl Phosphorus (2.5-4.9) mg/dl Magnesium (1.8-2.4) mg/dl Total Bilirubin (0.2-1) mg/dl Direct Bilirubin (0-0.2) mg/dl AST (15-37) U/L ALT (12-78) U/L Alkaline Phosphatase (45-117) U/L Troponin I (0-0.045) ng/ml NT-Pro-B Natriuret Pep (0-900) pg/ml Total Protein (6.4-8.2) gm/dl Albumin (3.4-5.0) gm/dl Globulin (2.5-4.0) gm/dl Albumin/Globulin Ratio (0.9-2) Procalcitonin (0-0.5) ng/ml TSH (0.300-4.500) uIu/ml COVID-19 Eval Order SARS-CoV-2 (PCR) (Negative) 12/08/20 12/08/20 12/08/20 Range/Units 12:10 12:24 12:24 WBC (4.8-10.8) K/uL RBC (4.2-5.4) M/uL Hgb (12.0-16.0) g/dL Hct (37-47) % MCV (80-100) fL MCH (25-34) pg MCHC (32-36) g/dL RDW Std Deviation (36.4-46.3) fL RDW Coeff of Sharon (11.5-14.5) % Plt Count (130-400) K/uL MPV (7.4-10.4) fL Immature Gran % (Auto) % Neut % (Auto) % Lymph % (Auto) % [place] % (Auto) % Eos % (Auto) % Baso % (Auto) % Neut # (Auto) (1.4-6.5) K/uL Lymph # (Auto) (1.2-3.4) K/uL [place] # (Auto) (0.11-0.59) K/uL Eos # (Auto) (0-0.5) K/uL Baso # (Auto) (0-0.2) K/uL Immature Gran # (Auto) (0.00-0.02) K/uL PT (9.0-12.0) Seconds INR (0.9-1.1) APTT (21.0-31.0) Seconds PTT Ratio VBG pH (7.36-7.41) VBG pCO2 (38-50) mmHg VBG pO2 mmHg VBG HCO3 mmol/L VBG O2 Saturation % VBG Base Excess mEq/L Barometric Pressure mm/Hg Sodium (136-145) mmol/L Potassium (3.5-5.1) mmol/L Chloride (98-107) mmol/L Carbon Dioxide (21-32) mmol/L Anion Gap (3-11) BUN (7-18) mg/dl Creatinine (0.6-1.2) mg/dl Est Cr Clr Drug Dosing ml/min Est GFR ( Amer) ml/min Est GFR (Non-Af Amer) ml/min BUN/Creatinine Ratio (10-20) Glucose (70-99) mg/dl Lactate (0.4-2.0) mmol/L Calcium (8.5-10.1) mg/dl Phosphorus (2.5-4.9) mg/dl Magnesium (1.8-2.4) mg/dl Total Bilirubin (0.2-1) mg/dl Direct Bilirubin (0-0.2) mg/dl AST (15-37) U/L ALT (12-78) U/L Alkaline Phosphatase (45-117) U/L Troponin I (0-0.045) ng/ml NT-Pro-B Natriuret Pep 124 (0-900) pg/ml Total Protein (6.4-8.2) gm/dl Albumin (3.4-5.0) gm/dl Globulin (2.5-4.0) gm/dl Albumin/Globulin Ratio (0.9-2) Procalcitonin (0-0.5) ng/ml TSH (0.300-4.500) uIu/ml COVID-19 Eval Order Covid19 at [facility] SARS-CoV-2 (PCR) NEGATIVE (Negative) 12/08/20 Range/Units 14:36 WBC (4.8-10.8) K/uL RBC (4.2-5.4) M/uL Hgb (12.0-16.0) g/dL Hct (37-47) % MCV (80-100) fL MCH (25-34) pg MCHC (32-36) g/dL RDW Std Deviation (36.4-46.3) fL RDW Coeff of Sharon (11.5-14.5) % Plt Count (130-400) K/uL MPV (7.4-10.4) fL Immature Gran % (Auto) % Neut % (Auto) % Lymph % (Auto) % [place] % (Auto) % Eos % (Auto) % Baso % (Auto) % Neut # (Auto) (1.4-6.5) K/uL Lymph # (Auto) (1.2-3.4) K/uL [place] # (Auto) (0.11-0.59) K/uL Eos # (Auto) (0-0.5) K/uL Baso # (Auto) (0-0.2) K/uL Immature Gran # (Auto) (0.00-0.02) K/uL PT (9.0-12.0) Seconds INR (0.9-1.1) APTT (21.0-31.0) Seconds PTT Ratio VBG pH (7.36-7.41) VBG pCO2 (38-50) mmHg VBG pO2 mmHg VBG HCO3 mmol/L VBG O2 Saturation % VBG Base Excess mEq/L Barometric Pressure mm/Hg Sodium (136-145) mmol/L Potassium (3.5-5.1) mmol/L Chloride (98-107) mmol/L Carbon Dioxide (21-32) mmol/L Anion Gap (3-11) BUN (7-18) mg/dl Creatinine (0.6-1.2) mg/dl Est Cr Clr Drug Dosing ml/min Est GFR ( Amer) ml/min Est GFR (Non-Af Amer) ml/min BUN/Creatinine Ratio (10-20) Glucose (70-99) mg/dl Lactate 2.4 H* (0.4-2.0) mmol/L Calcium (8.5-10.1) mg/dl Phosphorus (2.5-4.9) mg/dl Magnesium (1.8-2.4) mg/dl Total Bilirubin (0.2-1) mg/dl Direct Bilirubin (0-0.2) mg/dl AST (15-37) U/L ALT (12-78) U/L Alkaline Phosphatase (45-117) U/L Troponin I (0-0.045) ng/ml NT-Pro-B Natriuret Pep (0-900) pg/ml Total Protein (6.4-8.2) gm/dl Albumin (3.4-5.0) gm/dl Globulin (2.5-4.0) gm/dl Albumin/Globulin Ratio (0.9-2) Procalcitonin (0-0.5) ng/ml TSH (0.300-4.500) uIu/ml COVID-19 Eval Order SARS-CoV-2 (PCR) (Negative) Administered Medications Albuterol (Albut/Ipratrop 3mg/0.5mg Neb 3 Ml Vial) 3 ml NEB QIDR WILLIAMS Stop: 01/07/21 18:59 Last Admin: 12/08/20 19:08 Dose: 3 ml Documented by: [id number] Bupropion HCl (Bupropion Sr 150 Mg Tabcr) 150 mg PO BID WILLIAMS Stop: 01/07/21 20:59 Last Admin: 12/08/20 20:42 Dose: 150 mg Documented by: [id number] Buspirone HCl (Buspirone 5 Mg Tab) 5 mg PO BID WILLIAMS Stop: 01/07/21 20:59 Last Admin: 12/08/20 20:41 Dose: 5 mg Documented by: [id number] Doxycycline Hyclate (Doxycycline Hyclate 100 Mg Cap) 100 mg PO BID WILLIAMS Stop: 12/15/20 20:59 Last Admin: 12/08/20 20:42 Dose: 100 mg Documented by: [id number] Enoxaparin Sodium (Enoxaparin Inj 40 Mg/0.4 Ml Syr) 40 mg SQ Q24H WILLIAMS Stop: 01/07/21 21:59 Last Admin: 12/08/20 20:42 Dose: 40 mg Documented by: [id number] Gabapentin (Gabapentin 100 Mg Cap) 100 mg PO TID WILLIAMS Stop: 01/07/21 20:59 Last Admin: 12/08/20 20:41 Dose: 100 mg Documented by: [id number] Guaifenesin (Guaifenesin 600 Mg Tabcr) 600 mg PO Q12 WILLIAMS Stop: 01/07/21 20:59 Last Admin: 12/08/20 20:41 Dose: 600 mg Documented by: [id number] Sodium Chloride (Nss 1000ml) 1,000 mls @ 75 mls/hr IV .[id number] ONE Stop: 12/09/20 05:38 Last Admin: 12/08/20 18:06 Dose: Not Given Documented by: [id number] Piperacillin Sod/Tazobactam (Sod 3.375 gm/ Dextrose) 115 mls @ 28.75 mls/hr IV Q8H [facility]; Protocol Stop: 12/15/20 19:59 Last Admin: 12/08/20 20:40 Dose: 28.8 mls/hr Documented by: [id number] Pantoprazole Sodium (Pantoprazole 40 Mg Tab) 40 mg PO BID WILLIAMS Stop: 01/07/21 20:59 Last Admin: 12/08/20 17:00 Dose: 40 mg Documented by: [id number] Discontinued Medications Albuterol (Albut/Ipratrop 3mg/0.5mg Neb 3 Ml Vial) 3 ml NEB NOW STA Stop: 12/08/20 11:43 Last Admin: 12/08/20 12:43 Dose: 3 ml Documented by: [id number] Guaifenesin (Guaifenesin 600 Mg Tabcr) 600 mg PO NOW STA Stop: 12/08/20 11:40 Last Admin: 12/08/20 12:31 Dose: 600 mg Documented by: [id number] Sodium Chloride (Nss 1000ml) 1,000 mls @ 999 mls/hr IV .Q1H1M [facility] Stop: 12/08/20 12:40 Last Infusion: 12/08/20 14:06 Dose: 0 mls/hr Documented by: [id number] Admin: 12/08/20 12:31 Dose: 999 mls/hr Documented by: [id number] Sodium Chloride (Nss 1000ml) 1,000 mls @ 999 mls/hr IV .Q1H1M [facility] Stop: 12/08/20 13:44 Last Admin: 12/08/20 14:06 Dose: Not Given Documented by: [id number] Sodium Chloride (Nss 1000ml) 500 mls @ 999 mls/hr IV .Q31M [facility] Stop: 12/08/20 14:15 Last Admin: 12/08/20 14:06 Dose: Not Given Documented by: [id number] Piperacillin Sod/Tazobactam Sod (Zosyn) 4.5 gm in 120 mls @ 240 mls/hr IV NOW ONE Stop: 12/08/20 15:09 Last Infusion: 12/08/20 15:24 Dose: 0 mls/hr Documented by: [id number] Admin: 12/08/20 14:47 Dose: 240 mls/hr Documented by: [id number] Magnesium Sulfate/Dextrose (Magnesium Sulfate / D5w) 1 gm in 100 mls @ 100 mls /hr IV NOW STA Stop: 12/08/20 15:39 Last Infusion: 12/08/20 17:58 Dose: 0 mls/hr Documented by: [id number] Admin: 12/08/20 15:33 Dose: 100 mls/hr Documented by: [id number] Sodium Chloride (Nss 1000ml) 1,000 mls @ 60 mls/hr IV .[id number] [facility]IAMS Stop: 01/07/21 15:44 Last Infusion: 12/08/20 23:33 Dose: 75 mls/hr Documented by: [id number] Infusion: 12/08/20 22:28 Dose: 0 mls/hr Documented by: [id number] Infusion: 12/08/20 18:02 Dose: 75 mls/hr Documented by: [id number] Admin: 12/08/20 15:35 Dose: 60 mls/hr Documented by: [id number] Magnesium Sulfate/Dextrose (Magnesium Sulfate / D5w) 1 gm in 100 mls @ 50 mls/hr IV ONE ONE Stop: 12/08/20 18:29 Last Infusion: 12/08/20 20:48 Dose: 0 mls/hr Documented by: [id number] Admin: 12/08/20 17:57 Dose: 50 mls/hr Documented by: [id number] Sodium Chloride (Nss) 500 mls @ 500 mls/hr IV .Q1H WILLIAMS Stop: 12/08/20 23:14 Last Infusion: 12/08/20 23:32 Dose: 0 mls/hr Documented by: [id number] Admin: 12/08/20 22:29 Dose: 500 mls/hr Documented by: [id number] Ioversol (Optiray 320 125ml) 120 ml IV ONCE ONE Stop: 12/08/20 13:16 Last Admin: 12/08/20 13:16 Dose: 120 ml Documented by: [id number] Methylprednisolone (Methylprednisolone 125 Mg/2 Ml Vial) 125 mg IV NOW STA Stop: 12/08/20 11:40 Last Admin: 12/08/20 12:31 Dose: 125 mg Documented by: [id number] Imaging Data Radiologist's Impression: Chest X-Ray 12/08/20 11:37 XR chest 1V portable CLINICAL HISTORY: SEPSIS COMPARISON STUDY: August 09, 2020 FINDINGS: No pneumothorax. No pleural effusion. Diffuse reticular prominence of pulmonary interstitium is improved since prior study. Previously seen superimposed patchy airspace component in the left lung is slightly improved since prior study in August 09, 2020. Cardiomediastinal silhouette is unchanged since prior. Aorta is calcified. Pulmonary vasculature is indistinct.. Osseous structures: Degenerative changes of the spine and left shoulder. IMPRESSION: 1. Interval improvement of previously seen reticular and airspace opacities wit h asymmetrical involvement of the left lung. 2. Indistinct pulmonary vasculature which could be seen in pulmonary edema. Stable cardiomediastinal silhouette. ACT 112: Negative or not required by law. The above report was generated using voice recognition software. It may contain grammatical, syntax or spelling errors. Electronically signed by: Mora Erickson DO 12/08/2020 1:16 PM Chest CTA 12/08/20 11:42 CT ANGIOGRAPHY OF THE CHEST, PULMONARY EMBOLUS PROTOCOL CLINICAL HISTORY: sob, hypoxia r/o PE COMPARISON STUDY: Chest CT September 22, 2020. TECHNIQUE: Following IV administration of 120 mL of Optiray, helical axial images of the chest were obtained utilizing the pulmonary embolus protocol. Maximal intensity projections and sagittal and coronal reformats were viewed on an independent 3D workstation. IV contrast was administered without complication. Automated exposure control was utilized for the study. A dose lowering technique was utilized adhering to the principles of ALARA. CT DOSE: 440.10 mGycm FINDINGS: No pulmonary emboli are identified although the segmental and subsegmental pulmonary arteries are suboptimally assessed due to respiratory motion. There is moderate cardiomegaly. There is no pericardial effusion. No thoracic aortic dissection is noted. There is a small hiatal hernia. There are prominent mediastinal and bilateral hilar lymph nodes which are likely reactive. Lungs are suboptimally assessed due to respiratory motion. There is emphysema. No pneumothorax or pleural effusion is noted. Extensive left lung airspace opacity is present. There is mild right lower lobe airspace opacity. There is mild right lower lobe opacity. There is may be mild superimposed pulmonary edema. Pneumobilia is noted. A right hepatic lobe cyst is incidentally noted. IMPRESSION: 1. No pulmonary emboli identified although exam moderately compromised by respiratory motion. 2. Extensive extensive left lung airspace opacities with mild right lower lobe airspace opacity. The findings favor multifocal pneumonia. Possible mild superimposed pulmonary edema. 3. Cardiomegaly. ACT 112: Negative or not required by law. Electronically signed by: Oswald Francis M.D. 12/08/2020 1:43 PM Discharge Plan Visit Data Chief Complaint: Shortness of Breath/Dyspnea Stated Complaint: SOB ED Provider: Ray Sarmiento Discharge Problem: Sepsis, Acute on chronic respiratory failure with hypoxemia, Multifocal pneumonia Patient Disposition: Admitted As Inpatient Discharge Instructions Interventions: ED Discharge Assessment Last Done: 12/08/20 15:44 Discharge Problem: Sepsis Qualifiers: Sepsis type: sepsis due to unspecified organism Sepsis acute organ dysfunction status: unspecified Qualified Code(s): A41.9 - Sepsis, unspecified organism
[2020-12-08] MEDS: PIPERACILLIN/TAZOBACTAM 3.375 GM in DEXTROSE 5% 100 ML IV SCH (20:40)
[2020-12-08] MEDS: guaiFENesin 600 MG TABCR PO SCH (20:41)
[2020-12-08] MEDS: busPIRone 5 MG TAB PO SCH (20:41)
[2020-12-08] MEDS: GABAPENTIN 100 MG CAP PO SCH (20:41)
[2020-12-08] MEDS: ENOXAPARIN INJ 40 MG/0.4 ML SYR SQ SCH (20:42)
[2020-12-08] MEDS: DOXYCYCLINE HYCLATE 100 MG CAP PO SCH (20:42)
[2020-12-08] MEDS: buPROPion SR 150 MG TABCR PO SCH (20:42)
[2020-12-08 20:52] LABS: Appearance Urine Clear (Clear); Bilirubin Urine Negative (Negative); Blood Urine Negative (Negative); Color Urine Yellow; Glucose Urine UA Negative (Negative); Ketones Urine Negative (Negative); Leukocyte Esterase Urine Negative (Negative); Nitrite Urine Negative (Negative); Protein Urine Negative (Negative); Specific Gravity Urine 1.015 (1.000-1.030); Urobilinogen Urine Negative (Negative); pH Urine 6.5 (4.5-7.5)
[2020-12-08] MEDS ORDERED: VANCOMYCIN CONSULT ACTIVE PRN (21:31)
[2020-12-08] MEDS ORDERED: VANCOMYCIN HCL 1,500 MG in SODIUM CHLORIDE 0.9% 500 ML IV ONE (22:00)
--- NOTE | 2020-12-08 22:05 | Pharmacy Report ---
Pharmacy Abx Dose Short Note - Date of Service December 08, 2020 - Assessment & Plan Assessment 75 year old F receiving VANCOMYCIN + ZOSYN for treatment of multifocal pneumonia + MRSA nasal swab + elevated procal, + elevated lactate Renal fxn appears to be at baseline BLCX's ordered Plan Vancomycin * 1500mg load x1 (~20mg/kg) * Maint: 1250mg (~17mg/kg) Q 18 horus * Goal AUC: GOLDEN 400-600 * Will check trough level with 3rd or 4th dose if therapy to continue Zosyn * BMI < 35 * eCrCl > 20 * Continue 3.375gm ext-infusion Q 8 hrs Pharmacy will continue to follow and will adjust dose/frequency as necessary. Thank you.
[2020-12-08] MEDS ORDERED: SODIUM CHLORIDE 0.9% 500 ML IV SCH (22:15)
[2020-12-09] MEDS: traZODone HCL 100 MG TAB PO SCH ×2 (00:15→23:57)
[2020-12-09] MEDS: clonazePAM 1 MG TAB PO PRN ×2 (00:15→23:58)
[2020-12-09] MEDS: PIPERACILLIN/TAZOBACTAM 3.375 GM in DEXTROSE 5% 100 ML IV SCH ×3 (03:44→20:54)
--- NOTE | 2020-12-09 05:55 | Electrocardiogram Report ---
Test Reason : Blood Pressure : / mmHG Vent. Rate : 100 BPM Atrial Rate : 100 BPM P-R Int : 166 ms QRS Dur : 086 ms QT Int : 308 ms P-R-T Axes : 009 -19 061 degrees QTc Int : 397 ms Normal sinus rhythm Poor R wave progression, consider anterior KS vs. lead placement vs. LVH Nonspecific T wave abnormality Abnormal ECG When compared with ECG of 09-AUG-2020 19:13, No significant change was found Confirmed by Tito Salazar ([id number]) on 12/09/2020 5:54:44 AM Referred By: Confirmed By:Tito Salazar
[2020-12-09 07:19] LABS: Hemoglobin 10.7 g/dL (12.0-16.0); Immature Granulocytes # (auto) 0.03 K/uL (0.00-0.02); Immature Granulocytes % (auto) 0.3 %; Lymphocytes # (auto) 0.79 K/uL (1.2-3.4); Mean Corpuscular Hemoglobin 27.9 pg (25-34); Mean Corpuscular Hgb Conc 31.5 g/dL (32-36); Mean Corpuscular Volume 88.8 fL (80-100); Mean Platelet Volume 10.8 fL (7.4-10.4); Monocytes # (auto) 0.41 K/uL (0.11-0.59); Monocytes % (auto) 3.6 %; Neutrophils # (auto) 10.09 K/uL (1.4-6.5); Neutrophils % (auto) 89.1 %; Platelet Count 184 K/uL (130-400); RDW Coefficient of Variation 14.2 % (11.5-14.5); RDW Standard Deviation 46.5 fL (36.4-46.3); Red Blood Count 3.83 M/uL (4.2-5.4); White Blood Count 11.32 K/uL (4.8-10.8)
[2020-12-09] MEDS: ALBUT/IPRATROP 3MG/0.5MG NEB 3 ML VIAL NEB SCH ×4 (07:19→18:53)
[2020-12-09] MEDS: busPIRone 5 MG TAB PO SCH ×2 (07:44→21:01)
[2020-12-09] MEDS: DOXYCYCLINE HYCLATE 100 MG CAP PO SCH ×2 (07:44→21:01)
[2020-12-09] MEDS: buPROPion SR 150 MG TABCR PO SCH ×2 (07:44→21:01)
[2020-12-09] MEDS: GABAPENTIN 100 MG CAP PO SCH ×3 (07:44→21:00)
[2020-12-09 07:45] LABS: BUN Creatinine Ratio 15.6 (10-20); Calcium 8.6 mg/dl (8.5-10.1); Creatinine Clr Calc Pharmacy 62.9 ml/min; Est GFR (African American) 79.9 ml/min; Magnesium 2.4 mg/dl (1.8-2.4); Potassium 4.2 mmol/L (3.5-5.1)
[2020-12-09] MEDS: PANTOprazole 40 MG TAB PO SCH ×2 (07:45→21:00)
[2020-12-09] MEDS: ATORVASTATIN 40 MG TAB PO SCH (07:45)
[2020-12-09] MEDS: VENLAFAXINE HCL XR 75 MG CAPXR PO SCH (07:45)
[2020-12-09] MEDS: ASPIRIN 325 MG ECTAB PO SCH (07:45)
[2020-12-09] MEDS: FAMOTIDINE 20 MG TAB PO SCH (07:45)
[2020-12-09] MEDS: guaiFENesin 600 MG TABCR PO SCH ×2 (07:45→21:00)
[2020-12-09] MEDS ORDERED: NON-FORMULARY MEDICATION (Vit C-Bioflav-Hesp-Rutin-Hb196 [Bioflex] 500-50-25-40 mg Tablet) PO SCH (09:00)
--- NOTE | 2020-12-09 12:14 | Hospitalist Progress Note ---
Date of Service December 09, 2020 Assessment & Plan (1) Sepsis: (2) Acute on chronic respiratory failure with hypoxemia: (3) Pneumonia: (4) Lactic acidosis: (5) Hypomagnesemia: (6) Hypertension: (7) Nocturnal hypoxemia: Plan: 75-year-old female who has significant past medical history of emphysema, nocturnal hypoxemia requiring 2 L of O2 at at bedtime, HTN, HLD and GERD, RLS, cerebellar ataxia, depression with anxiety, history of alcoholism who presents ED secondary to complaint of shortness of breath x 2 to 3 days. Patient with recurrent pneumonia requiring hospitalization, last hospitalized August 2020. On presentation patient met sepsis criteria secondary to leukocytosis, tachycardia and evidence of pneumonia on chest x-ray and chest CT. She received 1 L of IV fluid and IV Zosyn. Her lactic acid was elevated at 2.2 and repeat 2 hours later was 2.4. Of significance patient recently established with [facility] pulmonology to start work-up due to recurrent pneumonia. She underwent PFTs on 12/02 as well as autoimmune work-up. Her ELENI screen was p ositive, but c-ANCA, p-ANCA, ESR, SSA/Ro negative, RF negative. She underwent echocardiogram on 12/02 which revealed EF 55%, grade 1 diastolic dysfunction, no significant valvular abnormality. MRSA + Continue antibiotics for now (zosyn, vanco, doxycycline) Supervisor Heat Treating recommendations Planned for possible bronchoscopy tomorrow Hypomagnesemia Mag was 1.5 on admission Repleted Currently 2.4 today Hypertension Lasix resumed Depression with anxiety Stable on effexor, trazodone, buspar, wellbutrin and clonazepam DVT ppx: lovenox held in view of possible bronchoscopy Dispo:pcu FULL CODE PCP: Nakul Admission and Anticipated Discharge Date Admission Date: December 08, 2020 Subjective 75-year-old female who has significant past medical history of emphysema, nocturnal hypoxemia requiring 2 L of O2 at at bedtime, HTN, HLD and GERD, RLS, cerebellar ataxia, depression with anxiety, history of alcoholism who presents ED secondary to complaint of shortness of breath for some days. Being managed for acute on chronic respiratory failure with hypoxemia due to multifocal pneumonia. Patient seen and examined Complains of shortness of breath usually with exertion and cough Reported one episode of loose stool yesterday No chest pain Review of Systems Review of Systems: Other review of systems negative except as above Physical Exam Constitutional: + well hydrated; no acute distress Eyes: PERRL, conjunctivae normal, anicteric sclerae ENMT: external ear and nose normal, oropharynx normal Respiratory: normal respiratory effort; no respiratory distress Auscultation: + diminished lung sounds Basilar crackles On 3l/min nasal oxygen Cardiovascular: Rate/Rhythm: regular rate and regular rhythm S1 S2 Gastrointestinal (Abdomen): normal bowel sounds, soft, nontender, no hepatosplenomegaly Musculoskeletal: no cyanosis or clubbing, extremities motor strength 5/5 Neurologic: PERRL, EOMI, accommodation nl, no face palsy, no dysarthria Psychiatric: A+Ox3, euthymic affect Results & Data Results & Data ([facility]) Vital Signs (Past 12 Hours) Vital Signs Temp Pulse Pulse Resp BP BP Pulse Ox 12/09/20 11:33 36.3 C L 74 18 108/64 97 12/09/20 11:29 68 16 91 12/09/20 08:00 56 L 12/09/20 07:41 36.4 C L 70 22 97/55 L 90 12/09/20 07:20 64 18 91 12/09/20 03:34 36.9 C 68 18 94/58 L 90 Laboratory Results Abnormal lab results 12/08/20 12/08/20 12/08/20 Range/Units 16:30 17:14 20:27 WBC (4.8-10.8) K/uL RBC (4.2-5.4) M/uL Hgb (12.0-16.0) g/dL Hct (37-47) % MCHC (32-36) g/dL RDW Std Deviation (36.4-46.3) fL MPV (7.4-10.4) fL Neut # (Auto) (1.4-6.5) K/uL Lymph # (Auto) (1.2-3.4) K/uL Immature Gran # (Auto) (0.00-0.02) K/uL Chloride (98-107) mmol/L Glucose (70-99) mg/dl Lactate 2.8 H* (0.4-2.0) mmol/L Magnesium (1.8-2.4) mg/dl C-Reactive Protein 11.80 H (0-0.29) mg/dl Nasal Screen MRSA (PCR) Positive A (Negative) 12/08/20 12/08/20 12/09/20 Range/Units 20:27 22:49 06:45 WBC 11.32 H (4.8-10.8) K/uL RBC 3.83 L (4.2-5.4) M/uL Hgb 10.7 L (12.0-16.0) g/dL Hct 34.0 L (37-47) % MCHC 31.5 L (32-36) g/dL RDW Std Deviation 46.5 H (36.4-46.3) fL MPV 10.8 H (7.4-10.4) fL Neut # (Auto) 10.09 H (1.4-6.5) K/uL Lymph # (Auto) 0.79 L (1.2-3.4) K/uL Immature Gran # (Auto) 0.03 H (0.00-0.02) K/uL Chloride (98-107) mmol/L Glucose (70-99) mg/dl Lactate 2.2 H* (0.4-2.0) mmol/L Magnesium 3.2 H (1.8-2.4) mg/dl C-Reactive Protein (0-0.29) mg/dl Nasal Screen MRSA (PCR) (Negative) 12/09/20 Range/Units 06:45 WBC (4.8-10.8) K/uL RBC (4.2-5.4) M/uL Hgb (12.0-16.0) g/dL Hct (37-47) % MCHC (32-36) g/dL RDW Std Deviation (36.4-46.3) fL MPV (7.4-10.4) fL Neut # (Auto) (1.4-6.5) K/uL Lymph # (Auto) (1.2-3.4) K/uL Immature Gran # (Auto) (0.00-0.02) K/uL Chloride 115 H (98-107) mmol/L Glucose 150 H (70-99) mg/dl Lactate (0.4-2.0) mmol/L Magnesium (1.8-2.4) mg/dl C-Reactive Protein (0-0.29) mg/dl Nasal Screen MRSA (PCR) (Negative) (1) Sepsis Sepsis acute organ dysfunction status: unspecified Sepsis type: sepsis due to unspecified organism Qualified Code(s): A41.9 - Sepsis, unspecified organism
[2020-12-09] MEDS ORDERED: FUROSEMIDE 20 MG in SYRINGE 0 ML IV ONE (14:39)
--- NOTE | 2020-12-09 14:39 | Pulmonology Progress Note ---
Date of Service December 09, 2020 Assessment & Plan (1) Acute on chronic respiratory failure with hypoxemia: (2) Pneumonia: Plan: CT chest 12/08/2020 personally reviewed: Patchy opacities appreciated on the left lung. More dense in the left lower lobe Dependent atelectasis right lower lobe Minimal but insignificant mediastinal adenopathy Cardiomegaly Multiple CT chest done September 2020, August 2020 reviewed. Every single time patient had infiltrate on the left side of the lung --Acute on chronic hypoxic respiratory failure Secondary to multilobar pneumonia affecting left upper and left lower lobe COVID-19 PCR negative 12/08/2020 Procalcitonin 1.68 Nasal MRSA positive Continue with O2 supplementation to keep oxygen saturation between 88-92%. --COPD Not on any inhalers at home Continue with Incruse Plan: Would recommend starting the patient on diuresis. Given the recurrent pneumonia on the left side, will plan to bronc the patient tomorrow N.p.o. post midnight. Risks and benefit of the procedure explained to the patient in depth. Continue with antibiotics with atypical coverage Follow-up urine Legionella and mycoplasma IgM Hold Lovenox Flutter valve, incentive spirometry Please note the above document was generated using voice recognition software. It may contain grammatical, syntax or spelling errors.Any formal questions or concerns about the content, text or information contained within the body of this dictation should be directly addressed to the provider for clarification. Admission and Anticipated Discharge Date Admission Date: December 08, 2020 Subjective Patient seen and examined at bedside. No acute distress. No adverse events overnight He says she feels well with better compared to coming to the hospital Still complaining of cough not bringing up any phlegm Has been using incentive spirometry and flutter valve Fair appetite. Review of Systems Review of Systems: All systems reviewed & are unremarkable except as noted in Subjective Physical Exam Physical Exam: Constitutional: No acute distress HEENT: EOMI, PERRLA Respiratory system: Decreased air entry bilaterally, no wheeze, rhonchi, positive crackles bilateral lower lobes more on the left side CVS: S1-S2 positive, no murmurs or gallops Abdomen: Soft, nontender, nondistended, positive bowel sounds x4 Extremities: +2 pulses bilaterally radialis/ dorsalis pedis, no cyanosis, no edema Neuro: Awake alert oriented x3 Psych: Normal mood and affect G/U: No Pascual Skin: no rashes, warm and dry Lymphatic: no cervical or axillary lymphadenopathy Results & Data Results & Data ([facility]) Vital Signs (Past 12 Hours) Vital Signs Temp Pulse Pulse Resp BP BP Pulse Ox 12/09/20 11:33 36.3 C L 74 18 108/64 97 12/09/20 11:29 68 16 91 12/09/20 08:00 56 L 12/09/20 07:41 36.4 C L 70 22 97/55 L 90 12/09/20 07:20 64 18 91 12/09/20 03:34 36.9 C 68 18 94/58 L 90 12/09/20 06:45 12/09/20 06:45 PG Care Time/CCT Total # of Minutes Spent Total Time Spent with Patient: Total time spent is greater than 50% in coordinat ion of care (as documented) at patient's floor/unit and/or counseling patient: Coding Level of Care Code 87490 Subseq Hosp Care Lvl 3 Diagnoses Acute on chronic respiratory failure with hypoxemia J96.21 Pneumonia J18.9
[2020-12-09] MEDS ORDERED: FUROSEMIDE 40 MG/4 ML VIAL IV ONE (14:45)
[2020-12-09] MEDS: UMECLIDINIUM BROMIDE 62.5MCG/BLISTER 7 PUFFS/INHALER INH SCH (15:36)
[2020-12-09] MEDS: VANCOMYCIN HCL 1,250 MG in SODIUM CHLORIDE 0.9% 250 ML IV SCH (16:31)
[2020-12-10] MEDS: PIPERACILLIN/TAZOBACTAM 3.375 GM in DEXTROSE 5% 100 ML IV SCH ×3 (04:09→19:43)
[2020-12-10 06:47] LABS: Hematocrit (blood only) 33.9 % (37-47); Hemoglobin 10.5 g/dL (12.0-16.0); Mean Corpuscular Hemoglobin 27.4 pg (25-34); Mean Corpuscular Volume 88.5 fL (80-100); Mean Platelet Volume 10.8 fL (7.4-10.4); Platelet Count 217 K/uL (130-400); RDW Coefficient of Variation 14.6 % (11.5-14.5); RDW Standard Deviation 47.2 fL (36.4-46.3); Red Blood Count 3.83 M/uL (4.2-5.4); White Blood Count 9.61 K/uL (4.8-10.8)
[2020-12-10] MEDS: ALBUT/IPRATROP 3MG/0.5MG NEB 3 ML VIAL NEB SCH ×4 (06:59→19:23)
[2020-12-10 07:18] LABS: BUN Creatinine Ratio 17.5 (10-20); Calcium 8.7 mg/dl (8.5-10.1); Creatinine Clr Calc Pharmacy 47.5 ml/min; Est GFR (African American) 56.4 ml/min; Est GFR (Non-African American) 48.7 ml/min; Magnesium 2.3 mg/dl (1.8-2.4)
--- NOTE | 2020-12-10 08:22 | Pulmonology Progress Note ---
Date of Service December 10, 2020 Assessment & Plan (1) Acute on chronic respiratory failure with hypoxemia: (2) Pneumonia: Plan: CT chest 12/08/2020 personally reviewed: Patchy opacities appreciated on the left lung. More dense in the left lower lobe Dependent atelectasis right lower lobe Minimal but insignificant mediastinal adenopathy Cardiomegaly Multiple CT chest done September 2020, August 2020 reviewed. Every single time patient had infiltrate on the left side of the lung --Acute on chronic hypoxic respiratory failure Secondary to multilobar pneumonia affecting left upper and left lower lobe COVID-19 PCR negative 12/08/2020 Procalcitonin 1.68 Nasal MRSA positive Continue with O2 supplementation to keep oxygen saturation between 88-92%. --COPD Not on any inhalers at home Continue with Incruse Plan: For bronchoscopy today Risk and benefit of the procedure explained to the patient. Patient agrees to go ahead with seizure Continue with antibiotics with atypical coverage Follow-up urine Legionella and mycoplasma IgM Flutter valve, incentive spirometry Please note the above document was generated using voice recognition software. It may contain grammatical, syntax or spelling errors.Any formal questions or concerns about the content, text or information contained within the body of this dictation should be directly addressed to the provider for clarification. Admission and Anticipated Discharge Date Admission Date: December 08, 2020 Subjective Patient seen and examined at bedside. No acute distress, no adverse events overnight. Complains of mild chest tightness today. Still coughing not bringing up any phlegm. Denies any fever chills. Patient had fluoroscopy done today which was negative for aspiration No chest pain. Shortness of breath has improved compared to at presentation Review of Systems Review of Systems: All systems reviewed & are unremarkable except as noted in Subjective Physical Exam Physical Exam: Constitutional: No acute distress HEENT: EOMI, PERRLA Respiratory system: Decreased air entry bilaterally, no wheeze, rhonchi, positive crackles bilateral lower lobes more on the left side CVS: S1-S2 positive, no murmurs or gallops Abdomen: Soft, nontender, nondistended, positive bowel sounds x4 Extremities: +2 pulses bilaterally radialis/ dorsalis pedis, no cyanosis, no edema Neuro: Awake alert oriented x3 Psych: Normal mood and affect G/U: No Pascual Skin: no rashes, warm and dry Lymphatic: no cervical or axillary lymphadenopathy Results & Data Results & Data ([facility]) Vital Signs (Past 12 Hours) Vital Signs Temp Pulse Pulse Resp BP Pulse Ox 12/10/20 08:00 36.6 C 80 21 147/81 H 92 12/10/20 06:59 80 18 95 12/10/20 03:22 36.8 C 73 20 110/67 95 12/09/20 23:41 82 12/09/20 23:25 37.1 C 73 18 127/70 93 12/10/20 06:22 12/10/20 06:22 PG Care Time/CCT Total # of Minutes Spent Total Time Spent with Patient: Total time spent is greater than 50% in coordination of care (as documented) at patient's floor/unit and/or counseling patient: Coding Level of Care Code 98587 Subseq Hosp Care Lvl 3 Diagnoses Acute on chronic respiratory failure with hypoxemia J96.21 Pneumonia J18.9
[2020-12-10] MEDS ORDERED: fentaNYL citrate 100 MCG/2 ML VIAL ONE ×2 (10:07→10:41)
[2020-12-10] MEDS ORDERED: MIDAZOLAM HCL 5 MG/ML 1 ML VIAL ONE (10:07)
--- NOTE | 2020-12-10 10:19 | Pre Anesthesia Assessment ---
Date of Service December 10, 2020 Pre Sedation Assessment Vital Signs Temp Pulse Pulse Resp BP BP Pulse Ox 12/10/20 08:00 36.6 C 61 80 21 147/81 H 92 12/10/20 06:59 80 18 95 12/10/20 03:22 36.8 C 73 20 110/67 95 12/09/20 23:41 82 12/09/20 23:25 37.1 C 73 18 127/70 93 12/09/20 20:05 36.8 C 80 22 117/57 L 94 12/09/20 18:55 74 16 92 12/09/20 16:10 67 12/09/20 15:31 36.5 C 73 18 109/67 96 12/09/20 15:14 70 20 92 12/09/20 11:33 36.3 C L 74 18 108/64 97 12/09/20 11:29 68 16 91 Pulse Ox 12/10/20 08:00 12/10/20 06:59 12/10/20 03:22 12/09/20 23:41 12/09/20 23:25 12/09/20 20:05 12/09/20 18:55 12/09/20 16:10 92 12/09/20 15:31 12/09/20 15:14 12/09/20 11:33 12/09/20 11:29 Pre-Sedation Airway Assessment Smoking Status: Never smoker Mallampati Class: II ASA: ASA2 Procedure Planning Contraindications for Sedation: none Current Medications Reviewed: Yes Notes The planned sedation has been discussed with the patient. Informed Consent was obtained. I have identified the patient, determined the appropriateness of sedation and have assessed the patient immediately prior to the procedure. All medicine(s) and interventions are by my order.
--- NOTE | 2020-12-10 10:47 | Post Anesthesia Assessment ---
Date of Service December 10, 2020 Post Sedation Assessment Vital Signs Temp Pulse Pulse Resp BP BP Pulse Ox 12/10/20 10:40 70 94 H 16 179/76 H 98 12/10/20 10:35 95 H 14 160/106 H 98 12/10/20 10:30 90 16 140/83 98 12/10/20 08:00 36.6 C 61 80 21 147/81 H 92 12/10/20 06:59 80 18 95 12/10/20 03:22 36.8 C 73 20 110/67 95 12/09/20 23:41 82 12/09/20 23:25 37.1 C 73 18 127/70 93 12/09/20 20:05 36.8 C 80 22 117/57 L 94 12/09/20 18:55 74 16 92 12/09/20 16:10 67 12/09/20 15:31 36.5 C 73 18 109/67 96 12/09/20 15:14 70 20 92 12/09/20 11:33 36.3 C L 74 18 108/64 97 12/09/20 11:29 68 16 91 Pulse Ox 12/10/20 10:40 12/10/20 10:35 12/10/20 10:30 12/10/20 08:00 12/10/20 06:59 12/10/20 03:22 12/09/20 23:41 12/09/20 23:25 12/09/20 20:05 12/09/20 18:55 12/09/20 16:10 92 12/09/20 15:31 12/09/20 15:14 12/09/20 11:33 12/09/20 11:29 Recovery Score Activity: Moves 4 extremities Respiration: Deep Breath/Cough Circulation: +/-20% PreAnes Value Consciousness: Fully Awake Oxygen Saturation: > 92% On Room Air Post Anesthesia Score: 10 Discharge Sedation Level of Care: Fast Track Phase II Post Sedation Plan On clinical assessment, the patient appears to have tolerated the sedation with out complications. Patient is recovering as anticipated. Patient will continue to be monitored by nursing and may be discharged when sedation discharge criteria are met per below protocol. Upon Completions of procedure up to 15 minutes continue every 5 minute vital signs and the P.A.R. score; then discharge to a Phase I or Fast Track to Phase II per the following guidelines: * Discharge Patient to appropriate Phase II area if PAR is 8 or greater or return to pre- procedure baseline. The post - procedure orders will be as directed. * If PAR score is less than 8 or not return to pre-procedure baseline then patient will follow Phase I monitoring till PAR is reached for Phase II. The Phase I may be done in procedure room or may call to secure a Phase I area. * If naloxone or flumazenil are used for reversal, hold in Phase I for continued monitoring from when last reversal dose was given for a minimum of 60 minutes or longer pending the nurse and/or physician discretion of patient condition before discharge to Phase II. Please call the Sedation Physician to re-evaluate and complete post-note for discharge to Phase II area. Do NOT discharge from procedure sedation or Phase 1 until post- sedation evaluation note is complete by procedure /sedation MD Sedation Discharge Instructions to be given to the patient at discharge to home.
--- NOTE | 2020-12-10 10:48 | Procedure Note ---
Procedure Note: Bronchoscopy Procedure PREOPERATIVE DIAGNOSIS: Recurrent left-sided pneumonia POSTOPERATIVE DIAGNOSIS: Recurrent left-sided pneumonia PROCEDURE PERFORMED: Flexible fiberoptic bronchoscopy with BAL COMPLICATIONS: None. INDICATION: Rule out indolent infection PROCEDURE: After obtaining an informed consent, the patient was brought to the Bronchoscopy Suite. The patient had appropriate oxygen, blood pressure, heart rate, and respiratory rate monitoring applied and monitored continuously throughout the procedure. Supplemental oxygen via nasal cannula as per nursing records was applied to the nasopharynx with adequate saturations achieved. Topical anesthesia with nebulized 1% lidocaine was achieved. Subsequent to this, the patient was premedicated with 4 mg of midazolam and 100 mcg of fentanyl. Upper Airway: The oropharynx and larynx were well visualized and showed mild erythema, otherwise negative. There was normal vocal cord motion without masses or lesions. Additional topical anesthesia with 1% lidocaine was applied to the trachea and abdon. The trachea appeared normal. Thick yellow secretion was appreciated in the trachea as well as the abdon. The bronchoscope was then advanced through the abdon, which was sharp. The scope was then advanced into the right main stem and each segment, subsegement in the right upper lobe, right middle lobe and right lower lobe were visualized. There were moderate amount of yellowish secretion which was suctioned out right at the right main. There were no other findings including evidence of mass, anatomic distortions, or hemorrhage. The bronchoscope was subsequently withdrawn and advanced into the left mainstem. Again, each segment and subsegment was well visualized. No specific masses or other lesions were identified throughout the tracheobronchial tree on the left. There was moderate amount of yellowish secretions in the upper as well as lower lobe which were suctioned out. Patient did have very friable mucosa on the left lung and bled very easily even to suction. The bronchoscope was then wedged in the [] and bronchoalveolar lavage samples were obtained. 100 ml of saline was instilled and 25 ml of fluid was aspirated back.The bronchoscope was withdrawn and the area was suctioned clear. The bronchoscope was then withdrawn to the mainstem. The area was suctioned clear. The bronchoscope was then withdrawn. The patient tolerated the procedure well without evidence of desaturation or complications. Bronchoalveolar lavage samples were sent for cell count, Gram stain and bacterial culture, AFB culture and smear, fungal culture and smear. Transbronchial biopsies were sent for tissue culture (bacteria, AFB and fungal) and pathology. Recommendations: Follow-up chest x-ray Follow-up BAL cultures Please note the above document was generated using voice recognition software. It may contain grammatical, syntax or spelling errors.Any formal questions or concerns about the content, text or information contained within the body of this dictation should be directly addressed to the provider for clarification.
--- NOTE | 2020-12-10 10:58 | Hospitalist Progress Note ---
Date of Service December 10, 2020 Assessment & Plan (1) Sepsis: (2) Acute on chronic respiratory failure with hypoxemia: (3) Pneumonia: (4) Lactic acidosis: (5) Hypomagnesemia: (6) Hypertension: (7) Nocturnal hypoxemia: Plan: 75-year-old female who has significant past medical history of emphysema, nocturnal hypoxemia requiring 2 L of O2 at at bedtime, HTN, HLD and GERD, RLS, cerebellar ataxia, depression with anxiety, history of alcoholism who presents ED secondary to complaint of shortness of breath x 2 to 3 days. Patient with recurrent pneumonia requiring hospitalization, last hospitalized August 2020. On presentation patient met sepsis criteria secondary to leukocytosis, tachycardia and evidence of pneumonia on chest x-ray and chest CT. She received 1 L of IV fluid and IV Zosyn. Her lactic acid was elevated at 2.2 and repeat 2 hours later was 2.4. Of significance patient recently established with [facility] pulmonology to start work-up due to recurrent pneumonia. She underwent PFTs on 12/02 as well as autoimmune work-up. Her ELENI screen was p ositive, but c-ANCA, p-ANCA, ESR, SSA/Ro negative, RF negative. She underwent echocardiogram on 12/02 which revealed EF 55%, grade 1 diastolic dysfunction, no significant valvular abnormality. Normal pulm pressures MRSA screen is positive. Patient denied any problems swallowing. Speech therapist yesterday reported no aspiration on her evaluation. Even though MRSA pneumonia is a possibility, these make it less likely Continue antibiotics for now (zosyn, vanco, doxycycline) Supervisor Glycerin recommendations noted Will follow up bronchoscopy findings Hypomagnesemia Mag was 1.5 on admission Repleted Currently 2.3 today Hypertension Continue home lasix Depression with anxiety Stable on effexor, trazodone, buspar, wellbutrin and clonazepam DVT ppx: lovenox held in view of possible bronchoscopy. Will resume afterwards Dispo:pcu FULL CODE PCP: Nakul Admission and Anticipated Discharge Date Admission Date: December 08, 2020 Subjective 75-year-old female who has significant past medical history of emphysema, nocturnal hypoxemia requiring 2 L of O2 at at bedtime, HTN, HLD and GERD, RLS, cerebellar ataxia, depression with anxiety, history of alcoholism who presents ED secondary to complaint of shortness of breath for some days. Being managed for acute on chronic respiratory failure with hypoxemia due to multifocal pneumonia. Patient seen and examined prior to bronchoscopy Still complains of shortness of breath and dry cough Denied any chest pain No fevers, chills, nausea, vomiting No abdominal pain or diarrhea today Review of Systems Review of Systems: Other review of system negative except as above Physical Exam Constitutional: + well hydrated; no acute distress Eyes: PERRL, conjunctivae normal, anicteric sclerae ENMT: external ear and nose normal, oropharynx normal Respiratory: normal respiratory effort; no respiratory distress Auscultation: + diminished lung sounds and + crackles Cardiovascular: Rate/Rhythm: regular rate and regular rhythm S1 S2 Gastrointestinal (Abdomen): normal bowel sounds, soft, nontender, no hepatosplenomegaly Musculoskeletal: no cyanosis or clubbing, extremities motor strength 5/5 Neurologic: PERRL, EOMI, accommodation nl, no face palsy, no dysarthria Psychiatric: A+Ox3, euthymic affect Results & Data Results & Data ([facility]) Vital Signs (Past 12 Hours) Vital Signs Temp Pulse Pulse Resp BP Pulse Ox 12/10/20 10:45 95 H 14 153/98 H 98 12/10/20 10:40 70 94 H 16 179/76 H 98 12/10/20 10:35 95 H 14 160/106 H 98 12/10/20 10:30 90 16 140/83 98 12/10/20 08:00 36.6 C 61 80 21 147/81 H 92 12/10/20 06:59 80 18 95 12/10/20 03:22 36.8 C 73 20 110/67 95 12/09/20 23:41 82 12/09/20 23:25 37.1 C 73 18 127/70 93 Laboratory Results Abnormal lab results 12/10/20 12/10/20 12/10/20 Range/Units 06:22 06:22 06:22 RBC 3.83 L (4.2-5.4) M/uL Hgb 10.5 L (12.0-16.0) g/dL Hct 33.9 L (37-47) % MCHC 31.0 L (32-36) g/dL RDW Std Deviation 47.2 H (36.4-46.3) fL RDW Coeff of Sharon 14.6 H (11.5-14.5) % MPV 10.8 H (7.4-10.4) fL Chloride 113 H (98-107) mmol/L BUN 20 H D (7-18) mg/dl Procalcitonin 1.52 H (0-0.5) ng/ml (1) Sepsis Sepsis acute organ dysfunction status: unspecified Sepsis type: sepsis due to unspecified organism Qualified Code(s): A41.9 - Sepsis, unspecified organism
[2020-12-10] MEDS: guaiFENesin 600 MG TABCR PO SCH (11:02)
[2020-12-10] MEDS: UMECLIDINIUM BROMIDE 62.5MCG/BLISTER 7 PUFFS/INHALER INH SCH (11:16)
[2020-12-10] MEDS: VANCOMYCIN HCL 1,250 MG in SODIUM CHLORIDE 0.9% 250 ML IV SCH (11:16)
[2020-12-10] MEDS: ASPIRIN 325 MG ECTAB PO SCH (12:18)
[2020-12-10] MEDS: guaiFENesin/DEXTROM SYRUP 200MG/20MG 10ML UDC PO SCH ×3 (12:18→23:53)
[2020-12-10] MEDS: FUROSEMIDE 20 MG in SYRINGE 0 ML IV SCH (12:18)
[2020-12-10] MEDS: busPIRone 5 MG TAB PO SCH ×2 (12:19→20:00)
[2020-12-10] MEDS: DOXYCYCLINE HYCLATE 100 MG CAP PO SCH ×2 (12:19→20:02)
[2020-12-10] MEDS: GABAPENTIN 100 MG CAP PO SCH ×3 (12:19→20:00)
[2020-12-10] MEDS: buPROPion SR 150 MG TABCR PO SCH ×2 (12:19→20:00)
[2020-12-10] MEDS: PANTOprazole 40 MG TAB PO SCH ×2 (12:20→20:01)
[2020-12-10] MEDS: VENLAFAXINE HCL XR 75 MG CAPXR PO SCH (12:20)
[2020-12-10] MEDS: FAMOTIDINE 20 MG TAB PO SCH (12:20)
[2020-12-10] MEDS: ATORVASTATIN 40 MG TAB PO SCH (12:21)
--- NOTE | 2020-12-10 14:36 | XRay Report ---
XR chest 1V portable HISTORY: Status post bronchoscopy. COMPARISON: Chest 12/08/2020. FINDINGS: No pneumothorax. The heart remains mildly enlarged. Patchy left base airspace opacities per sist. There is diffuse interstitial/vascular thickening suggestive of mild congestive change. Right m idlung zone linear densities favor subsegmental atelectasis. IMPRESSION: 1. No change in the patchy left base airspace opacities. This likely represents a pneumonia. 2. No pneumothorax. ACT 112: Negative or not required by law. Electronically signed by: Fabian Gilbert M.D. 12/10/2020 2:35 PM
[2020-12-10 18:58] LABS: Fluid Mono/Macrophage 24 %; Lymphocyte Body Fluid Man 5 %; Neutrophil Body Fluid Man 65 %
[2020-12-10 18:59] LABS: Eosinophil Body Fluid Man 6 %
[2020-12-10] MEDS: traZODone HCL 100 MG TAB PO SCH ×3 (20:01→23:53)
[2020-12-10] MEDS: clonazePAM 1 MG TAB PO PRN (23:53)
[2020-12-11] MEDS ORDERED: VANCOMYCIN TROUGH ONE (03:30)
[2020-12-11 03:43] LABS: Hematocrit (blood only) 33.7 % (37-47); Hemoglobin 10.7 g/dL (12.0-16.0); Mean Corpuscular Hgb Conc 31.8 g/dL (32-36); Mean Corpuscular Volume 88.2 fL (80-100); Mean Platelet Volume 10.2 fL (7.4-10.4); Platelet Count 244 K/uL (130-400); RDW Coefficient of Variation 14.5 % (11.5-14.5); RDW Standard Deviation 47.4 fL (36.4-46.3); Red Blood Count 3.82 M/uL (4.2-5.4); White Blood Count 6.99 K/uL (4.8-10.8)
[2020-12-11 04:00] LABS: BUN Creatinine Ratio 17.6 (10-20); Calcium 8.6 mg/dl (8.5-10.1); Creatinine Clr Calc Pharmacy 40.4 ml/min; Est GFR (African American) 46.7 ml/min; Est GFR (Non-African American) 40.3 ml/min
[2020-12-11 04:01] LABS: Phosphorus 4.4 mg/dl (2.5-4.9)
[2020-12-11] MEDS: PIPERACILLIN/TAZOBACTAM 3.375 GM in DEXTROSE 5% 100 ML IV SCH ×3 (04:16→19:47)
[2020-12-11] MEDS: VANCOMYCIN HCL 1,250 MG in SODIUM CHLORIDE 0.9% 250 ML IV SCH ×2 (04:17→22:47)
[2020-12-11] MEDS: guaiFENesin/DEXTROM SYRUP 200MG/20MG 10ML UDC PO SCH ×3 (04:22→16:50)
[2020-12-11] MEDS: ALBUT/IPRATROP 3MG/0.5MG NEB 3 ML VIAL NEB SCH ×4 (07:17→19:36)
[2020-12-11] MEDS: PANTOprazole 40 MG TAB PO SCH ×2 (07:49→19:59)
[2020-12-11] MEDS: GABAPENTIN 100 MG CAP PO SCH ×3 (07:49→20:00)
[2020-12-11] MEDS: FAMOTIDINE 20 MG TAB PO SCH (07:50)
[2020-12-11] MEDS: UMECLIDINIUM BROMIDE 62.5MCG/BLISTER 7 PUFFS/INHALER INH SCH (07:50)
[2020-12-11] MEDS: DOXYCYCLINE HYCLATE 100 MG CAP PO SCH ×2 (07:50→20:01)
[2020-12-11] MEDS: busPIRone 5 MG TAB PO SCH ×2 (07:50→20:00)
[2020-12-11] MEDS: buPROPion SR 150 MG TABCR PO SCH ×2 (07:50→20:01)
[2020-12-11] MEDS: ASPIRIN 325 MG ECTAB PO SCH (07:51)
[2020-12-11] MEDS: ATORVASTATIN 40 MG TAB PO SCH (07:51)
[2020-12-11] MEDS: FUROSEMIDE 20 MG in SYRINGE 0 ML IV SCH (07:51)
[2020-12-11] MEDS: VENLAFAXINE HCL XR 75 MG CAPXR PO SCH (07:51)
--- NOTE | 2020-12-11 08:16 | Pulmonology Progress Note ---
Date of Service December 11, 2020 Assessment & Plan (1) Acute on chronic respiratory failure with hypoxemia: (2) Pneumonia: Plan: CT chest 12/08/2020 personally reviewed: Patchy opacities appreciated on the left lung. More dense in the left lower lobe Dependent atelectasis right lower lobe Minimal but insignificant mediastinal adenopathy Cardiomegaly Multiple CT chest done September 2020, August 2020 reviewed. Every single time patient had infiltrate on the left side of the lung --Acute on chronic hypoxic respiratory failure Secondary to multilobar pneumonia affecting left upper and left lower lobe COVID-19 PCR negative 12/08/2020 Procalcitonin 1.68 Nasal MRSA positive Continue with O2 supplementation to keep oxygen saturation between 88-92%. S/p bronchoscopy 12/10/2020, follow-up culture --COPD Not on any inhalers at home Continue with Incruse Plan: Continue with antibiotics for total of 7 days with atypical coverage for total of 5 days Follow-up urine Legionella and mycoplasma IgM Hold Lasix at the patient creatinine is starting to trend up. Resume Lovenox from pulmonary perspective Flutter valve, incentive spirometry Please note the above document was generated using voice recognition software. It may contain grammatical, syntax or spelling errors.Any formal questions or concerns about the content, text or information contained within the body of this dictation should be directly addressed to the provider for clarification. Admission and Anticipated Discharge Date Admission Date: December 08, 2020 Subjective Patient seen and examined at bedside. No acute distress, no adverse events overnight. Patient states that she still feels the same compared to yesterday. Has been coughing but not bringing up any phlegm. Denies any chest pain. Has been using incentive spirometry going up to only 1000 mL. Has been afebrile. No nausea or vomiting. Good appetite. Review of Systems Review of Systems: All systems reviewed & are unremarkable except as noted in Subjective Physical Exam Physical Exam: Constitutional: No acute distress HEENT: EOMI, PERRLA Respiratory system: Decreased air entry bilaterally, no wheeze, rhonchi, positiv e crackles bilateral lower lobes more on the left side CVS: S1-S2 positive, no murmurs or gallops Abdomen: Soft, nontender, nondistended, positive bowel sounds x4 Extremities: +2 pulses bilaterally radialis/ dorsalis pedis, no cyanosis, no edema Neuro: Awake alert oriented x3 Psych: Normal mood and affect G/U: No Pascual Skin: no rashes, warm and dry Lymphatic: no cervical or axillary lymphadenopathy Results & Data Results & Data ([facility]) Vital Signs (Past 12 Hours) Vital Signs Temp Pulse Pulse Resp BP BP Pulse Ox 12/11/20 08:04 36.6 C 92 H 22 136/87 91 12/11/20 07:18 71 16 94 12/11/20 03:57 36.6 C 62 24 108/67 94 12/10/20 23:43 36.7 C 77 24 131/80 92 12/10/20 23:05 74 12/11/20 03:28 12/11/20 03:28 PG Care Time/CCT Total # of Minutes Spent Total Time Spent with Patient: Total time spent is greater than 50% in coordination of care (as documented) at patient's floor/unit and/or counseling patient: Coding Level of Care Code 63111 Subseq Hosp Care Lvl 3 Diagnoses Acute on chronic respiratory failure with hypoxemia J96.21 Pneumonia J18.9
--- NOTE | 2020-12-11 08:26 | Pharmacy Report ---
Pharmacy Vanc AUC Short Note - Date of Service December 11, 2020 - Assessment & Plan Assessment 75 year old F receiving vancomycin and zosyn for treatment of multifocal pneumonia, + MRSA nasal swab. Blood cultures - NGTD. Bronch culture pending. Renal function deteriorating (SCr 0.95 -->0.84-->1.12-->1.31). Vancomycin level obtained this AM was not quite a steady state level and drawn ~ 16hr after the dose. Day # 4 of antimicrobial therapy. Plan Vancomycin * AUC/GOLDEN is the preferred PK/PD target for vancomycin * AUC guided dosing is effective and associated with decreased risk of nephrotoxicity compared to traditional trough targets * Trough level of 10.3 mcg/mL is predicted to achieve target AUC/GOLDEN of 400-600 mg/L.hr and may be associated with a 16% risk of nephrotoxicity * Due to declining renal function, plan to repeat trough this evening prior to the 2200 dose. Adjustments will be made if necessary pending the level. Pharmacy will continue to follow and will adjust dose/frequency as necessary. Thank you.
--- NOTE | 2020-12-11 10:06 | Hospitalist Progress Note ---
Date of Service December 11, 2020 Assessment & Plan (1) Sepsis: (2) Acute on chronic respiratory failure with hypoxemia: (3) Pneumonia: (4) Lactic acidosis: (5) Hypomagnesemia: (6) Hypertension: (7) Nocturnal hypoxemia: Plan: 75-year-old female who has significant past medical history of emphysema, nocturnal hypoxemia requiring 2 L of O2 at at bedtime, HTN, HLD and GERD, RLS, cerebellar ataxia, depression with anxiety, history of alcoholism who presents ED secondary to complaint of shortness of breath x 2 to 3 days. Patient with recurrent pneumonia requiring hospitalization, last hospitalized August 2020. On presentation patient met sepsis criteria secondary to leukocytosis, tachycardia and evidence of pneumonia on chest x-ray and chest CT. She received 1 L of IV fluid and IV Zosyn. Her lactic acid was elevated at 2.2 and repeat 2 hours later was 2.4. Of significance patient recently established with [facility] pulmonology to start work-up due to recurrent pneumonia. She underwent PFTs on 12/02 as well as autoimmune work-up. Her ELENI screen was p ositive, but c-ANCA, p-ANCA, ESR, SSA/Ro negative, RF negative. She underwent echocardiogram on 12/02 which revealed EF 55%, grade 1 diastolic dysfunction, no significant valvular abnormality. Normal pulm pressures MRSA screen is positive. No problems with swallowing. Even though MRSA pneumonia is a possibility, these make it less likely Continue antibiotics for now Bronchoscopy report noted Follow up BAL cultures/results Hypomagnesemia Mag was 1.5 on admission Repleted Currently 2.0 today BRODERICK today with Cr 1.3 Lasix on hold Hypertension Controlled Depression with anxiety Stable on effexor, trazodone, buspar, wellbutrin and clonazepam DVT ppx: lovenox held in view of possible bronchoscopy. Will resume afterwards Dispo:pcu FULL CODE PCP: Nakul Admission and Anticipated Discharge Date Admission Date: December 08, 2020 Subjective 75-year-old female who has significant past medical history of emphysema, nocturnal hypoxemia requiring 2 L of O2 at at bedtime, HTN, HLD and GERD, RLS, cerebellar ataxia, depression with anxiety, history of alcoholism who presents ED secondary to complaint of shortness of breath for some days. Being managed for acute on chronic respiratory failure with hypoxemia due to multifocal pneumonia. Patient seen and examined prior to bronchoscopy Still complains of shortness of breath and dry cough Denied any chest pain No fevers, chills, nausea, vomiting No abdominal pain or diarrhea today Review of Systems Review of Systems: Other review of system negative except as above Physical Exam Constitutional: + well hydrated; no acute distress Eyes: PERRL, conjunctivae normal, anicteric sclerae ENMT: external ear and nose normal, oropharynx normal Respiratory: normal respiratory effort; no respiratory distress Auscultation: + diminished lung sounds Cardiovascular: Rate/Rhythm: regular rate and regular rhythm S1 S2 Gastrointestinal (Abdomen): normal bowel sounds, soft, nontender, no hepatosplenomegaly Musculoskeletal: no cyanosis or clubbing, extremities motor strength 5/5 Neurologic: PERRL, EOMI, accommodation nl, no face palsy, no dysarthria Psychiatric: A+Ox3, euthymic affect Results & Data Results & Data ([facility]) Vital Signs (Past 12 Hours) Vital Signs Temp Pulse Pulse Resp BP BP Pulse Ox 12/11/20 08:04 36.6 C 92 H 22 136/87 91 12/11/20 08:00 66 12/11/20 07:18 71 16 94 12/11/20 03:57 36.6 C 62 24 108/67 94 12/10/20 23:43 36.7 C 77 24 131/80 92 12/10/20 23:05 74 Laboratory Results Abnormal lab results 12/11/20 12/11/20 Range/Units 03:28 03:28 RBC 3.82 L (4.2-5.4) M/uL Hgb 10.7 L (12.0-16.0) g/dL Hct 33.7 L (37-47) % MCHC 31.8 L (32-36) g/dL RDW Std Deviation 47.4 H (36.4-46.3) fL Chloride 109 H (98-107) mmol/L BUN 23 H (7-18) mg/dl Creatinine 1.31 H (0.6-1.2) mg/dl (1) Sepsis Sepsis acute organ dysfunction status: unspecified Sepsis type: sepsis due to unspecified organism Qualified Code(s): A41.9 - Sepsis, unspecified organism
[2020-12-11] MEDS: traZODone HCL 100 MG TAB PO SCH (20:02)
[2020-12-11] MEDS: ENOXAPARIN INJ 40 MG/0.4 ML SYR SQ SCH (20:02)
[2020-12-12] MEDS: traZODone HCL 100 MG TAB PO SCH (00:24)
[2020-12-12] MEDS: guaiFENesin/DEXTROM SYRUP 200MG/20MG 10ML UDC PO SCH ×4 (00:24→15:58)
[2020-12-12] MEDS: clonazePAM 1 MG TAB PO PRN (00:24)
[2020-12-12] MEDS: PIPERACILLIN/TAZOBACTAM 3.375 GM in DEXTROSE 5% 100 ML IV SCH ×3 (04:14→21:32)
[2020-12-12 05:55] LABS: Hematocrit (blood only) 35.2 % (37-47); Hemoglobin 11.4 g/dL (12.0-16.0); Mean Corpuscular Hemoglobin 28.4 pg (25-34); Mean Corpuscular Hgb Conc 32.4 g/dL (32-36); Mean Corpuscular Volume 87.8 fL (80-100); Platelet Count 233 K/uL (130-400); RDW Coefficient of Variation 14.5 % (11.5-14.5); RDW Standard Deviation 46.8 fL (36.4-46.3); Red Blood Count 4.01 M/uL (4.2-5.4); White Blood Count 5.85 K/uL (4.8-10.8)
[2020-12-12 06:27] LABS: Calcium 8.7 mg/dl (8.5-10.1); Creatinine Clr Calc Pharmacy 47.1 ml/min; Est GFR (African American) 56.4 ml/min; Est GFR (Non-African American) 48.7 ml/min; Magnesium 1.8 mg/dl (1.8-2.4); Potassium 3.6 mmol/L (3.5-5.1)
[2020-12-12] MEDS: ALBUT/IPRATROP 3MG/0.5MG NEB 3 ML VIAL NEB SCH ×4 (07:36→19:23)
[2020-12-12] MEDS: DOXYCYCLINE HYCLATE 100 MG CAP PO SCH ×2 (08:00→21:36)
[2020-12-12] MEDS: ATORVASTATIN 40 MG TAB PO SCH (08:00)
[2020-12-12] MEDS: FAMOTIDINE 20 MG TAB PO SCH (08:00)
[2020-12-12] MEDS: buPROPion SR 150 MG TABCR PO SCH ×2 (08:00→21:36)
[2020-12-12] MEDS: ASPIRIN 325 MG ECTAB PO SCH (08:01)
[2020-12-12] MEDS: GABAPENTIN 100 MG CAP PO SCH ×3 (08:01→21:36)
[2020-12-12] MEDS: VENLAFAXINE HCL XR 75 MG CAPXR PO SCH (08:01)
[2020-12-12] MEDS: busPIRone 5 MG TAB PO SCH ×2 (08:01→21:36)
[2020-12-12] MEDS: PANTOprazole 40 MG TAB PO SCH ×2 (08:01→21:36)
[2020-12-12] MEDS: UMECLIDINIUM BROMIDE 62.5MCG/BLISTER 7 PUFFS/INHALER INH SCH (08:02)
--- NOTE | 2020-12-12 09:02 | Pulmonology Progress Note ---
Date of Service December 12, 2020 Assessment & Plan (1) Acute on chronic respiratory failure with hypoxemia: (2) Pneumonia: Plan: CT chest 12/08/2020 personally reviewed: Patchy opacities appreciated on the left lung. More dense in the left lower lobe Dependent atelectasis right lower lobe Minimal but insignificant mediastinal adenopathy Cardiomegaly Multiple CT chest done September 2020, August 2020 reviewed. Every single time patient had infiltrate on the left side of the lung --Acute on chronic hypoxic respiratory failure Secondary to multilobar pneumonia affecting left upper and left lower lobe COVID-19 PCR negative 12/08/2020 Procalcitonin 1.68 Nasal MRSA positive Continue with O2 supplementation to keep oxygen saturation between 88-92%. S/p bronchoscopy 12/10/2020, follow-up culture --COPD Not on any inhalers at home Continue with Incruse Plan: Continue with antibiotics for total of 7 days with atypical coverage for total of 5 days Follow-up urine Legionella and mycoplasma IgM Flutter valve, incentive spirometry Repeat chest x-ray in 1 week after completion of antibiotics and repeat CT chest in 8 weeks Follow-up with outpatient potato loader which she already has. Please note the above document was generated using voice recognition software. It may contain grammatical, syntax or spelling errors.Any formal questions or concerns about the content, text or information contained within the body of this dictation should be directly addressed to the provider for clarification. Admission and Anticipated Discharge Date Admission Date: December 08, 2020 Subjective Patient seen and examined at bedside. No acute distress, no adverse events overnight. Patient overall feels better compared to coming to the hospital. Denies any fever or chills. Has been using incentive spirometry going up to only 1000 mL. Not bringing up any phlegm. Denies any chest pain. Good appetite. Review of Systems Review of Systems: All systems reviewed & are unremarkable except as noted in Subjective Physical Exam Physical Exam: Constitutional: No acute distress HEENT: EOMI, PERRLA Respiratory system: Decreased air entry bilaterally, no wheeze, rhonchi, positive crackles bilateral lower lobes more on the left side (improved compared to before) CVS: S1-S2 positive, no murmurs or gallops Abdomen: Soft, nontender, nondistended, positive bowel sounds x4 Extremities: +2 pulses bilaterally radialis/ dorsalis pedis, no cyanosis, no edema Neuro: Awake alert oriented x3 Psych: Normal mood and affect G/U: No Pascual Skin: no rashes, warm and dry Lymphatic: no cervical or axillary lymphadenopathy Results & Data Results & Data ([facility]) Vital Signs (Past 12 Hours) Vital Signs Temp Pulse Pulse Resp BP BP Pulse Ox 12/12/20 08:00 64 12/12/20 07:37 82 18 93 12/12/20 07:21 36.6 C 58 L 20 105/68 94 12/12/20 04:23 36.6 C 68 18 99/64 L 95 12/12/20 00:49 88 12/11/20 23:32 36.6 C 78 24 116/71 92 12/12/20 05:28 12/12/20 05:28 PG Care Time/CCT Total # of Minutes Spent Total Time Spent with Patient: Total time spent is greater than 50% in coordination of care (as documented) at patient's floor/unit and/or counseling patient: Coding Level of Care Code 83250 Subseq Hosp Care Lvl 2 Diagnoses Acute on chronic respiratory failure with hypoxemia J96.21 Pneumonia J18.9
--- NOTE | 2020-12-12 09:40 | Hospitalist Progress Note ---
Date of Service December 12, 2020 Assessment & Plan (1) Sepsis: (2) Acute on chronic respiratory failure with hypoxemia: (3) Pneumonia: (4) Lactic acidosis: (5) Hypomagnesemia: (6) Hypertension: (7) Nocturnal hypoxemia: Plan: 75-year-old female who has significant past medical history of emphysema, nocturnal hypoxemia requiring 2 L of O2 at at bedtime, HTN, HLD and GERD, RLS, cerebellar ataxia, depression with anxiety, history of alcoholism who presents ED secondary to complaint of shortness of breath x 2 to 3 days. Patient with recurrent pneumonia requiring hospitalization, last hospitalized August 2020. On presentation patient met sepsis criteria secondary to leukocytosis, tachycardia and evidence of pneumonia on chest x-ray and chest CT. She received 1 L of IV fluid and IV Zosyn. Her lactic acid was elevated at 2.2 and repeat 2 hours later was 2.4. Of significance patient recently established with [facility] pulmonology to start work-up due to recurrent pneumonia. She underwent PFTs on 12/02 as well as autoimmune work-up. Her ELENI screen was p ositive, but c-ANCA, p-ANCA, ESR, SSA/Ro negative, RF negative. She underwent echocardiogram on 12/02 which revealed EF 55%, grade 1 diastolic dysfunction, no significant valvular abnormality. Normal pulm pressures MRSA screen is positive. No problems with swallowing. Even though MRSA pneumonia is a possibility, these make it less likely Continue antibiotics for now to complete 7 days of therapy Bronchoscopy report noted BAL cultures/results no growth at this time Symptoms improving Wean oxygen. Check 2 step prior to discharge Hypomagnesemia Mag was 1.5 on admission Repleted Currently 1.8 today Mild BRODERICK improving Resume home po lasix Hypertension Controlled Depression with anxiety Stable on effexor, trazodone, buspar, wellbutrin and clonazepam DVT ppx: lovenox held in view of possible bronchoscopy. Will resume afterwards Dispo:Possible discharge tomorrow. Will likely need oxygen. FULL CODE PCP: Nakul Admission and Anticipated Discharge Date Admission Date: December 08, 2020 Subjective 75-year-old female who has significant past medical history of emphysema, nocturnal hypoxemia requiring 2 L of O2 at at bedtime, HTN, HLD and GERD, RLS, cerebellar ataxia, depression with anxiety, history of alcoholism who presents ED secondary to complaint of shortness of breath for some days. Being managed for acute on chronic respiratory failure with hypoxemia due to multifocal pneumonia. Patient seen and examined Reports improvement in shortness of breath and dry cough Denied any chest pain Review of Systems Review of Systems: Other review of system negative except as above Physical Exam Constitutional: + well hydrated; no acute distress Eyes: PERRL, conjunctivae normal, anicteric sclerae ENMT: external ear and nose normal, oropharynx normal Respiratory: normal respiratory effort; no respiratory distress Auscultation: + diminished lung sounds Currently on 3l/min nasal oxygen Cardiovascular: Rate/Rhythm: regular rate and regular rhythm S1 S2 Gastrointestinal (Abdomen): normal bowel sounds, soft, nontender, no h epatosplenomegaly Musculoskeletal: no cyanosis or clubbing, extremities motor strength 5/5 Neurologic: PERRL, EOMI, accommodation nl, no face palsy, no dysarthria Psychiatric: A+Ox3, euthymic affect Results & Data Results & Data ([facility]) Vital Signs (Past 12 Hours) Vital Signs Temp Pulse Pulse Resp BP BP Pulse Ox 12/12/20 08:00 64 12/12/20 07:37 82 18 93 12/12/20 07:21 36.6 C 58 L 20 105/68 94 12/12/20 04:23 36.6 C 68 18 99/64 L 95 12/12/20 00:49 88 12/11/20 23:32 36.6 C 78 24 116/71 92 Laboratory Results Abnormal lab results 12/12/20 12/12/20 Range/Units 05:28 05:28 RBC 4.01 L (4.2-5.4) M/uL Hgb 11.4 L (12.0-16.0) g/dL Hct 35.2 L (37-47) % RDW Std Deviation 46.8 H (36.4-46.3) fL Chloride 108 H (98-107) mmol/L BUN 21 H (7-18) mg/dl Glucose 105 H (70-99) mg/dl (1) Sepsis Sepsis acute organ dysfunction status: unspecified Sepsis type: sepsis due to unspecified organism Qualified Code(s): A41.9 - Sepsis, unspecified organism
[2020-12-12] MEDS: VANCOMYCIN HCL 1,250 MG in SODIUM CHLORIDE 0.9% 250 ML IV SCH (15:58)
[2020-12-12] MEDS: ENOXAPARIN INJ 40 MG/0.4 ML SYR SQ SCH (21:36)
[2020-12-13] MEDS: guaiFENesin/DEXTROM SYRUP 200MG/20MG 10ML UDC PO SCH ×3 (01:01→10:57)
[2020-12-13] MEDS: clonazePAM 1 MG TAB PO PRN (01:02)
[2020-12-13] MEDS: traZODone HCL 100 MG TAB PO SCH (01:02)
[2020-12-13] MEDS: PIPERACILLIN/TAZOBACTAM 3.375 GM in DEXTROSE 5% 100 ML IV SCH ×2 (04:55→11:46)
[2020-12-13 07:10] LABS: BUN Creatinine Ratio 15.7 (10-20); Calcium 8.8 mg/dl (8.5-10.1); Creatinine Clr Calc Pharmacy 46.9 ml/min; Est GFR (African American) 55.8 ml/min; Est GFR (Non-African American) 48.2 ml/min; Potassium 3.8 mmol/L (3.5-5.1)
[2020-12-13] MEDS: ALBUT/IPRATROP 3MG/0.5MG NEB 3 ML VIAL NEB SCH ×2 (07:17→10:51)
[2020-12-13] MEDS: busPIRone 5 MG TAB PO SCH (07:30)
[2020-12-13] MEDS: FAMOTIDINE 20 MG TAB PO SCH (07:30)
[2020-12-13] MEDS: DOXYCYCLINE HYCLATE 100 MG CAP PO SCH (07:30)
[2020-12-13] MEDS: VENLAFAXINE HCL XR 75 MG CAPXR PO SCH (07:30)
[2020-12-13] MEDS: GABAPENTIN 100 MG CAP PO SCH (07:30)
[2020-12-13] MEDS: PANTOprazole 40 MG TAB PO SCH (07:30)
[2020-12-13] MEDS: ATORVASTATIN 40 MG TAB PO SCH (07:31)
[2020-12-13] MEDS: buPROPion SR 150 MG TABCR PO SCH (07:31)
[2020-12-13] MEDS: UMECLIDINIUM BROMIDE 62.5MCG/BLISTER 7 PUFFS/INHALER INH SCH (07:31)
[2020-12-13] MEDS: ASPIRIN 325 MG ECTAB PO SCH (07:31)
[2020-12-13] MEDS ORDERED: FUROSEMIDE 40 MG TAB PO SCH (09:00)
[2020-12-13] MEDS: VANCOMYCIN HCL 1,250 MG in SODIUM CHLORIDE 0.9% 250 ML IV SCH (09:22)
--- NOTE | 2020-12-13 11:48 | Discharge Summary ---
Date of Service December 13, 2020 Admission HPI Per Admitting Provider This is a 75-year-old female who has significant past medical history of emphysema, nocturnal hypoxemia requiring 2 L of O2 at at bedtime, HTN, HLD and GERD, RLS, cerebellar ataxia, depression with anxiety, history of alcoholism who presents ED secondary to complaint of shortness of breath x2 to 3 days. Pt c/o SOB x 2-3 days. Last night SOB continued to get worse. SOB occurs at rest w/o oxygen and with exertion. She developed a wet cough last night, but unable to produce it. She denies f/c/s, dizziness, lightheaded, chest pain, hemopytsis, URI sx, n/v/d, abdominal pain, dysuria, increased urg/freq, melena, h ematochezia. She felt very weak this morning when she got up. She was out in the kitchen and tried to walk to her bedroom and she fell b/c of the weakness. She denies injury, she did not pass out and she did not hit her head. She recently had PFT done. Hx of smoking, quite 22 years ago. No 2nd hand exposure. She has hx of PNA in the past, last required hospitalization in August 2020. She denies sick contacts of travel. She is fully vaccinated for covid-19 since July, . She denies difficulty with swallowing or choking on food. She does use oxygen at home at night, 2L. She was told her oxygen drops at night, but doesn't know why. She has been on nocturnal oxygen for 3 years. In ED pt was hypoxic and met sepsis criteria. She was treated with broad spectrum antibiotics and 1L of IVF due to elevated lactic acid. CTA chest reveals multifocal pneumonia. Principal Diagnosis Acute on chronic respiratory failure with hypoxia Multifocal pneumonia Hypomagnesemia. Discharge Exam Constitutional + well hydrated; no acute distress Eyes PERRL, conjunctivae normal, anicteric sclerae ENMT external ear and nose normal, oropharynx normal Respiratory normal respiratory effort; no respiratory distress Auscultation: + diminished lung sounds On 2l/min nasal oxygen Cardiovascular Rate/Rhythm: regular rate and regular rhythm S1 S2 Gastrointestinal (Abdomen) normal bowel sounds, soft, nontender, no hepatosplenomegaly Musculoskeletal no cyanosis or clubbing, extremities motor strength 5/5 Neurologic PERRL, EOMI, accommodation nl, no face palsy, no dysarthria Psychiatric A+Ox3, euthymic affect Discharge Data Allergies Allergy/AdvReac Type Severity Reaction Status Date / Time levofloxacin AdvReac Unknown abnormal Verified 12/08/20 14:21 heart issues Consultations 12/08/20 14:50 ED Decision to Admit Stat 12/08/20 15:32 Consult Pulmonology Routine Procedures Performed Operation Date: 12/10/20 10:00 Actual Procedures p Bronchoscopy - Sotero Pelaez MD After obtaining an informed consent, the patient was brought to the Bronchoscopy Suite. The patient had appropriate oxygen, blood pressure, heart rate, and respiratory rate monitoring applied and monitored continuously throughout the procedure. Supplemental oxygen via nasal cannula as per nursing records was applied to the nasopharynx with adequate saturations achieved. Topical anesthesia with nebulized 1% lidocaine was achieved. Subsequent to this, the patient was premedicated with 4 mg of midazolam and 100 mcg of fentanyl. Upper Airway: The oropharynx and larynx were well visualized and showed mild erythema, otherwise negative. There was normal vocal cord motion without masses or lesions. Additional topical anesthesia with 1% lidocaine was applied to the trachea and abdon. The trachea appeared normal. Thick yellow secretion was appreciated in the trachea as well as the abdon. The bronchoscope was then advanced through the abdon, which was sharp. The scope was then advanced into the right main stem and each segment, subsegement in the right upper lobe, right middle lobe and right lower lobe were visualized. There were moderate amount of yellowish secretion which was suctioned out right at the right main. There were no other findings including evidence of mass, anatomic distortions, or hemorrhage. The bronchoscope was subsequently withdrawn and advanced into the left mainstem. Again, each segment and subsegment was well visualized. No specific masses or other lesions were identified throughout the tracheobronchial tree on the left. There was moderate amount of yellowish secretions in the upper as well as lower lobe which were suctioned out. Patient did have very friable mucosa on the left lung and bled very easily even to suction. The bronchoscope was then wedged in the [] and bronchoalveolar lavage samples were obtained. 100 ml of saline was instilled and 25 ml of fluid was aspirated back.The bronchoscope was withdrawn and the area was suctioned clear. The bronchoscope was then withdrawn to the mainstem. The area was suctioned clear. The bronchoscope was then withdrawn. The patient tolerated the procedure well without evidence of desaturation or complications. Bronchoalveolar lavage samples were sent for cell count, Gram stain and bacterial culture, AFB culture and smear, fungal culture and smear. Transbronchial biopsies were sent for tissue culture (bacteria, AFB and fungal) and pathology. Ordered Studies 12/08/20 11:42 CT angio chest PE protocol Stat No pulmonary emboli are identified although the segmental and subsegmental pulmonary arteries are suboptimally assessed due to respiratory motion. There is moderate cardiomegaly. There is no pericardial effusion. No thoracic aortic dissection is noted. There is a small hiatal hernia. There are prominent mediastinal and bilateral hilar lymph nodes which are likely reactive. Lungs are suboptimally assessed due to respiratory motion. There is emphysema. No pneumothorax or pleural effusion is noted. Extensive left lung airspace opacity is present. There is mild right lower lobe airspace opacity. There is mild right lower lobe opacity. There is may be mild superimposed pulmonary edema. Pneumobilia is noted. A right hepatic lobe cyst is incidentally noted. IMPRESSION: 1. No pulmonary emboli identified although exam moderately compromised by respiratory motion. 2. Extensive extensive left lung airspace opacities with mild right lower lobe airspace opacity. The findings favor multifocal pneumonia. Possible mild superimposed pulmonary edema. 3. Cardiomegaly. Hospital Course (1) Sepsis: (2) Acute on chronic respiratory failure with hypoxemia: (3) Pneumonia: (4) Lactic acidosis: (5) Hypomagnesemia: (6) Hypertension: (7) Nocturnal hypoxemia: 75-year-old female who has significant past medical history of emphysema, nocturnal hypoxemia requiring 2 L of O2 at at bedtime, HTN, HLD and GERD, RLS, cerebellar ataxia, depression with anxiety, history of alcoholism who presents ED secondary to complaint of shortness of breath x 2 to 3 days. Patient with recurrent pneumonia requiring hospitalization, last hospitalized August 2020. On presentation patient met sepsis criteria secondary to leukocytosis, tachycardia and evidence of pneumonia on chest x-ray and chest CT. She received 1 L of IV fluid and IV Zosyn. Her lactic acid was elevated at 2.2 and repeat 2 hours later was 2.4. Of significance patient recently established with [facility] pulmonology to start work-up due to recurrent pneumonia. She underwent PFTs on 12/02 as well as autoimmune work-up. Her ELENI screen was positive, but c-ANCA, p-ANCA, ESR, SSA/Ro negative, RF negative. She underwent echocardiogram on 12/02 which revealed EF 55%, grade 1 diastolic dysfunction, no significant valvular abnormality. Normal pulm pressures MRSA screen is positive. No problems with swallowing. Even though MRSA pneumonia is a possibility, these make it less likely Was initially started on iv vancomycin, zosyn as well as doxycycline (for atypical coverage) Was evaluated by Transcriber and had bronchoscopy. Bronchoscopy report noted above BAL cultures/results no growth at this time Symptoms improving Oxygen was weaned down to 2l/min. 2 step ambulatory pulse ox determined patient needs oxygen at 2l/min at rest and with activity Patient discharged on augmentin for 2 more days to complete 7 day therapy Patient also had hypomagnesemia on admission and this was repleted She needs to follow up with Pulmonology. Total Time Total Time Spent Total Time Spent (In Minutes): 50 Total Time Includes: Examination of the Patient, Discharge Planning and Medication Reconciliation Discharge Plan Discharge Items Patient Disposition: Home - Self-Care Reason For Visit: Shortness of breath Discharge Diagnosis: Acute on chronic respiratory failure with hypoxia Multifocal pneumonia Hypomagnesemia. Activity: Resume your previous activity Non-emergency contact: Primary Care Provider and Transcriber Call non-emergency contact if: you have any medication questions and your symptoms worsen Follow-up/Referrals: Williams Mota MD [Primary Care Provider] - Diet: Heart Healthy Addtl Attending Provider Instructions: Mrs. Alanis. You came to the hospital for worsening shortness of breath and cough. You were evaluated and found to have multifocal pneumonia. You were evaluated by tobacco drying machine operator and had a bronchoscopy. You were treated with IV antibiotics. You are being discharged on oral antibiotics for 2 more days to complete treatment. You also required more oxygen than your baseline. You are being discharged on nasal oxygen at 2 L/min both at rest and with activity. It is very important that you follow-up with your primary care doctor as well as your tobacco drying machine operator. It was a pleasure taking care of you. Pending Studies at Discharge: No Stand-Alone Forms: My [employer] Materials, Smoking Cessation Medications and DC Order Prescriptions: New amoxicillin-pot clavulanate [Augmentin] 875-125 mg tablet 1 tab PO BID 2 Days Qty: 4 RF: 0 Incruse Ellipta 62.5 mcg/actuation Blister With Device 1 inh inhalation DAILY 30 Days Qty: 30 RF: 0 Continued bupropion HCl 150 mg tablet sustained-release 12 hr 150 mg PO BID RF: 0 atorvastatin 80 mg tablet 80 mg PO QAM RF: 0 clonazepam 1 mg tablet 1 mg PO TID PRN (Reason: Anxiety) RF: 0 omeprazole 40 mg capsule,delayed release(DR/EC) 40 mg PO BID RF: 0 trazodone 300 mg Tablet 300 mg PO HS RF: 0 furosemide 20 mg tablet 40 mg PO QAM RF: 0 potassium chloride 20 mEq tablet extended release 20 meq PO DAILY RF: 0 famotidine 40 mg tablet 20 mg PO DAILY RF: 0 buspirone 5 mg Tablet 5 mg PO BID RF: 0 venlafaxine 75 mg capsule,extended release 24hr 75 mg PO QAM RF: 0 ibuprofen 200 mg Tablet 200 mg PO Q6H PRN (Reason: Pain) RF: 0 gabapentin 100 mg capsule 100 mg PO TID RF: 0 Bioflex 133-68-01-40 mg Tablet 1 tab PO QAM RF: 0 aspirin 325 mg tablet,delayed release (DR/EC) 325 mg PO DAILY RF: 0 Discharge Orders: Discharge Order (Routine); Ordered 12/13/20 Ordered By: Indy Cornelius/Other Patient Handouts: Using Oxygen Safely, What Is Pneumonia?, Traveling with Oxygen, Using an Oxygen Tank at Home Admission Data Admit Date/Time: 12/08/20 14:58 Attending Provider: Indy Ku I. Admit Provider: Reyes Webster Primary Care Provider: Williams Mota Other Providers: Sotero Pelaez ; Reyes Webster Other Interventions: Discharge Summary Assessment (RN) Last Done: 12/13/20 12:01
[2020-12-23 04:12] LABS: Source LUNG BIOPSY BAL LLL
== END 2020-12-13 13:09 | disposition home or self-care (01) | DRG 871 ==
LOC: ED 10:07 → 2S 14:58 → SUATTDRO 14:58 → 2S 15:44

== ENCOUNTER 2021-03-02 09:43 | Inpatient (IN) ==
--- NOTE | 2021-03-02 11:15 | Emergency Department Note ---
Impression & Plan Acute hypoxemic respiratory failure, Emphysema lung ED Provider Note NAME: RADHA SÁNCHEZ AGE: 76 SEX: F : 1945 ARRIVES VIA: Walk-In INFORMANT: Patient, ED PROVIDER(S): Jonn Weaver MD Chief Complaint: Shortness of breath HPI: Patient does present due to concern for shortness of breath. The patient states that is been ongoing and worsening over the last 2 days or so. The patient has not had any productive cough. The patient had checked her pulse oximeter at home which showed she was in the high 80s. The patient does wear oxygen at nighttime but not during the day. Patient denies any fevers or chills. The patient does have a known history of emphysema and nocturnal hypoxemia. The patient did try her lung medications and inhalers but without significant improvement in symptoms. No prior history of DVT or PE. The patient denies any recent travel or known sick contacts. The patient is vaccinated for COVID-19. The patient does complain of worsening exertional dyspnea but no orthopnea no lower extremity edema. Patient denies any recent surgeries or procedures. Patient had called her primary care office today and was referred here for further evaluation and treatment. Patient has a known history of emphysema nocturnal hypoxemia 2 L at bedtime, hypertension hyperlipidemia GERD, restless leg, cerebellar ataxia depression anxiety and history of alcoholism. ROS: See HPI for pertinent positives and negatives. A total of 10 systems were reviewed and otherwise negative. Past medical history: See below Surgical history: See below Social history: See below Physical Exam: GENERAL: NAD, wearing glasses, wearing a mask, non-toxic. EYE EXAM: Normal conjunctiva. PERRL, no anisocoria and EOM's grossly intact w/o pain. NECK: Supple, no nuchal rigidity, no adenopathy, non-tender. No signs of meningismus. FROM of the neck with good chin to chest and neck extension. No stridor. LUNGS: Bibasilar crackles and decreased breath sounds. Normal chest wall mechanics. HEART: NSR, no MRG. ABDOMEN: Abdomen soft, non-tender, normo-active bowel sounds, no masses, no rebound or guarding. BACK: No CVA TTP. SKIN: No rashes and no bruising. UPPER EXTREMITIES: Upper extremities are grossly normal. LOWER EXTREMITIES: Grossly normal, no edema. Negative Homans' sign bilaterally. NEURO EXAM: A&O x3, cranial nerves II-XII grossly intact, normal speech, moves all 4 extremities on command w/o issue. Differential diagnoses: Reactive airway disease, pneumonia, pneumothorax, COPD, CHF, infections, cardiac ischemia, pulmonary embolism, musculoskeletal, gastrointestinal, as well as other pathologies. Course: Patient was seen and evaluated the bedside. Full history physical exam was performed. EKG interpreted by me Sinus, rate 62, normal intervals, normal axis, no ST changes or T WI. Imaging Studies: See Below Cardiac monitoring: An order was placed for continuous cardiac monitoring. The monitor shows a rate of 72 with sinus rhythm. MDM: Patient was seen due to concern for shortness of breath. The patient was treated symptomatically given her history of emphysema. Patient does not appear to be volume overloaded. The patient did receive IV fluids steroids magnesium and DuoNeb treatment for 1 hour. The patient has a normal white counts with virtually normal hemoglobin 11.6 and normal platelet count. The patient's kidney function is unremarkable. Troponin and BNP are not elevated. Covid negative. Chest x-ray does does not show any obvious consolidation. No obvious consolidation. Patient did undergo an pulse oximeter ambulatory trial posttreatments and was significantly dyspneic and did desat into the mid 80s. Patient was placed on supplemental nasal cannula oxygen. I did speak the on- call hospitalist Alex Medrano PA-C and the patient was admitted by Dr. Middleton. Critical Care: I have personally spent 47 minutes of critical care time in direct management of this patient. This includes bedside care, interpretation of diagnostic studies, and testing, discussion with consultants, patient, and family members, and other require inpatient management activities. This 47 minutes is in excess of all separately billable procedures. Past Med/Surg History Medical History Anxiety Cerebellar ataxia Chronic back pain GERD (gastroesophageal reflux disease) History of alcoholism Hyperlipidemia Hypertension IBS (irritable bowel syndrome) Lactose intolerance Nocturnal hypoxemia On home oxygen therapy 2 LPM AT NIGHT Osteoarthritis Spinal stenosis Stroke MRI OBTAINED 02/2018 [place] R/T VISUAL DISTURBANCES - 4 "MINI STROKES" - PROVIDER UNABLE TO DETERMINE IF ACUTE VS OLD PER PT REPORT - SAW DR.VICTORIA AGRAWAL, NEURO Surgical History History of bilateral tubal ligation History of cholecystectomy History of colonoscopy History of esophagogastroduodenoscopy (EGD) History of tooth extraction History of total hip arthroplasty RT Hx of LASIK Family History Father Stroke Social History Smoking Status: Never smoker Second Hand Exposure: No; Hx Alcohol Use: No Hx Substance Use: No Preferred Language: Com[place]an Communication Ability: Effective Visual Impairment: No Limitations [employer] Required: No Beliefs That Will Affect Care: None marital status: Current Living Situation: Family Current Living Situation Comment: Lives with and daughter Feels Safe at Home: Yes Assistive Devices: Glasses Allergies Allergies Allergy/AdvReac Type Severity Reaction Status Date / Time levofloxacin AdvReac Unknown abnormal Verified 03/02/21 11:28 heart issues Home Meds Home Medications Medication Instructions Recorded Confirmed atorvastatin 80 mg tablet 80 mg PO PM 02/09/18 03/02/21 bupropion HCl 150 mg tablet,12 hr 150 mg PO BID 02/09/18 03/02/21 sustained-release clonazepam 1 mg tablet 1 mg PO TID PRN 02/09/18 03/02/21 trazodone 300 mg tablet 300 mg PO HS 02/09/18 03/02/21 furosemide 20 mg tablet 20 mg PO UD 08/27/19 03/02/21 potassium chloride 20 mEq 20 meq PO DAILY 08/27/19 03/02/21 tablet,extended release gabapentin 100 mg capsule 100 mg PO UD 08/09/20 03/02/21 ibuprofen 200 mg tablet 200 mg PO Q6H PRN 08/09/20 03/02/21 venlafaxine 75 mg capsule,extended 75 mg PO QAM 08/09/20 03/02/21 release 24 hr aspirin 325 mg tablet,delayed 325 mg PO DAILY 08/10/20 03/02/21 release buspirone 5 mg tablet 5 mg PO BID 12/08/20 03/02/21 famotidine 40 mg tablet 20 mg PO DAILY 12/08/20 03/02/21 albuterol sulfate 90 mcg/actuation 2 puff INHALATION Q4H PRN 03/02/21 03/02/21 aerosol inhaler fluticasone furoate 100 1 inh INHALATION DAILY 03/02/21 03/02/21 mcg-vilanterol 25 mcg/dose inhalation powder (Breo Ellipta) metoprolol succinate 25 mg 12.5 mg PO DAILY 03/02/21 03/02/21 tablet,extended release 24 hr pantoprazole 40 mg tablet,delayed 40 mg PO DAILY 03/02/21 03/02/21 release sucralfate 1 gram tablet 1 g PO UD 03/02/21 03/02/21 umeclidinium 62.5 mcg/actuation 1 inh INHALATION 03/02/21 blister powder for inhalation (Incruse Ellipta) Results & Data (ED) Vital Signs Vital Signs - 24 hr 03/02/21 09:57 03/02/21 11:09 03/02/21 11:22 Temperature 36.7 C Temperature Source Temporal Artery Scan Oral Pulse Rate 70 61 Pulse Rate from SpO2 Sensor Respiratory Rate 20 17 Respiratory Effort / Characteristics Non-Labored Spontaneous Respiratory Depth Normal Blood Pressure 111/72 Blood Pressure Mean 85 Blood Pressure Position Sitting Pulse Oximetry 90 Pulse Oximetry [Exercises] Oxygen Delivery Method Room Air Room Air Oxygen Flow Rate Sepsis Recent Fever Within 48 Hours No Sepsis New/Unexplained Change in Mental Status N/A Sepsis Action Taken by Nursing No Action Required 03/02/21 11:35 03/02/21 11:58 03/02/21 12:11 Temperature Temperature Source Pulse Rate Pulse Rate from SpO2 Sensor Respiratory Rate 20 Respiratory Effort / Characteristics Spontaneous Short of Breath Respiratory Depth Blood Pressure 131/78 Blood Pressure Mean 95 Blood Pressure Position Pulse Oximetry 92 94 Pulse Oximetry [Exercises] Oxygen Delivery Method Room Air Nasal Cannula Oxygen Flow Rate 2 Sepsis Recent Fever Within 48 Hours Sepsis New/Unexplained Change in Mental Status Sepsis Action Taken by Nursing 03/02/21 12:47 03/02/21 13:00 03/02/21 13:30 Temperature Temperature Source Pulse Rate 62 65 65 Pulse Rate from SpO2 Sensor 61 60 Respiratory Rate 15 21 15 Respiratory Effort / Characteristics Respiratory Depth Blood Pressure Blood Pressure Mean Blood Pressure Position Pulse Oximetry 98 87 L Pulse Oximetry [Exercises] Oxygen Delivery Method Oxygen Flow Rate Sepsis Recent Fever Within 48 Hours Sepsis New/Unexplained Change in Mental Status Sepsis Action Taken by Nursing 03/02/21 13:32 03/02/21 14:00 Temperature Temperature Source Pulse Rate 65 Pulse Rate from SpO2 Sensor 68 Respiratory Rate 15 Respiratory Effort / Characteristics Respiratory Depth Blood Pressure 130/71 Blood Pressure Mean 90 Blood Pressure Position Pulse Oximetry 93 Pulse Oximetry [Exercises] 86 L Oxygen Delivery Method Room Air Oxygen Flow Rate Sepsis Recent Fever Within 48 Hours Sepsis New/Unexplained Change in Mental Status Sepsis Action Taken by Residential Medications Current Medication List: was personally reviewed by me Laboratory Data Attestation: I reviewed the patient's lab results. Result diagrams: 03/02/21 11:10 03/02/21 11:10 Lab Results 03/02/21 03/02/21 03/02/21 Range/Units 11:10 11:10 11:15 WBC 6.34 (4.8-10.8) K/uL RBC 4.41 (4.2-5.4) M/uL Hgb 11.6 L (12.0-16.0) g/dL Hct 38.0 (37-47) % MCV 86.2 (80-100) fL MCH 26.3 (25-34) pg MCHC 30.5 L (32-36) g/dL RDW Std Deviation 45.1 (36.4-46.3) fL RDW Coeff of Sharon 14.4 (11.5-14.5) % Plt Count 275 (130-400) K/uL MPV 10.5 H (7.4-10.4) fL Immature Gran % (Auto) 0.3 % Neut % (Auto) 61.5 % Lymph % (Auto) 26.0 % [place] % (Auto) 8.0 % Eos % (Auto) 3.3 % Baso % (Auto) 0.9 % Neut # (Auto) 3.89 (1.4-6.5) K/uL Lymph # (Auto) 1.65 (1.2-3.4) K/uL [place] # (Auto) 0.51 (0.11-0.59) K/uL Eos # (Auto) 0.21 (0-0.5) K/uL Baso # (Auto) 0.06 (0-0.2) K/uL Immature Gran # (Auto) 0.02 (0.00-0.02) K/uL Sodium 139 (136-145) mmol/L Potassium 3.9 (3.5-5.1) mmol/L Chloride 105 (98-107) mmol/L Carbon Dioxide 28 (21-32) mmol/L Anion Gap 6.0 (3-11) BUN 17 (7-18) mg/dl Creatinine 1.00 (0.6-1.2) mg/dl Est Cr Clr Drug Dosing 52.1 ml/min Est GFR ( Amer) 64.3 ml/min Est GFR (Non-Af Amer) 55.5 ml/min BUN/Creatinine Ratio 16.7 (10-20) Glucose 100 H (70-99) mg/dl Calcium 9.1 (8.5-10.1) mg/dl Total Bilirubin 0.4 (0.2-1) mg/dl AST 11 L (15-37) U/L ALT 19 (12-78) U/L Alkaline Phosphatase 118 H (45-117) U/L Troponin I < 0.015 (0-0.045) ng/ml NT-Pro-B Natriuret Pep (0-900) pg/ml Total Protein 7.4 (6.4-8.2) gm/dl Albumin 3.4 (3.4-5.0) gm/dl Globulin 4.0 (2.5-4.0) gm/dl Albumin/Globulin Ratio 0.9 (0.9-2) SARS-CoV-2 (PCR) NEGATIVE (Negative) 03/02/21 Range/Units 11:39 WBC (4.8-10.8) K/uL RBC (4.2-5.4) M/uL Hgb (12.0-16.0) g/dL Hct (37-47) % MCV (80-100) fL MCH (25-34) pg MCHC (32-36) g/dL RDW Std Deviation (36.4-46.3) fL RDW Coeff of Sharon (11.5-14.5) % Plt Count (130-400) K/uL MPV (7.4-10.4) fL Immature Gran % (Auto) % Neut % (Auto) % Lymph % (Auto) % [place] % (Auto) % Eos % (Auto) % Baso % (Auto) % Neut # (Auto) (1.4-6.5) K/uL Lymph # (Auto) (1.2-3.4) K/uL [place] # (Auto) (0.11-0.59) K/uL Eos # (Auto) (0-0.5) K/uL Baso # (Auto) (0-0.2) K/uL Immature Gran # (Auto) (0.00-0.02) K/uL Sodium (136-145) mmol/L Potassium (3.5-5.1) mmol/L Chloride (98-107) mmol/L Carbon Dioxide (21-32) mmol/L Anion Gap (3-11) BUN (7-18) mg/dl Creatinine (0.6-1.2) mg/dl Est Cr Clr Drug Dosing ml/min Est GFR ( Amer) ml/min Est GFR (Non-Af Amer) ml/min BUN/Creatinine Ratio (10-20) Glucose (70-99) mg/dl Calcium (8.5-10.1) mg/dl Total Bilirubin (0.2-1) mg/dl AST (15-37) U/L ALT (12-78) U/L Alkaline Phosphatase (45-117) U/L Troponin I (0-0.045) ng/ml NT-Pro-B Natriuret Pep 251 (0-900) pg/ml Total Protein (6.4-8.2) gm/dl Albumin (3.4-5.0) gm/dl Globulin (2.5-4.0) gm/dl Albumin/Globulin Ratio (0.9-2) SARS-CoV-2 (PCR) (Negative) Administered Medications Methylprednisolone (Methylprednisolone 40 Mg/Ml Vial) 40 mg IV Q8H WILLIAMS Stop: 04/01/21 15:46 Last Admin: 03/02/21 16:41 Dose: 40 mg Documented by: [id number] Discontinued Medications Albuterol (Albut/Ipratrop 3mg/0.5mg Neb 3 Ml Vial) 12 ml INH ONE STA Stop: 03/02/21 11:36 Last Admin: 03/02/21 12:10 Dose: 12 ml Documented by: [id number] Furosemide (Furosemide Inj 20 Mg/2 Ml Vial) 20 mg IV ONE ONE Stop: 03/02/21 15:42 Last Admin: 03/02/21 16:41 Dose: 20 mg Documented by: [id number] Sodium Chloride (Nss) 500 mls @ 999 mls/hr IV .Q31M STA Stop: 03/02/21 12:05 Last Infusion: 03/02/21 12:44 Dose: 0 mls/hr Documented by: [id number] Admin: 03/02/21 11:57 Dose: 999 mls/hr Documented by: [id number] Magnesium Sulfate/Dextrose (Magnesium Sulfate / D5w) 1 gm in 100 mls @ 100 mls/hr IV NOW STA Stop: 03/02/21 12:35 Last Infusion: 03/02/21 12:57 Dose: 0 mls/hr Documented by: [id number] Admin: 03/02/21 11:57 Dose: 100 mls/hr Documented by: [id number] Methylprednisolone (Methylprednisolone 125 Mg/2 Ml Vial) 60 mg IV NOW STA Stop: 03/02/21 11:36 Last Admin: 03/02/21 11:57 Dose: 60 mg Documented by: [id number] Metoprolol Succinate (Metoprolol Succ 50mg Ext Rel Tab) 12.5 mg PO NOW STA Stop: 03/02/21 15:42 Last Admin: 03/02/21 16:42 Dose: 12.5 mg Documented by: [id number] Pantoprazole Sodium (Pantoprazole 40 Mg Tab) 40 mg PO NOW STA Stop: 03/02/21 15:42 Last Admin: 03/02/21 16:43 Dose: 40 mg Documented by: [id number] Potassium Chloride (Potassium Chloride Crtab 20 Meq Tabcr) 20 meq PO NOW STA Stop: 03/02/21 15:42 Last Admin: 03/02/21 16:42 Dose: 20 meq Documented by: [id number] Imaging Data Radiologist's Impression: Chest X-Ray 03/02/21 11:35 XR chest 1V portable CLINICAL HISTORY: Dyspnea. COMPARISON STUDY: 12/10/2020 TECHNIQUE: 1 view of the chest FINDINGS: Single frontal view of the chest demonstrates the cardiomediastinal silhouette to be within normal limits. The lungs are clear of alveolar opacities. There is no evidence for pleural effusion. There is no evidence for vascular congestion. There is no acute osseous pathology. IMPRESSION: No acute cardiopulmonary disease. ACT 112: Negative or not required by law. Electronically signed by: Josué Mattson M.D. 03/02/2021 11:47 AM Discharge Plan Visit Data Chief Complaint: Shortness of Breath/Dyspnea Stated Complaint: SOB ED Provider: Jonn Weaver Discharge Problem: Acute hypoxemic respiratory failure, Emphysema lung Patient Disposition: Admitted As Inpatient Prescriptions Prescriptions: No Action bupropion HCl 150 mg tablet sustained-release 12 hr 150 mg PO BID RF: 0 atorvastatin 80 mg tablet 80 mg PO PM RF: 0 clonazepam 1 mg tablet 1 mg PO TID PRN (Reason: Anxiety) RF: 0 trazodone 300 mg Tablet 300 mg PO HS RF: 0 furosemide 20 mg tablet 20 mg PO UD RF: 0 potassium chloride 20 mEq tablet extended release 20 meq PO DAILY RF: 0 famotidine 40 mg tablet 20 mg PO DAILY RF: 0 buspirone 5 mg Tablet 5 mg PO BID RF: 0 venlafaxine 75 mg capsule,extended release 24hr 75 mg PO QAM RF: 0 ibuprofen 200 mg Tablet 200 mg PO Q6H PRN (Reason: Pain) RF: 0 gabapentin 100 mg capsule 100 mg PO UD RF: 0 aspirin 325 mg tablet,delayed release (DR/EC) 325 mg PO DAILY RF: 0 pantoprazole 40 mg tablet,delayed release (DR/EC) 40 mg PO DAILY RF: 0 albuterol sulfate 90 mcg/actuation HFA aerosol inhaler 2 puff INHALATION Q4H PRN (Reason: Shortness Of Breath Or Wheezing) RF: 0 Breo Ellipta 100-25 mcg/dose blister with device 1 inh INHALATION DAILY RF: 0 sucralfate 1 gram tablet 1 g PO UD RF: 0 metoprolol succinate 25 mg tablet extended release 24 hr 12.5 mg PO DAILY RF: 0 Incruse Ellipta 62.5 mcg/actuation blister with device 1 inh INHALATION RF: 0 Referrals Referrals: Williams Mota MD [Primary Care Provider] -
[2021-03-02] MEDS ORDERED: ALBUT/IPRATROP 3MG/0.5MG NEB 3 ML VIAL INH STA (11:35)
[2021-03-02] MEDS ORDERED: methylPREDNISolone 125 MG/2 ML VIAL IV STA (11:35)
[2021-03-02] MEDS ORDERED: SODIUM CHLORIDE 0.9% 500 ML IV STA (11:35)
[2021-03-02] MEDS ORDERED: MAGNESIUM SULFATE / D5W 1 GM/100 ML BAG IV STA (11:36)
[2021-03-02 11:43] LABS: Basophils # (auto) 0.06 K/uL (0-0.2); Basophils % (auto) 0.9 %; Eosinophils # (auto) 0.21 K/uL (0-0.5); Eosinophils % (auto) 3.3 %; Hemoglobin 11.6 g/dL (12.0-16.0); Immature Granulocytes # (auto) 0.02 K/uL (0.00-0.02); Immature Granulocytes % (auto) 0.3 %; Lymphocytes # (auto) 1.65 K/uL (1.2-3.4); Mean Corpuscular Hemoglobin 26.3 pg (25-34); Mean Corpuscular Hgb Conc 30.5 g/dL (32-36); Mean Corpuscular Volume 86.2 fL (80-100); Mean Platelet Volume 10.5 fL (7.4-10.4); Monocytes # (auto) 0.51 K/uL (0.11-0.59); Neutrophils # (auto) 3.89 K/uL (1.4-6.5); Neutrophils % (auto) 61.5 %; Platelet Count 275 K/uL (130-400); RDW Coefficient of Variation 14.4 % (11.5-14.5); RDW Standard Deviation 45.1 fL (36.4-46.3); Red Blood Count 4.41 M/uL (4.2-5.4); White Blood Count 6.34 K/uL (4.8-10.8)
--- NOTE | 2021-03-02 11:48 | XRay Report ---
XR chest 1V portable CLINICAL HISTORY: Dyspnea. COMPARISON STUDY: 12/10/2020 TECHNIQUE: 1 view of the chest FINDINGS: Single frontal view of the chest demonstrates the cardiomediastinal silhouette to be within normal li mits. The lungs are clear of alveolar opacities. There is no evidence for pleural effusion. There is no evidence for vascular congestion. There is no acute osseous pathology. IMPRESSION: No acute cardiopulmonary disease. ACT 112: Negative or not required by law. Electronically signed by: Josué Mattson M.D. 03/02/2021 11:47 AM
[2021-03-02 11:51] LABS: Alanine Aminotransferase 19 U/L (12-78); Albumin Level 3.4 gm/dl (3.4-5.0); Aspartate Aminotransferase 11 U/L (15-37); BUN Creatinine Ratio 16.7 (10-20); Blood Urea Nitrogen 17 mg/dl (7-18); Calcium 9.1 mg/dl (8.5-10.1); Carbon Dioxide 28 mmol/L (21-32); Chloride 105 mmol/L (98-107); Creatinine Clr Calc Pharmacy 52.1 ml/min; Est GFR (African American) 64.3 ml/min; Est GFR (Non-African American) 55.5 ml/min; Glucose 100 mg/dl (70-99); Potassium 3.9 mmol/L (3.5-5.1); Sodium 139 mmol/L (136-145)
[2021-03-02 11:56] LABS: Albumin Globulin Ratio 0.9 (0.9-2); Alkaline Phosphatase 118 U/L (45-117); Bilirubin,Total 0.4 mg/dl (0.2-1); Total Protein 7.4 gm/dl (6.4-8.2); Troponin I < 0.015 ng/ml (0-0.045)
--- NOTE | 2021-03-02 15:39 | History & Physical Report ---
Date of Service March 02, 2021 Assessment & Plan (1) SOB (shortness of breath): (2) Hypoxia: Plan: Patient is 76-year-old female with PMH COPD, nocturnal hypoxia on 2 L O2 at bedtime, HTN, HLD, grade 1 diastolic dysfunction, prior alcohol use history quit in 2016, alcoholic cerebellar degeneration, cerebellar ataxia, depression, RLS, migraine, presented to ER with complaint of shortness of breath x1 day. Denies cough, fever/chills, LE edema. In ER patient afebrile, P: 70, R: 20, BP 111/72, 90% on room air does desaturate to 86% on room air with ambulation, 93% on 2 L O2. No leukocytosis, negative troponin, negative COVID-19 PCR, chest x-ray without infiltrate. In ER given hour-long albuterol neb, 500 mL NSS, Solu-Medrol 60 mg IV, mag sulfate 1 g DDX: COPD exacerbation vs Acute on chronic diastolic HF. Patient with increased exertional shortness of breath and hypoxia with exertion, however no cough, fever, chills. Chest x-ray without infiltrate. Does have bibasilar rales on exam without significant BLE edema History echo 11/2020 with preserved EF, grade 1 diastolic dysfunction Patient did not have oral Lasix today. Will give dose IV Lasix 20 mg now. Reassess volume status tomorrow to determine further Lasix dosing Monitor I's and O's, daily weight Continue supplemental oxygen with goal oxygen sat of 90% given history COPD DuoNebs Solu-Medrol Doxycycline secondary to QTC Continue home inhalers Continue 2L O2 at bedtime for history of nocturnal hypoxia Consider pulmonology and cardiology consult if no improvement or worsening CBC, BMP in a.m. (3) Hypertension: Plan: Continue metoprolol succinate (4) Dyslipidemia: Plan: Continue atorvastatin (5) Depression: Plan: Continue bupropion, buspirone Continue gabapentin. Patient has been titrated on gabapentin to hopefully decrease her clonazepam use. Patient reports has not used clonazepam for several weeks (6) GERD (gastroesophageal reflux disease): Plan: Continue PPI, sucralfate DVT Prophylaxis -Lovenox SQ Full Code as per discussion with pt Follows with Dr Mota for routine care Pt was seen and care coordinated with Dr Middleton. See addendum History of Present Illness Chief Complaint: SOB Primary Care Provider: Williams Mota MD Patient is 76-year-old female with PMH COPD, nocturnal hypoxia on 2 L O2 at bedtime, HTN, HLD, grade 1 diastolic dysfunction, prior alcohol use history quit in 2016, alcoholic cerebellar degeneration, cerebellar ataxia, depression, RLS, migraine, presented to ER with complaint of shortness of breath x1 day. Patient reports increased shortness of breath with exertion yesterday. She applied her oxygen at 2 L and were throughout the day with improvement. Patient denies any noted increased lower extremity edema. Denies any chest pain, cough, fever, chills. Denies any ill contacts. Has received COVID-19 vaccination. Denies fever/chills, diaphoresis, N/V/D/C, HALEY, dizziness, syncope, vision changes, neck pain, orthopnea, palpitations, sore throat, choking, otalgia, rhinorrhea, abdominal pain, paresthesias, weakness, extremity weakness, rashes, urinary symptoms. In ER patient afebrile, P: 70, R: 20, BP 111/72, 90% on room air does desaturate to 86% on room air with ambulation, 93% on 2 L O2. No leukocytosis, negative troponin, negative COVID-19 PCR, chest x-ray without infiltrate. In ER given hour-long albuterol neb, 500 mL NSS, Solu-Medrol 60 mg IV, mag sulfate 1 g Allergies Allergy/AdvReac Type Severity Reaction Status Date / Time levofloxacin AdvReac Unknown abnormal Verified 03/02/21 11:28 heart issues Home Medications Medication Instructions Recorded Confirmed Type atorvastatin 80 mg tablet 80 mg PO PM 02/09/18 03/02/21 History bupropion HCl 150 mg tablet,12 hr 150 mg PO BID 02/09/18 03/02/21 History sustained-release clonazepam 1 mg tablet 1 mg PO TID PRN 02/09/18 03/02/21 History trazodone 300 mg tablet 300 mg PO HS 02/09/18 03/02/21 History furosemide 20 mg tablet 20 mg PO UD 08/27/19 03/02/21 History potassium chloride 20 mEq 20 meq PO DAILY 08/27/19 03/02/21 History tablet,extended release gabapentin 100 mg capsule 100 mg PO UD 08/09/20 03/02/21 History ibuprofen 200 mg tablet 200 mg PO Q6H PRN 08/09/20 03/02/21 History venlafaxine 75 mg capsule,extended 75 mg PO QAM 08/09/20 03/02/21 History release 24 hr aspirin 325 mg tablet,delayed 325 mg PO DAILY 08/10/20 03/02/21 History release buspirone 5 mg tablet 5 mg PO BID 12/08/20 03/02/21 History famotidine 40 mg tablet 20 mg PO DAILY 12/08/20 03/02/21 History albuterol sulfate 90 mcg/actuation 2 puff INHALATION Q4H PRN 03/02/21 03/02/21 History aerosol inhaler fluticasone furoate 100 1 inh INHALATION DAILY 03/02/21 03/02/21 History mcg-vilanterol 25 mcg/dose inhalation powder (Breo Ellipta) metoprolol succinate 25 mg 12.5 mg PO DAILY 03/02/21 03/02/21 History tablet,extended release 24 hr pantoprazole 40 mg tablet,delayed 40 mg PO DAILY 03/02/21 03/02/21 History release sucralfate 1 gram tablet 1 g PO UD 03/02/21 03/02/21 History umeclidinium 62.5 mcg/actuation 1 inh INHALATION 03/02/21 History blister powder for inhalation (Incruse Ellipta) Past Med/Surg History Medical History Anxiety Cerebellar ataxia Chronic back pain GERD (gastroesophageal reflux disease) History of alcoholism Hyperlipidemia Hypertension IBS (irritable bowel syndrome) Lactose intolerance Nocturnal hypoxemia On home oxygen therapy 2 LPM AT NIGHT Osteoarthritis Spinal stenosis Stroke MRI OBTAINED 02/2018 [place] R/T VISUAL DISTURBANCES - 4 "MINI STROKES" - PROVIDER UNABLE TO DETERMINE IF ACUTE VS OLD PER PT REPORT - SAW DR.VICTORIA AGRAWAL, NEURO Surgical History History of bilateral tubal ligation History of cholecystectomy History of colonoscopy History of esophagogastroduodenoscopy (EGD) History of tooth extraction History of total hip arthroplasty RT Hx of LASIK Family History Father Stroke Social History Smoking Status: Never smoker Second Hand Exposure: No; Hx Alcohol Use: No Hx Substance Use: No Preferred Language: Azeri Communication Ability: Effective Visual Impairment: No Limitations Technology Recruiter Required: No Beliefs That Will Affect Care: None marital status: Current Living Situation: Family Current Living Situation Comment: Lives with and daughter Feels Safe at Home: Yes Assistive Devices: Glasses Review of Systems Review of Systems: All systems reviewed & are unremarkable except as noted in HPI & below Physical Exam Physical Exam: General: no acute distress, WDWN Head: normocephalic, atraumatic Eyes: PERRL, EOM's intact, conjunctiva non-injected, anicteric ENT: normal inspection external ears, nose, mucous membranes moist Neck: supple, trachea midline Lungs: no respiratory distress on 2L oxygen via NC, O2 sat 92%, +diminished breath sounds throughout, +rales bilateral bases CV: RRR, no murmur, no pretibial edema Abd: normal BS, soft, non-tender Ext: no cyanosis, no calf tenderness Neuro: A&O x 3, no focal deficits noted, normal affect Skin: warm, dry Results & Data Results & Data ([facility]) Vital Signs (Past 12 Hours) Vital Signs Temp Pulse Resp BP Pulse Ox Pulse Ox 03/02/21 14:00 65 15 130/71 93 03/02/21 13:32 86 L 03/02/21 13:30 65 15 87 L 03/02/21 13:00 65 21 03/02/21 12:47 62 15 98 03/02/21 12:11 20 94 03/02/21 11:58 131/78 03/02/21 11:35 92 03/02/21 11:09 61 17 03/02/21 09:57 36.7 C 70 20 111/72 90 Laboratory Results Short CBC 03/02/21 Range/Units 11:10 WBC 6.34 (4.8-10.8) K/uL Hgb 11.6 L (12.0-16.0) g/dL Hct 38.0 (37-47) % Plt Count 275 (130-400) K/uL BMP 03/02/21 11:10 Sodium 139 Potassium 3.9 Chloride 105 Carbon Dioxide 28 BUN 17 Creatinine 1.00 Glucose 100 H Calcium 9.1 Cardiac Enzymes 03/02/21 Range/Units 11:10 Troponin I < 0.015 (0-0.045) ng/ml Liver Function 03/02/21 Range/Units 11:10 Total Bilirubin 0.4 (0.2-1) mg/dl AST 11 L (15-37) U/L ALT 19 (12-78) U/L Alkaline Phosphatase 118 H (45-117) U/L Albumin 3.4 (3.4-5.0) gm/dl Diagnostic Findings Chest X-Ray 03/02/21 11:35 XR chest 1V portable CLINICAL HISTORY: Dyspnea. COMPARISON STUDY: 12/10/2020 TECHNIQUE: 1 view of the chest FINDINGS: Single frontal view of the chest demonstrates the cardiomediastinal silhouette to be within normal limits. The lungs are clear of alveolar opacities. There is no evidence for pleural effusion. There is no evidence for vascular congestion. There is no acute osseous pathology. IMPRESSION: No acute cardiopulmonary disease. ACT 112: Negative or not required by law. Electronically signed by: Josué Mattson M.D. 03/02/2021 11:47 AM Code Status & VTE Plan VTE Prophylaxis Plan VTE Prophylaxis will be ordered: Yes Supervising Physician Co-Signing Physician Notes 72-year-old lady with PMH of COPD, nocturnal hypoxia on 2 L oxygen at at bedtime, HTN, HLD, diastolic dysfunction, prior tobacco abuse [quit 22 years ago], prior alcohol abuse [quit 2015], alcoholic cerebellar degeneration, depression, migraine and cerebellar ataxia presented to our ED 03/02 with complaint of shortness of breath that initiated with activity the day before arrival. Patient reports her shortness of breath improves with the home oxygen. But since he does not use oxygen during the day, when she woke up today morning she took herself off of oxygen and found herself short of breath. Hence he decided to come to the ED. Patient has got booster vaccination against Covid in January. Of note, she has history of multiple strokes on full dose aspirin. Patient denies any other review of symptoms. Likely mild exacerbation of COPD versus gastritis secondary to long-term aspirin. Nebs, Solu-Medrol, Doxy, supplemental oxygen, PPI and sucralfate. Upon Exam GENERAL: Alert and oriented x3. NAD, on 2L. HEENT: No pallor, no icterus. Pupils equal, round and reactive to light. Oral mucosa moist. NECK: No JVD, no neck masses. HEART: S1 and S2 heard. Regular rate and rhythm. systolic murmur over aortic and pulmonic area, no gallop. RESPIRATORY SYSTEM: Normal AP diameter. No accessory muscle use. No wheezing, crackles occasional and b/l; decreased breath sounds ABDOMEN: Soft, bowel sounds present, nontender, no distention. CENTRAL NERVOUS SYSTEM: No facial droop. Speech is clear. Obeys simple commands. Moves extremities. EXTREMITIES: No edema, no erythema seen. I have seen and examined the patient and have discussed the case with the provider above. I agree with the assessment and plan as stated.
[2021-03-02] MEDS ORDERED: METOPROLOL SUCC 50MG EXT REL TAB PO STA (15:41)
[2021-03-02] MEDS ORDERED: PANTOprazole 40 MG TAB PO STA (15:41)
[2021-03-02] MEDS ORDERED: POTASSIUM CHLORIDE CRTAB 20 MEQ TABCR PO STA (15:41)
[2021-03-02] MEDS ORDERED: FUROSEMIDE INJ 20 MG/2 ML VIAL IV ONE (15:41)
[2021-03-02] MEDS ORDERED: ACETAMINOPHEN 325 MG TAB PO PRN (18:46)
[2021-03-02] MEDS: FAMOTIDINE 20 MG TAB PO SCH (20:35)
[2021-03-02] MEDS: ASPIRIN 325 MG ECTAB PO SCH (20:35)
[2021-03-02] MEDS: ALBUT/IPRATROP 3MG/0.5MG NEB 3 ML VIAL NEB SCH (20:39)
[2021-03-02] MEDS: DOXYCYCLINE HYCLATE 100 MG in DEXTROSE 5% 100 ML IV SCH (20:46)
[2021-03-02] MEDS: FLUTICASONE/VILANTEROL 100/25MCG 14 PUFFS/INHALER INH SCH (21:45)
[2021-03-02] MEDS: busPIRone 5 MG TAB PO SCH (21:47)
[2021-03-02] MEDS: buPROPion SR 150 MG TABCR PO SCH (21:47)
[2021-03-02] MEDS: ENOXAPARIN INJ 40 MG/0.4 ML SYR SQ SCH (21:47)
[2021-03-02] MEDS: ATORVASTATIN 40 MG TAB PO SCH (21:47)
[2021-03-02] MEDS: SUCRALFATE 1 GM TAB PO SCH (21:48)
[2021-03-02] MEDS: GABAPENTIN 300 MG CAP PO SCH (21:48)
[2021-03-02] MEDS: methylPREDNISolone 40 MG in SYRINGE 0 ML IV SCH (22:00)
[2021-03-03] MEDS: traZODone HCL 100 MG TAB PO SCH (02:02)
[2021-03-03 06:30] LABS: Hemoglobin 11.4 g/dL (12.0-16.0); Mean Corpuscular Hemoglobin 27.1 pg (25-34); Mean Corpuscular Hgb Conc 31.7 g/dL (32-36); Mean Corpuscular Volume 85.7 fL (80-100); Mean Platelet Volume 10.2 fL (7.4-10.4); Platelet Count 291 K/uL (130-400); RDW Coefficient of Variation 14.4 % (11.5-14.5)
--- NOTE | 2021-03-03 06:49 | Electrocardiogram Report ---
Test Reason : Blood Pressure : / mmHG Vent. Rate : 062 BPM Atrial Rate : 062 BPM P-R Int : 166 ms QRS Dur : 086 ms QT Int : 470 ms P-R-T Axes : 012 -17 030 degrees QTc Int : 477 ms Sinus rhythm with occasional Premature ventricular complexes Minimal voltage criteria for LVH, may be normal variant Poor R wave progression, consider anterior DC vs. lead placement vs. LVH Nonspecific T wave abnormality Abnormal ECG When compared with ECG of 08-DEC-2020 10:28, Premature ventricular complexes are now Present Vent. rate has decreased BY 38 BPM Nonspecific T wave abnormality, improved in Inferior leads Nonspecific T wave abnormality, improved in Lateral leads QT has lengthened Confirmed by Tito Salazar ([id number]) on 03/03/2021 6:48:56 AM Referred By: Williams Mota Confirmed By:Tito Salazar
[2021-03-03 06:57] LABS: BUN Creatinine Ratio 16.5 (10-20); Calcium 9.3 mg/dl (8.5-10.1); Creatinine Clr Calc Pharmacy 49.7 ml/min; Est GFR (African American) 60.6 ml/min; Est GFR (Non-African American) 52.3 ml/min; Potassium 4.2 mmol/L (3.5-5.1)
[2021-03-03] MEDS: ALBUT/IPRATROP 3MG/0.5MG NEB 3 ML VIAL NEB SCH ×4 (07:09→19:34)
[2021-03-03] MEDS ORDERED: PANTOprazole 40 MG TAB PO SCH (09:00)
[2021-03-03] MEDS: busPIRone 5 MG TAB PO SCH ×2 (10:19→20:36)
[2021-03-03] MEDS: methylPREDNISolone 40 MG in SYRINGE 0 ML IV SCH ×3 (10:19→21:54)
[2021-03-03] MEDS: ASPIRIN 325 MG ECTAB PO SCH (10:19)
[2021-03-03] MEDS: buPROPion SR 150 MG TABCR PO SCH ×2 (10:19→20:35)
[2021-03-03] MEDS: FAMOTIDINE 20 MG TAB PO SCH (10:20)
[2021-03-03] MEDS: FLUTICASONE/VILANTEROL 100/25MCG 14 PUFFS/INHALER INH SCH (10:20)
[2021-03-03] MEDS: DOXYCYCLINE HYCLATE 100 MG in DEXTROSE 5% 100 ML IV SCH ×2 (10:20→20:32)
[2021-03-03] MEDS: METOPROLOL SUCC 25MG EXT REL TAB PO SCH (10:21)
[2021-03-03] MEDS: PANTOprazole 40 MG TAB PO SCH ×2 (10:21→20:35)
[2021-03-03] MEDS: GABAPENTIN 100 MG CAP PO SCH ×2 (10:21→13:33)
[2021-03-03] MEDS: SUCRALFATE 1 GM TAB PO SCH ×4 (10:22→21:55)
[2021-03-03] MEDS: VENLAFAXINE HCL XR 75 MG CAPXR PO SCH (10:22)
[2021-03-03] MEDS: POTASSIUM CHLORIDE CRTAB 20 MEQ TABCR PO SCH (10:22)
[2021-03-03] MEDS: FUROSEMIDE 20 MG TAB PO SCH (14:20)
[2021-03-03] MEDS: ENOXAPARIN INJ 40 MG/0.4 ML SYR SQ SCH (20:33)
[2021-03-03] MEDS: ATORVASTATIN 40 MG TAB PO SCH (20:35)
[2021-03-03] MEDS: GABAPENTIN 300 MG CAP PO SCH (20:36)
[2021-03-04] MEDS: traZODone HCL 100 MG TAB PO SCH (00:46)
[2021-03-04] MEDS: methylPREDNISolone 40 MG in SYRINGE 0 ML IV SCH (05:52)
[2021-03-04] MEDS: ALBUT/IPRATROP 3MG/0.5MG NEB 3 ML VIAL NEB SCH (07:20)
[2021-03-04] MEDS: FUROSEMIDE 20 MG TAB PO SCH (07:58)
[2021-03-04] MEDS: ASPIRIN 325 MG ECTAB PO SCH (07:58)
[2021-03-04] MEDS: FAMOTIDINE 20 MG TAB PO SCH (07:58)
[2021-03-04] MEDS: busPIRone 5 MG TAB PO SCH (07:58)
[2021-03-04] MEDS: PANTOprazole 40 MG TAB PO SCH (07:58)
[2021-03-04] MEDS: POTASSIUM CHLORIDE CRTAB 20 MEQ TABCR PO SCH (07:58)
[2021-03-04] MEDS: SUCRALFATE 1 GM TAB PO SCH ×2 (07:58→11:55)
[2021-03-04] MEDS: METOPROLOL SUCC 25MG EXT REL TAB PO SCH (07:59)
[2021-03-04] MEDS: GABAPENTIN 100 MG CAP PO SCH ×2 (07:59→11:55)
[2021-03-04] MEDS: VENLAFAXINE HCL XR 75 MG CAPXR PO SCH (07:59)
[2021-03-04] MEDS: buPROPion SR 150 MG TABCR PO SCH (08:08)
[2021-03-04] MEDS: FLUTICASONE/VILANTEROL 100/25MCG 14 PUFFS/INHALER INH SCH (08:08)
[2021-03-04] MEDS ORDERED: ALBUT/IPRATROP 3MG/0.5MG NEB 3 ML VIAL NEB PRN (09:09)
[2021-03-04] MEDS: DOXYCYCLINE HYCLATE 100 MG in DEXTROSE 5% 100 ML IV SCH (09:11)
--- NOTE | 2021-03-04 09:31 | XRay Report ---
XR chest 1V portable HISTORY: ff up, cough, hypoxia COMPARISON: Chest 03/02/2021. FINDINGS: No pneumothorax. No pleural effusions. The cardiac silhouette remains moderately enlarged. No new focal lung consolidations to suggest pneumonia. There is mild central vascular congestion with out overt edema. Central pulmonary artery enlargement remains unchanged. There is a tortuous thoracic aorta. IMPRESSION: 1. Cardiomegaly with mild central pulmonary vascular congestion. This is similar to the prior study. 2. No new focal lung consolidations to suggest pneumonia. ACT 112: Negative or not required by law. Electronically signed by: Fabian Gilbert M.D. 03/04/2021 9:30 AM
--- NOTE | 2021-03-04 16:39 | Hospitalist Progress Note ---
Date of Service March 04, 2021 Assessment & Plan (1) SOB (shortness of breath): (2) Hypoxia: Plan: SECONDARY TO ACUTE COPD EXACERBATION, ACUTE BRONCHITIS Per admitting service notes with addendum including succeeding assessment and plan: Patient is 76-year-old female with PMH COPD, nocturnal hypoxia on 2 L O2 at bedtime, HTN, HLD, grade 1 diastolic dysfunction, prior alcohol use history quit in 2016, alcoholic cerebellar degeneration, cerebellar ataxia, depression, RLS, migraine, presented to ER with complaint of shortness of breath x1 day. Denies cough, fever/chills, LE edema. In ER patient afebrile, P: 70, R: 20, BP 111/72, 90% on room air does desaturate to 86% on room air with ambulation, 93% on 2 L O2. No leukocytosis, negative troponin, negative COVID-19 PCR, chest x-ray without infiltrate. In ER given hour-long albuterol neb, 500 mL NSS, Solu-Medrol 60 mg IV, mag sulfate 1 g DDX: COPD exacerbation vs Acute on chronic diastolic HF. Patient with increased exertional shortness of breath and hypoxia with exertion, however no cough, fever, chills. Chest x-ray without infiltrate. Does have bibasilar rales on exam without significant BLE edema History echo 11/2020 with preserved EF, grade 1 diastolic dysfunction Patient did not have oral Lasix today. Will give dose IV Lasix 20 mg now. Reassess volume status tomorrow to determine further Lasix dosing Monitor I's and O's, daily weight Continue supplemental oxygen with goal oxygen sat of 90% given history COPD DuoNebs Solu-Medrol Doxycycline secondary to QTC Continue home inhalers Continue 2L O2 at bedtime for history of nocturnal hypoxia Consider pulmonology and cardiology consult if no improvement or worsening CBC, BMP in a.m. 03/03/2021 Clinically improving Remains at 2 L of oxygen via nasal cannula Continue Solu-Medrol IV, doxycycline, duonebs No signs of CHF exacerbation Monitor closely (3) Hypertension: Plan: Continue metoprolol succinate (4) Dyslipidemia: Plan: Continue atorvastatin (5) Depression: Plan: Continue bupropion, buspirone Continue gabapentin. Patient has been titrated on gabapentin to hopefully decrease her clonazepam use. Patient reports has not used clonazepam for several weeks (6) GERD (gastroesophageal reflux disease): Plan: Continue PPI, sucralfate DVT Prophylaxis -Lovenox SQ Full Code as per discussion with pt Follows with Dr Mota for routine care plan of care discussed with patient in detail and at length all questions answered She is understanding, agreeable, comfortable with the plan of care Admission and Anticipated Discharge Date Admission Date: March 02, 2021 Subjective Follow-up for COPD exacerbation, etc. Seen sitting up in bed, comfortable, in good spirits At 2 L of O2 via nasal cannula Nondistressed Comfortable States she feels improved compared to admission Has occasional dry cough no chest pain, dyspnea, palpitations, dizziness No fevers or chills No other symptoms Review of Systems Review of Systems: all noted and negative except for above Physical Exam Physical Exam: General- oriented x 3, not in distress, speaks in sentences with no effort or accessory muscle use Eyes- anicteric Neck- no JVD Lungs-mild rhonchi bilateral bases, no wheezing, somewhat diminished but good air entry bilaterally Heart- normal rate, regular rhythm; no murmurs Abdomen- normal bowel sounds, nondistended, soft, nontender Extremities- no pretibial edema, no calf tenderness Neuro- alert, oriented x 3; no gross focal neurologic deficits Skin- warm & dry Results & Data Results & Data ([facility]) Vital Signs (Past 12 Hours) Vital Signs Temp Pulse Resp BP Pulse Ox 03/04/21 12:00 36.8 C 54 L 18 118/72 92 03/04/21 07:21 62 16 94 03/04/21 05:52 70 143/84 H 92 all noted and reviewed including below
[2021-03-04] MEDS ORDERED: methylPREDNISolone 40 MG in SYRINGE 0 ML IV SCH (17:00)
--- NOTE | 2021-03-04 17:21 | Discharge Summary ---
Date of Service March 04, 2021 Admission HPI Per Admitting Provider Patient is 76-year-old female with PMH COPD, nocturnal hypoxia on 2 L O2 at bedtime, HTN, HLD, grade 1 diastolic dysfunction, prior alcohol use history quit in 2016, alcoholic cerebellar degeneration, cerebellar ataxia, depression, RLS, migraine, presented to ER with complaint of shortness of breath x1 day. Patient reports increased shortness of breath with exertion yesterday. She applied her oxygen at 2 L and were throughout the day with improvement. Patient denies any noted increased lower extremity edema. Denies any chest pain, cough, fever, chills. Denies any ill contacts. Has received COVID-19 vaccination. Denies fever/chills, diaphoresis, N/V/D/C, HALEY, dizziness, syncope, vision changes, neck pain, orthopnea, palpitations, sore throat, choking, otalgia, rhinorrhea, abdominal pain, paresthesias, weakness, extremity weakness, rashes, urinary symptoms. In ER patient afebrile, P: 70, R: 20, BP 111/72, 90% on room air does desaturate to 86% on room air with ambulation, 93% on 2 L O2. No leukocytosis, negative troponin, negative COVID-19 PCR, chest x-ray without infiltrate. In ER given hour-long albuterol neb, 500 mL NSS, Solu-Medrol 60 mg IV, mag sulfate 1 g Admission Exam (Per Admitting) Constitutional General: no acute distress, WDWN Head: normocephalic, atraumatic Eyes: PERRL, EOM's intact, conjunctiva non-injected, anicteric ENT: normal inspection external ears, nose, mucous membranes moist Neck: supple, trachea midline Lungs: no respiratory distress on 2L oxygen via NC, O2 sat 92%, +diminished breath sounds throughout, +rales bilateral bases CV: RRR, no murmur, no pretibial edema Abd: normal BS, soft, non-tender Ext: no cyanosis, no calf tenderness Neuro: A&O x 3, no focal deficits noted, normal affect Skin: warm, dry Discharge Data Consultations 03/02/21 13:39 ED Decision to Admit Stat 03/02/21 13:50 ED Decision to Admit Stat Hospital Course (1) SOB (shortness of breath): (2) Hypoxia: SECONDARY TO ACUTE COPD EXACERBATION, ACUTE BRONCHITIS Per admitting service notes with addendum including succeeding assessment and plan: Patient is 76-year-old female with PMH COPD, nocturnal hypoxia on 2 L O2 at bedt jaquan, HTN, HLD, grade 1 diastolic dysfunction, prior alcohol use history quit in 2016, alcoholic cerebellar degeneration, cerebellar ataxia, depression, RLS, migraine, presented to ER with complaint of shortness of breath x1 day. Denies cough, fever/chills, LE edema. In ER patient afebrile, P: 70, R: 20, BP 111/72, 90% on room air does desaturate to 86% on room air with ambulation, 93% on 2 L O2. No leukocytosis, negative troponin, negative COVID-19 PCR, chest x-ray without infiltrate. In ER given hour-long albuterol neb, 500 mL NSS, Solu-Medrol 60 mg IV, mag sulfate 1 g DDX: COPD exacerbation vs Acute on chronic diastolic HF. Patient with increased exertional shortness of breath and hypoxia with exertion, however no cough, fever, chills. Chest x-ray without infiltrate. Does have bibasilar rales on exam without significant BLE edema History echo 11/2020 with preserved EF, grade 1 diastolic dysfunction Patient did not have oral Lasix today. Will give dose IV Lasix 20 mg now. Reassess volume status tomorrow to determine further Lasix dosing Monitor I's and O's, daily weight Continue supplemental oxygen with goal oxygen sat of 90% given history COPD DuoNebs Solu-Medrol Doxycycline secondary to QTC Continue home inhalers Continue 2L O2 at bedtime for history of nocturnal hypoxia Consider pulmonology and cardiology consult if no improvement or worsening CBC, BMP in a.m. 03/04/2021 Clinically improved Repeat chest x-ray: No infiltrates, effusion No signs of CHF exacerbation Saturating well on room air Received Solu-Medrol IV, doxycycline, duonebs Discharge plan: Prednisone taper as follows 40 mg x 3 days, 30 mg x 3 days, etc. until 10 mg Doxycycline x5 more days to complete 7-day course Nebulizer treatments three times a day Mucinex Atrial flutter and incentive spirometry at home PCP follow-up in 1 week Pulmonology follow-up March 10, 2021 (3) Hypertension: Continue metoprolol succinate (4) Dyslipidemia: Continue atorvastatin (5) Depression: Continue bupropion, buspirone Continue gabapentin. Patient has been titrated on gabapentin to hopefully decrease her clonazepam use. Patient reports has not used clonazepam for several weeks (6) GERD (gastroesophageal reflux disease): Continue PPI, sucralfate DVT Prophylaxis -Lovenox SQ Full Code as per discussion with pt Follows with Dr Mota for routine care plan of care discussed with patient in detail and at length all questions answered She is understanding, agreeable, comfortable with the plan of care
[2021-03-04] MEDS ORDERED: DOXYCYCLINE HYCLATE 100 MG CAP PO SCH (22:00)
== END 2021-03-04 18:08 | disposition home or self-care (01) | DRG 192 ==
LOC: ED 09:43 → EDINP 15:10 → SUATTDRO 15:10 → EDINP 17:15

== ENCOUNTER 2021-05-18 21:03 | Inpatient (IN) ==
--- NOTE | 2021-05-18 21:38 | Emergency Department Note ---
Impression & Plan Aspiration pneumonia, Chronic lung disease, Acute dyspnea, Leukocytosis ED Provider Note NAME: RADHA SÁNCHEZ AGE: 76 SEX: F : 1945 ARRIVES VIA: Ambulance INFORMANT: Patient, ED PROVIDER(S): Jonn Weaver MD Chief Complaint: Shortness of breath, concern for aspiration HPI: Patient states that she had a colonoscopy earlier today and that she got sick during the procedure there was concerned about the possibility of aspiration. The patient does have a known history of lung disease and does wear 2 L of oxygen but only at nighttime. The patient has any fevers or chills. The patient has complained of some worsening shortness of breath. This patient does believe that this is worse earlier today than it is currently although the patient is on oxygen. Patient does complain of a wet sounding cough but states that it is never productive. The patient denies any recent smoking. Patient has any fevers or chills. No history of DVT or PE per patient. The patient does have some chronic leg swelling but this is unchanged from prior. Patient does take Lasix. Patient does state that she has some shortness of breath just at rest but it is worse with exertion. The patient denies any orthopnea. ROS: See HPI for pertinent positives and negatives. A total of 10 systems were reviewed and otherwise negative. Past medical history: See below Surgical history: See below Social history: See below Physical Exam: GENERAL: NAD, nasal cannula in place,non-toxic. EYE EXAM: Normal conjunctiva. PERRL, no anisocoria and EOM's grossly intact w/o pain. NECK: Supple, no nuchal rigidity, no adenopathy, non-tender. No signs of meningismus. LUNGS: Clear to auscultation. Normal chest wall mechanics. HEART: NSR, no MRG. ABDOMEN: Abdomen soft, non-tender, normo-active bowel sounds, no masses, no rebound or guarding. BACK: No CVA TTP. SKIN: No rashes and no bruising. UPPER EXTREMITIES: Upper extremities are grossly normal. LOWER EXTREMITIES: Grossly normal, trace pretibial edema but without any calf pain. Negative Homans' sign bilaterally. NEURO EXAM: A&O x3, cranial nerves II-XII grossly intact, normal speech, moves all 4 extremities on command w/o issue. Differential diagnoses: Reactive airway disease, pneumonia, pneumothorax, COPD, CHF, infections, cardiac ischemia, pulmonary embolism, musculoskeletal, gastrointestinal, as well as other pathologies. Course: Patient was seen and evaluated the bedside. Full history physical exam was performed. EKG interpreted by me Normal sinus rhythm, rate of 91, normal intervals, left axis deviation, no obvious ST elevations. Imaging Studies: See Below Cardiac monitoring: An order was placed for continuous cardiac monitoring. The monitor shows a rate of 85 with sinus rhythm. MDM: Patient did present due to concern for shortness of breath and possibility of aspiration. Blood work is obtained and the patient was treated symptomatically with duo nebs. Patient did have a white count of 14. Patient's other blood work fairly unremarkable. The patient was ambulatory to and from the bathroom he did become hypoxic to 88% on room air. Patient states at that time she was feeling dyspneic. Patient had been given clindamycin given the concern for possible aspiration. I did speak the on-call hospitalist Dr. Pacheco and the patient was admitted to the medicine service. Past Med/Surg History Medical History Anxiety Cerebellar ataxia Chronic back pain GERD (gastroesophageal reflux disease) History of alcoholism Hyperlipidemia Hypertension IBS (irritable bowel syndrome) Lactose intolerance Nocturnal hypoxemia On home oxygen therapy 2 LPM AT NIGHT Osteoarthritis Spinal stenosis Stroke MRI OBTAINED 02/2018 [place] R/T VISUAL DISTURBANCES - 4 "MINI STROKES" - PROVIDER UNABLE TO DETERMINE IF ACUTE VS OLD PER PT REPORT - SAW DR.VICTORIA AGRAWAL, NEURO Surgical History History of bilateral tubal ligation History of cholecystectomy History of colonoscopy History of esophagogastroduodenoscopy (EGD) History of tooth extraction History of total hip arthroplasty RT Hx of LASIK Family History Father Stroke Social History Smoking Status: Former smoker Second Hand Exposure: No; Do You Dip or Chew Tobacco: No; Tobacco Cessation Education Requested by Patient: No Hx Alcohol Use: Yes Alcohol type: hard liquor Hx Substance Use: No Preferred Language: Pashto Communication Ability: Effective Visual Impairment: No 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 Hand Required: No Beliefs That Will Affect Care: None marital status: Current Living Situation: Spouse Current Living Situation Comment: Lives with and daughter Other Information That Helps Us Care for You: No Feels Safe at Home: Yes Assistive Devices: Cane, Oxygen - at Night and Walker Allergies Allergies Allergy/AdvReac Type Severity Reaction Status Date / Time nickel Allergy Rash Verified 05/18/21 22:22 levofloxacin AdvReac Unknown abnormal Verified 05/18/21 22:22 heart issues Home Meds Home Medications Medication Instructions Recorded Confirmed atorvastatin 80 mg tablet 80 mg PO PM 02/09/18 05/18/21 bupropion HCl 150 mg tablet,12 hr 150 mg PO BID 02/09/18 05/18/21 sustained-release clonazepam 1 mg tablet 1 mg PO HS 02/09/18 05/18/21 trazodone 300 mg tablet 300 mg PO HS 02/09/18 05/18/21 furosemide 20 mg tablet 20 mg PO DAILY 08/27/19 05/18/21 potassium chloride 20 mEq 20 meq PO DAILY 08/27/19 05/18/21 tablet,extended release ibuprofen 200 mg tablet 200 - 400 mg PO Q6H PRN 08/09/20 05/18/21 venlafaxine 75 mg capsule,extended 75 mg PO QAM 08/09/20 05/18/21 release 24 hr buspirone 5 mg tablet 5 mg PO BID 12/08/20 05/18/21 albuterol sulfate 90 mcg/actuation 2 puff INHALATION Q4H PRN 03/02/21 05/18/21 aerosol inhaler metoprolol succinate 25 mg 12.5 mg PO DAILY 03/02/21 05/18/21 tablet,extended release 24 hr pantoprazole 40 mg tablet,delayed 40 mg PO DAILY 03/02/21 05/18/21 release sucralfate 1 gram tablet 1 g PO UD 03/02/21 05/18/21 famotidine 20 mg tablet 20 mg PO DAILY 05/18/21 05/18/21 fluticasone fur. 200 mcg-umeclid 1 ea INHALATION DAILY 05/18/21 05/18/21 62.5 mcg-vilant 25 mcg inhalat.powder (Trelegy Ellipta) Results & Data (ED) Vital Signs Vital Signs - 24 hr 05/18/21 21:23 05/18/21 21:51 05/18/21 22:30 Temperature 36.8 C Temperature Source Oral Pulse Rate 91 H 88 Pulse Rate [Apical] 88 Pulse Rhythm Regular Pulse Rhythm [Apical] Regular Pulse Strength Normal Pulse Strength [Apical] Normal Respiratory Rate 21 22 Respiratory Effort / Characteristics Non-Labored Respiratory Depth Normal Respiratory Pattern Regular Blood Pressure 143/80 H Blood Pressure [Right Arm] 143/80 H Blood Pressure Mean 101 Blood Pressure Mean [Right Arm] 101 Blood Pressure Position Lying Blood Pressure Position [Right Arm] Lying Pulse Oximetry 95 92 88 L Oxygen Delivery Method Room Air Nasal Cannula Room Air Oxygen Flow Rate 4 4 Sepsis Recent Fever Within 48 Hours No Sepsis New/Unexplained Change in Mental Status No Sepsis Action Taken by Nursing No Action Required 05/18/21 23:54 05/19/21 01:00 Temperature Temperature Source Pulse Rate Pulse Rate [Apical] 76 77 Pulse Rhythm Pulse Rhythm [Apical] Regular Regular Pulse Strength Pulse Strength [Apical] Normal Respiratory Rate 21 20 Respiratory Effort / Characteristics Non-Labored Respiratory Depth Normal Normal Respiratory Pattern Blood Pressure Blood Pressure [Right Arm] 128/73 128/73 Blood Pressure Mean Blood Pressure Mean [Right Arm] 91 91 Blood Pressure Position Blood Pressure Position [Right Arm] Lying Lying Pulse Oximetry 97 96 Oxygen Delivery Method Nasal Cannula Nasal Cannula Oxygen Flow Rate 2 4 Sepsis Recent Fever Within 48 Hours Sepsis New/Unexplained Change in Mental Status Sepsis Action Taken by Care Home Medications Current Medication List: was personally reviewed by me Laboratory Data Attestation: I reviewed the patient's lab results. Result diagrams: 05/19/21 04:44 05/19/21 04:44 Lab Results 05/18/21 05/18/21 05/18/21 Range/Units 21:50 21:50 21:50 WBC 14.84 H (4.8-10.8) K/uL RBC 4.21 (4.2-5.4) M/uL Hgb 11.0 L (12.0-16.0) g/dL Hct 34.9 L (37-47) % MCV 82.9 (80-100) fL MCH 26.1 (25-34) pg MCHC 31.5 L (32-36) g/dL RDW Std Deviation 44.7 (36.4-46.3) fL RDW Coeff of Sharon 14.7 H (11.5-14.5) % Plt Count 277 (130-400) K/uL MPV 10.3 (7.4-10.4) fL Immature Gran % (Auto) 0.3 % Neut % (Auto) 82.4 % Lymph % (Auto) 10.8 % [place] % (Auto) 6.0 % Eos % (Auto) 0.4 % Baso % (Auto) 0.1 % Neut # (Auto) 12.23 H (1.4-6.5) K/uL Lymph # (Auto) 1.60 (1.2-3.4) K/uL [place] # (Auto) 0.89 H (0.11-0.59) K/uL Eos # (Auto) 0.06 (0-0.5) K/uL Baso # (Auto) 0.02 (0-0.2) K/uL Immature Gran # (Auto) 0.04 H (0.00-0.02) K/uL PT 10.0 (9.0-12.0) Seconds INR 1.0 (0.9-1.1) APTT 23.2 (21.0-31.0) Seconds PTT Ratio 0.9 ABG pH (7.35-7.45) ABG pCO2 (35-46) mmHg ABG pO2 (80-95) mmHg ABG HCO3 (19-24) mmol/L ABG O2 Saturation (90-95) % ABG Base Excess (-9-1.8) mEq/L Spenser Test (Pos) Barometric Pressure mm/Hg Oxygen Given Sodium 142 (136-145) mmol/L Potassium 3.6 (3.5-5.1) mmol/L Chloride 106 (98-107) mmol/L Carbon Dioxide 28 (21-32) mmol/L Anion Gap 8 (3-11) BUN 15 (6-23) mg/dl Creatinine 1.37 H (0.6-1.2) mg/dl Est Cr Clr Drug Dosing 39.4 ml/min Est GFR ( Amer) 43.9 ml/min Est GFR (Non-Af Amer) 37.9 ml/min BUN/Creatinine Ratio 10.9 (10-20) Glucose 105 H (70-99(Fasting)) mg/dl Lactate (0.4-2.0) mmol/L Calcium 8.6 (8.5-10.1) mg/dl Magnesium (1.7-2.4) mg/dl Total Bilirubin 0.5 (0.2-1.0) mg/dl AST 12 L (13-39) U/L ALT 12 (7-52) U/L Alkaline Phosphatase 110 H (34-104) U/L Troponin I < 0.03 (0-0.04) ng/ml Total Protein 6.3 (6.0-8.3) gm/dl Albumin 3.9 (3.4-5.0) gm/dl Globulin 2.4 L (2.5-4.0) gm/dl Albumin/Globulin Ratio 1.6 (0.9-2) Procalcitonin (0-0.5) ng/ml Urine Color Urine Appearance (Clear) Urine pH (4.5-7.5) Ur Specific Jber (1.000-1.030) Urine Protein (Negative) Urine Glucose (UA) (Negative) Urine Ketones (Negative) Urine Blood (Negative) Urine Nitrite (Negative) Urine Bilirubin (Negative) Urine Urobilinogen (Negative) Ur Leukocyte Esterase (Negative) Urine WBC (Auto) (0-5) /hpf Urine RBC (Auto) (0-4) /hpf U Hyaline Cast (Auto) (0-5) /lpf U Epithel Cells (Auto) (0-5) /lpf Urine Bacteria (Auto) (Negative) SARS-CoV-2, RNA, NAAT (NEGATIVE) 05/18/21 05/18/21 05/19/21 Range/Units 21:50 23:30 00:53 WBC (4.8-10.8) K/uL RBC (4.2-5.4) M/uL Hgb (12.0-16.0) g/dL Hct (37-47) % MCV (80-100) fL MCH (25-34) pg MCHC (32-36) g/dL RDW Std Deviation (36.4-46.3) fL RDW Coeff of Sharon (11.5-14.5) % Plt Count (130-400) K/uL MPV (7.4-10.4) fL Immature Gran % (Auto) % Neut % (Auto) % Lymph % (Auto) % [place] % (Auto) % Eos % (Auto) % Baso % (Auto) % Neut # (Auto) (1.4-6.5) K/uL Lymph # (Auto) (1.2-3.4) K/uL [place] # (Auto) (0.11-0.59) K/uL Eos # (Auto) (0-0.5) K/uL Baso # (Auto) (0-0.2) K/uL Immature Gran # (Auto) (0.00-0.02) K/uL PT (9.0-12.0) Seconds INR (0.9-1.1) APTT (21.0-31.0) Seconds PTT Ratio ABG pH (7.35-7.45) ABG pCO2 (35-46) mmHg ABG pO2 (80-95) mmHg ABG HCO3 (19-24) mmol/L ABG O2 Saturation (90-95) % ABG Base Excess (-9-1.8) mEq/L Spenser Test (Pos) Barometric Pressure mm/Hg Oxygen Given Sodium (136-145) mmol/L Potassium (3.5-5.1) mmol/L Chloride (98-107) mmol/L Carbon Dioxide (21-32) mmol/L Anion Gap (3-11) BUN (6-23) mg/dl Creatinine (0.6-1.2) mg/dl Est Cr Clr Drug Dosing ml/min Est GFR ( Amer) ml/min Est GFR (Non-Af Amer) ml/min BUN/Creatinine Ratio (10-20) Glucose (70-99(Fasting)) mg/dl Lactate (0.4-2.0) mmol/L Calcium (8.5-10.1) mg/dl Magnesium (1.7-2.4) mg/dl Total Bilirubin (0.2-1.0) mg/dl AST (13-39) U/L ALT (7-52) U/L Alkaline Phosphatase (34-104) U/L Troponin I (0-0.04) ng/ml Total Protein (6.0-8.3) gm/dl Albumin (3.4-5.0) gm/dl Globulin (2.5-4.0) gm/dl Albumin/Globulin Ratio (0.9-2) Procalcitonin < 0.05 (0-0.5) ng/ml Urine Color Yellow Urine Appearance Clear (Clear) Urine pH 6.5 (4.5-7.5) Ur Specific Jber 1.013 (1.000-1.030) Urine Protein Negative (Negative) Urine Glucose (UA) Negative (Negative) Urine Ketones Negative (Negative) Urine Blood Negative (Negative) Urine Nitrite Negative (Negative) Urine Bilirubin Negative (Negative) Urine Urobilinogen Negative (Negative) Ur Leukocyte Esterase 2+ H (Negative) Urine WBC (Auto) 5-10 H (0-5) /hpf Urine RBC (Auto) 0-4 (0-4) /hpf U Hyaline Cast (Auto) 1-5 (0-5) /lpf U Epithel Cells (Auto) >30 H (0-5) /lpf Urine Bacteria (Auto) Negative (Negative) SARS-CoV-2, RNA, NAAT NEGATIVE (NEGATIVE) 05/19/21 05/19/21 05/19/21 Range/Units 01:04 01:04 01:04 WBC (4.8-10.8) K/uL RBC (4.2-5.4) M/uL Hgb (12.0-16.0) g/dL Hct (37-47) % MCV (80-100) fL MCH (25-34) pg MCHC (32-36) g/dL RDW Std Deviation (36.4-46.3) fL RDW Coeff of Sharon (11.5-14.5) % Plt Count (130-400) K/uL MPV (7.4-10.4) fL Immature Gran % (Auto) % Neut % (Auto) % Lymph % (Auto) % [place] % (Auto) % Eos % (Auto) % Baso % (Auto) % Neut # (Auto) (1.4-6.5) K/uL Lymph # (Auto) (1.2-3.4) K/uL [place] # (Auto) (0.11-0.59) K/uL Eos # (Auto) (0-0.5) K/uL Baso # (Auto) (0-0.2) K/uL Immature Gran # (Auto) (0.00-0.02) K/uL PT (9.0-12.0) Seconds INR (0.9-1.1) APTT (21.0-31.0) Seconds PTT Ratio ABG pH 7.43 (7.35-7.45) ABG pCO2 37 (35-46) mmHg ABG pO2 76 L (80-95) mmHg ABG HCO3 24 (19-24) mmol/L ABG O2 Saturation 95.0 (90-95) % ABG Base Excess -0.2 (-9-1.8) mEq/L Spenser Test Pos (Pos) Barometric Pressure 727.0 mm/Hg Oxygen Given 2L Sodium (136-145) mmol/L Potassium (3.5-5.1) mmol/L Chloride (98-107) mmol/L Carbon Dioxide (21-32) mmol/L Anion Gap (3-11) BUN (6-23) mg/dl Creatinine (0.6-1.2) mg/dl Est Cr Clr Drug Dosing ml/min Est GFR ( Amer) ml/min Est GFR (Non-Af Amer) ml/min BUN/Creatinine Ratio (10-20) Glucose (70-99(Fasting)) mg/dl Lactate 1.0 (0.4-2.0) mmol/L Calcium (8.5-10.1) mg/dl Magnesium 1.6 L (1.7-2.4) mg/dl Total Bilirubin (0.2-1.0) mg/dl AST (13-39) U/L ALT (7-52) U/L Alkaline Phosphatase (34-104) U/L Troponin I (0-0.04) ng/ml Total Protein (6.0-8.3) gm/dl Albumin (3.4-5.0) gm/dl Globulin (2.5-4.0) gm/dl Albumin/Globulin Ratio (0.9-2) Procalcitonin (0-0.5) ng/ml Urine Color Urine Appearance (Clear) Urine pH (4.5-7.5) Ur Specific Jber (1.000-1.030) Urine Protein (Negative) Urine Glucose (UA) (Negative) Urine Ketones (Negative) Urine Blood (Negative) Urine Nitrite (Negative) Urine Bilirubin (Negative) Urine Urobilinogen (Negative) Ur Leukocyte Esterase (Negative) Urine WBC (Auto) (0-5) /hpf Urine RBC (Auto) (0-4) /hpf U Hyaline Cast (Auto) (0-5) /lpf U Epithel Cells (Auto) (0-5) /lpf Urine Bacteria (Auto) (Negative) SARS-CoV-2, RNA, NAAT (NEGATIVE) Administered Medications Amoxicillin/Clavulanate Potassium (Amoxicillin/Clavulanate 875 Mg Tab) 1 tab PO BIDM [facility] Stop: 05/26/21 07:59 Last Admin: 05/19/21 08:37 Dose: 1 tab Documented by: [id number] Bupropion HCl (Bupropion Sr 150 Mg Tabcr) 150 mg PO BID [facility] Stop: 06/18/21 08:59 Last Admin: 05/19/21 08:38 Dose: 150 mg Documented by: [id number] Buspirone HCl (Buspirone 5 Mg Tab) 5 mg PO BID [facility] Stop: 06/18/21 08:59 Last Admin: 05/19/21 08:39 Dose: 5 mg Documented by: [id number] Enoxaparin Sodium (Enoxaparin Inj 40 Mg/0.4 Ml Syr) 40 mg SQ QAM [facility] Stop: 06/18/21 08:59 Last Admin: 05/19/21 08:38 Dose: 40 mg Documented by: [id number] Famotidine (Famotidine 20 Mg Tab) 20 mg PO DAILY [facility] Stop: 06/18/21 08:59 Last Admin: 05/19/21 08:41 Dose: Not Given Documented by: [id number] Ipratropium [place] (Ipratropium [place] Neb Soln 0.02% 2.5 Ml Vial) 0.5 mg INH Q6R [facility] Stop: 06/18/21 06:59 Last Admin: 05/19/21 12:39 Dose: Not Given Documented by: [id number] Admin: 05/19/21 07:29 Dose: 0.5 mg Documented by: [id number] Levalbuterol HCl (Levalbuterol 1.25mg/0.5ml Neb) 1.25 mg INH Q6R [facility] Stop: 06/18/21 06:59 Last Admin: 05/19/21 12:40 Dose: Not Given Documented by: [id number] Admin: 05/19/21 07:29 Dose: 1.25 mg Documented by: [id number] Metoprolol Succinate (Metoprolol Succ 25mg Ext Rel Tab) 12.5 mg PO DAILY [facility] Stop: 06/18/21 08:59 Last Admin: 05/19/21 08:37 Dose: 12.5 mg Documented by: [id number] Pantoprazole Sodium (Pantoprazole 40 Mg Tab) 40 mg PO DAILY [facility] Stop: 06/18/21 08:59 Last Admin: 05/19/21 08:39 Dose: 40 mg Documented by: [id number] Prednisone (Prednisone 20 Mg Tab) 40 mg PO DAILY [facility] Stop: 05/23/21 08:59 Last Admin: 05/19/21 08:37 Dose: 40 mg Documented by: [id number] Sucralfate (Sucralfate 1 Gm Tab) [address] [facility] Stop: 06/18/21 08:59 Last Admin: 05/19/21 13:23 Dose: 1 gm Documented by: [id number] Admin: 05/19/21 08:38 Dose: 1 gm Documented by: [id number] Venlafaxine HCl (Venlafaxine Hcl Xr 75 Mg Capxr) 75 mg PO QA [facility] Stop: 06/18/21 08:59 Last Admin: 05/19/21 08:37 Dose: 75 mg Documented by: [id number] Discontinued Medications Albuterol (Albut/Ipratrop 3mg/0.5mg Neb 3 Ml Vial) 3 ml INH NOW STA Stop: 05/18/21 21:51 Last Admin: 05/18/21 22:42 Dose: 3 ml Documented by: [id number] Sodium Chloride (Nss) 500 mls @ 999 mls/hr IV .Q31M [facility] Stop: 05/18/21 22:20 Last Infusion: 05/19/21 01:34 Dose: 0 mls/hr Documented by: [id number] Admin: 05/18/21 22:42 Dose: 999 mls/hr Documented by: [id number] Clindamycin Phosphate 900 mg/ (Dextrose) 56 mls @ 112 mls/hr IV ONE ONE Stop: 05/18/21 22:21 Last Infusion: 05/18/21 23:40 Dose: 0 mls/hr Documented by: [id number] Admin: 05/18/21 22:52 Dose: 112 mls/hr Documented by: [id number] Magnesium Sulfate/Dextrose (Magnesium Sulfate / D5w) 1 gm in 100 mls @ 50 mls/hr IV Q2H [facility] Stop: 05/19/21 06:44 Last Infusion: 05/19/21 05:43 Dose: 0 mls/hr Documented by: [id number] Admin: 05/19/21 03:18 Dose: 50 mls/hr Documented by: [id number] Infusion: 05/19/21 03:18 Dose: 0 mls/hr Documented by: [id number] Admin: 05/19/21 02:49 Dose: 50 mls/hr Documented by: [id number] Methylprednisolone (Methylprednisolone 40 Mg/Ml Vial) 40 mg IV ONE STA Stop: 05/19/21 01:07 Last Admin: 05/19/21 01:19 Dose: 40 mg Documented by: [id number] Potassium Chloride (Potassium Chloride Pwd 20 Meq Pack) 40 meq PO NOW [facility] Stop: 05/19/21 02:45 Last Admin: 05/19/21 03:18 Dose: 40 meq Documented by: [id number] Imaging Data Radiologist's Impression: Chest X-Ray 05/18/21 21:51 XR chest 1V portable CLINICAL HISTORY: Dyspnea TECHNIQUE: Single frontal radiograph of the chest was obtained. Comparison: Comparison is made to chest one view 03/04/2021 FINDINGS: No lines and tubes are seen. The cardiomediastinal silhouette is normal. Prominence and cephalization of the vasculature is seen. Airspace opacity is seen in the left lung. No evidence of pleural effusion or pneumothorax. IMPRESSION: Mild pulmonary edema. Airspace opacity in the left lung which may represent atelectasis, pneumonia, and/or aspiration. ACT 112: Negative or not required by law. Electronically signed by: Fernandez Higginbotham M.D. 05/19/2021 8:22 AM Discharge Plan Visit Data Chief Complaint: Shortness of Breath/Dyspnea Stated Complaint: BREATHING PROBLEMS ED Provider: Jonn Weaver Discharge Problem: Aspiration pneumonia, Chronic lung disease, Acute dyspnea, Leukocytosis Patient Disposition: Admitted As Inpatient Discharge Instructions Interventions: ED Discharge Assessment Last Done: 05/19/21 04:07
[2021-05-18] MEDS ORDERED: ALBUT/IPRATROP 3MG/0.5MG NEB 3 ML VIAL INH STA (21:50)
[2021-05-18] MEDS ORDERED: SODIUM CHLORIDE 0.9% 500 ML IV STA (21:50)
[2021-05-18] MEDS ORDERED: CLINDAMYCIN 900 MG in DEXTROSE 5% 50 ML IV ONE (21:52)
[2021-05-18 22:06] LABS: Basophils # (auto) 0.02 K/uL (0-0.2); Basophils % (auto) 0.1 %; Eosinophils # (auto) 0.06 K/uL (0-0.5); Eosinophils % (auto) 0.4 %; Hematocrit (blood only) 34.9 % (37-47); Immature Granulocytes # (auto) 0.04 K/uL (0.00-0.02); Immature Granulocytes % (auto) 0.3 %; Lymphocytes % (auto) 10.8 %; Mean Corpuscular Hemoglobin 26.1 pg (25-34); Mean Corpuscular Hgb Conc 31.5 g/dL (32-36); Mean Corpuscular Volume 82.9 fL (80-100); Mean Platelet Volume 10.3 fL (7.4-10.4); Monocytes # (auto) 0.89 K/uL (0.11-0.59); Neutrophils # (auto) 12.23 K/uL (1.4-6.5); Neutrophils % (auto) 82.4 %; Platelet Count 277 K/uL (130-400); RDW Coefficient of Variation 14.7 % (11.5-14.5); RDW Standard Deviation 44.7 fL (36.4-46.3); Red Blood Count 4.21 M/uL (4.2-5.4); White Blood Count 14.84 K/uL (4.8-10.8)
[2021-05-18 22:16] LABS: Partial Thromboplastin Ratio 0.9; Partial Thromboplastin Time 23.2 Seconds (21.0-31.0)
[2021-05-18 22:33] LABS: Alanine Aminotransferase 12 U/L (7-52); Albumin Globulin Ratio 1.6 (0.9-2); Albumin Level 3.9 gm/dl (3.4-5.0); Alkaline Phosphatase 110 U/L (34-104); Anion Gap 8 (3-11); Aspartate Aminotransferase 12 U/L (13-39); BUN Creatinine Ratio 10.9 (10-20); Bilirubin,Total 0.5 mg/dl (0.2-1.0); Blood Urea Nitrogen 15 mg/dl (6-23); Calcium 8.6 mg/dl (8.5-10.1); Carbon Dioxide 28 mmol/L (21-32); Chloride 106 mmol/L (98-107); Creatinine Clr Calc Pharmacy 39.4 ml/min; Est GFR (African American) 43.9 ml/min; Est GFR (Non-African American) 37.9 ml/min; Globulin 2.4 gm/dl (2.5-4.0); Glucose 105 mg/dl (70-99(Fasting)); Potassium 3.6 mmol/L (3.5-5.1); Sodium 142 mmol/L (136-145); Total Protein 6.3 gm/dl (6.0-8.3); Troponin I < 0.03 ng/ml (0-0.04)
[2021-05-19 00:14] LABS: Appearance Urine Clear (Clear); Bacteria Urine Automated Negative (Negative); Bilirubin Urine Negative (Negative); Blood Urine Negative (Negative); Color Urine Yellow; Epithelial Cell Urine Auto >30 /lpf (0-5); Glucose Urine UA Negative (Negative); Ketones Urine Negative (Negative); Leukocyte Esterase Urine 2+ (Negative); Nitrite Urine Negative (Negative); Protein Urine Negative (Negative); RBC Urine Automated 0-4 /hpf (0-4); Specific Gravity Urine 1.013 (1.000-1.030); Urobilinogen Urine Negative (Negative); pH Urine 6.5 (4.5-7.5)
[2021-05-19] MEDS ORDERED: methylPREDNISolone 40 MG in SYRINGE 0 ML IV STA (00:43)
[2021-05-19 01:21] LABS: Base Excess ABG -0.2 mEq/L (-9-1.8); HCO3 ABG 24 mmol/L (19-24); PCO2 ABG 37 mmHg (35-46); PO2 ABG 76 mmHg (80-95); pH ABG 7.43 (7.35-7.45)
[2021-05-19 01:26] LABS: Allen Test Pos (Pos)
[2021-05-19] MEDS ORDERED: POTASSIUM CHLORIDE PWD 20 MEQ PACK PO STA (02:44)
--- NOTE | 2021-05-19 02:46 | History & Physical Report ---
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 Chronic anemia, hemoglobin at baseline Hyperglycemia likely secondary to prediabetes, hemoglobin A1c of 5.8 from 2019 past tobacco/alcohol abuse, Medical telemetry Supplemental O2 CS, Augmentin nebs, prednisone course Aspiration precautions, swallow eval Pulmonary consult if without improvement Monitor creatinine response to IVF administered at the ER Renal ultrasound if without improvement Update hemoglobin A1c DVT prophylaxis. Heparin subcu Full code Text document was generated using [employer] voice recognition software. It may contain grammatical or spelling errors. Kindly contact undersigned for clarification of any documentation item in question. History of Present Illness Chief Complaint: Low oxygen, worsening shortness of breath Primary Care Provider: Williams Mota MD History obtained from patient and records. Medical history significant for chronic respiratory failure 2 to COPD on home O2 at night, diastolic dysfunction (EF 55%, TTE 2020), past tobacco/alcohol abuse, hypertension, history CVA/cerebellar degeneration/subjective cognitive impairment as per records, hyperlipidemia, chronic back pain, GERD, thyroid nodules, chronic anemia (baseline hemoglobin 10-11). Last confinement February 2021 for COPD exacerbation. 2 months history of dry cough symptoms without unusual chest pain or shortness of breath. Patient always has to be careful chewing her food so she does not have to aspirate. Patient with emesis episodes since yesterday in preparation for outpatient colonoscopy. Post procedure, O2 sats noted by daughter to be 70s at home. Cardiac rate 130s. Patient denies chest pain. Cough symptoms the same. Worsening shortness of breath. Some leg swelling a few weeks ago responsive to home Lasix as per patient. No known recent COVID-19 contacts. Patient has completed COVID-19 vaccination. Patient directed to the ER. O2 sats at the ER 80s at 1 point. Clindamycin and neb treatment given at the ER. MEDICAL HISTORY: As above. SURGERIES: Tubal ligation, hammertoe repair, cholecystectomy FAMILY HISTORY: Family history of heart disease. PERSONAL SOCIAL HISTORY: Past tobacco/alcohol abuse as per records. Retired [employer]. Allergies Allergy/AdvReac Type Severity Reaction Status Date / Time nickel Allergy Rash Verified 05/18/21 22:22 levofloxacin AdvReac Unknown abnormal Verified 05/18/21 22:22 heart issues Home Medications Medication Instructions Recorded Confirmed Type atorvastatin 80 mg tablet 80 mg PO PM 02/09/18 05/18/21 History bupropion HCl 150 mg tablet,12 hr 150 mg PO BID 02/09/18 05/18/21 History sustained-release clonazepam 1 mg tablet 1 mg PO HS 02/09/18 05/18/21 History trazodone 300 mg tablet 300 mg PO HS 02/09/18 05/18/21 History furosemide 20 mg tablet 20 mg PO DAILY 08/27/19 05/18/21 History potassium chloride 20 mEq 20 meq PO DAILY 08/27/19 05/18/21 History tablet,extended release ibuprofen 200 mg tablet 200 - 400 mg PO Q6H PRN 08/09/20 05/18/21 History venlafaxine 75 mg capsule,extended 75 mg PO QAM 08/09/20 05/18/21 History release 24 hr buspirone 5 mg tablet 5 mg PO BID 12/08/20 05/18/21 History albuterol sulfate 90 mcg/actuation 2 puff INHALATION Q4H PRN 03/02/21 05/18/21 History aerosol inhaler metoprolol succinate 25 mg 12.5 mg PO DAILY 03/02/21 05/18/21 History tablet,extended release 24 hr pantoprazole 40 mg tablet,delayed 40 mg PO DAILY 03/02/21 05/18/21 History release sucralfate 1 gram tablet 1 g PO UD 03/02/21 05/18/21 History famotidine 20 mg tablet 20 mg PO DAILY 05/18/21 05/18/21 History fluticasone fur. 200 mcg-umeclid 1 ea INHALATION DAILY 05/18/21 05/18/21 History 62.5 mcg-vilant 25 mcg inhalat.powder (Trelegy Ellipta) Past Med/Surg History Medical History Anxiety Cerebellar ataxia Chronic back pain GERD (gastroesophageal reflux disease) History of alcoholism Hyperlipidemia Hypertension IBS (irritable bowel syndrome) Lactose intolerance Nocturnal hypoxemia On home oxygen therapy 2 LPM AT NIGHT Osteoarthritis Spinal stenosis Stroke MRI OBTAINED 02/2018 [place] R/T VISUAL DISTURBANCES - 4 "MINI STROKES" - PROVIDER UNABLE TO DETERMINE IF ACUTE VS OLD PER PT REPORT - SAW DR.VICTORIA AGRAWAL, NEURO Surgical History History of bilateral tubal ligation History of cholecystectomy History of colonoscopy History of esophagogastroduodenoscopy (EGD) History of tooth extraction History of total hip arthroplasty RT Hx of LASIK Family History Father Stroke Social History Smoking Status: Former smoker Second Hand Exposure: No; Do You Dip or Chew Tobacco: No; Tobacco Cessation Education Requested by Patient: No Hx Alcohol Use: Yes Alcohol type: hard liquor Hx Substance Use: No Preferred Language: [place] Islander Communication Ability: Effective Visual Impairment: No Limitations 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 Required: No Beliefs That Will Affect Care: None marital status: Current Living Situation: Spouse Current Living Situation Comment: Lives with and daughter Other Information That Helps Us Care for You: No Feels Safe at Home: Yes Assistive Devices: Glasses and Oxygen - at Night Review of Systems Review of Systems: As per HPI, all 10 systems reviewed, all other ROS negative Physical Exam Physical Exam: GENERAL: pleasant, looks younger for stated age, no respiratory distress SKIN: Pallor, warm HEENT: Pale palpebral conjunctivae, no ptosis, dry buccal mucosa, nasal cannula in place NECK : Supple, no tenderness CHEST : Decreased breath sounds, occasional expiratory wheezes,no tenderness HEART : RRR, no obvious murmurs ABDOMEN: Minimal epigastric tenderness, nontender EXTREMITIES : Minimal LE swelling, no LE tenderness, no other conspicuous deformities noted NEUROLOGIC : Coherent, no facial asymmetry, no other gross focality Results & Data Results & Data ([facility]) Vital Signs (Past 12 Hours) Vital Signs Temp Pulse Pulse Resp BP BP Pulse Ox 05/19/21 01:00 77 20 128/73 96 05/18/21 23:54 76 21 128/73 97 05/18/21 22:30 88 L 05/18/21 21:51 88 22 92 05/18/21 21:23 36.8 C 91 H 88 21 143/80 H 143/80 H 95 Laboratory Results Laboratory Results WBC 14.84 K/uL (4.8-10.8) H 05/18/21 21:50 RBC 4.21 M/uL (4.2-5.4) 05/18/21 21:50 Hgb 11.0 g/dL (12.0-16.0) L 05/18/21 21:50 Hct 34.9 % (37-47) L 05/18/21 21:50 MCV 82.9 fL (80-100) 05/18/21 21:50 MCH 26.1 pg (25-34) 05/18/21 21:50 MCHC 31.5 g/dL (32-36) L 05/18/21 21:50 RDW Std Deviation 44.7 fL (36.4-46.3) 05/18/21 21:50 RDW Coeff of [place] 14.7 % (11.5-14.5) H 05/18/21 21:50 Plt Count 277 K/uL (130-400) 05/18/21 21:50 MPV 10.3 fL (7.4-10.4) 05/18/21 21:50 Immature Gran % (Auto) 0.3 % 05/18/21 21:50 Neut % (Auto) 82.4 % 05/18/21 21:50 Lymph % (Auto) 10.8 % 05/18/21 21:50 [place] % (Auto) 6.0 % 05/18/21 21:50 Eos % (Auto) 0.4 % 05/18/21 21:50 Baso % (Auto) 0.1 % 05/18/21 21:50 Neut # (Auto) 12.23 K/uL (1.4-6.5) H 05/18/21 21:50 Lymph # (Auto) 1.60 K/uL (1.2-3.4) 05/18/21 21:50 [place] # (Auto) 0.89 K/uL (0.11-0.59) H 05/18/21 21:50 Eos # (Auto) 0.06 K/uL (0-0.5) 05/18/21 21:50 Baso # (Auto) 0.02 K/uL (0-0.2) 05/18/21 21:50 Immature Gran # (Auto) 0.04 K/uL (0.00-0.02) H 05/18/21 21:50 PT 10.0 Seconds (9.0-12.0) 05/18/21 21:50 INR 1.0 (0.9-1.1) 05/18/21 21:50 APTT 23.2 Seconds (21.0-31.0) 05/18/21 21:50 PTT Ratio 0.9 05/18/21 21:50 ABG pH 7.43 (7.35-7.45) 05/19/21 01:04 ABG pCO2 37 mmHg (35-46) 05/19/21 01:04 ABG pO2 76 mmHg (80-95) L 05/19/21 01:04 ABG HCO3 24 mmol/L (19-24) 05/19/21 01:04 ABG O2 Saturation 95.0 % (90-95) 05/19/21 01:04 ABG Base Excess -0.2 mEq/L (-9-1.8) 05/19/21 01:04 [place] Test Pos (Pos) 05/19/21 01:04 Barometric Pressure 727.0 mm/Hg 05/19/21 01:04 Oxygen Given 2L 05/19/21 01:04 Sodium 142 mmol/L (136-145) 05/18/21 21:50 Potassium 3.6 mmol/L (3.5-5.1) 05/18/21 21:50 Chloride 106 mmol/L (98-107) 05/18/21 21:50 Carbon Dioxide 28 mmol/L (21-32) 05/18/21 21:50 Anion Gap 8 (3-11) 05/18/21 21:50 BUN 15 mg/dl (6-23) 05/18/21 21:50 Creatinine 1.37 mg/dl (0.6-1.2) H 05/18/21 21:50 Est Cr Clr Drug Dosing 39.4 ml/min 05/18/21 21:50 Est GFR ( Amer) 43.9 ml/min 05/18/21 21:50 Est GFR (Non-Af Amer) 37.9 ml/min 05/18/21 21:50 BUN/Creatinine Ratio 10.9 (10-20) 05/18/21 21:50 Glucose 105 mg/dl (70-99(Fasting)) H 05/18/21 21:50 Lactate 1.0 mmol/L (0.4-2.0) 05/19/21 01:04 Calcium 8.6 mg/dl (8.5-10.1) 05/18/21 21:50 Magnesium 1.6 mg/dl (1.7-2.4) L 05/19/21 01:04 Total Bilirubin 0.5 mg/dl (0.2-1.0) 05/18/21 21:50 AST 12 U/L (13-39) L 05/18/21 21:50 ALT 12 U/L (7-52) 05/18/21 21:50 Alkaline Phosphatase 110 U/L (34-104) H 05/18/21 21:50 Troponin I < 0.03 ng/ml (0-0.04) 05/18/21 21:50 Total Protein 6.3 gm/dl (6.0-8.3) 05/18/21 21:50 Albumin 3.9 gm/dl (3.4-5.0) 05/18/21 21:50 Globulin 2.4 gm/dl (2.5-4.0) L 05/18/21 21:50 Albumin/Globulin Ratio 1.6 (0.9-2) 05/18/21 21:50 Procalcitonin < 0.05 ng/ml (0-0.5) 05/18/21 21:50 Urine Color Yellow 05/18/21 23:30 Urine Appearance Clear (Clear) 05/18/21 23:30 Urine pH 6.5 (4.5-7.5) 05/18/21 23:30 Ur Specific [place] 1.013 (1.000-1.030) 05/18/21 23:30 Urine Protein Negative (Negative) 05/18/21 23:30 Urine Glucose (UA) Negative (Negative) 05/18/21 23:30 Urine Ketones Negative (Negative) 05/18/21 23:30 Urine Blood Negative (Negative) 05/18/21 23:30 Urine Nitrite Negative (Negative) 05/18/21 23:30 Urine Bilirubin Negative (Negative) 05/18/21 23:30 Urine Urobilinogen Negative (Negative) 05/18/21 23:30 Ur Leukocyte Esterase 2+ (Negative) H 05/18/21 23:30 Urine WBC (Auto) 5-10 /hpf (0-5) H 05/18/21 23:30 Urine RBC (Auto) 0-4 /hpf (0-4) 05/18/21 23:30 U Hyaline Cast (Auto) 1-5 /lpf (0-5) 05/18/21 23:30 U Epithel Cells (Auto) >30 /lpf (0-5) H 05/18/21 23:30 Urine Bacteria (Auto) Negative (Negative) 05/18/21 23:30 SARS-CoV-2, RNA, NAAT NEGATIVE (NEGATIVE) 05/19/21 00:53 Diagnostic Findings Chest x-ray as per my interpretation : Minimal congestion, left infiltrate EKG as per my interpretation : Rate 90, NSR, LAD, LAFB, no ischemia
[2021-05-19] MEDS: MAGNESIUM SULFATE / D5W 1 GM/100 ML BAG IV SCH ×2 (02:49→03:18)
[2021-05-19] MEDS ORDERED: ACETAMINOPHEN 325 MG TAB PO PRN (04:48)
[2021-05-19] MEDS ORDERED: PROMETHAZINE HCL 12.5 MG in SODIUM CHLORIDE 0.9% 50 ML IV PRN (04:48)
[2021-05-19 05:07] LABS: Basophils # (auto) 0.01 K/uL (0-0.2); Basophils % (auto) 0.1 %; Eosinophils # (auto) 0.01 K/uL (0-0.5); Eosinophils % (auto) 0.1 %; Hematocrit (blood only) 33.4 % (37-47); Hemoglobin 10.3 g/dL (12.0-16.0); Immature Granulocytes # (auto) 0.05 K/uL (0.00-0.02); Immature Granulocytes % (auto) 0.4 %; Lymphocytes % (auto) 6.7 %; Mean Corpuscular Hemoglobin 25.8 pg (25-34); Mean Corpuscular Hgb Conc 30.8 g/dL (32-36); Mean Corpuscular Volume 83.5 fL (80-100); Mean Platelet Volume 10.7 fL (7.4-10.4); Monocytes # (auto) 0.16 K/uL (0.11-0.59); Monocytes % (auto) 1.3 %; Neutrophils # (auto) 10.83 K/uL (1.4-6.5); Neutrophils % (auto) 91.4 %; Platelet Count 238 K/uL (130-400); RDW Coefficient of Variation 14.8 % (11.5-14.5); RDW Standard Deviation 45.4 fL (36.4-46.3); White Blood Count 11.86 K/uL (4.8-10.8)
[2021-05-19 05:51] LABS: BUN Creatinine Ratio 14.8 (10-20); Calcium 7.7 mg/dl (8.5-10.1); Creatinine Clr Calc Pharmacy 60.7 ml/min; Est GFR (Non-African American) 64.7 ml/min; Magnesium 2.3 mg/dl (1.7-2.4); Potassium 4.1 mmol/L (3.5-5.1)
[2021-05-19] MEDS ORDERED: XOPENEX/ATROVENT 1.25mg/0.5MG NEB COMBO NEB SCH (07:00)
[2021-05-19] MEDS: LEVALBUTEROL 1.25MG/0.5ML NEB INH SCH ×3 (07:29→19:18)
[2021-05-19] MEDS: IPRATROPIUM BROMIDE NEB SOLN 0.02% 2.5 ML VIAL INH SCH ×3 (07:29→19:18)
--- NOTE | 2021-05-19 08:23 | XRay Report ---
XR chest 1V portable CLINICAL HISTORY: Dyspnea TECHNIQUE: Single frontal radiograph of the chest was obtained. Comparison: Comparison is made to chest one view 03/04/2021 FINDINGS: No lines and tubes are seen. The cardiomediastinal silhouette is normal. Prominence and cephalization of the vasculature is seen. Airspace opacity is seen in the left lung. No evidence of pleural effusi on or pneumothorax. IMPRESSION: Mild pulmonary edema. Airspace opacity in the left lung which may represent atelectasis, pneumonia, a nd/or aspiration. ACT 112: Negative or not required by law. Electronically signed by: Fernandez Higginbotham M.D. 05/19/2021 8:22 AM
[2021-05-19] MEDS: METOPROLOL SUCC 25MG EXT REL TAB PO SCH (08:37)
[2021-05-19] MEDS: VENLAFAXINE HCL XR 75 MG CAPXR PO SCH (08:37)
[2021-05-19] MEDS: AMOXICILLIN/CLAVULANATE 875 MG TAB PO SCH ×2 (08:37→18:27)
[2021-05-19] MEDS: predniSONE 20 MG TAB PO SCH (08:37)
[2021-05-19] MEDS: FAMOTIDINE 20 MG TAB PO SCH ×2 (08:38→08:41)
[2021-05-19] MEDS: ENOXAPARIN INJ 40 MG/0.4 ML SYR SQ SCH (08:38)
[2021-05-19] MEDS: SUCRALFATE 1 GM TAB PO SCH ×4 (08:38→20:35)
[2021-05-19] MEDS: buPROPion SR 150 MG TABCR PO SCH ×2 (08:38→20:35)
[2021-05-19] MEDS: PANTOprazole 40 MG TAB PO SCH (08:39)
[2021-05-19] MEDS: busPIRone 5 MG TAB PO SCH ×2 (08:39→20:36)
--- NOTE | 2021-05-19 12:15 | Hospitalist Progress Note ---
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 Chronic anemia, hemoglobin at baseline Hyperglycemia likely secondary to prediabetes, hemoglobin A1c of 5.8 from 2019 past tobacco/alcohol abuse, Medical telemetry Supplemental O2 CS, Augmentin nebs, prednisone course Aspiration precautions, swallow eval Pulmonary consult if without improvement Monitor creatinine response to IVF administered at the ER Renal ultrasound if without improvement Update hemoglobin A1c DVT prophylaxis. Heparin subcu Full code Labs Checked ROS-No Headache, No Visual Changes, No Nausea, No Vomiting, No Fever, No Chills, No Neck Pain or Stiffness, No Chest Pain, No Palpitations, No SOB, No [place], No Cough, No Sputum, No Wheezing, + Abdominal Pain, No Diarrhea, No Hematemesis, No Hemoptysis, No Unexpected Weight Loss, No Flank pain, No Melena, No Hematochezia, No Frequency, No Urgency, No Burning, No Hematuria, No Rashes, No Diaphoresis. Appetite is Normal Physical Exam Gen-AAO x 3, NAD, Afebrile, Pleasant Head-NCAT, EOMI, PERRLA, Anicteric Sclera, No Posterior Pharyngeal Erythema Neck-Supple, No JVD, No Thyromegaly, No Masses, No LAD, No Bruits Lungs-Clear to Auscultation Bilaterally, No Rales, No Rhonchi, No Wheezing, No Crepitus Chest-No S4, +S1, +S2, No S3, No Murmurs, No Rubs, No Gallops, No Ectopy Abdomen-Soft, Bowel Sounds Present, Tender, Non Distended, No Hepatomegaly, No Splenomegaly, No Palpable Masses, No Rebound, No Rigidity, No Guarding Musculoskeletal-Full Range of Motion Bilaterally, No CVAT Extremities-No Cyanosis, No Clubbing, No Edema Nuero-Cranial Nerves II-XII grossly intact, Motor WNL, DTRs WNL, Strength WNL, Non Focal Psych-Normal Mood Admission and Anticipated Discharge Date Admission Date: May 19, 2021 Subjective She is seen in the ER resting comfortably, complains of mild abdominal pain. Results & Data Results & Data ([facility]) Vital Signs (Past 12 Hours) Vital Signs Temp Pulse Resp BP Pulse Ox Pulse Ox 05/19/21 08:00 37.0 C 76 17 119/65 96 05/19/21 07:30 66 18 94 05/19/21 05:51 36.8 C 64 16 137/87 93 05/19/21 05:45 93 05/19/21 03:21 75 16 164/87 H 95 05/19/21 01:00 77 20 128/73 96
[2021-05-19 12:47] LABS: Estimated Average Glucose 140 mg/dl; Hemoglobin A1C 6.5 % (4.5-5.6)
--- NOTE | 2021-05-19 13:40 | Fluoroscopy Report ---
FL barium swallow CLINICAL HISTORY: h/o heartburn, vomiting COMPARISON STUDY: Barium swallow March 29, 2010. Fluoroscopy time: 1.1 minutes. Number of fluoroscopic images: 12. FINDINGS: No esophageal mass or stricture was identified. 13 mm barium tablet passed into the stomach . There was mild esophageal dysmotility. No reflux was elicited. No hiatal hernia was identified. IMPRESSION: 1. Mild esophageal dysmotility. 2. No esophageal mass or stricture identified. 3. No hiatal hernia. ACT 112: Negative or not required by law. Electronically signed by: Oswald Francis M.D. 05/19/2021 1:38 PM
[2021-05-19] MEDS ORDERED: ATORVASTATIN 40 MG TAB PO SCH (21:00)
[2021-05-19] MEDS ORDERED: clonazePAM 1 MG TAB PO SCH (21:00)
[2021-05-19] MEDS ORDERED: traZODone HCL 100 MG TAB PO SCH (21:00)
[2021-05-20] MEDS: LEVALBUTEROL 1.25MG/0.5ML NEB INH SCH ×2 (00:42→07:16)
[2021-05-20] MEDS: IPRATROPIUM BROMIDE NEB SOLN 0.02% 2.5 ML VIAL INH SCH ×2 (00:42→07:16)
[2021-05-20 07:07] LABS: Hematocrit (blood only) 31.3 % (37-47); Hemoglobin 9.6 g/dL (12.0-16.0); Mean Corpuscular Hemoglobin 25.8 pg (25-34); Mean Corpuscular Hgb Conc 30.7 g/dL (32-36); Mean Corpuscular Volume 84.1 fL (80-100); Mean Platelet Volume 10.5 fL (7.4-10.4); Platelet Count 228 K/uL (130-400); RDW Coefficient of Variation 15.2 % (11.5-14.5); RDW Standard Deviation 46.9 fL (36.4-46.3); Red Blood Count 3.72 M/uL (4.2-5.4); White Blood Count 7.69 K/uL (4.8-10.8)
[2021-05-20] MEDS: PANTOprazole 40 MG TAB PO SCH (07:35)
[2021-05-20] MEDS: VENLAFAXINE HCL XR 75 MG CAPXR PO SCH (07:36)
[2021-05-20] MEDS: SUCRALFATE 1 GM TAB PO SCH ×2 (07:36→11:57)
[2021-05-20] MEDS: AMOXICILLIN/CLAVULANATE 875 MG TAB PO SCH (07:36)
[2021-05-20] MEDS: buPROPion SR 150 MG TABCR PO SCH (07:36)
[2021-05-20] MEDS: FAMOTIDINE 20 MG TAB PO SCH (07:36)
[2021-05-20] MEDS: predniSONE 20 MG TAB PO SCH (07:36)
[2021-05-20] MEDS: busPIRone 5 MG TAB PO SCH (07:36)
[2021-05-20] MEDS: METOPROLOL SUCC 25MG EXT REL TAB PO SCH (07:37)
[2021-05-20] MEDS: ENOXAPARIN INJ 40 MG/0.4 ML SYR SQ SCH (07:38)
[2021-05-20 07:42] LABS: Albumin Globulin Ratio 1.6 (0.9-2); Albumin Level 3.4 gm/dl (3.4-5.0); BUN Creatinine Ratio 11.8 (10-20); Bilirubin,Total 0.4 mg/dl (0.2-1.0); Calcium 8.3 mg/dl (8.5-10.1); Creatinine Clr Calc Pharmacy 62.8 ml/min; Est GFR (African American) 78.2 ml/min; Est GFR (Non-African American) 67.5 ml/min; Globulin 2.1 gm/dl (2.5-4.0); Potassium 3.7 mmol/L (3.5-5.1); Total Protein 5.5 gm/dl (6.0-8.3)
[2021-05-20] MEDS ORDERED: LEVALBUTEROL 1.25MG/0.5ML NEB INH PRN (09:21)
[2021-05-20] MEDS ORDERED: IPRATROPIUM BROMIDE NEB SOLN 0.02% 2.5 ML VIAL INH PRN (09:21)
--- NOTE | 2021-05-20 11:19 | Discharge Summary ---
Date of Service May 20, 2021 Admission HPI Per Admitting Provider History obtained from patient and records. Medical history significant for chronic respiratory failure 2 to COPD on home O2 at night, diastolic dysfunction (EF 55%, TTE 2020), past tobacco/alcohol abuse, hypertension, history CVA/cerebellar degeneration/subjective cognitive impairment as per records, hyperlipidemia, chronic back pain, GERD, thyroid nodules, chronic anemia (baseline hemoglobin 10-11). Last confinement February 2021 for COPD exacerbation. 2 months history of dry cough symptoms without unusual chest pain or shortness of breath. Patient always has to be careful chewing her food so she does not have to aspirate. Patient with emesis episodes since yesterday in preparation for outpatient colonoscopy. Post procedure, O2 sats noted by daughter to be 70s at home. Cardiac rate 130s. Patient denies chest pain. Cough symptoms the same. Worsening shortness of breath. Some leg swelling a few weeks ago responsive to home Lasix as per patient. No known recent COVID-19 contacts. Patient has completed COVID-19 vaccination. Patient directed to the ER. O2 sats at the ER 80s at 1 point. Clindamycin and neb treatment given at the ER. MEDICAL HISTORY: As above. SURGERIES: Tubal ligation, hammertoe repair, cholecystectomy FAMILY HISTORY: Family history of heart disease. PERSONAL SOCIAL HISTORY: Past tobacco/alcohol abuse as per records. 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 Admission Exam Per Admitting Provider GENERAL: pleasant, looks younger for stated age, no respiratory distress SKIN: Pallor, warm HEENT: Pale palpebral conjunctivae, no ptosis, dry buccal mucosa, nasal cannula in place NECK : Supple, no tenderness CHEST : Decreased breath sounds, occasional expiratory wheezes,no tenderness HEART : RRR, no obvious murmurs ABDOMEN: Minimal epigastric tenderness, nontender EXTREMITIES : Minimal LE swelling, no LE tenderness, no other conspicuous deformities noted NEUROLOGIC : Coherent, no facial asymmetry, no other gross focality Principal Diagnosis COPD Exacerbation Acute hypoxemic respiratory failure: hx chronic resp failure 2 to COPD pulmonary hypertension possible aspiration pneumonia Esophageal Dysmotility Diastolic dysfunction hypertension 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 Chronic anemia Hyperglycemia past tobacco/alcohol abuse Discharge Exam See below Discharge Data Allergies Allergy/AdvReac Type Severity Reaction Status Date / Time nickel Allergy Rash Verified 05/18/21 22:22 levofloxacin AdvReac Unknown abnormal Verified 05/18/21 22:22 heart issues Consultations 05/19/21 00:12 ED Decision to Admit Stat Ordered Studies 05/19/21 13:00 [place] barium swallow Routine Current Diagnoses Acute respiratory failure with hypoxia (05/19/21) Allergies nickel Allergy (Verified 05/18/21 22:22) Rash levofloxacin Adverse Reaction (Unknown, Verified 05/18/21 22:22) abnormal heart issues Height/Weight/Isolation Height 5 ft 7 in Weight 78.9 kg Chemistry 05/18/21 05/19/21 05/20/21 21:50 04:44 06:32 Sodium 142 139 141 Potassium 3.6 4.1 3.7 Chloride 106 112 H 110 H Carbon Dioxide 28 19 L 24 Anion Gap 8 8 7 BUN 15 13 10 Creatinine 1.37 H 0.88 D 0.85 Glucose 105 H 150 H 102 H Urinalysis 05/18/21 23:30 Urine Color Yellow Urine Appearance Clear Urine pH 6.5 Ur Specific [place] 1.013 Urine Protein Negative Urine Glucose (UA) Negative Urine Ketones Negative Urine Blood Negative Urine Nitrite Negative Urine Bilirubin Negative Microbiology 05/19/21 01:04 Blood Aerobic Blood Culture - Preliminary No growth in Aerobic bottle after 24 hours. 05/19/21 01:04 Blood Anaerobic Blood Culture - Preliminary No growth in Anaerobic bottle after 24 hours. 05/19/21 01:04 Blood Aerobic Blood Culture - Preliminary No growth in Aerobic bottle after 24 hours. 05/19/21 01:04 Blood Anaerobic Blood Culture - Preliminary No growth in Anaerobic bottle after 24 hours. 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 Chronic anemia, hemoglobin at baseline Hyperglycemia likely secondary to prediabetes, hemoglobin A1c of 5.8 from 2019 past tobacco/alcohol abuse Mild Esophageal Dysmotility on Ba Swallow Medical telemetry Supplemental O2 CS, Augmentin nebs, prednisone course Aspiration precautions, swallow eval done Monitor creatinine response to IVF administered at the ER Renal ultrasound if without improvement Update hemoglobin A1c DVT prophylaxis. Heparin subcu Full code Labs Checked DC later today after seen by GI ROS-No Headache, No Visual Changes, No Nausea, No Vomiting, No Fever, No Chills, No Neck Pain or Stiffness, No Chest Pain, No Palpitations, No SOB, No [place], No Cough, No Sputum, No Wheezing, + Abdominal Pain, No Diarrhea, No Hematemesis, No Hemoptysis, No Unexpected Weight Loss, No Flank pain, No Melena, No Hematochezia, No Frequency, No Urgency, No Burning, No Hematuria, No Rashes, No Diaphoresis. Appetite is Normal Physical Exam Gen-AAO x 3, NAD, Afebrile, [place]-NCAT, EOMI, PERRLA, Anicteric Sclera, No Posterior Pharyngeal Erythema Neck-Supple, No JVD, No Thyromegaly, No Masses, No LAD, No Bruits Lungs-Clear to Auscultation Bilaterally, No Rales, No Rhonchi, No Wheezing, No Crepitus Chest-No S4, +S1, +S2, No S3, No Murmurs, No Rubs, No Gallops, No Ectopy Abdomen-Soft, Bowel Sounds Present, Tender, Non Distended, No Hepatomegaly, No Splenomegaly, No Palpable Masses, No Rebound, No Rigidity, No Guarding Musculoskeletal-Full Range of Motion Bilaterally, No CVAT Extremities-No Cyanosis, No Clubbing, No Edema Nuero-Cranial Nerves II-XII grossly intact, Motor WNL, DTRs WNL, Strength WNL, Non Focal Psych-Normal Mood Total Time Total Time Spent Total Time Spent (In Minutes): 45 mins Total Time Includes: Examination of the Patient, Discharge Planning, Medication Reconciliation and Communication With Other Providers Discharge Plan Discharge Items Patient Disposition: Home - Self-Care Reason For Visit: RESP FAILURE Discharge Diagnosis: COPD Exacerbation Acute hypoxemic respiratory failure: hx chronic resp failure 2 to COPD pulmonary hypertension possible aspiration pneumonia Esophageal Dysmotility Diastolic dysfunction hypertension 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 Chronic anemia Hyperglycemia past tobacco/alcohol abuse Condition on Discharge: Good Activity: Resume your previous activity Lifting: Gradually increase as tolerated Bathing: No limitations Sexual Activity: When tolerated Exercise/Sports: Gradually increase as tolerated Driving/Machine Use: No limitations Weightbearing: Full weightbearing Non-emergency contact: Primary Care Provider and Phlebotomy Services Representative Call non-emergency contact if: you have any medication questions Follow-up/Referrals: Williams Mota MD [Primary Care Provider] - (Date & Time 05/26/2021 3:00 PM Provider Williams Mota MD Department Family [facility] ) Starr Mccullough CRNP [Nurse Practitioner] - (Date & Time 05/26/2021 12:00 PM Provider ANALY Romero Department Gastroenterology, [facility] ) Diet: Heart Healthy Addtl Attending Provider Instructions: Follow up next week with Gastroenterology Pending Studies at Discharge: No Stand-Alone Forms: [facility], Smoking Cessation Medications and DC Order Prescriptions: New amoxicillin-pot clavulanate 875-125 mg tablet 1 tab PO BID Qty: 14 RF: 0 Continued bupropion HCl 150 mg tablet sustained-release 12 hr 150 mg PO BID RF: 0 atorvastatin 80 mg tablet 80 mg PO PM RF: 0 clonazepam 1 mg tablet 1 mg PO HS RF: 0 trazodone 300 mg Tablet 300 mg PO HS RF: 0 furosemide 20 mg tablet 20 mg PO DAILY RF: 0 potassium chloride 20 mEq tablet extended release 20 meq PO DAILY RF: 0 buspirone 5 mg Tablet 5 mg PO BID RF: 0 venlafaxine 75 mg capsule,extended release 24hr 75 mg PO QAM RF: 0 pantoprazole 40 mg tablet,delayed release (DR/EC) 40 mg PO DAILY RF: 0 albuterol sulfate 90 mcg/actuation HFA aerosol inhaler 2 puff INHALATION Q4H PRN (Reason: Shortness Of Breath Or Wheezing) RF: 0 sucralfate 1 gram tablet 1 g PO UD RF: 0 metoprolol succinate 25 mg tablet extended release 24 hr 12.5 mg PO DAILY RF: 0 famotidine 20 mg tablet 20 mg PO DAILY RF: 0 Trelegy Ellipta 200-62.5-25 mcg blister with device 1 ea INHALATION DAILY RF: 0 Discontinued ibuprofen 200 mg Tablet 200 - 400 mg PO Q6H PRN (Reason: Pain) RF: 0 Discharge Orders: Discharge Order (Routine); Ordered 05/20/21 Ordered By: Franky Cornelius/Other Patient Handouts: A1C, 5 Steps for Eating Healthier Admission Data Admit Date/Time: 05/19/21 02:49 Attending Provider: Franky Frank Admit Provider: Jessee Pacheco Primary Care Provider: Williams Mota Other Providers: Jessee Pacheco
--- NOTE | 2021-05-20 23:48 | Electrocardiogram Report ---
Test Reason : Blood Pressure : / mmHG Vent. Rate : 091 BPM Atrial Rate : 091 BPM P-R Int : 170 ms QRS Dur : 084 ms QT Int : 380 ms P-R-T Axes : 020 -28 038 degrees QTc Int : 467 ms Normal sinus rhythm Minimal voltage criteria for LVH, may be normal variant Poor R wave progression, consider anterior KS vs. lead placement vs. LVH Abnormal ECG When compared with ECG of 02-MAR-2021 11:02, Premature ventricular complexes are no longer Present Confirmed by Tito Salazar ([id number]) on 05/20/2021 11:47:50 PM Referred By: REFERRED SELF Confirmed By:Tito Salazar
--- NOTE | 2021-05-30 14:42 | Coding Query ---
SEPSIS POSSIBLE SEPSIS IS DOCUMENTED FROM H&P THROUGH 05/19 PROGRESS NOTE, THEN NOT DOCUMENTED ON DISCHARGE SUMMARY. IT IS NOT CLEAR IF IT WAS STILL POSSIBLE OR RULED-OUT. To promote full compliance with coding requirements relating to patient care, physician participation is requested in all cases of field mechanic uncertainty. Please assist us with the question(s) below: In responding to this query, please exercise your independent professional judgement. The fact that a question is asked does not imply that any particular answer is desired or expected. We appreciate your clarification on this issue. Throughout the medical record, you have clearly documented a localized infection and your patient has clinical evidence of a generalized sepsis or severe sepsis. The term urosepsis is a nonspecific entity and is coded as an UTI. If the patient has sepsis, severe sepsis, from an urinary source or some other source, please clarify in your response below. The medical record reflects the following clinical findings: (With dates as appropriate) (Body temperature of >38.3 C(101 F) or <36 C(96.8F), pulse >90/minute, respirations >20/minute, WBC count >12,000 or <4,000, altered mental status, significant edema or positive fluid balance, hyperglycemia without diabetes, hypotension, metabolic acidosis (elev. lactate level, anion gap or reduced blood pH), shock, positive blood culture (enter organism) ____ ( ) Possible Sepsis Specify Organism if known: Specify Associated Condition/Diagnosis: ( ) Present on Admission ( x) Not present on admission ( ) Unable to clinically determine ( ) Severe Sepsis (Sepsis associated with acute organ dysfunction) Specify Organism Specify Associated Condition/Diagnosis ( ) Present on Admission ( ) Not present on admission ( ) Unable to clinically determine ( ) Septic Shock (Severe sepsis with acute circulatory failure, unexplained by other causes) ( ) Present on Admission ( ) Not present on admission ( ) Unable to clinically determine ( ) Other, patient has: ( x) Sepsis is Ruled-Out MTDD
--- NOTE | 2021-05-30 14:48 | Coding Query ---
CODING QUERY To promote full compliance with coding requirements relating to patient care, provider participation is requested in all cases of instrument maker uncertainty. Please assist us with the question(s) below: Coding Question(s): The ER documents, " Patient states that she had a colonoscopy earlier today and that she got sick during the procedure there was concerned about the possibility of aspiration", and the H&P document, "Patient with emesis episodes since yesterday in preparation for outpatient colonoscopy", and there is documentation on the H&P and the 05/19 Progress Note of, "Acute hypoxemic respiratory failure: Plan: hx chronic resp failure 2 to COPD on home O2 at night/pulmonary hypertension Secondary to COPD exacerbation secondary to possible aspiration pneumonia Recent endoscopic procedure Possible sepsis", and documentation on the Discharge Summary of, "Acute hypoxemic respiratory failure: hx chronic resp failure 2 to COPD on home O2 at night/pulmonary hypertension Secondary to COPD exacerbation Recent endoscopic procedure". It is not clear if this is a likely Postoperative or Intraoperative Complication. Please specify below, in your clinical opinion. ( x ) likely postoperative complication ( ) likely intraoperative complication ( ) Not likely a postoperative or intraoperative complication ( ) Other: Please Specify Physician's Response(s): Thank you Zaynab Sinclair Principal Diagnosis: "that condition established after study, to be chiefly responsible for occasioning the admission of the patient to the hospital for care." Co-Existing Principal Diagnosis: "when two or more diagnoses equally meet the criteria for principal diagnosis as determined by the circumstances of admission, diagnostic work up, and/or therapy provided, and the Alphabetic Index, Tabular List, or another coding guideline does not provide sequencing direction, any one of the diagnoses may be sequenced first." "When the physician has documented what appears to be a current diagnosis in the body of the record, but has not included the diagnosis in the final diagnostic statement, the physician should be asked whether the diagnosis should be added." ([facility] 2 QTR90. p3-4) REBECCA
== END 2021-05-20 15:17 | disposition home or self-care (01) | DRG 205 ==
LOC: ED 21:03 → EDINP 05-19 02:49 → 2N 05-19 04:07

== ENCOUNTER 2021-08-03 08:24 | Inpatient (IN) ==
[2021-08-03] MEDS ORDERED: ALBUT/IPRATROP 3MG/0.5MG NEB 3 ML VIAL INH STA (08:40)
[2021-08-03] MEDS ORDERED: ONDANSETRON INJ 2 MG/ML 2 ML VIAL IV STA (08:41)
--- NOTE | 2021-08-03 08:45 | Emergency Department Note ---
Impression & Plan Pneumonia, Acute on chronic respiratory failure with hypoxia, DM type 2 (diabetes mellitus, type 2), Hiatal hernia ED Provider Note Provider: Vladimir Jackson MD DATE OF SERVICE: 08/03/2021 CHIEF COMPLAINT: Shortness of breath, cough, nausea HISTORY OF PRESENT ILLNESS: Patient is a 76-year-old female history of COPD on home oxygen at night, diastolic dysfunction, hypertension, CVA, hyperlipidemia, GERD, and anemia presenting here today via ambulance from her home with she reports about 2 to 3 weeks of some sinus congestion and particularly since yesterday worsening cough. States this morning she is also quite nauseous and felt short of breath and could not get out of bed. Denies anything breakfast but took some of her home medications she reports. Denies any abdominal pain or chest pain but again reports nausea. Reports he has a headache and some diffuse body myalgias in her limbs. Denies significant leg swelling. States her has been ill with a sinus issue 2. Denies recent use of antibiotics. She states it does not feel like her breathing is wheezy or tight. EMS report the patient did desaturate into the 80s with ambulation. Patient states she only uses 2 L of oxygen at night. REVIEW OF SYSTEMS: A total of 10 review of systems was obtained and negative ex cept as stated above in the HPI. PAST MEDICAL HISTORY: As noted above MEDICATIONS: Reviewed home medication list includes 81 mg aspirin SOCIAL HISTORY: Resides at home with PHYSICAL EXAM: GENERAL: alert and oriented in no acute distress on stretcher yet fatigued appearing Head: normocephalic and atraumatic EYES: No injection, discharge or icterus. NECK: Trachea midline. ENT: Mucous membranes pink and moist. Pharynx without erythema or exudate. LUNGS: Airway patent. No retractions. Breath sounds clear with good air entry bilaterally. HEART: Regular rate and rhythm. No chest wall tenderness ABDOMEN: Soft and non-tender, without guarding or rebound. No pulsatile masses appreciated. SKIN: Acyanotic, warm, dry, without rashes EXTREMITIES: Without swelling deformity or significant calf tenderness bilaterally. NEUROLOGICAL: No focal deficits. No aphasia. No facial droop or slurred speech. EK bpm appears to be in sinus rhythm with no PVCs. No acute ST segment elevation or depression with left axis is noted. QTC is somewhat prolonged in the 500s although the computer interpretation of atrial fibrillation I believe is inaccurate. CONTINUOUS CARDIAC MONITORING: was ordered and showed a heart rate of 80s-110s bpm in normal sinus rhythm to sinus tachycardia Patient's laboratory studies and imaging reviewed. Differential includes Infection, dehydration, metabolic abnormality, hypo/hyperglycemia, electrolyte disturbance, anemia, hypoxia, cardiac sources, intracerebral event, toxicologic, neurologic, as well as other pathologies. IMPRESSION/MEDICAL DECISION MAKING: Patient with extensive history including chronic 2 L of oxygen at night presenting with some shortness of breath and some sinus issues initially developing over last several weeks. Some nausea reported but benign abdomen. Now requiring oxygen at baseline and evidently desaturates with ambulation. CT of the chest to exclude PE will be obtained. Chest x-ray questions mild pulmonary edema and multifocal airspace opacities. Basic blood work was sent. Given a DuoNeb to see if this may help with that she does not sound that wheezy on clinical exam. Patient does not appear meningitic. Has no significant leg swelling. Lower suspicion for gross fluid overload at this time. Blood work returns with a mild leukocytosis of 13.7. Minimal anemia. No significant signs of renal dysfunction or electrolyte abnormality. Lactate not elevated. No signs of bilirubin elevation or LFT abnormality. No concerning findings for hepatitis or pancreatitis. Procalcitonin not elevated. Urinalysis unimpressive. Negative COVID and flu testing. Given her complaints a CT of the chest to exclude PE was completed and given her sinus complaints and headache completed a CT of the head as well. Lower suspicion for CVA at this time. No evidence of PE per the radiology report but some finding concerning for pneumonia. Has hiatal hernia and undergoing GI evaluation next month for possible repair and question if she may be aspirating. Given this covered with Zosyn. Not only on oxygen but requiring some here. Given this discussed further stay here for care and hospitalist will evaluate. Patient was in agreement. DIAGNOSIS: Pneumonia, acute on chronic respiratory failure with hypoxia, hiatal hernia DISPOSITION: Hospitalist will evaluate Patient was agreeable with this plan. Past Med/Surg History Medical History (Updated 08/03/21 @ 15:45 by Vladimir Jackson M.D.) Anxiety Chronic back pain COPD (chronic obstructive pulmonary disease) DM type 2 (diabetes mellitus, type 2) Emphysema lung inhaler daily/prn GERD (gastroesophageal reflux disease) Hiatal hernia History of alcoholism Hyperlipidemia Hypertension IBS (irritable bowel syndrome) Nocturnal hypoxemia On home oxygen therapy 2 LPM AT NIGHT Osteoarthritis Spinal stenosis Stroke MRI OBTAINED 02/2018 [place] R/T VISUAL DISTURBANCES - 4 "MINI STROKES" - PROVIDER UNABLE TO DETERMINE IF ACUTE VS OLD PER PT REPORT - SAW DR.VICTORIA AGRAWAL, NEURO Surgical History History of bilateral tubal ligation History of bronchoscopy (~12/2020) History of cholecystectomy History of colonoscopy History of ERCP (~08/29/19) History of esophagogastroduodenoscopy (EGD) History of tooth extraction History of total hip arthroplasty RT Hx of LASIK Family History Father Stroke Other No family history of adverse response to anesthesia Social History (Updated 08/03/21 @ 12:30 by ANALY Matias) Smoking Status: Never smoker Tobacco Type: Cigarettes Second Hand Exposure: No; Hx Alcohol Use: Yes Alcohol type: hard liquor Alcohol Intake Frequency: Monthly or Less Hx Substance Use: No Preferred Language: Israeli Communication Ability: Effective Visual Impairment: No Limitations Hand Zipper Trimmer Required: No Beliefs That Will Affect Care: None marital status: Current Living Situation: Spouse and Family Current Living Situation Comment: Lives with and daughter Feels Safe at Home: Yes Safety Concerns: Feels Safe At This Time Assistive Devices: Oxygen - at Night Allergies Allergies Allergy/AdvReac Type Severity Reaction Status Date / Time levofloxacin Allergy Intermediate abnormal Verified 08/03/21 09:54 heart issues nickel Allergy Mild Rash Verified 08/03/21 09:54 Home Meds Home Medications Medication Instructions Recorded Confirmed atorvastatin 80 mg tablet 80 mg PO PM 02/09/18 08/03/21 bupropion HCl 150 mg tablet,12 hr 150 mg PO BID 02/09/18 08/03/21 sustained-release trazodone 300 mg tablet 300 mg PO HS 02/09/18 08/03/21 furosemide 20 mg tablet 20 mg PO DAILY PRN 08/27/19 08/03/21 potassium chloride 20 mEq 20 meq PO DAILY PRN 08/27/19 08/03/21 tablet,extended release buspirone 5 mg tablet 5 mg PO BID 12/08/20 08/03/21 albuterol sulfate 90 mcg/actuation 2 puff INHALATION Q4H PRN 03/02/21 08/03/21 aerosol inhaler metoprolol succinate 25 mg 12.5 mg PO QAM 03/02/21 08/03/21 tablet,extended release 24 hr famotidine 20 mg tablet 20 mg PO HS 05/18/21 08/03/21 fluticasone fur. 200 mcg-umeclid 1 ea INHALATION QAM 05/18/21 08/03/21 62.5 mcg-vilant 25 mcg inhalat.powder (Trelegy Ellipta) omeprazole 20 mg tablet,delayed 20 mg PO QAM 06/27/21 08/03/21 release aspirin 81 mg capsule 81 mg PO DAILY 08/03/21 08/03/21 chlorzoxazone 500 mg tablet 500 mg PO TID 08/03/21 08/03/21 colestipol 1 gram tablet 1 g PO BID PRN 08/03/21 08/03/21 ondansetron HCl 4 mg tablet 4 mg PO BID PRN 08/03/21 08/03/21 roflumilast 500 mcg tablet 500 mcg PO DAILY 08/03/21 08/03/21 (Daliresp) venlafaxine 150 mg 150 mg PO DAILY 08/03/21 08/03/21 capsule,extended release 24 hr Results & Data (ED) Vital Signs Vital Signs - 24 hr 08/03/21 08:35 08/03/21 08:40 08/03/21 08:42 Temperature 37.1 C Temperature Source Oral Pulse Rate 104 H Pulse Rate [Finger] Pulse Rhythm [Finger] Pulse Strength [Finger] Respiratory Rate 22 Respiratory Effort / Characteristics Non-Labored Non-Labored Spontaneous Respiratory Depth Normal Respiratory Pattern Regular Blood Pressure 147/82 H Blood Pressure [Right Arm] Blood Pressure Mean 103 Blood Pressure Mean [Right Arm] Blood Pressure Position [Right Arm] Pulse Oximetry 96 95 96 Oxygen Delivery Method Nasal Cannula Nasal Cannula Nasal Cannula Oxygen Flow Rate 4 2 4 Sepsis Recent Fever Within 48 Hours No Sepsis New/Unexplained Change in Mental Status No Sepsis Action Taken by Nursing No Action Required 08/03/21 10:15 08/03/21 10:17 08/03/21 11:00 Temperature Temperature Source Pulse Rate Pulse Rate [Finger] 102 H Pulse Rhythm [Finger] Regular Pulse Strength [Finger] Normal Respiratory Rate 20 Respiratory Effort / Characteristics Non-Labored Respiratory Depth Normal Respiratory Pattern Blood Pressure Blood Pressure [Right Arm] 133/78 Blood Pressure Mean Blood Pressure Mean [Right Arm] 96 Blood Pressure Position [Right Arm] Sitting Pulse Oximetry 89 L 92 97 Oxygen Delivery Method Nasal Cannula Nasal Cannula Nasal Cannula Oxygen Flow Rate 2 3 3 Sepsis Recent Fever Within 48 Hours Sepsis New/Unexplained Change in Mental Status Sepsis Action Taken by Nursing Laboratory Data Result diagrams: 08/03/21 09:28 08/03/21 09:28 Lab Results 08/03/21 08/03/21 08/03/21 Range/Units 08:59 09:28 09:28 WBC 13.73 H (4.8-10.8) K/uL RBC 4.46 (4.2-5.4) M/uL Hgb 11.9 L (12.0-16.0) g/dL Hct 37.7 (37-47) % MCV 84.5 (80-100) fL MCH 26.7 (25-34) pg MCHC 31.6 L (32-36) g/dL RDW Std Deviation 47.6 H (36.4-46.3) fL RDW Coeff of Sharon 15.3 H (11.5-14.5) % Plt Count 288 (130-400) K/uL MPV 10.5 H (7.4-10.4) fL Immature Gran % (Auto) 0.3 % Neut % (Auto) 89.0 % Lymph % (Auto) 5.0 % [place] % (Auto) 5.2 % Eos % (Auto) 0.4 % Baso % (Auto) 0.1 % Neut # (Auto) 12.23 H (1.4-6.5) K/uL Lymph # (Auto) 0.68 L (1.2-3.4) K/uL [place] # (Auto) 0.72 H (0.11-0.59) K/uL Eos # (Auto) 0.05 (0-0.5) K/uL Baso # (Auto) 0.01 (0-0.2) K/uL Immature Gran # (Auto) 0.04 H (0.00-0.02) K/uL PT (9.0-12.0) Seconds INR (0.9-1.1) Sodium (136-145) mmol/L Potassium (3.5-5.1) mmol/L Chloride (98-107) mmol/L Carbon Dioxide (21-32) mmol/L Anion Gap (3-11) BUN (6-23) mg/dl Creatinine (0.6-1.2) mg/dl Est Cr Clr Drug Dosing ml/min Est GFR ( Amer) ml/min Est GFR (Non-Af Amer) ml/min BUN/Creatinine Ratio (10-20) Glucose (70-99(Fasting)) mg/dl Lactate (0.4-2.0) mmol/L Calcium (8.5-10.1) mg/dl Magnesium (1.7-2.4) mg/dl Total Bilirubin (0.2-1.0) mg/dl AST (13-39) U/L ALT (7-52) U/L Alkaline Phosphatase (34-104) U/L Total Creatine Kinase (26-192) U/L Troponin I High Sens 5.5 (0-14) pg/ml Total Protein (6.0-8.3) gm/dl Albumin (3.4-5.0) gm/dl Globulin (2.5-4.0) gm/dl Albumin/Globulin Ratio (0.9-2) Lipase (11-82) U/L Procalcitonin (0-0.5) ng/ml Urine Color Urine Appearance (Clear) Urine pH (4.5-7.5) Ur Specific [place] (1.000-1.030) Urine Protein (Negative) Urine Glucose (UA) (Negative) Urine Ketones (Negative) Urine Blood (Negative) Urine Nitrite (Negative) Urine Bilirubin (Negative) Urine Urobilinogen (Negative) Ur Leukocyte Esterase (Negative) Urine WBC (Auto) (0-5) /hpf Urine RBC (Auto) (0-4) /hpf U Hyaline Cast (Auto) (0-5) /lpf U Epithel Cells (Auto) (0-5) /lpf Urine Bacteria (Auto) (Negative) SARS-CoV-2 (PCR) NEGATIVE (Negative) Influenza Type A (PCR) Negative (Neg) Influenza Type B (PCR) Negative (Neg) RSV (RT-PCR) Negative (Neg) 08/03/21 08/03/21 08/03/21 Range/Units 09:28 09:28 09:28 WBC (4.8-10.8) K/uL RBC (4.2-5.4) M/uL Hgb (12.0-16.0) g/dL Hct (37-47) % MCV (80-100) fL MCH (25-34) pg MCHC (32-36) g/dL RDW Std Deviation (36.4-46.3) fL RDW Coeff of Sharon (11.5-14.5) % Plt Count (130-400) K/uL MPV (7.4-10.4) fL Immature Gran % (Auto) % Neut % (Auto) % Lymph % (Auto) % [place] % (Auto) % Eos % (Auto) % Baso % (Auto) % Neut # (Auto) (1.4-6.5) K/uL Lymph # (Auto) (1.2-3.4) K/uL [place] # (Auto) (0.11-0.59) K/uL Eos # (Auto) (0-0.5) K/uL Baso # (Auto) (0-0.2) K/uL Immature Gran # (Auto) (0.00-0.02) K/uL PT 9.8 (9.0-12.0) Seconds INR 0.9 (0.9-1.1) Sodium 137 (136-145) mmol/L Potassium 3.7 (3.5-5.1) mmol/L Chloride 104 (98-107) mmol/L Carbon Dioxide 27 (21-32) mmol/L Anion Gap 6 (3-11) BUN 20 (6-23) mg/dl Creatinine 0.86 (0.6-1.2) mg/dl Est Cr Clr Drug Dosing 55.8 ml/min Est GFR ( Amer) 77.1 ml/min Est GFR (Non-Af Amer) 66.6 ml/min BUN/Creatinine Ratio 23.3 H (10-20) Glucose 147 H (70-99(Fasting)) mg/dl Lactate (0.4-2.0) mmol/L Calcium 8.9 (8.5-10.1) mg/dl Magnesium 1.8 (1.7-2.4) mg/dl Total Bilirubin 0.2 (0.2-1.0) mg/dl AST 14 (13-39) U/L ALT 12 (7-52) U/L Alkaline Phosphatase 84 (34-104) U/L Total Creatine Kinase 47 (26-192) U/L Troponin I High Sens (0-14) pg/ml Total Protein 6.7 (6.0-8.3) gm/dl Albumin 3.8 (3.4-5.0) gm/dl Globulin 2.9 (2.5-4.0) gm/dl Albumin/Globulin Ratio 1.3 (0.9-2) Lipase 15 (11-82) U/L Procalcitonin < 0.05 (0-0.5) ng/ml Urine Color Urine Appearance (Clear) Urine pH (4.5-7.5) Ur Specific [place] (1.000-1.030) Urine Protein (Negative) Urine Glucose (UA) (Negative) Urine Ketones (Negative) Urine Blood (Negative) Urine Nitrite (Negative) Urine Bilirubin (Negative) Urine Urobilinogen (Negative) Ur Leukocyte Esterase (Negative) Urine WBC (Auto) (0-5) /hpf Urine RBC (Auto) (0-4) /hpf U Hyaline Cast (Auto) (0-5) /lpf U Epithel Cells (Auto) (0-5) /lpf Urine Bacteria (Auto) (Negative) SARS-CoV-2 (PCR) (Negative) Influenza Type A (PCR) (Neg) Influenza Type B (PCR) (Neg) RSV (RT-PCR) (Neg) 08/03/21 08/03/21 Range/Units 09:28 09:55 WBC (4.8-10.8) K/uL RBC (4.2-5.4) M/uL Hgb (12.0-16.0) g/dL Hct (37-47) % MCV (80-100) fL MCH (25-34) pg MCHC (32-36) g/dL RDW Std Deviation (36.4-46.3) fL RDW Coeff of Sharon (11.5-14.5) % Plt Count (130-400) K/uL MPV (7.4-10.4) fL Immature Gran % (Auto) % Neut % (Auto) % Lymph % (Auto) % [place] % (Auto) % Eos % (Auto) % Baso % (Auto) % Neut # (Auto) (1.4-6.5) K/uL Lymph # (Auto) (1.2-3.4) K/uL [place] # (Auto) (0.11-0.59) K/uL Eos # (Auto) (0-0.5) K/uL Baso # (Auto) (0-0.2) K/uL Immature Gran # (Auto) (0.00-0.02) K/uL PT (9.0-12.0) Seconds INR (0.9-1.1) Sodium (136-145) mmol/L Potassium (3.5-5.1) mmol/L Chloride (98-107) mmol/L Carbon Dioxide (21-32) mmol/L Anion Gap (3-11) BUN (6-23) mg/dl Creatinine (0.6-1.2) mg/dl Est Cr Clr Drug Dosing ml/min Est GFR ( Amer) ml/min Est GFR (Non-Af Amer) ml/min BUN/Creatinine Ratio (10-20) Glucose (70-99(Fasting)) mg/dl Lactate 1.4 (0.4-2.0) mmol/L Calcium (8.5-10.1) mg/dl Magnesium (1.7-2.4) mg/dl Total Bilirubin (0.2-1.0) mg/dl AST (13-39) U/L ALT (7-52) U/L Alkaline Phosphatase (34-104) U/L Total Creatine Kinase (26-192) U/L Troponin I High Sens (0-14) pg/ml Total Protein (6.0-8.3) gm/dl Albumin (3.4-5.0) gm/dl Globulin (2.5-4.0) gm/dl Albumin/Globulin Ratio (0.9-2) Lipase (11-82) U/L Procalcitonin (0-0.5) ng/ml Urine Color Yellow Urine Appearance Clear (Clear) Urine pH 7.5 (4.5-7.5) Ur Specific [place] 1.016 (1.000-1.030) Urine Protein Negative (Negative) Urine Glucose (UA) Negative (Negative) Urine Ketones Negative (Negative) Urine Blood Negative (Negative) Urine Nitrite Negative (Negative) Urine Bilirubin Negative (Negative) Urine Urobilinogen Negative (Negative) Ur Leukocyte Esterase 1+ H (Negative) Urine WBC (Auto) 1-5 (0-5) /hpf Urine RBC (Auto) 0-4 (0-4) /hpf U Hyaline Cast (Auto) 0 (0-5) /lpf U Epithel Cells (Auto) 10-20 H (0-5) /lpf Urine Bacteria (Auto) Negative (Negative) SARS-CoV-2 (PCR) (Negative) Influenza Type A (PCR) (Neg) Influenza Type B (PCR) (Neg) RSV (RT-PCR) (Neg) Administered Medications Discontinued Medications Acetaminophen (Acetaminophen 500 Mg Tab) 1,000 mg PO NOW STA Stop: 08/03/21 11:21 Last Admin: 08/03/21 11:25 Dose: 1,000 mg Documented by: [id number] Albuterol (Albut/Ipratrop 3mg/0.5mg Neb 3 Ml Vial) 3 ml INH NOW STA Stop: 08/03/21 08:41 Last Admin: 08/03/21 09:12 Dose: 3 ml Documented by: [id number] Piperacillin Sod/Tazobactam Sod (Zosyn) 4.5 gm in 120 mls @ 240 mls/hr IV NOW ONE Stop: 08/03/21 11:41 Last Infusion: 08/03/21 11:53 Dose: 240 mls/hr Documented by: [id number] Admin: 08/03/21 11:23 Dose: 240 mls/hr Documented by: [id number] Ioversol (Optiray 320 125ml) 120 ml IV ONCE ONE Stop: 08/03/21 10:31 Last Admin: 08/03/21 10:31 Dose: 120 ml Documented by: [id number] Ondansetron HCl (Ondansetron Inj 2 Mg/Ml 2 Ml Vial) 4 mg IV NOW STA Stop: 08/03/21 08:42 Last Admin: 08/03/21 09:11 Dose: 4 mg Documented by: [id number] Imaging Data Radiologist's Impression: Chest CTA 08/03/21 08:40 CT angio chest PE protocol CLINICAL HISTORY: Dyspnea TECHNIQUE: Multidetector row helical CT of the chest was performed with angiographic protocol. Coronal and sagittal reformations were obtained. Coronal and sagittal MIPS were obtained from the axial data set and were submitted for review. Automated dose lowering techniques and/or adjustment according to patient size were utilized for this exam. CT DOSE: 1197.57 mGy.cm Comparison: None available at the time of this dictation. FINDINGS: Lungs and pleura: Multifocal groundglass and some consolidative opacities are seen. Heart and pericardium: Cardiomegaly is seen. Vessels: No evidence of pulmonary embolism. Mediastinum and aidee: Right lower paratracheal node measures 14 mm in diameter. Additional prominent mediastinal and hilar nodes are seen. A hiatal hernia is seen. There is patulous and fluid-filled esophagus. Chest wall and lower neck: Multiple large thyroid nodules are seen measuring up to 31 mm in diameter. Abdomen: Unremarkable. Bones: Degenerative changes in the thoracic spine. IMPRESSION: 1. No evidence of pulmonary embolism. 2. Diffuse airspace opacities compatible with pneumonia and/or aspiration. Lymphadenopathy is likely reactive. 3. Patulous and fluid-filled esophagus, of uncertain etiology. 4. Multiple thyroid nodules. If not previously evaluated, thyroid ultrasound can be performed. ACT 112: Negative or not required by law. Electronically signed by: Fernandez Higginbotham M.D. 08/03/2021 10:59 AM Chest X-Ray 08/03/21 08:40 XR chest 1V portable CLINICAL HISTORY: Dyspnea TECHNIQUE: Single frontal radiograph of the chest was obtained. Comparison: Comparison is made to chest one view 05/18/2021 FINDINGS: No lines and tubes are seen. The cardiomediastinal silhouette is normal. Prominence and cephalization of the vasculature is seen. Multifocal airspace opacities are seen predominantly in the right upper lobe and left lower lobe. No evidence of pleural effusion or pneumothorax. IMPRESSION: 1. Multifocal airspace opacities may represent atelectasis, pneumonia, and/or aspiration. 2. Mild pulmonary edema. ACT 112: Negative or not required by law. Electronically signed by: Fernandez Higginbotham M.D. 08/03/2021 9:[address] 08/03/21 08:42 CT head/brain wo con CLINICAL HISTORY: headahce, nausea COMPARISON STUDY: 06/02/2018 CT DOSE: TECHNIQUE: Standard CT of the Brain was performed without IV contrast. A dose lowering technique was utilized adhering to the principles of ALARA. FINDINGS: Extraaxial space: There is no evidence for subdural hematoma. There are no extra-axial fluid collections. Ventricles and cisterns: The ventricles are mildly dilated bilaterally. There is no evidence for midline shift or mass effect. Parenchyma: There is no subarachnoid or intraparenchymal hemorrhage. There is no evidence for an acute infarct or cerebral edema. There is mild cerebral cortical atrophy and decreased attenuation in the periventricular white matter representing remote small vessel disease. There are no gross mass lesions. Osseous structures: There is no evidence for an acute fracture. There is prominent mucosal thickening with fluid levels present within both maxillary antra. Muscle thickening is also seen involving the ethmoid air cells bilaterally. Fluid level is seen within the sphenoid sinus. The remaining visualized paranasal sinuses are clear. The mastoid air cells are clear bilat erally. Soft tissues: There is no evidence for focal soft tissue swelling. IMPRESSION: 1. No acute intracerebral pathology. 2. Cerebral cortical atrophy and remote small vessel disease are again seen. 3. Sinusitis. ACT 112: Negative or not required by law. Electronically signed by: Josué Mattson M.D. 08/03/2021 11:07 AM Discharge Plan Visit Data Chief Complaint: Shortness of Breath/Dyspnea Stated Complaint: SOB, ILLNESS ED Provider: Vladimir Jackson Discharge Problem: Pneumonia, Acute on chronic respiratory failure with hypoxia, DM type 2 (diabetes mellitus, type 2), Hiatal hernia Patient Disposition: Being Evaluated by Hospitalist Discharge Instructions Interventions: ED Discharge Assessment Last Done: 08/03/21 14:58
--- NOTE | 2021-08-03 09:11 | XRay Report ---
XR chest 1V portable CLINICAL HISTORY: Dyspnea TECHNIQUE: Single frontal radiograph of the chest was obtained. Comparison: Comparison is made to chest one view 05/18/2021 FINDINGS: No lines and tubes are seen. The cardiomediastinal silhouette is normal. Prominence and cephalization of the vasculature is seen. Multifocal airspace opacities are seen predominantly in the right upper lobe and left lower lobe. No evidence of pleural effusion or pneumothorax. IMPRESSION: 1. Multifocal airspace opacities may represent atelectasis, pneumonia, and/or aspiration. 2. Mild pulmonary edema. ACT 112: Negative or not required by law. Electronically signed by: Fernandez Higginbotham M.D. 08/03/2021 9:10 AM
[2021-08-03 09:49] LABS: INR 0.9 (0.9-1.1); Prothrombin Time 9.8 Seconds (9.0-12.0)
[2021-08-03 09:49] LABS: Influenza A virus by PCR Negative (Neg); Influenza B virus by PCR Negative (Neg); RSV by PCR Negative (Neg); SARS CoV2 RNA(COVID-19) InHosp NEGATIVE (Negative)
[2021-08-03 09:54] LABS: Basophils # (auto) 0.01 K/uL (0-0.2); Basophils % (auto) 0.1 %; Eosinophils # (auto) 0.05 K/uL (0-0.5); Eosinophils % (auto) 0.4 %; Hematocrit (blood only) 37.7 % (37-47); Hemoglobin 11.9 g/dL (12.0-16.0); Immature Granulocytes # (auto) 0.04 K/uL (0.00-0.02); Immature Granulocytes % (auto) 0.3 %; Lymphocytes # (auto) 0.68 K/uL (1.2-3.4); Mean Corpuscular Hemoglobin 26.7 pg (25-34); Mean Corpuscular Hgb Conc 31.6 g/dL (32-36); Mean Corpuscular Volume 84.5 fL (80-100); Mean Platelet Volume 10.5 fL (7.4-10.4); Monocytes # (auto) 0.72 K/uL (0.11-0.59); Monocytes % (auto) 5.2 %; Neutrophils # (auto) 12.23 K/uL (1.4-6.5); Platelet Count 288 K/uL (130-400); RDW Coefficient of Variation 15.3 % (11.5-14.5); RDW Standard Deviation 47.6 fL (36.4-46.3); Red Blood Count 4.46 M/uL (4.2-5.4); White Blood Count 13.73 K/uL (4.8-10.8)
[2021-08-03 10:03] LABS: Albumin Globulin Ratio 1.3 (0.9-2); Albumin Level 3.8 gm/dl (3.4-5.0); BUN Creatinine Ratio 23.3 (10-20); Bilirubin,Total 0.2 mg/dl (0.2-1.0); Calcium 8.9 mg/dl (8.5-10.1); Creatinine Clr Calc Pharmacy 55.8 ml/min; Est GFR (African American) 77.1 ml/min; Est GFR (Non-African American) 66.6 ml/min; Globulin 2.9 gm/dl (2.5-4.0); Magnesium 1.8 mg/dl (1.7-2.4); Potassium 3.7 mmol/L (3.5-5.1); Total Protein 6.7 gm/dl (6.0-8.3)
[2021-08-03] MEDS ORDERED: OPTIRAY 320 125ml IV ONE (10:30)
[2021-08-03 10:36] LABS: Appearance Urine Clear (Clear); Bacteria Urine Automated Negative (Negative); Bilirubin Urine Negative (Negative); Blood Urine Negative (Negative); Cast Urine Automated 0 /lpf (0-5); Color Urine Yellow; Glucose Urine UA Negative (Negative); Ketones Urine Negative (Negative); Leukocyte Esterase Urine 1+ (Negative); Nitrite Urine Negative (Negative); Protein Urine Negative (Negative); RBC Urine Automated 0-4 /hpf (0-4); Specific Gravity Urine 1.016 (1.000-1.030); Urobilinogen Urine Negative (Negative); pH Urine 7.5 (4.5-7.5)
--- NOTE | 2021-08-03 11:01 | CT Scan Report ---
CT angio chest PE protocol CLINICAL HISTORY: Dyspnea TECHNIQUE: Multidetector row helical CT of the chest was performed with angiographic protocol. Ibarra l and sagittal reformations were obtained. Coronal and sagittal MIPS were obtained from the axial yajaira a set and were submitted for review. Automated dose lowering techniques and/or adjustment according to patient size were utilized for this exam. CT DOSE: 1197.57 mGy.cm Comparison: None available at the time of this dictation. FINDINGS: Lungs and pleura: Multifocal groundglass and some consolidative opacities are seen. Heart and pericardium: Cardiomegaly is seen. Vessels: No evidence of pulmonary embolism. Mediastinum and aidee: Right lower paratracheal node measures 14 mm in diameter. Additional prominent mediastinal and hilar nodes are seen. A hiatal hernia is seen. There is patulous and fluid-filled eso phagus. Chest wall and lower neck: Multiple large thyroid nodules are seen measuring up to 31 mm in diameter. Abdomen: Unremarkable. Bones: Degenerative changes in the thoracic spine. IMPRESSION: 1. No evidence of pulmonary embolism. 2. Diffuse airspace opacities compatible with pneumonia and/or aspiration. Lymphadenopathy is likely reactive. 3. Patulous and fluid-filled esophagus, of uncertain etiology. 4. Multiple thyroid nodules. If not previously evaluated, thyroid ultrasound can be performed. ACT 112: Negative or not required by law. Electronically signed by: Fernandez Higginbotham M.D. 08/03/2021 10:59 AM
--- NOTE | 2021-08-03 11:10 | CT Scan Report ---
CT head/brain wo con CLINICAL HISTORY: headahce, nausea COMPARISON STUDY: 06/02/2018 CT DOSE: TECHNIQUE: Standard CT of the Brain was performed without IV contrast. A dose lowering technique was utilized adhering to the principles of ALARA. FINDINGS: Extraaxial space: There is no evidence for subdural hematoma. There are no extra-axial fluid collecti ons. Ventricles and cisterns: The ventricles are mildly dilated bilaterally. There is no evidence for midl ine shift or mass effect. Parenchyma: There is no subarachnoid or intraparenchymal hemorrhage. There is no evidence for an acut e infarct or cerebral edema. There is mild cerebral cortical atrophy and decreased attenuation in the periventricular white matter representing remote small vessel disease. There are no gross mass lesio ns. Osseous structures: There is no evidence for an acute fracture. There is prominent mucosal thickening with fluid levels present within both maxillary antra. Muscle thickening is also seen involving the ethmoid air cells bilaterally. Fluid level is seen within the sphenoid sinus. The remaining visualize d paranasal sinuses are clear. The mastoid air cells are clear bilaterally. Soft tissues: There is no evidence for focal soft tissue swelling. IMPRESSION: 1. No acute intracerebral pathology. 2. Cerebral cortical atrophy and remote small vessel disease are again seen. 3. Sinusitis. ACT 112: Negative or not required by law. Electronically signed by: Josué Mattson M.D. 08/03/2021 11:07 AM
[2021-08-03] MEDS ORDERED: PIPERACILLIN/TAZOBACTAM 4.5 GM/120 ML BAG IV ONE (11:12)
[2021-08-03] MEDS ORDERED: PIPERACILL/TAZOBAC CONSULT ACTIVE PRN (11:12)
[2021-08-03] MEDS ORDERED: ACETAMINOPHEN 500 MG TAB PO STA (11:20)
--- NOTE | 2021-08-03 12:41 | History & Physical Report ---
Date of Service August 03, 2021 Assessment & Plan (1) Acute on chronic respiratory failure with hypoxia: (2) COPD (chronic obstructive pulmonary disease): (3) Pneumonia: Plan: Admit to [facility] Patient presenting from home with reports of intractable cough In the ED, saturating 89% on room air, currently requiring 3 L of oxygen via nasal cannula. Patient with history of nocturnal hypoxemia, chronically wears 2 L of oxygen HS CTA chest negative for pulmonary embolism however shows diffuse airspace opacities compatible with pneumonia and/or aspiration Chart history of alcoholism, however patient denies any use currently. Does have history of hiatal hernia, scheduled for repair 08/2021, this may be contributing to some chronic aspiration WBC 13 K, afebrile, normal HR, BP, lactic acid. Does not appear septic. Procalcitonin negative. S/p Zosyn in the ED. Will continue with Unasyn and doxycycline Pulmonary toilet with Mucinex, nebs, flutter valve, incentive spirometer Continue home inhalers and Daliresp. No wheezing noted on exam, hold on steroids at this time. Speech eval (4) Prolonged QT interval: Plan: QTC 596 Venlafaxine recently increased from 75 mg to 150 mg on 07/13 --may be contributing to prolonged QT Daily EKG Avoid additional QTC prolonging agents May need to discuss with psychiatry regarding medication adjustments (5) DM type 2 (diabetes mellitus, type 2): Plan: Hgb A1c 6.5 05/2021 Currently not on any diabetic agents NovoLog per protocol while hospitalized (6) Hypertension: Plan: BP controlled, continue metoprolol (7) Depression: (8) Anxiety: Plan: Continue home meds for now (venlafaxine, bupropion, trazodone, buspirone) however adjustments may need to made due to prolonged QT (9) GERD (gastroesophageal reflux disease): (10) Hiatal hernia: Plan: Scheduled for paraesophageal hernia repair 08/2021 at [facility] Continue PPI and H2 temitope (11) DVT prophylaxis: Plan: SQ Lovenox History of Present Illness Chief Complaint: Cough Primary Care Provider: Williams Mota MD 76-year-old female with PMH COPD, nocturnal hypoxia on 2 L of oxygen, HTN, GERD , hiatal hernia (scheduled for paraesophageal hernia repair 08/2021), history of alcohol abuse, depression, anxiety, dyslipidemia, and other problems listed below who presents the ED for evaluation of cough. Patient was treated as an outpatient for sinusitis on 07/13 with a 10-day course of doxycycline. Patient reports improvement in her sinusitis symptoms after completing the doxycycline. Last night, patient reports she developed a cough. Reports cough is productive for a yellow/white sputum. Patient denies chest pain and shortness of breath. No lightheadedness, dizziness, diaphoresis, syncopal events. Reports some nausea this morning however no abdominal pain, vomiting, diarrhea. Denies fevers and chills. No urinary symptoms. In the ED, patient was hypoxic on room air at 89%, currently requiring 3 L of oxygen via nasal cannula. Labs show WBC 13 K, otherwise unremarkable. CTA chest negative for pulmonary embolism however shows diffuse airspace opacities compatible with pneumonia and/or aspiration. Patient was given p.o. Tylenol, nebulizer treatment, IV Zofran, IV Zosyn. Allergies Allergy/AdvReac Type Severity Reaction Status Date / Time levofloxacin Allergy Intermediate abnormal Verified 08/03/21 09:54 heart issues nickel Allergy Mild Rash Verified 08/03/21 09:54 Home Medications Medication Instructions Recorded Confirmed Type atorvastatin 80 mg tablet 80 mg PO PM 02/09/18 08/03/21 History bupropion HCl 150 mg tablet,12 hr 150 mg PO BID 02/09/18 08/03/21 History sustained-release trazodone 300 mg tablet 300 mg PO HS 02/09/18 08/03/21 History furosemide 20 mg tablet 20 mg PO DAILY PRN 08/27/19 08/03/21 History potassium chloride 20 mEq 20 meq PO DAILY PRN 08/27/19 08/03/21 History tablet,extended release buspirone 5 mg tablet 5 mg PO BID 12/08/20 08/03/21 History albuterol sulfate 90 mcg/actuation 2 puff INHALATION Q4H PRN 03/02/21 08/03/21 History aerosol inhaler metoprolol succinate 25 mg 12.5 mg PO QAM 03/02/21 08/03/21 History tablet,extended release 24 hr famotidine 20 mg tablet 20 mg PO HS 05/18/21 08/03/21 History fluticasone fur. 200 mcg-umeclid 1 ea INHALATION QAM 05/18/21 08/03/21 History 62.5 mcg-vilant 25 mcg inhalat.powder (Trelegy Ellipta) omeprazole 20 mg tablet,delayed 20 mg PO QAM 06/27/21 08/03/21 History release aspirin 81 mg capsule 81 mg PO DAILY 08/03/21 08/03/21 History chlorzoxazone 500 mg tablet 500 mg PO TID 08/03/21 08/03/21 History colestipol 1 gram tablet 1 g PO BID PRN 08/03/21 08/03/21 History ondansetron HCl 4 mg tablet 4 mg PO BID PRN 08/03/21 08/03/21 History roflumilast 500 mcg tablet 500 mcg PO DAILY 08/03/21 08/03/21 History (Daliresp) venlafaxine 150 mg 150 mg PO DAILY 08/03/21 08/03/21 History capsule,extended release 24 hr Past Med/Surg History Medical History (Updated 08/03/21 @ 12:33 by ANALY Matias) Anxiety Chronic back pain COPD (chronic obstructive pulmonary disease) DM type 2 (diabetes mellitus, type 2) Emphysema lung inhaler daily/prn GERD (gastroesophageal reflux disease) Hiatal hernia History of alcoholism Hyperlipidemia Hypertension IBS (irritable bowel syndrome) Nocturnal hypoxemia On home oxygen therapy 2 LPM AT NIGHT Osteoarthritis Spinal stenosis Stroke MRI OBTAINED 02/2018 [place] R/T VISUAL DISTURBANCES - 4 "MINI STROKES" - PROVIDER UNABLE TO DETERMINE IF ACUTE VS OLD PER PT REPORT - SAW DR.VICTORIA AGRAWAL, NEURO Surgical History History of bilateral tubal ligation History of bronchoscopy (~12/2020) History of cholecystectomy History of colonoscopy History of ERCP (~08/29/19) History of esophagogastroduodenoscopy (EGD) History of tooth extraction History of total hip arthroplasty RT Hx of LASIK Family History Father Stroke Other No family history of adverse response to anesthesia Social History (Updated 08/03/21 @ 12:30 by ANALY Matias) Smoking Status: Former smoker Tobacco Type: Cigarettes Second Hand Exposure: No; Hx Alcohol Use: Yes Alcohol type: hard liquor Alcohol Intake Frequency: Monthly or Less Hx Substance Use: No Preferred Language: Montserratian Communication Ability: Effective Visual Impairment: No 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 Webster's addendum for physical exam Results & Data Results & Data ([facility]) Vital Signs (Past 12 Hours) Vital Signs Temp Pulse Pulse Resp BP BP Pulse Ox 08/03/21 11:00 102 H 20 133/78 97 08/03/21 10:17 92 08/03/21 10:15 89 L 08/03/21 08:42 96 08/03/21 08:40 95 08/03/21 08:35 37.1 C 104 H 22 147/82 H 96 Laboratory Results Short CBC 08/03/21 Range/Units 09:28 WBC 13.73 H (4.8-10.8) K/uL Hgb 11.9 L (12.0-16.0) g/dL Hct 37.7 (37-47) % Plt Count 288 (130-400) K/uL BMP 08/03/21 09:28 Sodium 137 Potassium 3.7 Chloride 104 Carbon Dioxide 27 BUN 20 Creatinine 0.86 Glucose 147 H Calcium 8.9 Cardiac Enzymes 08/03/21 Range/Units 09:28 Total Creatine Kinase 47 (26-192) U/L Liver Function 08/03/21 Range/Units 09:28 Total Bilirubin 0.2 (0.2-1.0) mg/dl AST 14 (13-39) U/L ALT 12 (7-52) U/L Alkaline Phosphatase 84 (34-104) U/L Albumin 3.8 (3.4-5.0) gm/dl Urine 08/03/21 Range/Units 09:55 Urine Color Yellow Urine Appearance Clear (Clear) Urine pH 7.5 (4.5-7.5) Ur Specific [place] 1.016 (1.000-1.030) Urine Protein Negative (Negative) Urine Glucose (UA) Negative (Negative) Diagnostic Findings Chest CTA 08/03/21 08:40 CT angio chest PE protocol CLINICAL HISTORY: Dyspnea TECHNIQUE: Multidetector row helical CT of the chest was performed with angiographic protocol. Coronal and sagittal reformations were obtained. Coronal and sagittal MIPS were obtained from the axial data set and were submitted for review. Automated dose lowering techniques and/or adjustment according to patient size were utilized for this exam. CT DOSE: 1197.57 mGy.cm Comparison: None available at the time of this dictation. FINDINGS: Lungs and pleura: Multifocal groundglass and some consolidative opacities are seen. Heart and pericardium: Cardiomegaly is seen. Vessels: No evidence of pulmonary embolism. Mediastinum and aidee: Right lower paratracheal node measures 14 mm in diameter. Additional prominent mediastinal and hilar nodes are seen. A hiatal hernia is seen. There is patulous and fluid-filled esophagus. Chest wall and lower neck: Multiple large thyroid nodules are seen measuring up to 31 mm in diameter. Abdomen: Unremarkable. Bones: Degenerative changes in the thoracic spine. IMPRESSION: 1. No evidence of pulmonary embolism. 2. Diffuse airspace opacities compatible with pneumonia and/or aspiration. Lymphadenopathy is likely reactive. 3. Patulous and fluid-filled esophagus, of uncertain etiology. 4. Multiple thyroid nodules. If not previously evaluated, thyroid ultrasound can be performed. ACT 112: Negative or not required by law. Electronically signed by: Fernandez Higginbotham M.D. 08/03/2021 10:59 AM Chest X-Ray 08/03/21 08:40 XR chest 1V portable CLINICAL HISTORY: Dyspnea TECHNIQUE: Single frontal radiograph of the chest was obtained. Comparison: Comparison is made to chest one view 05/18/2021 FINDINGS: No lines and tubes are seen. The cardiomediastinal silhouette is normal. Prominence and cephalization of the vasculature is seen. Multifocal airspace opacities are seen predominantly in the right upper lobe and left lower lobe. No evidence of pleural effusion or pneumothorax. IMPRESSION: 1. Multifocal airspace opacities may represent atelectasis, pneumonia, and/or aspiration. 2. Mild pulmonary edema. ACT 112: Negative or not required by law. Electronically signed by: Fernandez Higginbotham M.D. 08/03/2021 9:[address] 08/03/21 08:42 CT head/brain wo con CLINICAL HISTORY: headahce, nausea COMPARISON STUDY: 06/02/2018 CT DOSE: TECHNIQUE: Standard CT of the Brain was performed without IV contrast. A dose lowering technique was utilized adhering to the principles of ALARA. FINDINGS: Extraaxial space: There is no evidence for subdural hematoma. There are no extra-axial fluid collections. Ventricles and cisterns: The ventricles are mildly dilated bilaterally. There is no evidence for midline shift or mass effect. Parenchyma: There is no subarachnoid or intraparenchymal hemorrhage. There is no evidence for an acute infarct or cerebral edema. There is mild cerebral cortical atrophy and decreased attenuation in the periventricular white matter representing remote small vessel disease. There are no gross mass lesions. Osseous structures: There is no evidence for an acute fracture. There is prominent mucosal thickening with fluid levels present within both maxillary antra. Muscle thickening is also seen involving the ethmoid air cells bilaterally. Fluid level is seen within the sphenoid sinus. The remaining visualized paranasal sinuses are clear. The mastoid air cells are clear bilaterally. Soft tissues: There is no evidence for focal soft tissue swelling. IMPRESSION: 1. No acute intracerebral pathology. 2. Cerebral cortical atrophy and remote small vessel disease are again seen. 3. Sinusitis. ACT 112: Negative or not required by law. Electronically signed by: Josué Mattson M.D. 08/03/2021 11:07 AM Code Status & VTE Plan Code Status Patient is a full code as per my discussion with her. Patient states that her , Ilya, would be her decision-maker in the event she were to be unable to. VTE Prophylaxis Plan VTE Prophylaxis will be ordered: Yes Supervising Physician Co-Signing Physician Notes Patient is a 76-year-old female with history of COPD on chronic oxygen dependency, hypertension, hyperlipidemia, GERD, CVA and other medical problems presents with history of worsening productive cough since last few days. Patient admits to having possible sinus infection recently and completed a 10- day course of doxycycline. She reports having difficulty to expectorate. She desaturated to 80s with ambulation while in ED. She denies any chest pain, shortness of breath, fever, chills but reports having nausea. Patient denies any dysphagia, aspiration issues. She is in the process of getting surgery for hiatal hernia. Please review HPI for complete details of presentation. Blood work suggestive of leukocytosis 13.7, chronic anemia 11.9, glucose 147, normal procalcitonin. Negative COVID, influenza, RSV screen. CT is suggestive of diffuse airspace opacities compatible with pneumonia and or aspiration, reviewed reactive lymphadenopathy. Also noted patulous fluid-filled esophagus. Incidentally noted multiple thyroid nodules. EKG showed sinus tachycardia, left axis deviation, QTC prolonged at 596. Patient is admitted for management of acute on chronic respiratory failure with hypoxia, pneumonia. Agree with Unasyn, doxycycline for now. Speech eval to rule out aspiration issues. Continue PPI. Mucinex, antitussives. May need 2 step prior to discharge. Work-up for multinodular goiter as outpatient. Patient unaware of being diabetic. Her last HbA1c was 6.5 in May 2021. Monitor blood glucose lev els and cover with insulin sliding scale as needed. Monitor QTC while on venlafaxine, trazodone. Consider discussing with psychiatry to help adjust antipsychotics if needed. Pulmonary hygiene with flutter, incentive spirometry. Physical Exam: Vitals signs as noted above General Appearance: Thin, frail, chronically ill-appearing, no apparent distress Head: normocephalic, Atraumatic Eyes: normal inspection, EOMI Neck: supple, Trachea midline Respiratory/Chest: Decreased breath sounds, Basal Crackles, No accessory muscle use Cardiovascular: S1, S2, No murmur, Tachycardia Abdomen/GI:Soft, Non tender, Bowel sounds present Extremities/Musculoskeletal:normal inspection, no edema Neurologic/Psych:AAOX3, grossly no focal neurological deficits Skin: normal color, warm I personally reviewed the record. Patient is interviewed and examined at bedside. Patient's care is coordinated with Jennifer Caldera [employer] D[employer]Y MANAGER. Please refer to the documentation above for details of patient's presentation and for discussion of other issues.
[2021-08-03] MEDS ORDERED: guaiFENesin/DEXTROM SYRUP 100MG/10MG 5ML UDC PO PRN (15:10)
[2021-08-03] MEDS ORDERED: GLUCOSE 40% GEL 15 GM TUBE PO PRN (15:10)
[2021-08-03] MEDS ORDERED: CARBOHYDRATES FOR HYPOGLYCEMIA PO PRN (15:10)
[2021-08-03] MEDS ORDERED: ACETAMINOPHEN 325 MG TAB PO PRN (15:10)
[2021-08-03] MEDS ORDERED: GLUCOSE 10 TABS/TUBE PO PRN (15:10)
[2021-08-03] MEDS ORDERED: ALBUT/IPRATROP 3MG/0.5MG NEB 3 ML VIAL NEB PRN (15:10)
[2021-08-03] MEDS ORDERED: DEXTROSE 50% 50 ML SYRINGE IV PRN (15:10)
[2021-08-03] MEDS ORDERED: CHLORZOXAZONE 500 MG TAB PO SCH (15:10)
[2021-08-03] MEDS ORDERED: GLUCAGON FOR INJ 1 MG VIAL SQ PRN (15:10)
[2021-08-03] MEDS: ENOXAPARIN INJ 40 MG/0.4 ML SYR SQ SCH (16:14)
[2021-08-03] MEDS: AMPICILLIN/SULBACTAM SOD 3,000 MG in 0.9 % SODIUM CHLORIDE 100 ML IV SCH ×2 (16:15→22:03)
[2021-08-03] MEDS: DOXYCYCLINE HYCLATE 100 MG in DEXTROSE 5% 100 ML IV SCH (16:51)
[2021-08-03] MEDS: INSULIN ASPART PER UNIT SC SCH ×2 (18:16→21:45)
[2021-08-03] MEDS: CHLORZOXAZONE 500 MG TAB PO SCH (18:16)
[2021-08-03] MEDS: FAMOTIDINE 20 MG TAB PO SCH (21:47)
[2021-08-03] MEDS: buPROPion SR 150 MG TABCR PO SCH (21:48)
[2021-08-03] MEDS: busPIRone 5 MG TAB PO SCH (21:48)
[2021-08-03] MEDS ORDERED: IBUPROFEN 200 MG TAB PO STA (21:54)
[2021-08-03] MEDS: guaiFENesin 600 MG TABCR PO SCH (22:04)
[2021-08-03] MEDS: ATORVASTATIN 40 MG TAB PO SCH (22:04)
[2021-08-04] MEDS: traZODone HCL 100 MG TAB PO SCH (00:19)
[2021-08-04] MEDS: AMPICILLIN/SULBACTAM SOD 3,000 MG in 0.9 % SODIUM CHLORIDE 100 ML IV SCH ×4 (03:42→22:02)
[2021-08-04] MEDS: DOXYCYCLINE HYCLATE 100 MG in DEXTROSE 5% 100 ML IV SCH ×2 (04:15→14:45)
[2021-08-04] MEDS: PANTOprazole 40 MG TAB PO SCH (06:29)
[2021-08-04 06:33] LABS: Hematocrit (blood only) 31.9 % (37-47); Hemoglobin 10.1 g/dL (12.0-16.0); Mean Corpuscular Hgb Conc 31.7 g/dL (32-36); Mean Corpuscular Volume 85.3 fL (80-100); Mean Platelet Volume 10.5 fL (7.4-10.4); Platelet Count 274 K/uL (130-400); RDW Coefficient of Variation 15.9 % (11.5-14.5); RDW Standard Deviation 49.8 fL (36.4-46.3); Red Blood Count 3.74 M/uL (4.2-5.4); White Blood Count 10.04 K/uL (4.8-10.8)
[2021-08-04 06:53] LABS: BUN Creatinine Ratio 16.5 (10-20); Calcium 8.3 mg/dl (8.5-10.1); Creatinine Clr Calc Pharmacy 56.5 ml/min; Est GFR (African American) 78.2 ml/min; Est GFR (Non-African American) 67.5 ml/min; Potassium 3.5 mmol/L (3.5-5.1)
[2021-08-04] MEDS: UMECLIDINIUM/VILANTEROL 62.5/25MCG 7 PUFFS/INHALER INH SCH (08:13)
[2021-08-04] MEDS: FLUTICASONE FUROATE 200MCG 14 PUFFS/INHALER INH SCH (08:13)
[2021-08-04] MEDS: CHLORZOXAZONE 500 MG TAB PO SCH ×4 (08:15→17:54)
[2021-08-04] MEDS: guaiFENesin 600 MG TABCR PO SCH ×2 (08:15→20:11)
[2021-08-04] MEDS: METOPROLOL SUCC 25MG EXT REL TAB PO SCH (08:15)
[2021-08-04] MEDS: VENLAFAXINE HCL XR 150 MG CAPXR PO SCH (08:15)
[2021-08-04] MEDS: buPROPion SR 150 MG TABCR PO SCH ×2 (08:15→20:11)
[2021-08-04] MEDS: ROFLUMILAST 500 MCG TAB PO SCH (08:15)
[2021-08-04] MEDS: ASPIRIN 81 MG ECTAB PO SCH (08:15)
[2021-08-04] MEDS: busPIRone 5 MG TAB PO SCH ×2 (08:15→20:11)
[2021-08-04] MEDS ORDERED: PANTOprazole 40 MG TAB PO SCH (09:00)
[2021-08-04] MEDS: INSULIN ASPART PER UNIT SC SCH ×4 (09:06→20:40)
[2021-08-04] MEDS: ENOXAPARIN INJ 40 MG/0.4 ML SYR SQ SCH (16:42)
[2021-08-04] MEDS: ATORVASTATIN 40 MG TAB PO SCH (20:11)
[2021-08-04] MEDS: FAMOTIDINE 20 MG TAB PO SCH (20:11)
--- NOTE | 2021-08-04 20:15 | Hospitalist Progress Note ---
Date of Service August 04, 2021 Assessment & Plan (1) Acute on chronic respiratory failure with hypoxia: (2) COPD (chronic obstructive pulmonary disease): (3) Pneumonia: Plan: Present on admission for worsening cough associated with SOB CTA chest showed no evidence of pulmonary embolism. Diffuse airspace opacities compatible with pneumonia and/or aspiration. Lymphadenopathy is likely reactive. Received IV Zosyn in the ED Continue IV Unasyn and Doxycycline Continue Pulmonary toilet with Mucinex, nebs, flutter valve, incentive spirometer Continue home inhalers and Daliresp. Continue oxygen supplement Continue monitor closely (4) Prolonged QT interval: Plan: QTC 596 Venlafaxine recently increased from 75 mg to 150 mg on 07/13 --may be contributing to prolonged QT Daily EKG Avoid additional QTC prolonging agents May need to discuss with psychiatry regarding medication adjustments (5) DM type 2 (diabetes mellitus, type 2): Plan: Hgb A1c 6.5 05/2021 Currently not on any diabetic agents NovoLog per protocol while hospitalized (6) Hypertension: Plan: BP controlled, continue metoprolol (7) Depression: (8) Anxiety: Plan: Continue home meds for now (venlafaxine, bupropion, trazodone, buspirone) however adjustments may need to made due to prolonged QT (9) GERD (gastroesophageal reflux disease): (10) Hiatal hernia: Plan: Scheduled for paraesophageal hernia repair 08/2021 at [facility] Continue PPI and H2 temitope (11) DVT prophylaxis: Plan: SQ Lovenox Admission and Anticipated Discharge Date Admission Date: August 03, 2021 Subjective Pt was seen and examined for follow of cough and SOB Lying in bed with no acute distress Pt said that cough is getting a little loose Denies any chest pain, palpitation and fever Review of Systems Review of Systems: All systems reviewed & are unremarkable except as noted in Subjective Physical Exam Physical Exam: General- No acute distress Head- atraumatic Eyes- PERRL, EOMI, ENT- oropharynx clear Neck- supple, no JVD Lungs- +diminished BS Heart- regular rhythm; no murmur Abdomen- normal bowel sounds, soft, nontender Extremities- no calf tenderness Neuro- alert, oriented x 3; PERRL, EOMI; no facial palsy; no dysarthria Skin- warm & dry Results & Data Results & [facility] ([facility]) Vital Signs (Past 12 Hours) Vital Signs Temp Pulse Resp BP Pulse Ox 08/04/21 18:26 36.5 C 70 16 123/52 L 95 (1) Pneumonia Aspiration pneumonia type: unspecified Pneumonia type: aspiration pneumonia
--- NOTE | 2021-08-04 23:28 | Electrocardiogram Report ---
Test Reason : Blood Pressure : / mmHG Vent. Rate : 073 BPM Atrial Rate : 073 BPM P-R Int : 142 ms QRS Dur : 084 ms QT Int : 570 ms P-R-T Axes : 016 -17 023 degrees QTc Int : 627 ms Normal sinus rhythm Moderate voltage criteria for LVH, may be normal variant Nonspecific T wave abnormality Abnormal ECG When compared with ECG of 03-AUG-2021 08:58, Vent. rate has decreased BY 46 BPM Nonspecific T wave abnormality, worse in Anterolateral leads Confirmed by Tito Salazar ([id number]) on 08/04/2021 11:28:28 PM Referred By: REFERRED SELF Confirmed By:Tito Salazar
[2021-08-05] MEDS: traZODone HCL 100 MG TAB PO SCH ×2 (01:03→23:34)
[2021-08-05] MEDS: AMPICILLIN/SULBACTAM SOD 3,000 MG in 0.9 % SODIUM CHLORIDE 100 ML IV SCH ×4 (03:43→22:10)
[2021-08-05] MEDS: DOXYCYCLINE HYCLATE 100 MG in DEXTROSE 5% 100 ML IV SCH ×2 (04:20→14:46)
[2021-08-05] MEDS: PANTOprazole 40 MG TAB PO SCH (05:45)
[2021-08-05] MEDS: VENLAFAXINE HCL XR 150 MG CAPXR PO SCH (09:28)
[2021-08-05] MEDS: guaiFENesin 600 MG TABCR PO SCH ×2 (09:29→21:03)
[2021-08-05] MEDS: METOPROLOL SUCC 25MG EXT REL TAB PO SCH (09:29)
[2021-08-05] MEDS: buPROPion SR 150 MG TABCR PO SCH ×2 (09:29→21:02)
[2021-08-05] MEDS: ROFLUMILAST 500 MCG TAB PO SCH (09:29)
[2021-08-05] MEDS: busPIRone 5 MG TAB PO SCH ×2 (09:29→21:03)
[2021-08-05] MEDS: ASPIRIN 81 MG ECTAB PO SCH (09:32)
[2021-08-05] MEDS: FLUTICASONE FUROATE 200MCG 14 PUFFS/INHALER INH SCH (09:33)
[2021-08-05] MEDS: UMECLIDINIUM/VILANTEROL 62.5/25MCG 7 PUFFS/INHALER INH SCH (09:33)
[2021-08-05] MEDS: CHLORZOXAZONE 500 MG TAB PO SCH ×3 (09:36→18:26)
[2021-08-05] MEDS: INSULIN ASPART PER UNIT SC SCH ×4 (09:38→21:30)
--- NOTE | 2021-08-05 13:49 | Electrocardiogram Report ---
Test Reason : Blood Pressure : / mmHG Vent. Rate : 067 BPM Atrial Rate : 067 BPM P-R Int : 180 ms QRS Dur : 088 ms QT Int : 452 ms P-R-T Axes : 005 -15 021 degrees QTc Int : 477 ms Normal sinus rhythm Moderate voltage criteria for LVH, may be normal variant Borderline ECG When compared with ECG of 04-AUG-2021 09:27, Nonspecific T wave abnormality no longer evident in Lateral leads QT has shortened Confirmed by Ray Wing ([id number]) on 08/05/2021 1:48:52 PM Referred By: REFERRED SELF Confirmed By:Ray Wing
[2021-08-05] MEDS: ENOXAPARIN INJ 40 MG/0.4 ML SYR SQ SCH (17:06)
--- NOTE | 2021-08-05 18:05 | Hospitalist Progress Note ---
Date of Service August 05, 2021 Assessment & Plan (1) Acute on chronic respiratory failure with hypoxia: (2) COPD (chronic obstructive pulmonary disease): (3) Pneumonia: Plan: Present on admission for worsening cough associated with SOB CTA chest showed no evidence of pulmonary embolism. Diffuse airspace opacities compatible with pneumonia and/or aspiration. Lymphadenopathy is likely reactive. Received IV Zosyn in the ED Continue IV Unasyn and Doxycycline Continue Pulmonary toilet with Mucinex, nebs, flutter valve, incentive spirometer Continue home inhalers and Daliresp. Continue oxygen supplement Continue monitor closely Clinically much improved and likely be discharged tomorrow on oral antibiotic We will get 2 steps O2 saturation test before discharge (4) Prolonged QT interval: Plan: QTC 596 Venlafaxine recently increased from 75 mg to 150 mg on 07/13 --may be contributing to prolonged QT Daily EKG Avoid additional QTC prolonging agents May need to discuss with psychiatry regarding medication adjustments QTC has improved to 452/477 (5) DM type 2 (diabetes mellitus, type 2): Plan: Hgb A1c 6.5 05/2021 Currently not on any diabetic agents NovoLog per protocol while hospitalized Has type 2 diabetes seems to be reasonably controlled but the patient is unaware Was advised to follow diabetic diet and do regular exercise for further improvement of her diabetes status (6) Hypertension: Plan: BP controlled, continue metoprolol (7) Depression: (8) Anxiety: Plan: Continue home meds for now (venlafaxine, bupropion, trazodone, buspirone) howeve r adjustments may need to made due to prolonged QT (9) GERD (gastroesophageal reflux disease): (10) Hiatal hernia: Plan: Scheduled for paraesophageal hernia repair 08/2021 at [facility] Continue PPI and H2 temitope (11) DVT prophylaxis: Plan: SQ Lovenox Admission and Anticipated Discharge Date Admission Date: August 03, 2021 Subjective 08/05/2021 The patient was seen and examined in medical floor She has been feeling much better and denies any significant cough and no shortness of breath She is almost ready to go home Review of Systems Review of Systems: All systems reviewed and are unremarkable except as noted below Respiratory: No shortness of breath at rest Physical Exam Physical Exam: Lying in bed comfortably Constitutional: well developed, well nourished and + obese; not ill appearing Eyes: PERRL, conjunctivae normal, anicteric sclerae ENMT: external ear and nose normal, oropharynx normal Neck: trachea midline, no thyromegaly Respiratory: no respiratory distress Auscultation: + diminished lung sounds and + crackles (At the bases) Cardiovascular: Rate/Rhythm: regular rate and regular rhythm; not tachycardic Heart Sounds: normal S1 and normal S2; no murmur Gastrointestinal (Abdomen): Inspection/Auscultation: normal bowel sounds; abdomen not distended Percussion/Palpation: abdomen soft; abdomen nontender Musculoskeletal: No acute arthritis in any joint Neurologic: Alert, awake and oriented x3 Lymphatic: no cervical or axillary lymphadenopathy Results & Data Results & Data ([facility]) Vital Signs (Past 12 Hours) Vital Signs Temp Pulse Resp BP Pulse Ox 08/05/21 15:10 36.9 C 70 16 143/74 H 96 08/05/21 07:26 36.6 C 59 L 14 131/74 96 Medications Administered Current Inpatient Medications Acetaminophen (Acetaminophen 325 Mg Tab) 650 mg PO Q4H PRN PRN Reason: pain/fever Stop: 09/02/21 15:09 Albuterol (Albut/Ipratrop 3mg/0.5mg Neb 3 Ml Vial) 3 ml NEB QIDR PRN; Protocol PRN Reason: shortness of breath Stop: 09/02/21 15:09 Aspirin (Aspirin 81 Mg Ectab) 81 mg PO DAILY [facility] Stop: 09/03/21 08:59 Last Admin: 08/05/21 09:32 Dose: 81 mg Documented by: Atorvastatin Calcium (Atorvastatin 40 Mg Tab) 80 mg PO PM [facility] Stop: 09/02/21 20:59 Last Admin: 08/04/21 20:11 Dose: 80 mg Documented by: Bupropion HCl (Bupropion Sr 150 Mg Tabcr) 150 mg PO BID [facility] Stop: 09/02/21 20:59 Last Admin: 08/05/21 09:29 Dose: 150 mg Documented by: Buspirone HCl (Buspirone 5 Mg Tab) 5 mg PO BID [facility] Stop: 09/02/21 20:59 Last Admin: 08/05/21 09:29 Dose: 5 mg Documented by: Chlorzoxazone (Chlorzoxazone 500 Mg Tab) 500 mg PO BID@0800,1200 [facility] Stop: 09/03/21 07:59 Last Admin: 08/05/21 14:43 Dose: 500 mg Documented by: Chlorzoxazone (Chlorzoxazone 500 Mg Tab) 250 mg PO DAILY@1800 [facility] Stop: 09/02/21 17:59 Last Admin: 08/04/21 17:54 Dose: 250 mg Documented by: Dextrose (Dextrose 50% 50 Ml Syringe) 25 - 50 ml IV UD PRN; Protocol PRN Reason: Hypoglycemia Protocol Stop: 09/02/21 15:09 Enoxaparin Sodium (Enoxaparin Inj 40 Mg/0.4 Ml Syr) 40 mg SQ Q24H [facility] Stop: 09/02/21 15:09 Last Admin: 08/05/21 17:06 Dose: 40 mg Documented by: Famotidine (Famotidine 20 Mg Tab) 20 mg PO HS [facility] Stop: 09/02/21 20:59 Last Admin: 08/04/21 20:11 Dose: 20 mg Documented by: Fluticasone Furoate (Fluticasone Furoate 200mcg 14 Puffs/Inhaler) 1 puffs INH QAM [facility] Stop: 09/03/21 08:59 Last Admin: 08/05/21 09:33 Dose: 1 puffs Documented by: Glucagon (Glucagon For Inj 1 Mg Vial) 1 mg SQ UD PRN; Protocol PRN Reason: Hypoglycemia Protocol Stop: 09/02/21 15:09 Glucose (Glucose 10 Tabs/Tube) 4 - 8 tabs PO UD PRN; Protocol PRN Reason: Hypoglycemia Protocol Stop: 09/02/21 15:09 Glucose (Glucose 40% Gel 15 Gm Tube) 15 - 30 gm PO UD PRN; Protocol PRN Reason: Hypoglycemia Protocol Stop: 09/02/21 15:09 Guaifenesin (Guaifenesin 600 Mg Tabcr) 600 mg PO Q12 [facility] Stop: 09/02/21 20:59 Last Admin: 08/05/21 09:29 Dose: 600 mg Documented by: Guaifenesin/Dextromethorphan (Guaifenesin/Dextrom Syrup 100mg/10mg 5ml Udc) 5 ml PO Q6H PRN PRN Reason: Cough Stop: 09/02/21 15:09 Ampicillin Sodium/Sulbactam Sodium 3,000 mg/ Sodium Chloride 108 mls @ 200 mls/hr IV Q6H [facility]; Protocol Stop: 08/10/21 16:29 Last Infusion: 08/05/21 17:59 Dose: Infused Documented by: Doxycycline Hyclate 100 mg/ (Dextrose) 110 mls @ 50 mls/hr IV Q12H [facility] Stop: 08/10/21 15:09 Last Infusion: 08/05/21 17:10 Dose: Infused Documented by: Insulin Aspart (Insulin Aspart Per Unit) 0 units SC ACHS [facility] Stop: 09/02/21 16:29 Last Admin: 08/05/21 13:06 Dose: Not Given Documented by: Metoprolol Succinate (Metoprolol Succ 25mg Ext Rel Tab) 12.5 mg PO QAM [facility] Stop: 09/03/21 08:59 Last Admin: 08/05/21 09:29 Dose: Not Given Documented by: Miscellaneous (Carbohydrates For Hypoglycemia ) 15 - 30 gm PO UD PRN PRN Reason: Hypoglycemia Protocol Stop: 09/02/21 15:09 Pantoprazole Sodium (Pantoprazole 40 Mg Tab) 40 mg PO DAILY@0630 [facility]; Protocol Stop: 09/03/21 06:29 Last Admin: 08/05/21 05:45 Dose: 40 mg Documented by: Roflumilast (Roflumilast 500 Mcg Tab) 500 mcg PO DAILY [facility] Stop: 09/03/21 08:59 Last Admin: 08/05/21 09:29 Dose: 500 mcg Documented by: Trazodone HCl (Trazodone Hcl 100 Mg Tab) 300 mg PO HS [facility] Stop: 09/02/21 20:59 Last Admin: 08/05/21 01:03 Dose: 300 mg Documented by: Umeclidinium/Vilanterol (Umeclidinium/Vilanterol 62.5/25mcg 7 Puffs/Inhaler) 1 puffs INH QAM [facility] Stop: 09/03/21 08:59 Last Admin: 08/05/21 09:33 Dose: 1 puffs Documented by: Venlafaxine HCl (Venlafaxine Hcl Xr 150 Mg Capxr) 150 mg PO DAILY [facility] Stop: 09/03/21 08:59 Last Admin: 08/05/21 09:28 Dose: 150 mg Documented by: (1) Pneumonia Aspiration pneumonia type: unspecified Pneumonia type: aspiration pneumonia
[2021-08-05] MEDS: ATORVASTATIN 40 MG TAB PO SCH (21:02)
[2021-08-05] MEDS: FAMOTIDINE 20 MG TAB PO SCH (21:03)
[2021-08-06] MEDS: DOXYCYCLINE HYCLATE 100 MG in DEXTROSE 5% 100 ML IV SCH (03:12)
[2021-08-06] MEDS: AMPICILLIN/SULBACTAM SOD 3,000 MG in 0.9 % SODIUM CHLORIDE 100 ML IV SCH ×2 (05:25→11:36)
[2021-08-06] MEDS: PANTOprazole 40 MG TAB PO SCH (05:46)
[2021-08-06 05:58] LABS: Basophils # (auto) 0.05 K/uL (0-0.2); Basophils % (auto) 0.8 %; Eosinophils # (auto) 0.17 K/uL (0-0.5); Eosinophils % (auto) 2.8 %; Hemoglobin 10.9 g/dL (12.0-16.0); Immature Granulocytes # (auto) 0.02 K/uL (0.00-0.02); Immature Granulocytes % (auto) 0.3 %; Lymphocytes # (auto) 1.77 K/uL (1.2-3.4); Lymphocytes % (auto) 29.2 %; Mean Corpuscular Hemoglobin 26.9 pg (25-34); Mean Corpuscular Hgb Conc 32.1 g/dL (32-36); Mean Platelet Volume 10.2 fL (7.4-10.4); Monocytes # (auto) 0.47 K/uL (0.11-0.59); Monocytes % (auto) 7.8 %; Neutrophils # (auto) 3.58 K/uL (1.4-6.5); Neutrophils % (auto) 59.1 %; Platelet Count 343 K/uL (130-400); RDW Coefficient of Variation 15.5 % (11.5-14.5); RDW Standard Deviation 47.7 fL (36.4-46.3); Red Blood Count 4.05 M/uL (4.2-5.4); White Blood Count 6.06 K/uL (4.8-10.8)
[2021-08-06 06:27] LABS: Calcium 8.9 mg/dl (8.5-10.1); Est GFR (Non-African American) 78.5 ml/min; Potassium 3.8 mmol/L (3.5-5.1)
[2021-08-06] MEDS: busPIRone 5 MG TAB PO SCH (08:46)
[2021-08-06] MEDS: ROFLUMILAST 500 MCG TAB PO SCH (08:46)
[2021-08-06] MEDS: UMECLIDINIUM/VILANTEROL 62.5/25MCG 7 PUFFS/INHALER INH SCH (08:46)
[2021-08-06] MEDS: buPROPion SR 150 MG TABCR PO SCH (08:46)
[2021-08-06] MEDS: FLUTICASONE FUROATE 200MCG 14 PUFFS/INHALER INH SCH (08:47)
[2021-08-06] MEDS: ASPIRIN 81 MG ECTAB PO SCH (08:47)
[2021-08-06] MEDS: METOPROLOL SUCC 25MG EXT REL TAB PO SCH (08:47)
[2021-08-06] MEDS: CHLORZOXAZONE 500 MG TAB PO SCH ×2 (08:47→11:37)
[2021-08-06] MEDS: VENLAFAXINE HCL XR 150 MG CAPXR PO SCH (08:47)
[2021-08-06] MEDS: guaiFENesin 600 MG TABCR PO SCH (08:48)
[2021-08-06] MEDS: INSULIN ASPART PER UNIT SC SCH ×2 (08:49→13:45)
--- NOTE | 2021-08-06 12:11 | Hospitalist Progress Note ---
Date of Service August 06, 2021 Assessment & Plan (1) Acute on chronic respiratory failure with hypoxia: (2) COPD (chronic obstructive pulmonary disease): (3) Pneumonia: Plan: Present on admission for worsening cough associated with SOB CTA chest showed no evidence of pulmonary embolism. Diffuse airspace opacities compatible with pneumonia and/or aspiration. Lymphadenopathy is likely reactive. Received IV Zosyn in the ED Continue IV Unasyn and Doxycycline Continue Pulmonary toilet with Mucinex, nebs, flutter valve, incentive spirometer Continue home inhalers and Daliresp. Continue oxygen supplement Continue monitor closely Clinically much improved and likely be discharged tomorrow on oral antibiotic We will get 2 steps O2 saturation test before discharge Has had 2 steps O2 saturation test and she will not require any oxygen Clinically much better today without any shortness of breath but he still has minimal cough Will be discharged home this afternoon (4) Prolonged QT interval: Plan: QTC 596 Venlafaxine recently increased from 75 mg to 150 mg on 07/13 --may be contributing to prolonged QT Daily EKG Avoid additional QTC prolonging agents May need to discuss with psychiatry regarding medication adjustments QTC has improved to 452/477 (5) DM type 2 (diabetes mellitus, type 2): Plan: Hgb A1c 6.5 05/2021 Currently not on any diabetic agents NovoLog per protocol while hospitalized Has type 2 diabetes seems to be reasonably controlled but the patient is unaware Was advised to follow diabetic diet and do regular exercise for further improvement of her diabetes status (6) Hypertension: Plan: BP controlled, continue metoprolol (7) Depression: (8) Anxiety: Plan: Continue home meds for now (venlafaxine, bupropion, trazodone, buspirone) flores jay adjustments may need to made due to prolonged QT (9) GERD (gastroesophageal reflux disease): (10) Hiatal hernia: Plan: Scheduled for paraesophageal hernia repair 08/2021 at [facility] Continue PPI and H2 temitope (11) DVT prophylaxis: Plan: SQ Lovenox Admission and Anticipated Discharge Date Admission Date: August 03, 2021 Subjective 08/05/2021 The patient was seen and examined in medical floor She has been feeling much better and denies any significant cough and no shortness of breath She is almost ready to go home 08/06/2021 The patient was seen and examined in medical floor She complains to have minimal cough but no other symptoms She passed the 2 steps O2 saturation test She will be discharged home this afternoon Review of Systems Review of Systems: All systems reviewed and are unremarkable except as noted below Respiratory: No shortness of breath at rest Physical Exam Physical Exam: Lying in bed comfortably Constitutional: well developed, well nourished and + obese; not ill appearing Eyes: PERRL, conjunctivae normal, anicteric sclerae ENMT: external ear and nose normal, oropharynx normal Neck: trachea midline, no thyromegaly Respiratory: no respiratory distress Auscultation: + diminished lung sounds and + crackles (At the bases) Cardiovascular: Rate/Rhythm: regular rate and regular rhythm; not tachycardic Heart Sounds: normal S1 and normal S2; no murmur Gastrointestinal (Abdomen): Inspection/Auscultation: normal bowel sounds; abdomen not distended Percussion/Palpation: abdomen soft; abdomen nontender Musculoskeletal: No acute arthritis in any joint Neurologic: Alert, awake and oriented x3. No focal sensory and motor deficit appreciated Lymphatic: no cervical or axillary lymphadenopathy Results & Data Results & Data ([facility]) Vital Signs (Past 12 Hours) Vital Signs Temp Pulse Pulse Pulse Pulse Resp Resp 08/06/21 09:18 99 H 94 H 70 18 08/06/21 07:14 36.6 C 69 16 08/06/21 06:40 08/06/21 06:14 08/06/21 06:12 08/06/21 06:10 08/06/21 05:46 08/06/21 05:44 08/06/21 05:42 Resp Resp BP Pulse Ox Pulse Ox Pulse Ox Pulse Ox 08/06/21 09:18 18 16 91 94 95 08/06/21 07:14 127/72 92 08/06/21 06:40 91 08/06/21 06:14 92 08/06/21 06:12 92 08/06/21 06:10 94 08/06/21 05:46 93 08/06/21 05:44 92 08/06/21 05:42 95 Laboratory Results Short CBC 08/06/21 Range/Units 05:38 WBC 6.06 (4.8-10.8) K/uL Hgb 10.9 L (12.0-16.0) g/dL Hct 34.0 L (37-47) % Plt Count 343 (130-400) K/uL BMP 08/06/21 05:38 Sodium 138 Potassium 3.8 Chloride 105 Carbon Dioxide 24 BUN 12 Creatinine 0.75 Glucose 109 H Calcium 8.9 Medications Administered Current Inpatient Medications Acetaminophen (Acetaminophen 325 Mg Tab) 650 mg PO Q4H PRN PRN Reason: pain/fever Stop: 09/02/21 15:09 Albuterol (Albut/Ipratrop 3mg/0.5mg Neb 3 Ml Vial) 3 ml NEB QIDR PRN; Protocol PRN Reason: shortness of breath Stop: 09/02/21 15:09 Aspirin (Aspirin 81 Mg Ectab) 81 mg PO DAILY [facility] Stop: 09/03/21 08:59 Last Admin: 08/06/21 08:47 Dose: 81 mg Documented by: Atorvastatin Calcium (Atorvastatin 40 Mg Tab) 80 mg PO PM [facility] Stop: 09/02/21 20:59 Last Admin: 08/05/21 21:02 Dose: 80 mg Documented by: Bupropion HCl (Bupropion Sr 150 Mg Tabcr) 150 mg PO BID [facility] Stop: 09/02/21 20:59 Last Admin: 08/06/21 08:46 Dose: 150 mg Documented by: Buspirone HCl (Buspirone 5 Mg Tab) 5 mg PO BID [facility] Stop: 09/02/21 20:59 Last Admin: 08/06/21 08:46 Dose: 5 mg Documented by: Chlorzoxazone (Chlorzoxazone 500 Mg Tab) 500 mg PO BID@0800,1200 [facility] Stop: 09/03/21 07:59 Last Admin: 08/06/21 11:37 Dose: 500 mg Documented by: Chlorzoxazone (Chlorzoxazone 500 Mg Tab) 250 mg PO DAILY@1800 [facility] Stop: 09/02/21 17:59 Last Admin: 08/05/21 18:26 Dose: 250 mg Documented by: Dextrose (Dextrose 50% 50 Ml Syringe) 25 - 50 ml IV UD PRN; Protocol PRN Reason: Hypoglycemia Protocol Stop: 09/02/21 15:09 Enoxaparin Sodium (Enoxaparin Inj 40 Mg/0.4 Ml Syr) 40 mg SQ Q24H [facility] Stop: 09/02/21 15:09 Last Admin: 08/05/21 17:06 Dose: 40 mg Documented by: Famotidine (Famotidine 20 Mg Tab) 20 mg PO HS [facility] Stop: 09/02/21 20:59 Last Admin: 08/05/21 21:03 Dose: 20 mg Documented by: Fluticasone Furoate (Fluticasone Furoate 200mcg 14 Puffs/Inhaler) 1 puffs INH QAM [facility] Stop: 09/03/21 08:59 Last Admin: 08/06/21 08:47 Dose: 1 puffs Documented by: Glucagon (Glucagon For Inj 1 Mg Vial) 1 mg SQ UD PRN; Protocol PRN Reason: Hypoglycemia Protocol Stop: 09/02/21 15:09 Glucose (Glucose 10 Tabs/Tube) 4 - 8 tabs PO UD PRN; Protocol PRN Reason: Hypoglycemia Protocol Stop: 09/02/21 15:09 Glucose (Glucose 40% Gel 15 Gm Tube) 15 - 30 gm PO UD PRN; Protocol PRN Reason: Hypoglycemia Protocol Stop: 09/02/21 15:09 Guaifenesin (Guaifenesin 600 Mg Tabcr) 600 mg PO Q12 [facility] Stop: 09/02/21 20:59 Last Admin: 08/06/21 08:48 Dose: 600 mg Documented by: Guaifenesin/Dextromethorphan (Guaifenesin/Dextrom Syrup 100mg/10mg 5ml Udc) 5 ml PO Q6H PRN PRN Reason: Cough Stop: 09/02/21 15:09 Ampicillin Sodium/Sulbactam Sodium 3,000 mg/ Sodium Chloride 108 mls @ 200 mls/hr IV Q6H [facility]; Protocol Stop: 08/10/21 16:29 Last Admin: 08/06/21 11:36 Dose: 200 mls/hr Documented by: Doxycycline Hyclate 100 mg/ (Dextrose) 110 mls @ 50 mls/hr IV Q12H [facility] Stop: 08/10/21 15:09 Last Infusion: 08/06/21 05:25 Dose: Infused Documented by: Insulin Aspart (Insulin Aspart Per Unit) 0 units SC ACHS [facility] Stop: 09/02/21 16:29 Last Admin: 08/06/21 08:49 Dose: Not Given Documented by: Metoprolol Succinate (Metoprolol Succ 25mg Ext Rel Tab) 12.5 mg PO QAM [facility] Stop: 09/03/21 08:59 Last Admin: 08/06/21 08:47 Dose: 12.5 mg Documented by: Miscellaneous (Carbohydrates For Hypoglycemia ) 15 - 30 gm PO UD PRN PRN Reason: Hypoglycemia Protocol Stop: 09/02/21 15:09 Pantoprazole Sodium (Pantoprazole 40 Mg Tab) 40 mg PO DAILY@0630 [facility]; Protocol Stop: 09/03/21 06:29 Last Admin: 08/06/21 05:46 Dose: 40 mg Documented by: Roflumilast (Roflumilast 500 Mcg Tab) 500 mcg PO DAILY [facility] Stop: 09/03/21 08:59 Last Admin: 08/06/21 08:46 Dose: 500 mcg Documented by: Trazodone HCl (Trazodone Hcl 100 Mg Tab) 300 mg PO HS [facility] Stop: 09/02/21 20:59 Last Admin: 08/05/21 23:34 Dose: 300 mg Documented by: Umeclidinium/Vilanterol (Umeclidinium/Vilanterol 62.5/25mcg 7 Puffs/Inhaler) 1 puffs INH QAM [facility] Stop: 09/03/21 08:59 Last Admin: 08/06/21 08:46 Dose: 1 puffs Documented by: Venlafaxine HCl (Venlafaxine Hcl Xr 150 Mg Capxr) 150 mg PO DAILY [facility] Stop: 09/03/21 08:59 Last Admin: 08/06/21 08:47 Dose: 150 mg Documented by: (1) Pneumonia Aspiration pneumonia type: unspecified Pneumonia type: aspiration pneumonia
--- NOTE | 2021-08-07 07:58 | Discharge Summary ---
Date of Service August 07, 2021 Admission HPI Per Admitting Provider Chief Complaint: Cough Primary Care Provider: Williams Mota MD 76-year-old female with PMH COPD, nocturnal hypoxia on 2 L of oxygen, HTN, GERD, hiatal hernia (scheduled for paraesophageal hernia repair 08/2021), history of alcohol abuse, depression, anxiety, dyslipidemia, and other problems listed below who presents the ED for evaluation of cough. Patient was treated as an outpatient for sinusitis on 07/13 with a 10-day course of doxycycline. Patient reports improvement in her sinusitis symptoms after completing the doxycycline. Last night, patient reports she developed a cough. Reports cough is productive for a yellow/white sputum. Patient denies chest pain and shortness of breath. No lightheadedness, dizziness, diaphoresis, syncopal events. Reports some nausea this morning however no abdominal pain, vomiting, diarrhea. Denies fevers and chills. No urinary symptoms. In the ED, patient was hypoxic on room air at 89%, currently requiring 3 L of oxygen via nasal cannula. Labs show WBC 13 K, otherwise unremarkable. CTA chest negative for pulmonary embolism however shows diffuse airspace opacities compatible with pneumonia and/or aspiration. Patient was given p.o. Tylenol, nebulizer treatment, IV Zofran, IV Zosyn. Admission Exam Per Admitting Provider Vitals signs as noted above General Appearance: Thin, frail, chronically ill-appearing, no apparent distress Head: normocephalic, Atraumatic Eyes: normal inspection, EOMI Neck: supple, Trachea midline Respiratory/Chest: Decreased breath sounds, Basal Crackles, No accessory muscle use Cardiovascular: S1, S2, No murmur, Tachycardia Abdomen/GI:Soft, Non tender, Bowel sounds present Extremities/Musculoskeletal:normal inspection, no edema Neurologic/Psych:AAOX3, grossly no focal neurological deficits Skin: normal color, warm Principal Diagnosis Acute on chronic respiratory failure with hypoxia, pneumonia, COPD Discharge Exam Constitutional well developed, well nourished and + obese; not ill appearing Eyes PERRL, conjunctivae normal, anicteric sclerae ENMT external ear and nose normal, oropharynx normal Neck trachea midline, no thyromegaly Respiratory no respiratory distress Auscultation: + diminished lung sounds and + crackles (At the bases) Cardiovascular Rate/Rhythm: regular rate and regular rhythm; not tachycardic Heart Sounds: normal S1 and normal S2; no murmur Gastrointestinal (Abdomen) Inspection/Auscultation: normal bowel sounds; abdomen not distended Percussion/Palpation: abdomen soft; abdomen nontender Lymphatic no cervical or axillary lymphadenopathy Discharge Data Allergies Allergy/AdvReac Type Severity Reaction Status Date / Time levofloxacin Allergy Intermediate abnormal Verified 08/03/21 09:54 heart issues nickel Allergy Mild Rash Verified 08/03/21 09:54 lactose Allergy Verified 08/03/21 16:41 Consultations 08/03/21 11:27 ED Decision to Admit Stat Ordered Studies 08/03/21 08:40 CT angio chest PE protocol Stat 08/03/21 08:42 CT head/brain wo con Stat Hospital Course (1) Acute on chronic respiratory failure with hypoxia: (2) COPD (chronic obstructive pulmonary disease): (3) Pneumonia: Present on admission for worsening cough associated with SOB CTA chest showed no evidence of pulmonary embolism. Diffuse airspace opacities compatible with pneumonia and/or aspiration. Lymphadenopathy is likely reactive. Received IV Zosyn in the ED Continue IV Unasyn and Doxycycline Continue Pulmonary toilet with Mucinex, nebs, flutter valve, incentive spirometer Continue home inhalers and Daliresp. Continue oxygen supplement Continue monitor closely Clinically much improved and likely be discharged tomorrow on oral antibiotic We will get 2 steps O2 saturation test before discharge Has had 2 steps O2 saturation test and she will not require any oxygen Clinically much better today without any shortness of breath but he still has minimal cough Will be discharged home this afternoon (4) Prolonged QT interval: QTC 596 Venlafaxine recently increased from 75 mg to 150 mg on 07/13 --may be contributing to prolonged QT Daily EKG Avoid additional QTC prolonging agents May need to discuss with psychiatry regarding medication adjustments QTC has improved to 452/477 (5) DM type 2 (diabetes mellitus, type 2): Hgb A1c 6.5 05/2021 Currently not on any diabetic agents NovoLog per protocol while hospitalized Has type 2 diabetes seems to be reasonably controlled but the patient is unaware Was advised to follow diabetic diet and do regular exercise for further improvement of her diabetes status (6) Hypertension: BP controlled, continue metoprolol (7) Depression: (8) Anxiety: Continue home meds for now (venlafaxine, bupropion, trazodone, buspirone) however adjustments may need to made due to prolonged QT (9) GERD (gastroesophageal reflux disease): (10) Hiatal hernia: Scheduled for paraesophageal hernia repair 08/2021 at [facility] Continue PPI and H2 temitope (11) DVT prophylaxis: SQ Lovenox Total Time Total Time Spent Total Time Spent (In Minutes): 35 minutes Discharge Plan Discharge Items Patient Disposition: Home - Self-Care Reason For Visit: PNEUMONIA, HYPOXIA Discharge Diagnosis: Acute on chronic respiratory failure with hypoxia, pneumonia, COPD Condition on Discharge: Good Activity: Resume your previous activity Non-emergency contact: Primary Care Provider Call non-emergency contact if: you have any medication questions and your symptoms worsen Follow-up/Referrals: Williams Mota MD [Primary Care Provider] - (Your doctor's office will give you a call on Sunday with an appointment within 7 days) Diet: Carb Consistent or DM2 Addtl Attending Provider Instructions: Please take precautions to avoid fall Please finish the course of antibiotic Keep appointments with your healthcare providers Pending Studies at Discharge: No Stand-Alone Forms: My [facility] [place] [employer], Smoking Cessation Medications and DC Order Prescriptions: New amoxicillin-pot clavulanate 875-125 mg tablet 1 tab PO BID Qty: 10 RF: 0 doxycycline hyclate 100 mg tablet 100 mg PO BID 5 Days Qty: 10 RF: 0 Lactinex 1 million cell tablet,chewable 1 tab PO BID Qty: 30 RF: 0 Continued bupropion HCl 150 mg tablet sustained-release 12 hr 150 mg PO BID RF: 0 atorvastatin 80 mg tablet 80 mg PO PM RF: 0 trazodone 300 mg Tablet 300 mg PO HS RF: 0 furosemide 20 mg tablet 20 mg PO DAILY PRN (Reason: Edema) RF: 0 potassium chloride 20 mEq tablet extended release 20 meq PO DAILY PRN (Reason: with lasix) RF: 0 buspirone 5 mg Tablet 5 mg PO BID RF: 0 chlorzoxazone 500 mg tablet 500 mg PO TID RF: 0 aspirin 81 mg Capsule 81 mg PO DAILY RF: 0 ondansetron HCl 4 mg tablet 4 mg PO BID PRN (Reason: Nausea) RF: 0 colestipol 1 gram tablet 1 g PO BID PRN (Reason: Diarrhea) RF: 0 Daliresp 500 mcg tablet 500 mcg PO DAILY RF: 0 venlafaxine 150 mg capsule,extended release 24hr 150 mg PO DAILY RF: 0 albuterol sulfate 90 mcg/actuation HFA aerosol inhaler 2 puff INHALATION Q4H PRN (Reason: Shortness Of Breath Or Wheezing) RF: 0 metoprolol succinate 25 mg tablet extended release 24 hr 12.5 mg PO QAM RF: 0 famotidine 20 mg tablet 20 mg PO HS RF: 0 Trelegy Ellipta 200-62.5-25 mcg blister with device 1 ea INHALATION QAM RF: 0 omeprazole 20 mg Tablet,Delayed Release (Dr/Ec) 20 mg PO QAM RF: 0 Discharge Orders: Discharge Order (Routine); Ordered 08/06/21 Ordered By: Jennie Cornelius/Other Patient Handouts: What Is Pneumonia?, Preventing Pneumonia, Treating Pneumonia Admission Data Admit Date/Time: 08/03/21 12:18 Attending Provider: Jennie Severino Admit Provider: Reyes Webster Primary Care Provider: Williams Mota Other Providers: Reyes Webster Other Interventions: Discharge Summary Assessment (RN) Last Done: 08/06/21 14:11
--- NOTE | 2021-08-08 06:24 | Electrocardiogram Report ---
Test Reason : Blood Pressure : / mmHG Vent. Rate : 075 BPM Atrial Rate : 075 BPM P-R Int : 164 ms QRS Dur : 086 ms QT Int : 422 ms P-R-T Axes : 004 -18 021 degrees QTc Int : 471 ms Normal sinus rhythm Minimal voltage criteria for LVH, may be normal variant Nonspecific T wave abnormality Prolonged QT Abnormal ECG When compared with ECG of 05-AUG-2021 07:50, No significant change was found Confirmed by Curt Gavin ([id number]) on 08/08/2021 6:24:25 AM Referred By: REFERRED SELF Confirmed By:Curt Gavin
== END 2021-08-06 15:15 | disposition home or self-care (01) | DRG 193 ==
LOC: ED 08:24 → 3N 12:18 → SUATTDRO 12:18 → 3N 14:58

== ENCOUNTER 2025-03-25 12:19 | Observation (INO) ==
[2025-03-25 13:04] LABS: Hematocrit (blood only) 42.5 % (37.0-47.0); Hemoglobin 14.0 g/dL (12.0-16.0); Immature Granulocytes # (auto) 0.02 K/uL (0.01-0.20); Immature Granulocytes % (auto) 0.3 %; Mean Corpuscular Hemoglobin 29.1 pg (25.0-34.0); Mean Corpuscular Volume 88.4 fL (80.0-100.0); Platelet Count 230 K/uL (130-400); RDW Standard Deviation 44.7 fL (36.4-46.3); Red Blood Count 4.81 M/uL (4.20-5.40); White Blood Count 6.89 K/ul (4.8-10.8)
[2025-03-25 13:24] LABS: Alanine Aminotransferase 17.0 U/L (7-52); Albumin Globulin Ratio 1.6 (0.9-2); Albumin Level 4.3 gm/dl (3.4-5.0); Alkaline Phosphatase 75.0 U/L (34-104); Anion Gap 7.0 (3-11); Bilirubin,Total 0.4 mg/dl (0.2-1.0); Blood Urea Nitrogen 19.0 mg/dl (6-23); Calcium 9.4 mg/dl (8.6-10.3); Carbon Dioxide 28.0 mmol/L (21-32); Chloride 104.0 mmol/L (98-107); Creatinine Clr Calc Pharmacy 51.2 ml/min; Globulin 2.7 gm/dl (2.5-4.0); Glucose 98.0 mg/dl (70-99(Fasting)); Potassium 3.8 mmol/L (3.5-5.1); Sodium 139.0 mmol/L (136-145); Total Protein 7.0 gm/dl (6.0-8.3)
[2025-03-25 13:58] LABS: INR 1.0 (0.9-1.1); Partial Thromboplastin Time 23 Seconds (21-31); Prothrombin Time 10.2 Seconds (9.0-12.0)
--- NOTE | 2025-03-25 14:15 | XRay Report ---
XR chest 1V not portable CLINICAL HISTORY: Chest pain, nonspecific COMPARISON STUDY: Chest CT August 03, 2021. Chest radiograph August 25, 2024. FINDINGS: Lung volumes are normal. Lungs are clear. There is no pneumothorax or pleural effusion. Car diac size is stable. Mediastinal contours are normal. There is no evidence for pulmonary edema. IMPRESSION: No acute cardiopulmonary findings. ACT 112: Negative or not required by law. Electronically signed by: Oswald Francis M.D. 03/25/2025 2:14 PM
--- NOTE | 2025-03-25 15:28 | Emergency Department Note ---
History of Present Illness General Chief complaint: Chest Pain Stated complaint: PAIN ACROSS CHEST Time Seen by Provider: 03/25/25 15:13 History of Present Illness Maximum Pain Intensity: 3 This is a 80-year-old female that presents to the emergency department via private vehicle with complaints of "right ankle pain, chest pain". The patient states that 2 nights ago she had episodes of vomiting and diarrhea/dry heaving. The vomiting and diarrhea have resolved and then yesterday morning began with chest pain particular with a deep breath. This was across the chest area. Then last evening she noted right medial foot/ankle pain and redness that tracks into the right calf with ambulation/weightbearing. No fevers or chills. No nausea or vomiting. No trauma. No injury. No history of PE or DVT. No history of WI. Home Medications Medication Instructions Recorded Confirmed Type potassium chloride 20 mEq 20 meq PO UD PRN with lasix 08/27/19 03/25/25 History tablet,extended release albuterol sulfate 90 mcg/actuation 2 puff inhalation Q4H PRN 03/02/21 03/25/25 History aerosol inhaler Shortness Of Breath Or Wheezing metoprolol succinate 25 mg 25 mg PO QAM 03/02/21 03/25/25 History tablet,extended release 24 hr fluticasone fur. 200 mcg-umeclid 1 ea inhalation QAM 05/18/21 03/25/25 History 62.5 mcg-vilant 25 mcg inhalat.powder (Trelegy Ellipta) aspirin 81 mg capsule 81 mg PO DAILY 08/03/21 03/25/25 History ondansetron HCl 4 mg tablet 4 mg PO Q8H PRN Nausea 08/03/21 03/25/25 History roflumilast 500 mcg tablet 500 mcg PO QAM 08/03/21 03/25/25 History (Daliresp) ropinirole 1 mg tablet 1 mg PO HS 02/14/23 03/25/25 History albuterol sulfate 2.5 mg/3 mL 2.5 mg inhalation Q6H PRN Wheezing 06/02/24 03/25/25 History (0.083 %) solution for nebulization trazodone 150 mg tablet 300 mg PO HS 06/02/24 03/25/25 History amoxicillin 500 mg capsule 2,000 mg PO ONCE 06/03/24 03/25/25 History atorvastatin 80 mg tablet 80 mg PO DAILY 06/03/24 03/25/25 History hydroxyzine pamoate 50 mg capsule 50 mg PO HS 06/03/24 03/25/25 History loratadine 10 mg tablet 10 mg PO QAM 06/03/24 03/25/25 History furosemide 20 mg tablet 20 mg PO DAILY PRN swelling 10/15/24 03/25/25 History Allergies Allergy/AdvReac Type Severity Reaction Status Date / Time lactose Allergy Intermediate Gastrointestinal Verified 10/15/24 13:36 Upset nickel Allergy Intermediate Rash Verified 10/15/24 13:36 levofloxacin AdvReac Severe abnormal Verified 10/15/24 13:36 heart issues Past Med/Surg History Problem List (Updated 03/25/25 @ 22:01 by Vj Cuevas PA-C) Acute superficial venous thrombosis of right lower extremity (Acute) Hilar adenopathy Overflow diarrhea Phlebitis Chest pain (Acute) Left hip pain Lumbar spondylosis Arthritis of left hip Hip bursitis, left Glenohumeral arthritis Tendinopathy of rotator cuff Degenerative joint disease of left hip DJD of both shoulders Joint pain Hiatal hernia (Acute) Prolonged QT interval DM type 2 (diabetes mellitus, type 2) (Acute) Acute on chronic respiratory failure with hypoxia (Acute) COPD (chronic obstructive pulmonary disease) Hypertension Dyslipidemia GERD (gastroesophageal reflux disease) Depression DVT prophylaxis Pneumonia (Acute) Emphysema lung (Acute) inhaler daily/prn Nocturnal hypoxemia Anxiety Medical History Spinal stenosis Chronic back pain Osteoarthritis IBS (irritable bowel syndrome) GERD (gastroesophageal reflux disease) Stroke MRI OBTAINED 02/2018 [place] R/T VISUAL DISTURBANCES - 4 "MINI STROKES" - PROVIDER UNABLE TO DETERMINE IF ACUTE VS OLD PER PT REPORT - SAW DR.VICTORIA AGRAWAL, NEURO Hypertension Hyperlipidemia On home oxygen therapy 2 LPM AT NIGHT History of alcoholism Surgical History History of bronchoscopy (~12/2020) History of ERCP (~08/29/19) History of bilateral tubal ligation History of total hip arthroplasty RT History of esophagogastroduodenoscopy (EGD) History of colonoscopy History of cholecystectomy Hx of LASIK History of tooth extraction Family History Father Stroke Other No family history of adverse response to anesthesia Social History Smoking Status: Former smoker Tobacco Type: Cigarettes Second Hand Exposure: No; Do You Dip or Chew Tobacco: No; Hx Alcohol Use: Yes Alcohol type: hard liquor Alcohol Intake Frequency: Monthly or Less Hx Substance Use: No Preferred Language: Mongolian Communication Ability: Effective Visual Impairment: No Limitations Lan Manager Required: No Beliefs That Will Affect Care: None marital status: Current Living Situation: Spouse and Family Current Living Situation Comment: Lives with and daughter Feels Safe at Home: Yes Assistive Devices: None Review of Systems A total of 10 systems reviewed and were otherwise negative Physical Exam Vital Signs Vital Signs - 24 hr 03/25/25 12:23 03/25/25 14:56 03/25/25 14:56 Temperature 36.7 C Temperature Source Temporal Artery Scan Pulse Rate 63 61 Pulse Rate [Apical] 67 Pulse Rate from SpO2 Sensor Pulse Rhythm Regular Pulse Rhythm [Apical] Regular Pulse Strength [Apical] Normal Respiratory Rate 14 19 18 Respiratory Effort / Characteristics Non-Labored Spontaneous Non-Labored Spontaneous Respiratory Depth Normal Normal Respiratory Pattern Regular Blood Pressure 154/79 H Blood Pressure [Right Arm] 151/78 H Blood Pressure Mean 104 Blood Pressure Mean [Right Arm] 102 Blood Pressure Position [Right Arm] Lying Pulse Oximetry 97 94 94 Oxygen Delivery Method Room Air Room Air Room Air Sepsis Recent Fever Within 48 Hours No Sepsis New/Unexplained Change in Mental Status No Sepsis Action Taken by Nursing No Action Required 03/25/25 15:18 03/25/25 15:30 03/25/25 16:00 Temperature Temperature Source Pulse Rate 64 59 L 58 L Pulse Rate [Apical] Pulse Rate from SpO2 Sensor 59 L 58 L Pulse Rhythm Pulse Rhythm [Apical] Pulse Strength [Apical] Respiratory Rate 19 23 Respiratory Effort / Characteristics Respiratory Depth Respiratory Pattern Blood Pressure 149/77 H Blood Pressure [Right Arm] Blood Pressure Mean 101 Blood Pressure Mean [Right Arm] Blood Pressure Position [Right Arm] Pulse Oximetry 94 94 Oxygen Delivery Method Sepsis Recent Fever Within 48 Hours Sepsis New/Unexplained Change in Mental Status Sepsis Action Taken by Nursing 03/25/25 16:30 03/25/25 18:09 Temperature Temperature Source Pulse Rate 51 L 61 Pulse Rate [Apical] Pulse Rate from SpO2 Sensor 54 L Pulse Rhythm Pulse Rhythm [Apical] Pulse Strength [Apical] Respiratory Rate 22 12 Respiratory Effort / Characteristics Respiratory Depth Respiratory Pattern Blood Pressure 187/91 H Blood Pressure [Right Arm] Blood Pressure Mean 123 Blood Pressure Mean [Right Arm] Blood Pressure Position [Right Arm] Pulse Oximetry 95 Oxygen Delivery Method Sepsis Recent Fever Within 48 Hours Sepsis New/Unexplained Change in Mental Status Sepsis Action Taken by Nursing VITAL SIGNS - Vital signs and nursing notes were reviewed. Hypertensive, otherwise stable and afebrile. GENERAL - 80-year-old female appearing her stated age who is in no acute distress. Communicates well with provider and answers questions appropriately. SKIN - Without rashes. R medial ankle erythema and increased warmth. HEAD - NC/AT. EYES - Sclera anicteric. NOSE - Midline and without cyanosis. No epistaxis or purulent drainage noted. MOUTH/OROPHARYNX - Without perioral cyanosis. NECK - Neck with FROM. No nuchal rigidity. LUNGS - CTA CARDIAC - RRR ABDOMEN - Abdominal contour normal without pulsations or visible masses. BS normoactive all four quadrants. No tenderness, palpable masses, hepatosplenomegaly, or ascites noted. EXTREMITIES - No clubbing or peripheral cyanosis. +5/5 strength noted in UE/LE bilaterally. NEUROLOGIC - Cranial nerves II through XII grossly intact. PSYCH -alert, oriented and pleasant on exam Course Administered Medications Discontinued Medications Aspirin (Aspirin Chew 324 Mg) 324 mg PO NOW STA Stop: 03/25/25 17:43 Last Admin: 03/25/25 18:05 Dose: 324 mg Documented By: yanely Ioversol (Optiray 320 125ml) 83 ml IV ONCE ONE Stop: 03/25/25 16:26 Last Admin: 03/25/25 16:26 Dose: 83 ml Documented By: CHAITANYA Medical Decision Making Laboratory Data 03/25/25 12:42 03/25/25 12:42 Lab Results 03/25/25 Range/Units 12:42 WBC 6.89 (4.8-10.8) K/ul RBC 4.81 (4.20-5.40) M/uL Hgb 14.0 (12.0-16.0) g/dL Hct 42.5 (37.0-47.0) % MCV 88.4 (80.0-100.0) fL MCH 29.1 (25.0-34.0) pg MCHC 32.9 (32.0-36.0) g/dL RDW Std Deviation 44.7 (36.4-46.3) fL RDW Coeff of Sharon 13.6 (11.5-14.5) % Plt Count 230 (130-400) K/uL MPV 10.2 (9.4-12.4) fL Immature Gran % (Auto) 0.3 % Neut % (Auto) 61.6 % Lymph % (Auto) 26.3 % Chambers % (Auto) 9.0 % Eos % (Auto) 2.2 % Baso % (Auto) 0.6 % Neut # (Auto) 4.25 (1.40-6.50) K/uL Lymph # (Auto) 1.81 (1.20-3.40) K/uL Chambers # (Auto) 0.62 H (0.11-0.59) K/uL Eos # (Auto) 0.15 (0.00-0.50) K/uL Baso # (Auto) 0.04 (0.00-0.20) K/uL Immature Gran # (Auto) 0.02 (0.01-0.20) K/uL PT 10.2 (9.0-12.0) Seconds INR 1.0 (0.9-1.1) APTT 23 (21-31) Seconds PTT Ratio 0.8 Sodium 139 (136-145) mmol/L Potassium 3.8 (3.5-5.1) mmol/L Chloride 104 (98-107) mmol/L Carbon Dioxide 28 (21-32) mmol/L Anion Gap 7 (3-11) BUN 19 (6-23) mg/dl Creatinine 0.88 (0.6-1.2) mg/dl Est Cr Clr Drug Dosing 51.2 ml/min eGFR 67.22 BUN/Creatinine Ratio 21.6 H (10-20) Glucose 98 (70-99(Fasting)) mg/dl Uric Acid 5.1 (2.6-7.2) mg/dl Calcium 9.4 (8.6-10.3) mg/dl Total Bilirubin 0.4 (0.2-1.0) mg/dl AST 14 (13-39) U/L ALT 17 (7-52) U/L Alkaline Phosphatase 75 (34-104) U/L Troponin I High Sens 4.0 (0-14) pg/ml Total Protein 7.0 (6.0-8.3) gm/dl Albumin 4.3 (3.4-5.0) gm/dl Globulin 2.7 (2.5-4.0) gm/dl Albumin/Globulin Ratio 1.6 (0.9-2) Lyme Disease Screen Negative (Negative) Imaging Data Radiologist's Impression: Chest X-Ray 03/25/25 12:26 XR chest 1V not portable CLINICAL HISTORY: Chest pain, nonspecific COMPARISON STUDY: Chest CT August 03, 2021. Chest radiograph August 25, 2024. FINDINGS: Lung volumes are normal. Lungs are clear. There is no pneumothorax or pleural effusion. Cardiac size is stable. Mediastinal contours are normal. There is no evidence for pulmonary edema. IMPRESSION: No acute cardiopulmonary findings. ACT 112: Negative or not required by law. Electronically signed by: Oswald Francis M.D. 03/25/2025 2:14 PM Chest CTA 03/25/25 15:19 CT pulmonary angiogram with IV contrast History: Chest pain COMPARISON: August 03, 2021 TECHNIQUE: CT angiography of the chest was performed without IV contrast followed by IV contrast, including 3D post processing CTA image reconstruction. Dose reduction techniques were achieved by using automatic exposure control and/or adjustment of mA and/or kV according to patient size and/or use of iterative reconstruction technique. FINDINGS: Diagnostic quality: Adequate There is no evidence for pulmonary embolism. The heart is not enlarged. There is no pericardial effusion. Moderate mediastinal and hilar lymphadenopathy, for example at the right paratracheal region, series 2 image 73, measuring 20 mm short axis, and the right paratracheal region superiorly on image 81, measuring 12 mm short axis. Heterogeneous enlargement of the right thyroid gland, appears increased from 2021, measuring 4.0 cm in diameter, previously 3.5 cm. The central tracheobronchial tree is clear. The lungs are clear. There is no pleural effusion. Limited visualized upper abdomen. No destructive osseous changes are seen. IMPRESSION: No evidence for pulmonary embolism. Moderate intrathoracic lymphadenopathy, possibly reactive, and malignancy is not excluded. Increased heterogeneous enlargement of the right thyroid gland. Recommend thyroid ultrasound. Electronically signed by Luis Prieto 03-25-2025 5:29 PM Venous Doppler Study 03/25/25 15:19 Clinical History: Right ankle redness Technique: Venous ultrasound evaluation was performed utilizing grayscale, color Doppler and wave form evaluation. Images were also obtained with and without compression Findings: The right common femoral, superficial femoral, popliteal, and visualized calf veins demonstrate normal anechoic lumens with full compressibility. Normal flow is seen on color Doppler images. Expected waveforms were produced with augmentation maneuvers There is superficial venous thrombosis in the right calf Impression: 1. No evidence of right leg deep venous thrombosis 2. SVT in the right calf ACT 112: Positive. There are findings on this exam that require communication between the performing entity and the patient following Patient Test Result Information Act ([place] ACT 112) guidelines. Electronically signed by Porfirio Martel 03-25-2025 5:33 PM MDM Narrative Patient was seen and evaluated as above in room D06. Review was performed of triage nursing notes and vital signs. After obtaining a thorough history and physical examination the above work up was performed. Patient presents to us today for evaluation of chest pain and some right medial ankle pain and erythema. Options of care were discussed with the patient. IV access was established. Labs were drawn. EKG per my interpretation reveals normal sinus rhythm at a rate of 68 bpm. QTc 472. QRS 86. No ST elevation. Chest x-ray obtained and is as above. Essentially no acute process. Right lower extremity Doppler study shows SVT, no DVT. CT of the chest was performed to further assess and there was no PE. There was however note of lymphadenopathy. No leukocytosis or concerning anemia. Coags normal. No evidence of kidney or liver failure. Troponin normal. Lyme screen negative. The chest pain has been rather constant and troponin overall reassuring. However, patient does have risk factors for cardiac events and do believe it is reasonable to proceed with further evaluation and management in the inpatient setting. She was given aspirin here. Case discussed with the hospitalist service. Please refer to further documentation regarding her stay. GCS: 15 In the evaluation and treatment of this patient the following differential diagnoses were entertained: Esophagitis, pneumonia, pneumomediastinum, Boerhaave syndrome, ACS, PE, among others. Impression & Plan Chest pain, Acute superficial venous thrombosis of right lower extremity Discharge Plan Visit Data Chief Complaint: Chest Pain Stated Complaint: PAIN ACROSS CHEST ED Provider: Cameron Chris ED Midlevel Provider: Vj Cuevas Discharge Problem: Chest pain, Acute superficial venous thrombosis of right lower extremity Patient Disposition: Admitted As Inpatient Condition: Good Discharge Instructions Interventions: ED Discharge Assessment Last Done: 03/25/25 21:11
[2025-03-25 15:43] LABS: Uric Acid 5.1 mg/dl (2.6-7.2)
[2025-03-25] MEDS: OPTIRAY 320 125ml IV ONE (16:26)
--- NOTE | 2025-03-25 17:30 | CT Scan Report ---
CT pulmonary angiogram with IV contrast History: Chest pain COMPARISON: August 03, 2021 TECHNIQUE: CT angiography of the chest was performed without IV contrast followed by IV contrast, including 3D post processing CTA image reconstruction. Dose reduction techniques were achieved by using automatic exposure control and/or adjustment of mA and/or kV according to patient size and/or use of iterative reconstruction technique. FINDINGS: Diagnostic quality: Adequate There is no evidence for pulmonary embolism. The heart is not enlarged. There is no pericardial effusion. Moderate mediastinal and hilar lymphadenopathy, for example at the right paratracheal region, series 2 image 73, measuring 20 mm short axis, and the right paratracheal region superiorly on image 81, measuring 12 mm short axis. Heterogeneous enlargement of the right thyroid gland, appears increased from 2021, measuring 4.0 cm in diameter, previously 3.5 cm. The central tracheobronchial tree is clear. The lungs are clear. There is no pleural effusion. Limited visualized upper abdomen. No destructive osseous changes are seen. IMPRESSION: No evidence for pulmonary embolism. Moderate intrathoracic lymphadenopathy, possibly reactive, and malignancy is not excluded. Increased heterogeneous enlargement of the right thyroid gland. Recommend thyroid ultrasound. Electronically signed by Luis Prieto 03-25-2025 5:29 PM
--- NOTE | 2025-03-25 17:33 | Ultrasound Report ---
Clinical History: Right ankle redness Technique: Venous ultrasound evaluation was performed utilizing grayscale, color Doppler and wave form evaluation. Images were also obtained with and without compression Findings: The right common femoral, superficial femoral, popliteal, and visualized calf veins demonstrate normal anechoic lumens with full compressibility. Normal flow is seen on color Doppler images. Expected waveforms were produced with augmentation maneuvers There is superficial venous thrombosis in the right calf Impression: 1. No evidence of right leg deep venous thrombosis 2. SVT in the right calf ACT 112: Positive. There are findings on this exam that require communication between the performing entity and the patient following Patient Test Result Information Act ([place] ACT 112) guidelines. Electronically signed by Porfirio Martel 03-25-2025 5:33 PM
[2025-03-25] MEDS: ASPIRIN CHEW 324 MG PO STA (18:05)
--- NOTE | 2025-03-25 18:15 | Emergency Department Note ---
ED Visit Note I had a meaningful discussion with the PA regarding patient. Though I did not see the patient face to face, I personally approved and/or made the documented management plan and acknowledge risk and complications. .
--- NOTE | 2025-03-25 19:07 | History & Physical Report ---
Date of Service March 25, 2025 Assessment & Plan (1) Chest pain: (2) Phlebitis: (3) Overflow diarrhea: (4) Hypertension: (5) Hyperlipidemia: (6) COPD (chronic obstructive pulmonary disease): (7) Hilar adenopathy: Plan #Chest painthis almost certainly is esophageal and/or a degree of musculoskeletal from the vomiting. I discussed with her it is extremely reassuring that she has had chest pain for probably 36 hours unremitting and has a negative troponin. That said, she is extremely anxious about it being anything coronary, and given that she has significant risks for atherosclerotic disease, it is not unreasonable to proceed with stress testing. Will check a stress echo in the morning (discussed with patient largely for reassurance given her symptom complex) #superficial phlebitissymptomatic management #chronic diarrheadiscussed with patient that without inflammatory bowel disease, and with the most common etiology i see of chronic diarrhea being overflow diarrhea, I strongly suspect the problem is much more of a chronic constipation overflow diarrhea millieu. This is corroborated by the fact that I can see solid stool on the CT of her chest obtained by the ER today. Further, given that she has had diarrhea for decades per her recollection, I was able to find a full CT abdomen pelvis from about 6 years ago that, while not profoundly constipated, does show significant amounts of gas and solid stoolwhich would obviously be contrary to truly having a chronic diarrheal state. I discussed this with her, intellectually she expresses an understanding, but then whenever I discussed that management would really be to clear out the constipation and manage more as a chronic constipation picture, she does understandably expressed out. Given that we are keeping her anyway, we will give 85 g of MiraLAX (I would prefer to give a whole bowel prep, but then am not sure if she will be up for doing the stress test that seems to be the main reason for keeping her)and then once we have gotten ahead of the backup of stool, hopefully maintenance will be easier. I would definitely have her stop the antidiarrheals, as I suspect that is make things worse. #Hilar adenopathynonspecific, and given that she had a lot of upper GI distress with what sounds to be a viral illness, I suspect this probably reactive to a viral illness. That said, she is a chronic lung disease patient, and so we will definitely want to have outpatient follow-up to ensure the adenopathy resolves. Given that there are no notable lung masses, and no B symptoms or atypia on her CBC, it is a lot less ominous. #DVT proph - ambulation History of Present Illness Chief Complaint: Chest pain Primary Care Provider: ANALY Velarde patient is a very pleasant 80-year-old female coming in complaining of chest pain. She had what she believed to be a stomach bug 2 days agoshe cannot really vomit after a surgery, but she had a lot of retching for several hours, and an increase in diarrhea. That got better but the chest pain persists. It is across her chest bilaterally, worse with a deep breath, and has been absolutely unremitting for at least a day/day and a halfasking to clarify the pain has never been a 0 over the last day or day and a half. As a secondary complaint she also has some ankle pain and swellinghad a venous Doppler that showed superficial phlebitis and is a chronic complaint that really seems to be a major driving factor for quality of life for hershe noted decades of chronic diarrhea and rectal urgency. It sounds to be relatively small-volume whenever she first describes it, after describing what sounded to be full of small-volume, she expressed she feels like at times it is a lot. Its almost always watery. It comes with urgency and at times accidents. She is told that she has irritable bowel. She takes a lot of antidiarrheals. This really limits her life as she has frequent fecal accidents and is not really able to go out much. Her last colonoscopy was about 4 years ago and she believes it was normal. She also was told she is lactose intolerant. Allergies Allergy/AdvReac Type Severity Reaction Status Date / Time lactose Allergy Intermediate Gastrointestinal Verified 10/15/24 13:36 Upset nickel Allergy Intermediate Rash Verified 10/15/24 13:36 levofloxacin AdvReac Severe abnormal Verified 10/15/24 13:36 heart issues Home Medications Medication Instructions Recorded Confirmed Type potassium chloride 20 mEq 20 meq PO UD PRN with lasix 08/27/19 10/15/24 History tablet,extended release albuterol sulfate 90 mcg/actuation 2 puff inhalation Q4H PRN 03/02/21 10/15/24 History aerosol inhaler Shortness Of Breath Or Wheezing metoprolol succinate 25 mg 25 mg PO QAM 03/02/21 10/15/24 History tablet,extended release 24 hr fluticasone fur. 200 mcg-umeclid 1 ea inhalation QAM 05/18/21 10/15/24 History 62.5 mcg-vilant 25 mcg inhalat.powder (Trelegy Ellipta) aspirin 81 mg capsule 81 mg PO DAILY 08/03/21 10/15/24 History ondansetron HCl 4 mg tablet 4 mg PO Q8H PRN Nausea 08/03/21 10/15/24 History roflumilast 500 mcg tablet 500 mcg PO QAM 08/03/21 10/15/24 History (Daliresp) ropinirole 1 mg tablet 1 mg PO HS 02/14/23 10/15/24 History albuterol sulfate 2.5 mg/3 mL 2.5 mg inhalation Q6H PRN Wheezing 06/02/24 10/15/24 History (0.083 %) solution for nebulization trazodone 150 mg tablet 300 mg PO HS 06/02/24 10/15/24 History amoxicillin 500 mg capsule 2,000 mg PO ONCE 06/03/24 10/15/24 History atorvastatin 80 mg tablet 80 mg PO DAILY 06/03/24 10/15/24 History hydroxyzine pamoate 50 mg capsule 50 mg PO HS 06/03/24 10/15/24 History lamotrigine 100 mg tablet 150 mg PO QAM 06/03/24 10/15/24 History loratadine 10 mg tablet 10 mg PO QAM 06/03/24 10/15/24 History furosemide 20 mg tablet 20 mg PO DAILY PRN 10/15/24 10/15/24 History Past Med/Surg History Problem List Hilar adenopathy Overflow diarrhea Phlebitis Chest pain Left hip pain Lumbar spondylosis Arthritis of left hip Hip bursitis, left Glenohumeral arthritis Tendinopathy of rotator cuff Degenerative joint disease of left hip DJD of both shoulders Joint pain Hiatal hernia (Acute) Prolonged QT interval DM type 2 (diabetes mellitus, type 2) (Acute) Acute on chronic respiratory failure with hypoxia (Acute) COPD (chronic obstructive pulmonary disease) Hypertension Dyslipidemia GERD (gastroesophageal reflux disease) Depression DVT prophylaxis Pneumonia (Acute) Emphysema lung (Acute) inhaler daily/prn Nocturnal hypoxemia Anxiety Medical History Spinal stenosis Chronic back pain Osteoarthritis IBS (irritable bowel syndrome) GERD (gastroesophageal reflux disease) Stroke MRI OBTAINED 02/2018 [place] R/T VISUAL DISTURBANCES - 4 "MINI STROKES" - PROVIDER UNABLE TO DETERMINE IF ACUTE VS OLD PER PT REPORT - SAW DR.VICTORIA AGRAWAL, NEURO Hypertension Hyperlipidemia On home oxygen therapy 2 LPM AT NIGHT History of alcoholism Surgical History History of bronchoscopy (~12/2020) History of ERCP (~08/29/19) History of bilateral tubal ligation History of total hip arthroplasty RT History of esophagogastroduodenoscopy (EGD) History of colonoscopy History of cholecystectomy Hx of LASIK History of tooth extraction Family History Father Stroke Other No family history of adverse response to anesthesia Social History Smoking Status: Former smoker Tobacco Type: Cigarettes Second Hand Exposure: No; Do You Dip or Chew Tobacco: No; Hx Alcohol Use: Yes Alcohol type: hard liquor Alcohol Intake Frequency: Monthly or Less Hx Substance Use: No Preferred Language: Korean Communication Ability: Effective Visual Impairment: No Limitations 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 HEENT normocephalic a traumatic mucous membranes moist. Cardio is regular without rubs murmurs or gallops. Lungs are clear without rales rhonchi or wheezes. Abdomen is soft mild distention mild tenderness no guarding rebound or rigidity. Extremities show no sinus clubbing or edema except for a small area of erythematous edema corresponding with the phlebitis on venous Doppler. Neuro shows cranial nerves II through XII to be grossly intact gross motor and sensory are intact. Results & Data Results & Data Vital Signs (Past 12 Hours) Vital Signs Temp Pulse Pulse Resp BP BP Pulse Ox 03/25/25 18:09 61 12 187/91 H 03/25/25 16:30 51 L 22 95 03/25/25 16:00 58 L 23 149/77 H 94 03/25/25 15:30 59 L 19 94 03/25/25 15:18 64 03/25/25 14:56 61 18 94 03/25/25 14:56 67 19 151/78 H 94 03/25/25 12:23 98.1 F 63 14 154/79 H 97 O2 Del Method 03/25/25 18:09 03/25/25 16:30 03/25/25 16:00 03/25/25 15:30 03/25/25 15:18 03/25/25 14:56 Room Air 03/25/25 14:56 Room Air 03/25/25 12:23 Room Air PG Care Time/CCT Total # of Minutes Spent Total Time Spent with Patient: Total time spent is greater than 50% in coordination of care (as documented) at patient's floor/unit and/or counseling patient: Coding Level of Care Code 41195 INT INP/OBS CARE 3/75MIN Diagnoses Chest pain R07.9 Phlebitis I80.9 Overflow diarrhea R19.7 Hypertension I10 Hyperlipidemia E78.5 COPD (chronic obstructive pulmonary disease) J44.9 Hilar adenopathy R59.0
[2025-03-25] MEDS ORDERED: ALBUTEROL HFA 8 GM INHALER INH PRN (21:25)
[2025-03-25] MEDS ORDERED: ALUMINUM/MAGNESIUM SUSP 30 ML UDC PO PRN (21:25)
[2025-03-25] MEDS ORDERED: POTASSIUM CHLORIDE CRTAB 20 MEQ TABCR PO PRN (21:25)
[2025-03-25] MEDS ORDERED: MAGNESIUM HYDROXIDE SUSP 30 ML UDC PO PRN (21:25)
[2025-03-25] MEDS ORDERED: ALBUTEROL 0.083% NEBU SOLN 3 ML VIAL INH PRN (21:25)
[2025-03-25] MEDS ORDERED: ACETAMINOPHEN 325 MG TAB PO PRN (21:25)
[2025-03-25] MEDS ORDERED: ONDANSETRON 4 MG OD TAB PO PRN (21:35)
[2025-03-25] MEDS: POLYETHYLENE (MIRALAX) 17 GM PACK PO ONE (21:57)
[2025-03-25] MEDS: POLYETHYLENE (MIRALAX) 17 GM PACK PO SCH (22:37)
[2025-03-26] MEDS: ONDANSETRON INJ 2 MG/ML 2 ML VIAL IV PRN (00:54)
[2025-03-26 06:30] LABS: Hemoglobin A1C 6.2 % (4.5-5.6)
[2025-03-26 06:42] LABS: Cholesterol 253.0 mg/dl (0-200); HDL Cholesterol 61.0 mg/dl; Triglycerides 147.0 mg/dl (0-150)
[2025-03-26] MEDS: lamoTRIgine 25 MG TAB PO SCH (08:49)
[2025-03-26] MEDS: ASPIRIN 81 MG ECTAB PO SCH (08:49)
[2025-03-26] MEDS: ATORVASTATIN 40 MG TAB PO SCH (08:49)
[2025-03-26] MEDS: ROFLUMILAST 500 MCG TAB PO SCH (08:49)
[2025-03-26] MEDS: LORATADINE 10 MG TAB PO SCH (08:49)
[2025-03-26] MEDS: METOPROLOL SUCC 25MG EXT REL TAB PO SCH (08:49)
[2025-03-26] MEDS: FLUTICASONE FUROATE 200MCG 14 PUFFS/INHALER INH SCH (08:50)
[2025-03-26] MEDS: UMECLIDINIUM/VILANTEROL 62.5/25MCG 7 PUFFS/INHALER INH SCH (08:50)
[2025-03-26] MEDS ORDERED: NON-FORMULARY MEDICATION (Fluticasone-Umeclidin-Vilanter [Trelegy Ellipta] 200-62.5-25 mcg INH SCH (09:00)
--- NOTE | 2025-03-26 09:30 | Hospitalist Progress Note ---
Date of Service March 26, 2025 Assessment & Plan (1) Chest pain: (2) Phlebitis: (3) Overflow diarrhea: (4) Hypertension: (5) Hyperlipidemia: (6) COPD (chronic obstructive pulmonary disease): (7) Hilar adenopathy: Plan #Chest painatypical -troponins peaked at 200 -cardiology on board, appreciate recs -plan for diagnostic coronary angiography -continue aspirin 81mg qdaily and metoprolol 25mg qdaily #Hyperlipidemia -continue statin therapy #superficial phlebitis -symptomatic management #chronic diarrhea - suspect overflow - Miralax regimen as tolerated #Hilar adenopathy - OP f/u #DVT proph - ambulation Admission and Anticipated Discharge Date Admission Date: March 25, 2025 Subjective No overnight events. Pt seen and examined today at bedside. Denies any present chest pain or SOB. Denies worsening of sx. Denies fever, chills, abdominal pain, or complaints. Review of Systems Review of Systems: per HPI Physical Exam Physical Exam: GA: well groomed, well nourished in no apparent distress. AAOx3 HEENT: head normocephalic, atraumatic. EOMI RESP: vesicular breath sounds b/l. No wheezes, rhonchi, or rales CARDIOVASCULAR: S1 and S2 heard. No murmurs, rubs, or gallops. Radial pulses 2+ RRR GI: no tenderness or masses felt to palpation MSK: no gross abnormalities or focal deficits SKIN: warm, dry, no edema PSYCH: appropriate mood and affect NEURO: no focal deficits. speech fluent Results & Data Results & Data Vital Signs (Past 12 Hours) Vital Signs Temp Pulse Pulse Resp BP Pulse Ox O2 Del Method 03/26/25 08:10 36.8 C 88 18 138/82 99 Room Air 03/26/25 07:30 67 03/26/25 03:43 36.6 C 76 22 119/75 91 Room Air 03/25/25 23:25 49 L 03/25/25 21:35 69 Diagnostic Findings Summary: 1. Minimal nonobstructive coronary artery disease - <20% disease in mid circumflex and mid RCA 2. Normal intracardiac filling pressure
--- NOTE | 2025-03-26 10:18 | Cardiology Consultation ---
Date of Consultation March 26, 2025 Assessment & Plan (1) Chest pain: (2) Elevated troponin: (3) Hypertension: (4) Dyslipidemia: (5) Acute superficial venous thrombosis of right lower extremity: Plan 80-year-old female presents with chest pain with some atypical features. Initially resolving on presentation but recurring during hospitalization. EKG with new T wave inversion lateral leads I and aVL Troponin increased on serial testing Preliminary bedside echo review reveals posterolateral hypokinesis with otherwise preserved wall motion Impression: 1. Chest pain with elevated troponin/non-ST segment elevation myocardial infarction. EKG and echocardiographic findings concerning. Discussed options of management and will likely refer for diagnostic coronary angiography today N.p.o. Initiate anticoagulation Continue beta-temitope and aspirin 2. Superficial venous thrombosis. No evidence of pulmonary embolus on CAT scan 3. Hyperlipidemia: Will need to assess statin compliance given elevated LDL History of Present Illness Reason for Consultation: Chest pain, elevated troponin Attending Physician: Tucker Krishna, History of Present Illness Patient is a 80-year-old female with multiple cardiovascular risk factors including hypertension hyperlipidemia chronic obstructive lung disease O2 requiring, familial history of heart disease. Prior history of esophageal disease Patient referred for hospitalization after noting chest pain during 's visit at primary care physician Initial EKG and troponin without concern however has had recurrent symptoms in hospital as well as new T wave inversion in lateral leads, elevation in troponin overnight. Evaluation of ankle swelling demonstrated small superficial venous thrombosis. Currently asymptomatic but concerned regarding cardiovascular risks No fevers chills or unexplained infections no productive cough. Does have difficulty sleeping at night and does wear nocturnal oxygen supplementation No bleeding issues melena or hematochezia Upper endoscopy November 2024 without occult lesion Allergies Allergy/AdvReac Type Severity Reaction Status Date / Time lactose Allergy Intermediate Gastrointestinal Verified 10/15/24 13:36 Upset nickel Allergy Intermediate Rash Verified 10/15/24 13:36 levofloxacin AdvReac Severe abnormal Verified 10/15/24 13:36 heart issues Home Medications Medication Instructions Recorded Confirmed Type potassium chloride 20 mEq 20 meq PO UD PRN with lasix 08/27/19 03/25/25 History tablet,extended release albuterol sulfate 90 mcg/actuation 2 puff inhalation Q4H PRN 03/02/21 03/25/25 History aerosol inhaler Shortness Of Breath Or Wheezing metoprolol succinate 25 mg 25 mg PO QAM 03/02/21 03/25/25 History tablet,extended release 24 hr fluticasone fur. 200 mcg-umeclid 1 ea inhalation QAM 05/18/21 03/25/25 History 62.5 mcg-vilant 25 mcg inhalat.powder (Trelegy Ellipta) aspirin 81 mg capsule 81 mg PO DAILY 08/03/21 03/25/25 History ondansetron HCl 4 mg tablet 4 mg PO Q8H PRN Nausea 08/03/21 03/25/25 History roflumilast 500 mcg tablet 500 mcg PO QAM 08/03/21 03/25/25 History (Daliresp) ropinirole 1 mg tablet 1 mg PO HS 02/14/23 03/25/25 History albuterol sulfate 2.5 mg/3 mL 2.5 mg inhalation Q6H PRN Wheezing 06/02/24 03/25/25 History (0.083 %) solution for nebulization trazodone 150 mg tablet 300 mg PO HS 06/02/24 03/25/25 History amoxicillin 500 mg capsule 2,000 mg PO ONCE 06/03/24 03/25/25 History atorvastatin 80 mg tablet 80 mg PO DAILY 06/03/24 03/25/25 History hydroxyzine pamoate 50 mg capsule 50 mg PO HS 06/03/24 03/25/25 History loratadine 10 mg tablet 10 mg PO QAM 06/03/24 03/25/25 History furosemide 20 mg tablet 20 mg PO DAILY PRN swelling 10/15/24 03/25/25 History Patient History Medical History Spinal stenosis Chronic back pain Osteoarthritis IBS (irritable bowel syndrome) GERD (gastroesophageal reflux disease) Stroke MRI OBTAINED 02/2018 [place] R/T VISUAL DISTURBANCES - 4 "MINI STROKES" - PROVIDER UNABLE TO DETERMINE IF ACUTE VS OLD PER PT REPORT - SAW DR.VICTORIA AGRAWAL, NEURO Hypertension Hyperlipidemia On home oxygen therapy 2 LPM AT NIGHT History of alcoholism Surgical History History of bronchoscopy (~12/2020) History of ERCP (~08/29/19) History of bilateral tubal ligation History of total hip arthroplasty RT History of esophagogastroduodenoscopy (EGD) History of colonoscopy History of cholecystectomy Hx of LASIK History of tooth extraction Family History Father Stroke Other No family history of adverse response to anesthesia Social History Smoking Status: Former smoker Tobacco Type: Cigarettes Second Hand Exposure: No; Do You Dip or Chew Tobacco: No; Hx Alcohol Use: Yes Alcohol type: beer Alcohol Intake Frequency: Monthly or Less Hx Substance Use: No Preferred Language: Slovenian Communication Ability: Effective Visual Impairment: No 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 Beliefs That Will Affect Care: None marital status: Current Living Situation: Spouse Current Living Situation Comment: Lives with and daughter Feels Safe at Home: Yes Assistive Devices: Oxygen - at Night Physical Exam Constitutional: + thin; no acute distress Eyes: PERRL, conjunctivae normal, anicteric sclerae ENMT: external ear and nose normal, oropharynx normal Neck: trachea midline, no thyromegaly Respiratory: Auscultation: + diminished lung sounds and + crackles Cardiovascular: Rate/Rhythm: regular rate and regular rhythm Heart Sounds: normal S1 and normal S2; no murmur and no cardiac rub Vessels: no JVD Extremities: + edema (Superficial right ankle) Gastrointestinal (Abdomen): normal bowel sounds, soft, nontender, no hepatosplenomegaly Musculoskeletal: no cyanosis or clubbing, extremities motor strength 5/5 Results & Data Vital Signs (Past 12 Hours) Vital Signs Temp Pulse Pulse Resp BP Pulse Ox O2 Del Method 03/26/25 08:10 36.8 C 88 18 138/82 99 Room Air 03/26/25 07:30 67 03/26/25 03:43 36.6 C 76 22 119/75 91 Room Air 03/25/25 23:25 49 L Laboratory Results Laboratory Results - last 24 hr 03/25/25 03/26/25 12:42 05:58 WBC 6.89 RBC 4.81 Hgb 14.0 Hct 42.5 MCV 88.4 MCH 29.1 MCHC 32.9 RDW Std Deviation 44.7 RDW Coeff of [place] 13.6 Plt Count 230 MPV 10.2 Immature Gran % (Auto) 0.3 Neut % (Auto) 61.6 Lymph % (Auto) 26.3 [place] % (Auto) 9.0 Eos % (Auto) 2.2 Baso % (Auto) 0.6 Neut # (Auto) 4.25 Lymph # (Auto) 1.81 [place] # (Auto) 0.62 H Eos # (Auto) 0.15 Baso # (Auto) 0.04 Immature Gran # (Auto) 0.02 PT 10.2 INR 1.0 APTT 23 PTT Ratio 0.8 Sodium 139 Potassium 3.8 Chloride 104 Carbon Dioxide 28 Anion Gap 7 BUN 19 Creatinine 0.88 Est Cr Clr Drug Dosing 51.2 eGFR 67.22 BUN/Creatinine Ratio 21.6 H Glucose 98 Estimat Average Glucose 131 Hemoglobin A1c 6.2 H Uric Acid 5.1 Calcium 9.4 Total Bilirubin 0.4 AST 14 ALT 17 Alkaline Phosphatase 75 Troponin I High Sens 4.0 251.0 H* D Total Protein 7.0 Albumin 4.3 Globulin 2.7 Albumin/Globulin Ratio 1.6 Triglycerides 147 Cholesterol 253 H LDL Cholesterol, Calc 163 VLDL Cholesterol, Calc 29 HDL Cholesterol 61 Cholesterol/HDL Ratio 4.1 Lyme Disease Screen Negative PG Care Time/CCT Total # of Minutes Spent Total Time Spent with Patient: Total time spent is greater than 50% in coordination of care (as documented) at patient's floor/unit and/or counseling patient: Coding Level of Care Code 08290 IN/OBS CONSULT LVL 5,80M Diagnoses Chest pain R07.9 Elevated troponin R79.89 Hypertension I10 Dyslipidemia E78.5 Acute superficial venous thrombosis of right lower extremity I82.811
[2025-03-26] MEDS: Heparin IV Adult Wt-Based Low-Dose w/ INITIAL Bolus Protocol IV STA (11:24)
[2025-03-26] MEDS: HEPARIN SOD (PORCINE) 1000 UNIT/ML IV ONE (11:24)
[2025-03-26] MEDS: HEPARIN 25000 UNIT/500 ML D5W 25,000 UNITS/500 ML BAG IV SCH (11:24)
--- NOTE | 2025-03-26 11:30 | XCELERA ---
[id number] [id number]
--- NOTE | 2025-03-26 13:44 | Pre Anesthesia Assessment ---
Date of Service March 26, 2025 Pre Sedation Assessment Vital Signs Temp Pulse Pulse Resp BP BP BP 03/26/25 13:16 68 18 129/65 03/26/25 12:00 98.1 F 70 16 118/75 03/26/25 08:10 98.2 F 88 18 138/82 03/26/25 07:30 67 03/26/25 03:43 97.9 F 76 22 119/75 03/25/25 23:25 49 L 03/25/25 21:35 69 03/25/25 21:22 97.7 F 64 20 157/93 H 03/25/25 20:49 93 H 14 161/91 H 03/25/25 19:18 61 03/25/25 18:09 61 12 187/91 H 03/25/25 16:30 51 L 22 03/25/25 16:00 58 L 23 149/77 H 03/25/25 15:30 59 L 19 03/25/25 15:18 64 03/25/25 14:56 61 18 03/25/25 14:56 67 19 151/78 H Pulse Ox O2 Del Method O2 Flow Rate 03/26/25 13:16 91 Nasal Cannula 2 03/26/25 12:00 97 Room Air 03/26/25 08:10 99 Room Air 03/26/25 07:30 03/26/25 03:43 91 Room Air 03/25/25 23:25 03/25/25 21:35 03/25/25 21:22 95 Room Air 03/25/25 20:49 95 Room Air 03/25/25 19:18 03/25/25 18:09 03/25/25 16:30 95 03/25/25 16:00 94 03/25/25 15:30 94 03/25/25 15:18 03/25/25 14:56 94 Room Air 03/25/25 14:56 94 Room Air Cardiovascular + regular rate Respiratory + respiratory effort normal Pre-Sedation Airway Assessment Smoking Status: Former smoker Hx Sleep Apnea: No Hx Difficult Intubation: No Short, Thick Neck: No Thyromental Distance: > or= 3.5 Finger Breadths Oral Cavity: + WNL Mallampati Class: III ASA: ASA3 NPO Status Date of Last Intake of Fluids: 03/26/25 Last Oral Intake of Fluids Comment: meds Date of Last Intake of Solid Food: 03/25/25 Procedure Planning Contraindications for Sedation: none Current Medications Reviewed: Yes Notes The planned sedation has been discussed with the patient. Informed Consent was obtained. I have identified the patient, determined the appropriateness of sedation and have assessed the patient immediately prior to the procedure. All medicine(s) and interventions are by my order.
[2025-03-26] MEDS: NITROGLYCERIN/D5W 100MCG/ML 20ML SYR ONE (14:03)
[2025-03-26] MEDS: IODIXANOL (VISIPAQUE) 320 MG/ML 100ML IV ONE (14:03)
[2025-03-26] MEDS: niCARdipine 2,000 MCG/20 ML SYR ONE (14:03)
[2025-03-26] MEDS: MIDAZOLAM HCL 1 MG/ML 2ML VIAL ONE (14:16)
[2025-03-26] MEDS: HEPARIN (PORCINE) 1000 UNIT/ML 10 ML (CATH LAB USE ONLY) ONE (14:16)
[2025-03-26] MEDS: OPTIRAY 350 ONE (14:17)
--- NOTE | 2025-03-26 14:21 | Post Anesthesia Assessment ---
Date of Service March 26, 2025 Post Sedation Assessment Vital Signs Temp Pulse Pulse Resp BP BP BP 03/26/25 13:16 68 18 129/65 03/26/25 12:00 98.1 F 70 16 118/75 03/26/25 08:10 98.2 F 88 18 138/82 03/26/25 07:30 67 03/26/25 03:43 97.9 F 76 22 119/75 03/25/25 23:25 49 L 03/25/25 21:35 69 03/25/25 21:22 97.7 F 64 20 157/93 H 03/25/25 20:49 93 H 14 161/91 H 03/25/25 19:18 61 03/25/25 18:09 61 12 187/91 H 03/25/25 16:30 51 L 22 03/25/25 16:00 58 L 23 149/77 H 03/25/25 15:30 59 L 19 03/25/25 15:18 64 03/25/25 14:56 61 18 03/25/25 14:56 67 19 151/78 H Pulse Ox O2 Del Method O2 Flow Rate 03/26/25 13:16 91 Nasal Cannula 2 03/26/25 12:00 97 Room Air 03/26/25 08:10 99 Room Air 03/26/25 07:30 03/26/25 03:43 91 Room Air 03/25/25 23:25 03/25/25 21:35 03/25/25 21:22 95 Room Air 03/25/25 20:49 95 Room Air 03/25/25 19:18 03/25/25 18:09 03/25/25 16:30 95 03/25/25 16:00 94 03/25/25 15:30 94 03/25/25 15:18 03/25/25 14:56 94 Room Air 03/25/25 14:56 94 Room Air Recovery Score Activity: Moves 4 extremities Respiration: Deep Breath/Cough Circulation: +/-20% PreAnes Value Consciousness: Fully Awake Oxygen Saturation: O2 needed for >90% Discharge Sedation Level of Care: Fast Track Phase II
--- NOTE | 2025-03-26 14:26 | Cardiac Catheterization ---
[facility] Data: Is Analyst Cardiac Status Clinical evaluation leading to the procedure CAD Presenation: Non STEMI Diagnostic Physicians Name: Luis Domingo MD Closure Device Recommendations: Medical Therapy and/or Counseling Cardiac Cath Procedure Full Procedure Date March 26, 2025 Pre-Procedure Diagnosis Pre-Procedure Diagnosis: Non STEMI AUC Score AUC Score: 7 Post-Procedure Diagnosis Post-Procedure Diagnosis: Mild CAD and Normal Intracardiac Pressures Procedure(s) Performed Procedure(s) Performed: Coronary Angiography and Left Heart Cath Circular Knitter Helper Luis Domingo MD Clinical Therapist(s) Paulino Estimated Blood Loss Estimated Blood Loss: 10 Medication(s) Medication(s): Fentanyl, Heparin, Lidocaine 1%, Nicardipine, Nitroglycerin and Versed Summary of Findings Indication: NSTEMI Access: 6 Fr slender right radial artery Catheters: [place] Findings: LM -large caliber, no significant disease LAD -large caliber, proximal luminal irregularities. Distal vessel wraps around apex. Medium D2 without significant disease Circumflex -large caliber, mid segment luminal irregularities. Distal vessel and large OM 3 without significant disease. RCA -dominant, large caliber, mid segment luminal irregularities. RPDA without significant disease. LVEDP -11 Arterial Closure: TR band Summary: 1. Minimal nonobstructive coronary artery disease - <20% disease in proximal LAD, mid circumflex and mid RCA 2. Normal intracardiac filling pressure Recommendations: Continued ASCVD risk factor modification per Dr. Velasquez Hemodynamics Rest Ao:: 130/67/93 Final Ao: 138/62/90 LV: 139/11 Recommendations Recommendations: Medical Therapy and/or Counseling Radiation Exposure (mGy) 457 Contrast (mls) 30 Anesthesia Moderate [id number] Procedural Complication(s) None Disposition Is Analyst Holding/Recovery I attest to the content of the Intraoperative Record and any orders documented therein. Any exceptions are noted below. [facility] Card Cath Procedure Codes Cardiac Catheterization Procedure 1: Cardiovascular Cath Procedures: 28267 Coronaries and LHC (+/-LV) Moderate Sedation Procedure 1: Sedation/Anesthesia: 39382 Mod Sedation by the same physician;Init15 Min Child Age 5 & Up PG Care Time/CCT Total # of Minutes Spent Total Time Spent with Patient: Total time spent is greater than 50% in coordination of care (as documented) at patient's floor/unit and/or counseling patient:
[2025-03-26 16:08] VITALS: TEMP 97.9
[2025-03-26 16:43] VITALS: PULSE 86; RESP 16; O2SAT 92
--- NOTE | 2025-03-26 17:15 | Discharge Summary ---
Date of Service March 26, 2025 Admission HPI Per Admitting Provider patient is a very pleasant 80-year-old female coming in complaining of chest pain. She had what she believed to be a stomach bug 2 days agoshe cannot really vomit after a surgery, but she had a lot of retching for several hours, and an increase in diarrhea. That got better but the chest pain persists. It is across her chest bilaterally, worse with a deep breath, and has been absolutely unremitting for at least a day/day and a halfasking to clarify the pain has never been a 0 over the last day or day and a half. As a secondary complaint she also has some ankle pain and swellinghad a venous Doppler that showed superficial phlebitis and is a chronic complaint that really seems to be a major driving factor for quality of life for hershe noted decades of chronic diarrhea and rectal urgency. It sounds to be relatively small-volume whenever she first describes it, after describing what sounded to be full of small-volume, she expressed she feels like at times it is a lot. Its almost always watery. It comes with urgency and at times accidents. She is told that she has irritable bowel. She takes a lot of antidiarrheals. This really limits her life as she has frequent fecal accidents and is not really able to go out much. Her last colonoscopy was about 4 years ago and she believes it was normal. She also was told she is lactose intolerant. Principal Diagnosis Overflow Diarrhea, atypical angina Discharge Exam GA: well groomed, well nourished in no apparent distress. AAOx3 HEENT: head normocephalic, atraumatic. EOMI RESP: vesicular breath sounds b/l. No wheezes, rhonchi, or rales CARDIOVASCULAR: S1 and S2 heard. No murmurs, rubs, or gallops. Radial pulses 2+ RRR GI: no tenderness or masses felt to palpation MSK: no gross abnormalities or focal deficits SKIN: warm, dry, no edema PSYCH: appropriate mood and affect NEURO: no focal deficits. speech fluent Discharge Data Allergies Allergy/AdvReac Type Severity Reaction Status Date / Time lactose Allergy Intermediate Gastrointestinal Verified 10/15/24 13:36 Upset nickel Allergy Intermediate Rash Verified 10/15/24 13:36 levofloxacin AdvReac Severe abnormal Verified 10/15/24 13:36 heart issues Consultations 03/25/25 17:40 ED Decision to Admit Stat 03/26/25 09:09 Consult Cardiology Routine Procedures Performed Operation Date: 03/26/25 13:30 Actual Procedures p Cineradiography w/Routine Exam - Luis Domingo MD p Cath, Left with Cors and Vent - Luis Domingo MD Ordered Studies 03/25/25 15:19 CT angio chest PE protocol Stat US venous doppler LE RT Stat 03/26/25 10:12 CL Cath Imgs for PACS use only Routine Hospital Course (1) Chest pain: (2) Phlebitis: (3) Overflow diarrhea: (4) Hypertension: (5) Hyperlipidemia: (6) COPD (chronic obstructive pulmonary disease): (7) Hilar adenopathy: Plan #Chest painatypical -troponins peaked at 200 -s/p cath: reassuring, Minimal nonobstructive coronary artery disease- <20% disease in mid circumflex and mid RCA -continue aspirin 81mg qdaily and metoprolol 25mg qdaily -f/u with PCP in 1-2 weeks #Hyperlipidemia -continue statin therapy #superficial phlebitis -continue home management #chronic diarrhea - suspect overflow diarrhea as stool present on CT imaging - GoLytely bowel regimen as per instructions - MiraLax: start with 2 caps per day and increase as tolerated until bowels cleansed, then may adjust as needed. - f/u with PCP #Hilar adenopathy - OP f/u Total Time Total Time Spent Total Time Spent (In Minutes): <30 Discharge Plan Discharge Items Patient Disposition: Home - Self-Care Reason For Visit: CHEST PAIN Discharge Diagnosis: Chest Pain Condition on Discharge: Good Activity: Resume your previous activity Non-emergency contact: Primary Care Provider Call non-emergency contact if: you have any medication questions, your symptoms worsen, your pain is worsening, your pain is concerning for you and you have a fever Follow-up/Referrals: Rhea Golden CRNP [Primary Care Provider] - Diet: Heart Healthy Addtl Attending Provider Instructions: You were admitted to the hospital for chest pain. You were treated with the appropriate medications and cardiology performed a procedure to look at your heart. There were no significant blockages found, which is a very good sign. You were deemed safe/stable for discharge. Medications Your medication list has been reviewed and reconciled. An updated list is included with your discharge paperwork; please review this list closely and make note of any changes. No changes were made to your medications. Please see below for instructions regarding your overflow diarrhea. A prescription for a bowel preparation, similar to before a colonoscopy, will be sent to your pharmacy. Please take the prep as instructed. You may also take 2 caps of MiraLax per day and gradually increase as tolerated to help clean out your bowels. You may try to decrease the dose of MiraLax after your bowels are empty. If you are taking 5-6 caps of MiraLax per day without relief, please see your PCP. Your goal should be 1-3 bowel movements per day. Take your medications as instructed; do not skip a dose. Make sure all of your doctors know every medicine you are taking (including xdwk-pbi-rxzjloi medicines, vitamins, and supplements). Call your PCP before taking any new medicines because some of these may interact with your current medications, or may make your symptoms worse. Follow-up appointments: Make a follow-up appointment with your PCP within the next week. It is very important that you follow up with them shortly after discharge from the hospital. Keep all your follow-up appointments as already scheduled. If you cannot make an appointment, notify your provider. Please bring a copy of this discharge summary with you to your next office appointment so that your provider can review it at that time and stay updated on your hospitalization and potential changes in your care. Contact your PCP if your symptoms return or worsen. Call 911 or go to the ER if you experience any of the following: Sudden, severe abdominal pain or nausea/vomiting Severe chest pain, or chest pain that radiates (moves) to your jaw or arm Sudden, severe shortness of breath or difficulty breathing Thank you for allowing us to participate in your care. Pending Studies at Discharge: No Stand-Alone Forms: My mapp2link, Smoking Cessation Medications and DC Order Prescriptions: New peg 3350-electrolytes [GaviLyte-G] 236-22.74-6.74 -5.86 gram recon soln 240 ml PO Q10M Qty: 4000 0RF Continued potassium chloride 20 mEq tablet extended release 20 meq PO UD PRN (Reason: with lasix) Rx Instructions: TAKE WITH EACH DOSE OF LASIX aspirin 81 mg Capsule 81 mg PO DAILY ondansetron HCl 4 mg tablet 4 mg PO Q8H PRN (Reason: Nausea) roflumilast [Daliresp] 500 mcg tablet 500 mcg PO QAM ropinirole 1 mg tablet 1 mg PO HS albuterol sulfate 90 mcg/actuation HFA aerosol inhaler 2 puff INHALATION Q4H PRN (Reason: Shortness Of Breath Or Wheezing) metoprolol succinate 25 mg tablet extended release 24 hr 25 mg PO QAM Trelegy Ellipta 200-62.5-25 mcg blister with device 1 ea INHALATION QAM trazodone 150 mg tablet 300 mg PO HS albuterol sulfate 2.5 mg /3 mL (0.083 %) solution for nebulization 2.5 mg inhalation Q6H PRN (Reason: Wheezing) hydroxyzine pamoate 50 mg capsule 50 mg PO HS atorvastatin 80 mg Tablet 80 mg PO DAILY amoxicillin 500 mg capsule 2,000 mg PO ONCE Rx Instructions: TAKE 1 HOUR BEFORE APPOINTMENT loratadine 10 mg Tablet 10 mg PO QAM furosemide 20 mg tablet 20 mg PO DAILY PRN (Reason: swelling) Rx Instructions: MAY TAKE SECOND FOR ADDITIONAL PERIPHERAL SWELLING Discharge Orders: Discharge Order (Routine); Ordered 03/26/25 Ordered By: Luis Cornelius/Other Patient Handouts: A1C, Cardiac Catheterization Dc Admission Data Admit Date/Time: 03/25/25 19:05 Attending Provider: Tucker Krishna Admit Provider: Tucker Krishna Primary Care Provider: Rhea Golden Other Providers: Dominic Vázquez; David Velasquez Other Interventions: Discharge Summary Assessment (RN) Last Done: 03/26/25 17:53 Supervising Physician Co-Signing Physician Notes I personally examined the patient and verified all garcia points of history and exam, discussed case, and agree with decision making with Dr Rob feels okay. Feels up to going home. Did not have any bowel movements with MiraLAX. Vitals noted, in general she is awake and alert pleasant no distress. HEENT normocephalic atraumatic mucous membranes moist. Breathing unlabored no accessory muscle use good effort. Skin without rashes pallor or icterus. Neuro without focal deficits. Chest painwas normal certainly esophageal and musculoskeletal. Troponin elevation is unexplained, but her heart cath was amazingly clear. Safe/stable for home given the chest pain was noncardiac diarrheaseems to be constipation with overflow. Explained in depth. Patient expressed better understanding. Phlebitislocal care/moist heat. Resident Activity Tracking Resident Involvement: Resident Care Provided Care Provided: Adult Hospital Medicine
--- NOTE | 2025-03-26 17:25 | Communication Note ---
Date of Service: March 26, 2025 Patient seen post coronary angiography. Reviewed results of study. Minimal atherosclerosis with any obstructive disease large caliber vessels. Normal left end-diastolic pressure. Would recommend aspirin and lipid reduction continued seek other source of current complaint
[2025-03-26 17:54] VITALS: BP 118/75
--- NOTE | 2025-03-26 19:46 | Billing Data ---
Date of Service March 26, 2025 Coding Level of Care Code 80006 IN/OBS DISCH 30 MIN/LESS
--- NOTE | 2025-03-26 22:18 | Electrocardiogram Report ---
Test Reason : Blood Pressure : */* mmHG Vent. Rate : 68 BPM Atrial Rate : 68 BPM P-R Int : 180 ms QRS Dur : 86 ms QT Int : 444 ms P-R-T Axes : 18 -30 24 degrees QTcB Int : 472 ms Normal sinus rhythm Left axis deviation Minimal voltage criteria for LVH, may be normal variant ( R in aVL ) Poor R wave progression, consider anterior TN vs. lead placement vs. LVH Abnormal ECG When compared with ECG of 25-Aug-2024 09:51, No significant change Confirmed by Tito Salazar ([id number]) on 03/26/2025 10:17:46 PM Referred By: Confirmed By: Tito Salazar
--- NOTE | 2025-03-26 22:19 | Electrocardiogram Report ---
Test Reason : Blood Pressure : */* mmHG Vent. Rate : 68 BPM Atrial Rate : 68 BPM P-R Int : 166 ms QRS Dur : 86 ms QT Int : 446 ms P-R-T Axes : 59 -34 145 degrees QTcB Int : 474 ms Normal sinus rhythm Left axis deviation Minimal voltage criteria for LVH, may be normal variant ( R in aVL ) Anterolateral infarct (cited on or before 08-Dec-2020) T wave abnormality, consider lateral ischemia Abnormal ECG When compared with ECG of 25-Mar-2025 12:30, T wave inversion now evident in Lateral leads Confirmed by Tito Salazar ([id number]) on 03/26/2025 10:19:13 PM Referred By: REFERRED SELF Confirmed By: Tito Salazar
--- NOTE | 2025-03-26 22:20 | Electrocardiogram Report ---
Test Reason : Blood Pressure : */* mmHG Vent. Rate : 65 BPM Atrial Rate : 65 BPM P-R Int : 172 ms QRS Dur : 84 ms QT Int : 490 ms P-R-T Axes : 15 -32 153 degrees QTcB Int : 509 ms Normal sinus rhythm Left axis deviation Minimal voltage criteria for LVH, may be normal variant ( R in aVL ) Anterolateral infarct (cited on or before 08-Dec-2020) T wave abnormality, consider lateral ischemia Prolonged QT Abnormal ECG When compared with ECG of 26-Mar-2025 08:39, No significant change was found Confirmed by Tito Salazar ([id number]) on 03/26/2025 10:20:12 PM Referred By: REFERRED SELF Confirmed By: Tito Salazar
== END 2025-03-26 20:25 | disposition home or self-care (01) ==
LOC: 4W 12:19 → ED 12:19 → 4W 21:11